=== PATIENT | female | born 1950 | race Caucasian/White ===

== ENCOUNTER 2018-02-04 05:24 | Inpatient (IN) ==
--- NOTE | 2018-02-04 05:46 | Emergency Department Note ---
Disposition Clinical Impression: Hepatic lesion, Pulmonary nodule UTI (urinary tract infection) Qualifiers: Urinary tract infection type: site unspecified Hematuria presence: without hematuria Qualified Code(s): N39.0 - Urinary tract infection, site not specified Syncope Qualifiers: Syncope type: vasovagal syncope Qualified Code(s): R55 - Syncope and collapse Disposition: Admitted As Inpatient Condition: Undetermined Syncope HPI - General Chief Complaint: ED Fall Stated Complaint: Syncope Source: patient, EMS Mode of arrival: EMS Limitations: no limitations Nursing Notes Reviewed: Yes Vital Signs Reviewed: Yes - History of Present Illness HPI Narrative: This is a 67 year-old female with history of HTN, IDDM, CVA, COPD on 2L home O2 , and DVT/PE. She presented via EMS after an apparent syncopal event. She was found down, unresponsive by her , who told EMS she was down for an hour. Duration of LOC unknown. On EMS arrival, patient was confused, but mental status improved to baseline prior to arrival in the ED. Patient is unable to describe the events just before she passed out, except to say that she has been dizzy for "months". Patient complains of mild neck and low back pain. Pt Subjective Complaint: loss of consciousness Onset (ago): Just [employer] J[employer] Duration: other (unknn) Description of Event: post-event confusion Prodromal Symptoms: lightheaded Witnessed: no Injuries Sustained Associated with Event: neck, back Current Symptoms: lightheaded, vertigo (?) History: previous syncopal episode Treatments prior to arrival: other (C-collar) Associated trauma secondary to event: Yes - Related Data Home Medications Medication Instructions Recorded Confirmed Albuterol Sulfate [Proair Hfa] 2 puff IH Q4H PRN 02/04/18 02/04/18 Amitriptyline HCl 100 mg PO HS 02/04/18 02/04/18 Furosemide [Lasix] 60 mg PO BID 02/04/18 02/04/18 Insulin Glargine,Hum.rec.anlog 50 unit SQ BID 02/04/18 02/04/18 [Basaglar Kwikpen U-100] Metoprolol [Lopressor] 50 mg PO BID 02/04/18 02/04/18 OxyCODONE Immed Rel [Roxicodone 10 10 - 15 mg PO Q4-6H PRN 02/04/18 02/04/18 MG] Xyzal 5 mg PO DAILY 02/04/18 Allergies Allergy/AdvReac Type Severity Reaction Status Date / Time codeine Allergy Itching Verified 02/10/16 15:52 Penicillins [PCN] Allergy Hives Verified 02/10/16 15:52 IVP dye Allergy Itching Uncoded 02/10/16 15:52 All systems ED: reviewed and negative except as stated. Constitutional: Denies: fever Cardiovascular: Reports: syncope. Denies: chest pain Respiratory: Denies: dyspnea Gastrointestinal: Denies: abdominal pain, vomiting, hematemesis, melena, hematochezia Genitourinary: Reports: other (vaginal bleeding for "months") Musculoskeletal: Reports: back pain (mild low back pain, history of chronic back pain) Neurological: Reports: vertigo. 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 Absent: respiratory distress, wheezes - Cardiovascular Cardiovascular exam: Present: regular rate, normal rhythm, normal heart sounds - Abdominal Exam Abdominal exam: Present: soft, Non-Tender. Absent: distention, guarding, rebound, rigidity - Extremities Exam Extremities exam: Present: normal inspection. Absent: pedal edema, calf tenderness - Neurological Exam Neurological exam: Present: alert, oriented X3, CN II-XII intact. Absent: motor sensory deficit - Psychiatric Psychiatric exam: Present: normal affect, normal mood - Skin Skin exam: Present: warm, dry, intact Course Vital Signs Temperature 97.7 F 02/04/18 05:28 Pulse Rate 86 02/04/18 05:28 Respiratory Rate 12 02/04/18 05:28 Blood Pressure 112/78 02/04/18 05:28 O2 Sat by Pulse Oximetry 94 02/04/18 05:28 Temperature 97.9 F 02/05/18 18:35 Pulse Rate 72 02/05/18 18:35 Respiratory Rate 17 02/05/18 18:35 Blood Pressure 117/62 02/05/18 18:35 O2 Sat by Pulse Oximetry 96 02/05/18 18:35 Oxygen Delivery Oxygen Delivery Nasal Cannula Syncope - Lab Data Lab results reviewed: Yes I reviewed the patient's lab results. Result diagrams: 02/05/18 07:56 02/05/18 07:56 Lab Results 02/04/18 02/04/18 02/04/18 Range/Units 05:34 05:34 05:34 WBC 4.5 (4.3-11.1) K/mcL RBC 4.62 (3.82-4.97) M/mcL Hgb 14.3 (11.5-15.4) g/dL Hct 41.8 (35.3-44.9) % MCV 90.5 (83.0-100.0) fL MCH 31.0 (28.0-33.3) pg MCHC 34.2 (31.6-35.5) g/dL RDW 13.7 (11.5-14.5) % Plt Count 136 L (140-400) K/mcL MPV 10.7 (9.4-12.4) fL Immature Gran % 0.4 (0-4) % Seg Neutrophils % 72.8 % Lymphocytes % 18.6 % Monocytes % 7.6 % Eosinophils % 0.2 % Basophils % 0.4 % Neutrophils # 3.2 (1.6-8.9) K/mcL Lymphocytes # 0.8 (0.6-4.6) K/mcL Monocytes # 0.3 (0.0-1.3) K/mcL Eosinophils # 0.0 (0.0-0.6) K/mcL Basophils # 0.0 (0.0-0.2) K/mcL PT 12.7 H (9.4-12.1) Seconds INR 1.2 D-Dimer (0-500) ng/mLFEU Sodium 131 L (136-145) mEq/L Potassium 4.5 (3.5-5.1) mEq/L Chloride 94 L (98-107) mEq/L Carbon Dioxide 27 (23-29) mEq/L BUN 16 (8-23) mg/dL Creatinine 0.78 (0.60-1.20) mg/dL Est GFR ( Amer) > 60 (> 60) Est GFR (Non-Af Amer) > 60 (> 60) BUN/Creatinine Ratio 21 (6-26) Glucose 432 H (70-105) mg/dL POC Glucose (70-99) mg/dL Calculated Osmolality 292 (280-300) Calcium 9.3 (8.6-10.3) mg/dL Total Bilirubin 0.8 (0.3-1.0) mg/dL AST 20 (13-39) Units/L ALT 16 (7-52) Units/L Alkaline Phosphatase 116 H (34-104) Units/L Troponin I < 0.03 (< 0.04) ng/mL Serum Total Protein 7.5 (6.4-8.9) g/dL Albumin 3.7 (3.5-5.7) g/dL Globulin 3.8 H (2.4-3.5) g/dL Albumin/Globulin Ratio 1.0 L (1.1-2.2) Urine Color (Yellow) Urine Clarity (Clear) Urine pH (5.0-8.0) pH Units Ur Specific [place] (1.010-1.025) Urine Protein (Neg-Trace) mg/dL Urine Glucose (UA) (Normal) mg/dL Urine Ketones (Negative) mg/dL Urine Blood (Negative) Urine Nitrite (Negative) Urine Bilirubin (Negative) Urine Urobilinogen (Normal) mg/dL Ur Leukocyte Esterase (Negative) Urine Microscopic RBC (0-3) per hpf Urine Microscopic WBC (0-3) per hpf Ur Squamous Epith Cells (None-Few) per lpf Urine Bacteria (None-Few) per hpf Hyaline Casts (None-Few) per lpf Urine Yeast (None Seen) per hpf Ur Culture Indicated? (NO) 02/04/18 02/04/18 02/04/18 Range/Units 05:35 05:35 05:36 WBC (4.3-11.1) K/mcL RBC (3.82-4.97) M/mcL Hgb (11.5-15.4) g/dL Hct (35.3-44.9) % MCV (83.0-100.0) fL MCH (28.0-33.3) pg MCHC (31.6-35.5) g/dL RDW (11.5-14.5) % Plt Count (140-400) K/mcL MPV (9.4-12.4) fL Immature Gran % (0-4) % Seg Neutrophils % % Lymphocytes % % Monocytes % % Eosinophils % % Basophils % % Neutrophils # (1.6-8.9) K/mcL Lymphocytes # (0.6-4.6) K/mcL Monocytes # (0.0-1.3) K/mcL Eosinophils # (0.0-0.6) K/mcL Basophils # (0.0-0.2) K/mcL PT (9.4-12.1) Seconds INR D-Dimer 948 H (0-500) ng/mLFEU Sodium (136-145) mEq/L Potassium (3.5-5.1) mEq/L Chloride (98-107) mEq/L Carbon Dioxide (23-29) mEq/L BUN (8-23) mg/dL Creatinine (0.60-1.20) mg/dL Est GFR ( Amer) (> 60) Est GFR (Non-Af Amer) (> 60) BUN/Creatinine Ratio (6-26) Glucose (70-105) mg/dL POC Glucose 428 H* 422 H* (70-99) mg/dL Calculated Osmolality (280-300) Calcium (8.6-10.3) mg/dL Total Bilirubin (0.3-1.0) mg/dL AST (13-39) Units/L ALT (7-52) Units/L Alkaline Phosphatase (34-104) Units/L Troponin I (< 0.04) ng/mL Serum Total Protein (6.4-8.9) g/dL Albumin (3.5-5.7) g/dL Globulin (2.4-3.5) g/dL Albumin/Globulin Ratio (1.1-2.2) Urine Color (Yellow) Urine Clarity (Clear) Urine pH (5.0-8.0) pH Units Ur Specific [place] (1.010-1.025) Urine Protein (Neg-Trace) mg/dL Urine Glucose (UA) (Normal) mg/dL Urine Ketones (Negative) mg/dL Urine Blood (Negative) Urine Nitrite (Negative) Urine Bilirubin (Negative) Urine Urobilinogen (Normal) mg/dL Ur Leukocyte Esterase (Negative) Urine Microscopic RBC (0-3) per hpf Urine Microscopic WBC (0-3) per hpf Ur Squamous Epith Cells (None-Few) per lpf Urine Bacteria (None-Few) per hpf Hyaline Casts (None-Few) per lpf Urine Yeast (None Seen) per hpf Ur Culture Indicated? (NO) 02/04/18 02/04/18 02/04/18 Range/Units 05:40 09:33 09:34 WBC (4.3-11.1) K/mcL RBC (3.82-4.97) M/mcL Hgb (11.5-15.4) g/dL Hct (35.3-44.9) % MCV (83.0-100.0) fL MCH (28.0-33.3) pg MCHC (31.6-35.5) g/dL RDW (11.5-14.5) % Plt Count (140-400) K/mcL MPV (9.4-12.4) fL Immature Gran % (0-4) % Seg Neutrophils % % Lymphocytes % % Monocytes % % Eosinophils % % Basophils % % Neutrophils # (1.6-8.9) K/mcL Lymphocytes # (0.6-4.6) K/mcL Monocytes # (0.0-1.3) K/mcL Eosinophils # (0.0-0.6) K/mcL Basophils # (0.0-0.2) K/mcL PT (9.4-12.1) Seconds INR D-Dimer (0-500) ng/mLFEU Sodium (136-145) mEq/L Potassium (3.5-5.1) mEq/L Chloride (98-107) mEq/L Carbon Dioxide (23-29) mEq/L BUN (8-23) mg/dL Creatinine (0.60-1.20) mg/dL Est GFR ( Amer) (> 60) Est GFR (Non-Af Amer) (> 60) BUN/Creatinine Ratio (6-26) Glucose (70-105) mg/dL POC Glucose 413 H* 315 H (70-99) mg/dL Calculated Osmolality (280-300) Calcium (8.6-10.3) mg/dL Total Bilirubin (0.3-1.0) mg/dL AST (13-39) Units/L ALT (7-52) Units/L Alkaline Phosphatase (34-104) Units/L Troponin I (< 0.04) ng/mL Serum Total Protein (6.4-8.9) g/dL Albumin (3.5-5.7) g/dL Globulin (2.4-3.5) g/dL Albumin/Globulin Ratio (1.1-2.2) Urine Color Yellow (Yellow) Urine Clarity Turbid A (Clear) Urine pH 5.5 (5.0-8.0) pH Units Ur Specific [place] > 1.030 H (1.010-1.025) Urine Protein 30 H (Neg-Trace) mg/dL Urine Glucose (UA) >=1000 H (Normal) mg/dL Urine Ketones 15 H (Negative) mg/dL Urine Blood Large H (Negative) Urine Nitrite Negative (Negative) Urine Bilirubin Negative (Negative) Urine Urobilinogen Normal (Normal) mg/dL Ur Leukocyte Esterase Moderate H (Negative) Urine Microscopic RBC 0-3 (0-3) per hpf Urine Microscopic WBC TNTC H (0-3) per hpf Ur Squamous Epith Cells Many H (None-Few) per lpf Urine Bacteria Many H (None-Few) per hpf Hyaline Casts None Seen (None-Few) per lpf Urine Yeast Many H (None Seen) per hpf Ur Culture Indicated? NO. A (NO) - Radiology Data Radiology results reviewed: Yes I reviewed the patient's radiology results. CT/CT head/brain wo con IMPRESSION: No acute intracranial abnormality. CT/CT cervical spine wo con IMPRESSION: 1. No acute abnormality of the cervical spine. 2. Degenerative changes at C5-6 and C6-7. 3. Stable 5 mm nodule in the right lung apex which can be considered benign. No follow-up is necessary. CT/CT abd pelvis wo no iv no oral IMPRESSION: 1. No CT evidence for acute intraabdominal process. 2. Degenerative changes of the lumbar spine, but no CT evidence for acute osseous abnormality of the lumbar spine. 3. Cirrhotic changes of the liver with associated splenomegaly. New sub 5 mm hypodensity in the hepatic dome is nonspecific. Could consider MRI for further evaluation, as indicated. XR/XR chest 1V portable IMPRESSION: No significant findings in the chest. CT/CT lumbar spine wo con IMPRESSION: 1. No CT evidence for acute intraabdominal process. 2. Degenerative changes of the lumbar spine, but no CT evidence for acute osseous abnormality of the lumbar spine. 3. Cirrhotic changes of the liver with associated splenomegaly. New sub 5 mm hypodensity in the hepatic dome is nonspecific. Could consider MRI for further evaluation, as indicated. - EKG Data EKG attestation: Yes I reviewed and interpreted this EKG. EKG shows normal: sinus rhythm Rate: normal Rhythm: NSR Voltage: decreased voltage throughout Interpretation: unchanged when compared to prior tracing (date) (04/21/15)
[2018-02-04 06:07] LABS: Bilirubin,Urine Negative (Negative); Blood,Urine Large (Negative); Clarity,Urine Turbid (Clear); Color,Urine Yellow (Yellow); Glucose,Urine (UA) >=1000 mg/dL (Normal); Ketones,Urine 15 mg/dL (Negative); Leukocyte Esterase,Urine Moderate (Negative); Nitrite,Urine Negative (Negative); PH,Urine 5.5 pH Units (5.0-8.0); Protein,Urine 30 mg/dL (Neg-Trace); Specific Gravity,Urine > 1.030 (1.010-1.025); Urobilinogen,Urine Normal (Normal)
[2018-02-04 06:08] LABS: Basophils % 0.4 %; Eosinophils % 0.2 %; Hematocrit 41.8 % (35.3-44.9); Hemoglobin 14.3 g/dL (11.5-15.4); Immature Granulocytes % 0.4 % (0-4); Lymphocytes # 0.8 K/mcL (0.6-4.6); Lymphocytes % 18.6 %; Mean Corpuscular HGB Conc 34.2 g/dL (31.6-35.5); Mean Corpuscular Volume 90.5 fL (83.0-100.0); Mean Platelet Volume 10.7 fL (9.4-12.4); Monocytes # 0.3 K/mcL (0.0-1.3); Monocytes % 7.6 %; Neutrophils # 3.2 K/mcL (1.6-8.9); Platelet Count 136 K/mcL (140-400); Red Blood Count 4.62 M/mcL (3.82-4.97); Red Cell Distribution Width 13.7 % (11.5-14.5); Segmented Neutrophils % 72.8 %
[2018-02-04 06:10] LABS: Bacteria,Urine Many per hpf (None-Few); Hyaline Casts,Urine None Seen per lpf (None-Few); Squamous Epithelial Cell,Urine Many per lpf (None-Few); WBC,Urine TNTC per hpf (0-3)
[2018-02-04 06:13] LABS: INR 1.2; Prothrombin Time 12.7 Seconds (9.4-12.1)
[2018-02-04 06:20] LABS: Alanine Aminotransferase 16 Units/L (7-52); Albumin 3.7 g/dL (3.5-5.7); Alkaline Phosphatase 116 Units/L (34-104); Aspartate Amino Transferase 20 Units/L (13-39); BUN/Creatinine Ratio 21 (6-26); Bilirubin,Total 0.8 mg/dL (0.3-1.0); Blood Urea Nitrogen 16 mg/dL (8-23); Calcium 9.3 mg/dL (8.6-10.3); Carbon Dioxide 27 mEq/L (23-29); Chloride 94 mEq/L (98-107); Globulin 3.8 g/dL (2.4-3.5); Glucose 432 mg/dL (70-105); Osmolality,Calculated 292 (280-300); Potassium 4.5 mEq/L (3.5-5.1); Sodium 131 mEq/L (136-145); Total Protein 7.5 g/dL (6.4-8.9); Troponin I < 0.03 ng/mL (< 0.04); eGFR For African Americans > 60 (> 60); eGFR For Non-African Americans > 60 (> 60)
[2018-02-04 06:22] LABS: RBC,Urine 0-3 per hpf (0-3); Yeast,Urine Many per hpf (None Seen)
[2018-02-04] MEDS ORDERED: 0.9 % Sodium Chloride 1,000 ML IVC ONE (06:29)
[2018-02-04] MEDS ORDERED: cefTRIAXone 2,000 MG in Water for inj. (sterile) 20 ML 20 ML IVP ONE (06:30)
--- NOTE | 2018-02-04 07:45 | Emergency Department Note ---
Disposition Clinical Impression: UTI (urinary tract infection) Qualifiers: Urinary tract infection type: site unspecified Hematuria presence: without hematuria Qualified Code(s): N39.0 - Urinary tract infection, site not specified Syncope Qualifiers: Syncope type: unspecified Qualified Code(s): R55 - Syncope and collapse Disposition: Admitted As Inpatient Referrals: Julio Larios MD [Primary Care Provider] - Forms: ED Satisfaction Letter General Adult HPI - General Chief complaint: ED Fall Stated complaint: Syncope Time Seen by Provider: 02/04/18 07:24 Source: patient, EMS Mode of arrival: EMS Limitations: no limitations - History of Present Illness Pain Scale: 0 - Related Data Home Medications Medication Instructions Recorded Confirmed Albuterol Sulfate [Proair HFA] 2 puff IH Q4HR 04/21/15 02/10/16 Amitriptyline [Elavil] 100 mg PO BID 04/21/15 02/10/16 Budesonide/Formoterol 160/4.5 1 puff IH BIDR 04/21/15 02/10/16 [Symbicort] Cyclobenzaprine [Flexeril] 10 mg PO TID 04/21/15 02/10/16 Fluticasone/Salmeterol [Advair 1 puff IH BID 04/21/15 02/10/16 500-50 Diskus] Furosemide [Lasix] 60 mg PO BID 04/21/15 02/10/16 Insulin LISPRO [HumaLOG] 50 units SQ TID 04/21/15 02/10/16 Insulin Lispro Protamin/Lispro 30 unit SQ BID 04/21/15 02/10/16 [Humalog Mix 75-25 Kwikpen] Metoprolol [Lopressor] 50 mg PO BID 04/21/15 02/10/16 Omeprazole [PriLOSEC] 20 mg PO QAM 04/21/15 02/10/16 OxyCODONE Immed Rel [Roxicodone] 10 - 15 mg PO Q6HR 04/21/15 02/10/16 Pravastatin Sodium [Pravachol] 40 mg PO QPM 04/21/15 02/10/16 Prochlorperazine Maleate 5 mg PO BID 04/21/15 02/10/16 [Compazine] Promethazine [Phenergan] 12.5 mg PO TID 04/21/15 02/10/16 Rivaroxaban [Xarelto] 15 mg PO QAM 04/21/15 02/10/16 Previous Rx's Medication Instructions Recorded DiphenhydraMINE [Benadryl] 25 mg PO Q6HR PRN #20 capsule 02/10/16 Hydrocortisone 1% CREAM [Cortaid] 1 appl TP BID #28 gm 02/10/16 Allergies Allergy/AdvReac Type Severity Reaction Status Date / Time codeine Allergy Itching Verified 02/10/16 15:52 Penicillins [PCN] Allergy Hives Verified 02/10/16 15:52 IVP dye Allergy Itching Uncoded 02/10/16 15:52 Constitutional: Denies: fever Cardiovascular: Reports: syncope. Denies: chest pain Respiratory: Denies: dyspnea Gastrointestinal: Denies: abdominal pain, vomiting, hematemesis, melena, hematochezia Genitourinary: Reports: other (vaginal bleeding for "months") Musculoskeletal: Reports: back pain (mild low back pain, history of chronic back pain) Neurological: Reports: vertigo. 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 - Social History Smoking Status: Never smoker Smokeless Tobacco Status: No Alcohol use: Reports: none Drug use: Reports: none Physical Exam - General Limitations: no limitations General appearance: alert, in no apparent distress Course Vital Signs Temperature 97.7 F 02/04/18 05:28 Pulse Rate 86 02/04/18 05:28 Respiratory Rate 12 02/04/18 05:28 Blood Pressure 112/78 02/04/18 05:28 O2 Sat by Pulse Oximetry 94 02/04/18 05:28 Temperature 97.7 F 02/04/18 05:28 Pulse Rate 83 02/04/18 06:29 Respiratory Rate 12 02/04/18 06:29 Blood Pressure 142/60 02/04/18 06:29 O2 Sat by Pulse Oximetry 94 02/04/18 06:29 Oxygen Delivery Oxygen Delivery Nasal Cannula Medical Decision Making - Lab Data Result diagrams: 02/04/18 05:34 02/04/18 05:34 Lab Results 02/04/18 02/04/18 02/04/18 Range/Units 05:34 05:34 05:34 WBC 4.5 (4.3-11.1) K/mcL RBC 4.62 (3.82-4.97) M/mcL Hgb 14.3 (11.5-15.4) g/dL Hct 41.8 (35.3-44.9) % MCV 90.5 (83.0-100.0) fL MCH 31.0 (28.0-33.3) pg MCHC 34.2 (31.6-35.5) g/dL RDW 13.7 (11.5-14.5) % Plt Count 136 L (140-400) K/mcL MPV 10.7 (9.4-12.4) fL Immature Gran % 0.4 (0-4) % Seg Neutrophils % 72.8 % Lymphocytes % 18.6 % Monocytes % 7.6 % Eosinophils % 0.2 % Basophils % 0.4 % Neutrophils # 3.2 (1.6-8.9) K/mcL Lymphocytes # 0.8 (0.6-4.6) K/mcL Monocytes # 0.3 (0.0-1.3) K/mcL Eosinophils # 0.0 (0.0-0.6) K/mcL Basophils # 0.0 (0.0-0.2) K/mcL PT 12.7 H (9.4-12.1) Seconds INR 1.2 D-Dimer (0-500) ng/mLFEU Sodium 131 L (136-145) mEq/L Potassium 4.5 (3.5-5.1) mEq/L Chloride 94 L (98-107) mEq/L Carbon Dioxide 27 (23-29) mEq/L BUN 16 (8-23) mg/dL Creatinine 0.78 (0.60-1.20) mg/dL Est GFR ( Amer) > 60 (> 60) Est GFR (Non-Af Amer) > 60 (> 60) BUN/Creatinine Ratio 21 (6-26) Glucose 432 H (70-105) mg/dL POC Glucose (70-99) mg/dL Calculated Osmolality 292 (280-300) Calcium 9.3 (8.6-10.3) mg/dL Total Bilirubin 0.8 (0.3-1.0) mg/dL AST 20 (13-39) Units/L ALT 16 (7-52) Units/L Alkaline Phosphatase 116 H (34-104) Units/L Troponin I < 0.03 (< 0.04) ng/mL Serum Total Protein 7.5 (6.4-8.9) g/dL Albumin 3.7 (3.5-5.7) g/dL Globulin 3.8 H (2.4-3.5) g/dL Albumin/Globulin Ratio 1.0 L (1.1-2.2) Urine Color (Yellow) Urine Clarity (Clear) Urine pH (5.0-8.0) pH Units Ur Specific [place] (1.010-1.025) Urine Protein (Neg-Trace) mg/dL Urine Glucose (UA) (Normal) mg/dL Urine Ketones (Negative) mg/dL Urine Blood (Negative) Urine Nitrite (Negative) Urine Bilirubin (Negative) Urine Urobilinogen (Normal) mg/dL Ur Leukocyte Esterase (Negative) Urine Microscopic RBC (0-3) per hpf Urine Microscopic WBC (0-3) per hpf Ur Squamous Epith Cells (None-Few) per lpf Urine Bacteria (None-Few) per hpf Hyaline Casts (None-Few) per lpf Urine Yeast (None Seen) per hpf Ur Culture Indicated? (NO) 02/04/18 02/04/18 02/04/18 Range/Units 05:35 05:35 05:36 WBC (4.3-11.1) K/mcL RBC (3.82-4.97) M/mcL Hgb (11.5-15.4) g/dL Hct (35.3-44.9) % MCV (83.0-100.0) fL MCH (28.0-33.3) pg MCHC (31.6-35.5) g/dL RDW (11.5-14.5) % Plt Count (140-400) K/mcL MPV (9.4-12.4) fL Immature Gran % (0-4) % Seg Neutrophils % % Lymphocytes % % Monocytes % % Eosinophils % % Basophils % % Neutrophils # (1.6-8.9) K/mcL Lymphocytes # (0.6-4.6) K/mcL Monocytes # (0.0-1.3) K/mcL Eosinophils # (0.0-0.6) K/mcL Basophils # (0.0-0.2) K/mcL PT (9.4-12.1) Seconds INR D-Dimer 948 H (0-500) ng/mLFEU Sodium (136-145) mEq/L Potassium (3.5-5.1) mEq/L Chloride (98-107) mEq/L Carbon Dioxide (23-29) mEq/L BUN (8-23) mg/dL Creatinine (0.60-1.20) mg/dL Est GFR ( Amer) (> 60) Est GFR (Non-Af Amer) (> 60) BUN/Creatinine Ratio (6-26) Glucose (70-105) mg/dL POC Glucose 428 H* 422 H* (70-99) mg/dL Calculated Osmolality (280-300) Calcium (8.6-10.3) mg/dL Total Bilirubin (0.3-1.0) mg/dL AST (13-39) Units/L ALT (7-52) Units/L Alkaline Phosphatase (34-104) Units/L Troponin I (< 0.04) ng/mL Serum Total Protein (6.4-8.9) g/dL Albumin (3.5-5.7) g/dL Globulin (2.4-3.5) g/dL Albumin/Globulin Ratio (1.1-2.2) Urine Color (Yellow) Urine Clarity (Clear) Urine pH (5.0-8.0) pH Units Ur Specific [place] (1.010-1.025) Urine Protein (Neg-Trace) mg/dL Urine Glucose (UA) (Normal) mg/dL Urine Ketones (Negative) mg/dL Urine Blood (Negative) Urine Nitrite (Negative) Urine Bilirubin (Negative) Urine Urobilinogen (Normal) mg/dL Ur Leukocyte Esterase (Negative) Urine Microscopic RBC (0-3) per hpf Urine Microscopic WBC (0-3) per hpf Ur Squamous Epith Cells (None-Few) per lpf Urine Bacteria (None-Few) per hpf Hyaline Casts (None-Few) per lpf Urine Yeast (None Seen) per hpf Ur Culture Indicated? (NO) 02/04/18 Range/Units 05:40 WBC (4.3-11.1) K/mcL RBC (3.82-4.97) M/mcL Hgb (11.5-15.4) g/dL Hct (35.3-44.9) % MCV (83.0-100.0) fL MCH (28.0-33.3) pg MCHC (31.6-35.5) g/dL RDW (11.5-14.5) % Plt Count (140-400) K/mcL MPV (9.4-12.4) fL Immature Gran % (0-4) % Seg Neutrophils % % Lymphocytes % % Monocytes % % Eosinophils % % Basophils % % Neutrophils # (1.6-8.9) K/mcL Lymphocytes # (0.6-4.6) K/mcL Monocytes # (0.0-1.3) K/mcL Eosinophils # (0.0-0.6) K/mcL Basophils # (0.0-0.2) K/mcL PT (9.4-12.1) Seconds INR D-Dimer (0-500) ng/mLFEU Sodium (136-145) mEq/L Potassium (3.5-5.1) mEq/L Chloride (98-107) mEq/L Carbon Dioxide (23-29) mEq/L BUN (8-23) mg/dL Creatinine (0.60-1.20) mg/dL Est GFR ( Amer) (> 60) Est GFR (Non-Af Amer) (> 60) BUN/Creatinine Ratio (6-26) Glucose (70-105) mg/dL POC Glucose (70-99) mg/dL Calculated Osmolality (280-300) Calcium (8.6-10.3) mg/dL Total Bilirubin (0.3-1.0) mg/dL AST (13-39) Units/L ALT (7-52) Units/L Alkaline Phosphatase (34-104) Units/L Troponin I (< 0.04) ng/mL Serum Total Protein (6.4-8.9) g/dL Albumin (3.5-5.7) g/dL Globulin (2.4-3.5) g/dL Albumin/Globulin Ratio (1.1-2.2) Urine Color Yellow (Yellow) Urine Clarity Turbid A (Clear) Urine pH 5.5 (5.0-8.0) pH Units Ur Specific [place] > 1.030 H (1.010-1.025) Urine Protein 30 H (Neg-Trace) mg/dL Urine Glucose (UA) >=1000 H (Normal) mg/dL Urine Ketones 15 H (Negative) mg/dL Urine Blood Large H (Negative) Urine Nitrite Negative (Negative) Urine Bilirubin Negative (Negative) Urine Urobilinogen Normal (Normal) mg/dL Ur Leukocyte Esterase Moderate H (Negative) Urine Microscopic RBC 0-3 (0-3) per hpf Urine Microscopic WBC TNTC H (0-3) per hpf Ur Squamous Epith Cells Many H (None-Few) per lpf Urine Bacteria Many H (None-Few) per hpf Hyaline Casts None Seen (None-Few) per lpf Urine Yeast Many H (None Seen) per hpf Ur Culture Indicated? NO. A (NO) Attestation Statement - Attestation Attestation: I examined this patient and my medical decision-making was reviewed with the Resident Physician. I agree with the documented findings, disposition and treatment plan as described except to the extent set forth below. accepted sign out from Dr. Irwin. This is a 67 year old female who had a fall and is unsure of LOC. We are waiting on VQ scan to return before D-dimer. Seocndary to her syncope and pending V/Q scan that wont be able to be done till 1030 we will admit to medicine for furhter evlaution.
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
--- NOTE | 2018-02-04 09:52 | Internal Med History&Physical ---
Date of Encounter: 02/04/18 Time of Encounter: 09:49 Internal Medicine - H&P: HPI Chief complaint: Syncope History of present illness: Ms. Casillas is a 67 year old female history of diabetes type 2 on insulin, depression, hypertension who presents with acute syncopal episode. The patient got out of bed to the bathroom at 2 PM to urinate and felt that she was not feeling right. Her helped her up to the bathroom but she subsequently developed a syncopal episode where she blacked out in the bathroom with trauma to the back of the head. Her went to help and called the EMS. It was reported that she blacked out for one hour. On arrival to the ER she was alert oriented and had regain her consciousness. On review she notes that she been having dizzy spells intermittently but never this bad. In the ED she was found to be a pyuric. Review of symptoms noted several weeks history of dysuria and frequency to suggest symptomatic UTI. EKG personally reviewed with rate 83, normal sinus rhythm questionable Q-wave from prior CT/CT lumbar spine wo con IMPRESSION: 1. No CT evidence for acute intraabdominal process. 2. Degenerative changes of the lumbar spine, but no CT evidence for acute osseous abnormality of the lumbar spine. 3. Cirrhotic changes of the liver with associated splenomegaly. New sub 5 mm hypodensity in the hepatic dome is nonspecific. Could consider MRI for further evaluation, as indicated. XR/XR chest 1V portable IMPRESSION: No significant findings in the chest. CT/CT head/brain wo con IMPRESSION: No acute intracranial abnormality. CT/CT cervical spine wo con IMPRESSION: 1. No acute abnormality of the cervical spine. 2. Degenerative changes at C5-6 and C6-7. 3. Stable 5 mm nodule in the right lung apex which can be considered benign. No follow-up is necessary. CT/CT abd pelvis wo no iv no oral IMPRESSION: 1. No CT evidence for acute intraabdominal process. 2. Degenerative changes of the lumbar spine, but no CT evidence for acute osseous abnormality of the lumbar spine. 3. Cirrhotic changes of the liver with associated splenomegaly. New sub 5 mm hypodensity in the hepatic dome is nonspecific. Could consider MRI for further evaluation, as indicated. CT/CT lumbar spine wo con IMPRESSION: 1. No CT evidence for acute intraabdominal process. 2. Degenerative changes of the lumbar spine, but no CT evidence for acute osseous abnormality of the lumbar spine. 3. Cirrhotic changes of the liver with associated splenomegaly. New sub 5 mm hypodensity in the hepatic dome is nonspecific. Could consider MRI for further evaluation, as indicated. Past Med Surg Social Fam HX - Past Medical History Medical history: no medical history, cancer, COPD, CVA, DVT, diabetes, hypertension Additional medical history: ovarian cancer, pe Psychiatric history: no psych history - Past Surgical History Surgical History: appendectomy, hysterectomy, other (left partial mastectomy 2013, colovaginal fistula repair, incisional hernia repair 2011, a-port placement 02/2014) Additional surgical history: BACK. LUMPECTOMY LEFT BREAST - Social History Smoking Status: Never smoker Smokeless Tobacco Status: No Alcohol use: none Drug use: none Internal Medicine - H&P: Meds Albuterol Sulfate [Proair Hfa] 2 puff IH Q4H PRN 02/04/18 [History] Amitriptyline HCl 100 mg PO HS 02/04/18 [History] Furosemide [Lasix] 60 mg PO BID 02/04/18 [History] Insulin Glargine,Hum.rec.anlog [Basaglar Kwikpen U-100] 50 unit SQ BID 02/04/18 [History] Metoprolol [Lopressor] 50 mg PO BID 02/04/18 [History] OxyCODONE Immed Rel [Roxicodone 10 MG] 10 - 15 mg PO Q4-6H PRN 02/04/18 [History ] Xyzal 5 mg PO DAILY 02/04/18 [History] 3 Allergy/AdvReac Type Severity Reaction Status Date / Time codeine Allergy Itching Verified 02/10/16 15:52 Penicillins [PCN] Allergy Hives Verified 02/10/16 15:52 IVP dye Allergy Itching Uncoded 02/10/16 15:52 All Systems PM: A 10-system review of systems was performed and is negative for pertinent findings except as documented above in the HPI. - Constitutional Vitals: Temp Pulse Resp BP Pulse Ox 99.8 F H 82 18 140/71 93 02/04/18 09:20 02/04/18 09:20 02/04/18 09:20 02/04/18 09:20 02/04/18 09:20 Exam: General - AAO x 3 Psych - Appropriate affect/speech. No agitation Eyes - LAURI. Eye lids intact. No scleral icterus Neuro - No gross peripheral or central neuro deficits on inspection Heart - Sinus. RRR. S1 and S2 present. No added HS/murmurs appreciated. No elevated JVD appreciated. Lung - Adequate air entry b/l, No crackles/wheezes appreciated GI - Soft, non-tender. No hepatosplenomegaly/ascites. BS+ - No CVA/suprapubic tenderness or palpable bladder distension Skin - Intact. No rash/petechiae/ecchymosis. Warm extremities Internal Med - H&P Results - Labs CBC & Chem 7: 02/04/18 05:34 02/04/18 05:34 - Assessment and plan (1) Syncope Current Visit: Yes Status: Acute Assessment and plan: Uncertain etiology Could be related to the UTI We will complete preliminary screen with orthostatic BP, telemetry, carotid doppler for now. Further testing pending clinical course as necessary Since we are hydrating patient with IV fluids we would hold her twice a day Lasix dosing (she takes 40-60mg BID) Qualifiers: Syncope type: vasovagal syncope Qualified Code(s): R55 - Syncope and collapse (2) UTI (urinary tract infection) Current Visit: Yes Status: Acute Assessment and plan: Empiric IV Rocephin Cultures pending Qualifiers: Urinary tract infection type: site unspecified Hematuria presence: without hematuria Qualified Code(s): N39.0 - Urinary tract infection, site not specified (3) COPD (chronic obstructive pulmonary disease) Current Visit: No Status: Acute Assessment and plan: baseline Qualifiers: COPD type: chronic bronchitis Qualified Code(s): J41.0 - Simple chronic bronchitis (4) DVT (deep venous thrombosis) Current Visit: No Status: Acute Assessment and plan: hx of VTE, off anticoagulation Qualifiers: DVT location: lower extremity Chronicity: unspecified Laterality: unspecified laterality Qualified Code(s): I82.409 - Acute embolism and thrombosis of unspecified deep veins of unspecified lower extremity (5) Hypertension Current Visit: No Status: Acute Assessment and plan: continue med Qualifiers: Hypertension type: essential hypertension Qualified Code(s): I10 - Essential (primary) hypertension (6) Hepatic lesion Current Visit: Yes Status: Acute Assessment and plan: noted on abdominal imaging. Recommend outpatient follow-up and evaluation as necessary (7) DMII (diabetes mellitus, type 2) Current Visit: Yes Status: Acute Assessment and plan: ISS for now Qualifiers: Diabetes mellitus chcf insulin use: unspecified chcf insulin use status Diabetes mellitus complication status: without complication Qualified Code(s): E11.9 - Type 2 diabetes mellitus without complications - Time Spent With Patient Total time spent is greater than 50% in coordination of care (as documented) at patient's floor/unit and/or counseling patient:
[2018-02-04] MEDS ORDERED: Naloxone 0.4 MG/ML INJ IVP PRN (09:55)
[2018-02-04] MEDS ORDERED: Dextrose Gel 15 GM/37.5 ML TUBE PO PRN ×2 (09:58)
[2018-02-04] MEDS ORDERED: D5% in Water 1,000 ML IVC PRN (09:58)
[2018-02-04] MEDS ORDERED: *HR* Dextrose 50 % in Water (Syg) 50 ML SYRINGE IVP PRN (09:58)
[2018-02-04] MEDS: Insulin DETEMIR 100 UNIT/ML X5UNITS SQ SCH ×2 (12:03→22:14)
[2018-02-04] MEDS: Insulin LISPRO 300 UNITS/3 ML VIAL SQ SCH ×3 (12:06→22:14)
--- NOTE | 2018-02-04 17:11 | Electrocardiograph Report ---
[address] [place] [address] Test Date: 2018-02-04 Pat Name: Sabine Casillas Department: 103 Room: 2S8 Gender: F Licensed Staff Mft: [place] : 1950 Requested By: Kraig Irwin Order Number: [id number] Reading MD: Bernice Garvin Measurements Intervals [place] Rate: 83 P: 20 WI: 183 QRS: -18 QRSD: 90 T: 59 QT: 358 QTc: 398 Interpretive Statements SINUS RHYTHM SEPTAL MYOCARDIAL INFARCTION [40+ ms Q WAVE IN V1/V2], OF INDETERMINATE AGE Electronically Signed On 02-04-2018 17:09:32 EDT by Bernice Garvin
[2018-02-05] MEDS: *HR* Enoxaparin 40 MG/0.4 ML SYRINGE SQ SCH (05:04)
[2018-02-05 08:30] LABS: Basophils % 0.4 %; Eosinophils # 0.1 K/mcL (0.0-0.6); Eosinophils % 1.3 %; Hematocrit 40.3 % (35.3-44.9); Hemoglobin 13.7 g/dL (11.5-15.4); Immature Granulocytes % 0.6 % (0-4); Lymphocytes # 1.5 K/mcL (0.6-4.6); Lymphocytes % 28.7 %; Mean Corpuscular Hemoglobin 30.6 pg (28.0-33.3); Mean Corpuscular Volume 90.2 fL (83.0-100.0); Mean Platelet Volume 10.3 fL (9.4-12.4); Monocytes # 0.5 K/mcL (0.0-1.3); Neutrophils # 3.1 K/mcL (1.6-8.9); Platelet Count 137 K/mcL (140-400); Red Blood Count 4.47 M/mcL (3.82-4.97); Red Cell Distribution Width 13.7 % (11.5-14.5)
[2018-02-05 08:51] LABS: BUN/Creatinine Ratio 22 (6-26); Blood Urea Nitrogen 14 mg/dL (8-23); Calcium 9.1 mg/dL (8.6-10.3); Carbon Dioxide 27 mEq/L (23-29); Chloride 99 mEq/L (98-107); Glucose 101 mg/dL (70-105); Osmolality,Calculated 281 (280-300); Potassium 3.4 mEq/L (3.5-5.1); Sodium 135 mEq/L (136-145); eGFR For African Americans > 60 (> 60); eGFR For Non-African Americans > 60 (> 60)
[2018-02-05] MEDS: cefTRIAXone 1,000 MG in 0.9 % Sodium Chloride Mini Bag 100 ML IVPB SCH (09:08)
[2018-02-05] MEDS: Insulin LISPRO 300 UNITS/3 ML VIAL SQ SCH ×4 (09:10→20:38)
[2018-02-05] MEDS: Insulin DETEMIR 100 UNIT/ML X5UNITS SQ SCH ×2 (12:10→20:38)
[2018-02-05] MEDS: Acetaminophen 325 MG TABLET PO PRN (17:15)
--- NOTE | 2018-02-05 17:57 | Internal Med Progress Note ---
Date of Encounter: 02/05/18 Time of Encounter: 11:00 - Assessment and plan (1) UTI (urinary tract infection) Current Visit: Yes Status: Acute Assessment and plan: Empiric IV Rocephin Cultures pending Qualifiers: Urinary tract infection type: site unspecified Hematuria presence: without hematuria Qualified Code(s): N39.0 - Urinary tract infection, site not specified (2) COPD (chronic obstructive pulmonary disease) Current Visit: No Status: Acute Assessment and plan: Stable at this time no exacerbation continue with home medications Qualifiers: COPD type: chronic bronchitis Chronic bronchitis type: unspecified Qualified Code(s): J42 - Unspecified chronic bronchitis (3) Hypertension Current Visit: No Status: Acute Assessment and plan: She did have a drop in blood pressure with orthostatic vital signs. We will decrease metoprolol 25 mg twice a day and continue to monitor Qualifiers: Hypertension type: essential hypertension Qualified Code(s): I10 - Essential (primary) hypertension (4) DVT (deep venous thrombosis) Current Visit: No Status: Acute Assessment and plan: hx of VTE, off anticoagulation-Lovenox subcutaneous V/Q scan low probability for PE Qualifiers: DVT location: lower extremity Affected thrombotic vein of extremity: unspecified vein of extremity Chronicity: unspecified Laterality: unspecified laterality Qualified Code(s): I82.409 - Acute embolism and thrombosis of unspecified deep veins of unspecified lower extremity (5) Syncope Current Visit: Yes Status: Acute Assessment and plan: Uncertain etiology Could be related to the UTI, she also had a drop in BP we will decrease metoprolol to 25 twice a day We will complete preliminary screen with orthostatic BP, telemetry, carotid doppler nonstenotic plaque bilaterally. hold her twice a day Lasix dosing (she takes 40-60mg BID) continues to have low pressure Qualifiers: Syncope type: vasovagal syncope Qualified Code(s): R55 - Syncope and collapse (6) Hepatic lesion Current Visit: Yes Status: Acute Assessment and plan: noted on abdominal imaging. 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 - Constitutional Vitals: Temp Pulse Resp BP Pulse Ox 98.7 F 72 15 119/69 92 02/05/18 15:52 02/05/18 15:52 02/05/18 15:52 02/05/18 15:52 02/05/18 15:52 General appearance: Present: A&O X 3 - Head Head exam: Present: atraumatic, normocephalic - Eye Eye exam: Present: PERRL, conjuntiva pink, sclera anicteric Pupils: Present: PERRL - Neck Neck exam general surgery: Present: supple, trachea midline. Absent: lymphadenopathy - Respiratory Respiratory exam: Present: CTAB. Absent: accessory muscle use, rales, rhonchi, wheezes - Cardiovascular Cardiovascular exam: Present: RRR, +S1, +S2. Absent: diastolic murmur, gallop, rubs, systolic murmur - GI/Abdominal GI/Abdominal exam: Present: normal bowel sounds, soft, no peritoneal signs. Absent: distended, tenderness - Extremities Exam Extremities exam: Present: warm, radial pulses palpable and symmetrical. Absent : calf tenderness, cyanotic, pedal edema - Neurological Exam Neurological exam: Present: CN II-XII intact, oriented X3, no focal deficits. Absent: pronater drift, facial droop, speech deficit - Skin Skin exam: Present: dry, intact Internal Medicine: Result - Labs CBC & Chem 7: 02/05/18 07:56 02/05/18 07:56 Labs: Short CBC 02/05/18 Range/Units 07:56 WBC 5.2 (4.3-11.1) K/mcL Hgb 13.7 (11.5-15.4) g/dL Hct 40.3 (35.3-44.9) % Plt Count 137 L (140-400) K/mcL Neutrophils # 3.1 (1.6-8.9) K/mcL BMP 02/05/18 07:56 Sodium 135 L Potassium 3.4 L Chloride 99 Carbon Dioxide 27 BUN 14 Creatinine 0.64 Glucose 101 Calcium 9.1 - ABG Interpretation ABG results: PT/INR, D-dimer PT 12.7 Seconds (9.4-12.1) H 02/04/18 05:34 D-Dimer 948 ng/mLFEU (0-500) H 02/04/18 05:35 Consult Discharge Plan - Plan Referrals: Julio Larios MD [Primary Care Provider] - 02/21/18 3:20 pm
[2018-02-06] MEDS: *HR* Enoxaparin 40 MG/0.4 ML SYRINGE SQ SCH (06:17)
[2018-02-06] MEDS: Acetaminophen 325 MG TABLET PO PRN ×3 (06:23→19:59)
[2018-02-06 07:25] LABS: Basophils % 0.2 %; Eosinophils # 0.1 K/mcL (0.0-0.6); Eosinophils % 2.4 %; Hemoglobin 12.7 g/dL (11.5-15.4); Immature Granulocytes % 0.5 % (0-4); Lymphocytes # 1.5 K/mcL (0.6-4.6); Lymphocytes % 36.3 %; Mean Corpuscular HGB Conc 34.3 g/dL (31.6-35.5); Mean Corpuscular Volume 90.2 fL (83.0-100.0); Mean Platelet Volume 10.4 fL (9.4-12.4); Monocytes # 0.4 K/mcL (0.0-1.3); Neutrophils # 2.1 K/mcL (1.6-8.9); Platelet Count 116 K/mcL (140-400); Red Cell Distribution Width 13.9 % (11.5-14.5); Segmented Neutrophils % 51.6 %
[2018-02-06] MEDS: Insulin LISPRO 300 UNITS/3 ML VIAL SQ SCH ×4 (07:32→19:56)
[2018-02-06] MEDS: Insulin DETEMIR 100 UNIT/ML X5UNITS SQ SCH ×2 (07:32→21:30)
[2018-02-06] MEDS: cefTRIAXone 1,000 MG in 0.9 % Sodium Chloride Mini Bag 100 ML IVPB SCH (07:33)
[2018-02-06 07:46] LABS: BUN/Creatinine Ratio 27 (6-26); Blood Urea Nitrogen 16 mg/dL (8-23); Calcium 9.2 mg/dL (8.6-10.3); Carbon Dioxide 25 mEq/L (23-29); Chloride 102 mEq/L (98-107); Glucose 267 mg/dL (70-105); Osmolality,Calculated 293 (280-300); Potassium 3.6 mEq/L (3.5-5.1); Sodium 136 mEq/L (136-145); eGFR For African Americans > 60 (> 60); eGFR For Non-African Americans > 60 (> 60)
--- NOTE | 2018-02-06 21:44 | Internal Med Progress Note ---
Date of Encounter: 02/06/18 Time of Encounter: 16:00 - Assessment and plan (1) Syncope Current Visit: Yes Status: Acute Assessment and plan: Uncertain etiology Could be related to the UTI, she also had a drop in BP we will decrease metoprolol to 25 twice a day Recheck orthostatics in a.m. echo , telemetry, carotid doppler nonstenotic plaque bilaterally. hold her twice a day Lasix dosing (she takes 40-60mg BID) continues to have low pressure Qualifiers: Syncope type: vasovagal syncope Qualified Code(s): R55 - Syncope and collapse (2) UTI (urinary tract infection) Current Visit: Yes Status: Acute Assessment and plan: Empiric IV Rocephine Qualifiers: Urinary tract infection type: site unspecified Hematuria presence: without hematuria Qualified Code(s): N39.0 - Urinary tract infection, site not specified (3) COPD (chronic obstructive pulmonary disease) Current Visit: No Status: Acute Assessment and plan: Stable at this time no exacerbation continue with home medications Qualifiers: COPD type: chronic bronchitis Chronic bronchitis type: unspecified Qualified Code(s): J42 - Unspecified chronic bronchitis (4) Hypertension Current Visit: No Status: Acute Assessment and plan: She did have a drop in blood pressure with orthostatic vital signs. We will decrease metoprolol 25 mg twice a day Recheck orthostatics in a.m. Qualifiers: Hypertension type: essential hypertension Qualified Code(s): I10 - Essential (primary) hypertension (5) DVT (deep venous thrombosis) Current Visit: No Status: Acute Assessment and plan: hx of VTE, off anticoagulation-Lovenox subcutaneous V/Q scan low probability for PE Qualifiers: DVT location: lower extremity Affected thrombotic vein of extremity: unspecified vein of extremity Chronicity: unspecified Laterality: unspecified laterality Qualified Code(s): I82.409 - Acute embolism and thrombosis of unspecified deep veins of unspecified lower extremity (6) Hepatic lesion Current Visit: Yes Status: Acute (7) DMII (diabetes mellitus, type 2) Current Visit: Yes Status: Acute Assessment and plan: ISS for now Accu-Cheks before meals and at bedtime Qualifiers: Diabetes mellitus exterminator helper insulin use: unspecified exterminator helper insulin use status Diabetes mellitus complication status: without complication Qualified Code(s): E11.9 - Type 2 diabetes mellitus without complications - Time Spent With Patient Total time spent is greater than 50% in coordination of care (as documented) at patient's floor/unit and/or counseling patient: - Subjective Interval history: Patient seen and examined at bedside denies any pain or discomfort patient is to make a decision concerning possible inpatient rehabilitation will follow up with shelter case manager in a.m. did review treatment plan the patient verbalized understanding. - Constitutional Vitals: Temp Pulse Resp BP Pulse Ox 98.1 F 73 15 125/74 98 02/06/18 19:27 02/06/18 19:27 02/06/18 19:27 02/06/18 19:27 02/06/18 19:27 General appearance: Present: A&O X 3 - Head Head exam: Present: atraumatic, normocephalic - Eye Eye exam: Present: PERRL, conjuntiva pink, sclera anicteric Pupils: Present: PERRL - Neck Neck exam general surgery: Present: supple, trachea midline. Absent: lymphadenopathy - Respiratory Respiratory exam: Present: CTAB. Absent: accessory muscle use, rales, rhonchi, wheezes - Cardiovascular Cardiovascular exam: Present: RRR, +S1, +S2. Absent: diastolic murmur, gallop, rubs, systolic murmur - GI/Abdominal GI/Abdominal exam: Present: normal bowel sounds, soft, no peritoneal signs. Absent: distended, tenderness - Extremities Exam Extremities exam: Present: warm, radial pulses palpable and symmetrical. Absent : calf tenderness, cyanotic, pedal edema - Neurological Exam Neurological exam: Present: CN II-XII intact, oriented X3, no focal deficits. Absent: pronater drift, facial droop, speech deficit - Skin Skin exam: Present: dry, intact Internal Medicine: Result - Labs CBC & Chem 7: 02/06/18 05:50 02/06/18 05:50 Labs: Short CBC 02/06/18 Range/Units 05:50 WBC 4.1 L (4.3-11.1) K/mcL Hgb 12.7 (11.5-15.4) g/dL Hct 37.0 (35.3-44.9) % Plt Count 116 L (140-400) K/mcL Neutrophils # 2.1 (1.6-8.9) K/mcL BMP 02/06/18 05:50 Sodium 136 Potassium 3.6 Chloride 102 Carbon Dioxide 25 BUN 16 Creatinine 0.59 L Glucose 267 H Calcium 9.2 - ABG Interpretation ABG results: PT/INR, D-dimer PT 12.7 Seconds (9.4-12.1) H 02/04/18 05:34 D-Dimer 948 ng/mLFEU (0-500) H 02/04/18 05:35 Consult Discharge Plan - Plan Referrals: Julio Larios MD [Primary Care Provider] - 02/21/18 3:20 pm
[2018-02-07 01:57] LABS: Basophils % 0.5 %; Eosinophils # 0.1 K/mcL (0.0-0.6); Eosinophils % 2.6 %; Hematocrit 36.6 % (35.3-44.9); Hemoglobin 11.9 g/dL (11.5-15.4); Immature Granulocytes % 0.3 % (0-4); Lymphocytes # 1.6 K/mcL (0.6-4.6); Mean Corpuscular HGB Conc 32.5 g/dL (31.6-35.5); Mean Corpuscular Hemoglobin 29.8 pg (28.0-33.3); Mean Corpuscular Volume 91.7 fL (83.0-100.0); Mean Platelet Volume 10.4 fL (9.4-12.4); Monocytes # 0.3 K/mcL (0.0-1.3); Monocytes % 7.4 %; Neutrophils # 1.8 K/mcL (1.6-8.9); Platelet Count 108 K/mcL (140-400); Red Blood Count 3.99 M/mcL (3.82-4.97); Red Cell Distribution Width 13.7 % (11.5-14.5); Segmented Neutrophils % 48.2 %
[2018-02-07 02:17] LABS: BUN/Creatinine Ratio 27 (6-26); Blood Urea Nitrogen 16 mg/dL (8-23); Carbon Dioxide 28 mEq/L (23-29); Chloride 103 mEq/L (98-107); Glucose 215 mg/dL (70-105); Osmolality,Calculated 294 (280-300); Potassium 3.7 mEq/L (3.5-5.1); Sodium 138 mEq/L (136-145); eGFR For African Americans > 60 (> 60); eGFR For Non-African Americans > 60 (> 60)
[2018-02-07] MEDS: *HR* Enoxaparin 40 MG/0.4 ML SYRINGE SQ SCH (04:55)
[2018-02-07] MEDS: Insulin LISPRO 300 UNITS/3 ML VIAL SQ SCH ×4 (09:35→20:37)
[2018-02-07] MEDS: cefTRIAXone 1,000 MG in 0.9 % Sodium Chloride Mini Bag 100 ML IVPB SCH (09:36)
[2018-02-07] MEDS: Insulin DETEMIR 100 UNIT/ML X5UNITS SQ SCH ×2 (09:36→20:38)
--- NOTE | 2018-02-07 18:24 | Internal Med Progress Note ---
Date of Encounter: 02/07/18 Time of Encounter: 13:22 - Assessment and plan (1) Syncope Current Visit: Yes Status: Acute Assessment and plan: Uncertain etiology- suspect possible orthostatic hypotension or related to UTI Recheck orthostatics in a.m.-hold metoprolol for now echo , telemetry, carotid doppler nonstenotic plaque bilaterally. hold her twice a day Lasix dosing (she takes 40-60mg BID) continues to have low pressure Qualifiers: Syncope type: vasovagal syncope Qualified Code(s): R55 - Syncope and collapse (2) UTI (urinary tract infection) Current Visit: Yes Status: Acute Assessment and plan: Empiric IV Rocephine Qualifiers: Urinary tract infection type: site unspecified Hematuria presence: without hematuria Qualified Code(s): N39.0 - Urinary tract infection, site not specified (3) COPD (chronic obstructive pulmonary disease) Current Visit: No Status: Acute Assessment and plan: Stable at this time no exacerbation continue with home medications Qualifiers: COPD type: chronic bronchitis Chronic bronchitis type: unspecified Qualified Code(s): J42 - Unspecified chronic bronchitis (4) Hypertension Current Visit: No Status: Acute Assessment and plan: She continues to drop in blood pressure with orthostatic vital signs. We will hold blood pressure medication for now Recheck orthostatics in a.m. Qualifiers: Hypertension type: essential hypertension Qualified Code(s): I10 - Essential (primary) hypertension (5) DVT (deep venous thrombosis) Current Visit: No Status: Acute Assessment and plan: hx of VTE, off anticoagulation-Lovenox subcutaneous V/Q scan low probability for PE Qualifiers: DVT location: lower extremity Affected thrombotic vein of extremity: unspecified vein of extremity Chronicity: unspecified Laterality: unspecified laterality Qualified Code(s): I82.409 - Acute embolism and thrombosis of unspecified deep veins of unspecified lower extremity (6) Hepatic lesion Current Visit: Yes Status: Acute Assessment and plan: noted on abdominal imaging. Recommend outpatient follow-up and evaluation as necessary (7) DMII (diabetes mellitus, type 2) Current Visit: Yes Status: Acute Assessment and plan: Blood sugars are stable ISS for now Accu-Cheks before meals and at bedtime Qualifiers: Diabetes mellitus prison insulin use: unspecified prison insulin use status Diabetes mellitus complication status: without complication Qualified Code(s): E11.9 - Type 2 diabetes mellitus without complications - Time Spent With Patient Total time spent is greater than 50% in coordination of care (as documented) at patient's floor/unit and/or counseling patient: - Subjective Interval history: Patient seen and examined at bedside denies any pain or discomfort patient. PT and OT recommending inpatient rehabilitation. patient services coordinator working with patient for placement. - Constitutional Vitals: Temp Pulse Resp BP Pulse Ox 98.7 F 61 17 119/69 98 02/07/18 12:19 02/07/18 12:19 02/07/18 12:19 02/07/18 12:19 02/07/18 12:19 General appearance: Present: A&O X 3 - Head Head exam: Present: atraumatic, normocephalic - Eye Eye exam: Present: PERRL, conjuntiva pink, sclera anicteric Pupils: Present: PERRL - Neck Neck exam general surgery: Present: supple, trachea midline. Absent: lymphadenopathy - Respiratory Respiratory exam: Present: CTAB. Absent: accessory muscle use, rales, rhonchi, wheezes - Cardiovascular Cardiovascular exam: Present: RRR, +S1, +S2. Absent: diastolic murmur, gallop, rubs, systolic murmur - GI/Abdominal GI/Abdominal exam: Present: normal bowel sounds, soft, no peritoneal signs. Absent: distended, tenderness - Extremities Exam Extremities exam: Present: warm, radial pulses palpable and symmetrical. Absent : calf tenderness, cyanotic, pedal edema - Neurological Exam Neurological exam: Present: CN II-XII intact, oriented X3, no focal deficits. Absent: pronater drift, facial droop, speech deficit - Skin Skin exam: Present: dry, intact Internal Medicine: Result - Labs CBC & Chem 7: 02/07/18 01:32 02/07/18 01:32 Labs: Short CBC 02/07/18 Range/Units 01:32 WBC 3.8 L (4.3-11.1) K/mcL Hgb 11.9 (11.5-15.4) g/dL Hct 36.6 (35.3-44.9) % Plt Count 108 L (140-400) K/mcL Neutrophils # 1.8 (1.6-8.9) K/mcL BMP 02/07/18 01:32 Sodium 138 Potassium 3.7 Chloride 103 Carbon Dioxide 28 BUN 16 Creatinine 0.60 Glucose 215 H Calcium 9.0 - ABG Interpretation ABG results: PT/INR, D-dimer PT 12.7 Seconds (9.4-12.1) H 02/04/18 05:34 D-Dimer 948 ng/mLFEU (0-500) H 02/04/18 05:35 Consult Discharge Plan - Plan Referrals: Julio Larios MD [Primary Care Provider] - 02/21/18 3:20 pm
[2018-02-07] MEDS: Acetaminophen 325 MG TABLET PO PRN (20:34)
[2018-02-08 06:21] LABS: Basophils % 0.3 %; Eosinophils # 0.1 K/mcL (0.0-0.6); Eosinophils % 2.8 %; Hematocrit 36.9 % (35.3-44.9); Hemoglobin 11.8 g/dL (11.5-15.4); Immature Granulocytes % 0.3 % (0-4); Lymphocytes # 1.3 K/mcL (0.6-4.6); Lymphocytes % 40.1 %; Mean Corpuscular Hemoglobin 29.3 pg (28.0-33.3); Mean Corpuscular Volume 91.6 fL (83.0-100.0); Mean Platelet Volume 10.7 fL (9.4-12.4); Monocytes # 0.2 K/mcL (0.0-1.3); Monocytes % 6.9 %; Neutrophils # 1.6 K/mcL (1.6-8.9); Platelet Count 117 K/mcL (140-400); Red Blood Count 4.03 M/mcL (3.82-4.97); Red Cell Distribution Width 13.8 % (11.5-14.5); Segmented Neutrophils % 49.6 %
[2018-02-08] MEDS: *HR* Enoxaparin 40 MG/0.4 ML SYRINGE SQ SCH (06:28)
[2018-02-08] MEDS: Acetaminophen 325 MG TABLET PO PRN ×2 (06:42→15:56)
[2018-02-08 06:43] LABS: BUN/Creatinine Ratio 25 (6-26); Blood Urea Nitrogen 14 mg/dL (8-23); Calcium 9.4 mg/dL (8.6-10.3); Carbon Dioxide 27 mEq/L (23-29); Chloride 105 mEq/L (98-107); Glucose 159 mg/dL (70-105); Osmolality,Calculated 292 (280-300); Sodium 139 mEq/L (136-145); eGFR For African Americans > 60 (> 60); eGFR For Non-African Americans > 60 (> 60)
[2018-02-08] MEDS: cefTRIAXone 1,000 MG in 0.9 % Sodium Chloride Mini Bag 100 ML IVPB SCH (09:04)
[2018-02-08] MEDS: Insulin DETEMIR 100 UNIT/ML X5UNITS SQ SCH (09:05)
[2018-02-08] MEDS: Insulin LISPRO 300 UNITS/3 ML VIAL SQ SCH ×3 (09:06→17:38)
[2018-02-08] MEDS ORDERED: Furosemide 40 MG TABLET PO SCH (11:19)
--- NOTE | 2018-02-08 18:21 | Discharge Summary ---
- NOTES TO OUTPATIENT PROVIDER Notes to Outpatient Provider: Patient presented with syncopal episode suspect related to orthostatic hypotension secondary to medications-decreased metoprolol , hold Lasix-monitor labs. Carotid Dopplers nonstenotic plaque bilaterally. Cardiac echo with EF of 65%. Treated for UTI. Evaluated by PT OT recommending inpatient rehabilitation. Hepatic lesion on abdominal imaging recommending outpatient follow-up Date of Encounter: 02/08/18 Time of Encounter: 18:17 - Discharge Diagnosis (1) Syncope Priority: Primary Status: Acute Qualifiers: Syncope type: vasovagal syncope Qualified Code(s): R55 - Syncope and collapse (2) UTI (urinary tract infection) Priority: Secondary Status: Acute Qualifiers: Urinary tract infection type: site unspecified Hematuria presence: without hematuria Qualified Code(s): N39.0 - Urinary tract infection, site not specified (3) COPD (chronic obstructive pulmonary disease) Priority: Secondary Status: Acute Qualifiers: COPD type: chronic bronchitis Chronic bronchitis type: unspecified Qualified Code(s): J42 - Unspecified chronic bronchitis (4) Hypertension Priority: Secondary Status: Acute Qualifiers: Hypertension type: essential hypertension Qualified Code(s): I10 - Essential (primary) hypertension (5) DVT (deep venous thrombosis) Priority: Secondary Status: Acute Qualifiers: DVT location: lower extremity Affected thrombotic vein of extremity: unspecified vein of extremity Chronicity: unspecified Laterality: unspecified laterality Qualified Code(s): I82.409 - Acute embolism and thrombosis of unspecified deep veins of unspecified lower extremity (6) Hepatic lesion Priority: Secondary Status: Acute Hospital course: Ms. 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 Patient presented to the ER after experiencing a syncopal episode. Apparently she got up to urinate however she blacked out and did lose consciousness. She has been experiencing several weeks of dysuria. In the emergency department she was found to be pyorrhea she was initiated on IV Rocephin and received [address] of spine with no evidence of fracture CT of head with no acute abnormality chest x-ray with no significant findings cervical spine with no acute fractures or findings CT of abdomen and pelvis does not show any osseous abnormality of the lumbar spine. Patient was given IV fluids Lasix was held which she received twice a day. Did hold blood pressure medication carotid Dopplers had nonstenotic plaque bilaterally. Echo with EF of 65% orthostatics were positive. Over the next few days patient did receive IV fluids blood pressure did improve we slowly introduced blood pressure medication continue to hold Lasix. She is unsteady on her feet PT and OT to evaluate and recommend inpatient rehabilitation. Patient will follow-up with primary care physician as outpatient, continue to hold Lasix for now monitor chemistry. Continue metoprolol at 12.5 twice a day. She is hemodynamically stable at this time orthostatics are stable she received 4 days of Rocephin symptoms have improved. She is ready for discharge. Discharge discussed with: patient - Time Spent with Patient Total time spent providing and/or coordinating discharge services: - Discharge Medications Home Medications: Albuterol Sulfate [Proair Hfa] 2 puff IH Q4H PRN 02/04/18 [History] Amitriptyline HCl 100 mg PO HS 02/04/18 [History] Insulin Glargine,Hum.rec.anlog [Basaglar Kwikpen U-100] 50 unit SQ BID 02/04/18 [History] OxyCODONE Immed Rel [Roxicodone 10 MG] 10 - 15 mg PO Q4-6H PRN 02/04/18 [History ] Xyzal 5 mg PO DAILY 02/04/18 [History] Metoprolol [Lopressor] 12.5 mg PO BID tablet 02/08/18 [Rx] Allergies/Adverse Reactions: 3 Allergy/AdvReac Type Severity Reaction Status Date / Time codeine Allergy Itching Verified 02/10/16 15:52 Penicillins [PCN] Allergy Hives Verified 02/10/16 15:52 IVP dye Allergy Itching Uncoded 02/10/16 15:52 Date of admission: 02/04/18 11:10 Primary care physician: Julio Larios MD Consults: 02/05/18 10:30 Consult to Physical Therapy [CONS] Routine Comment: Evaluate, develop and implement POC Reason for Consult: Falls Does patient have active BEDREST order?: No Is patient medically & hemodynamically stable?: Yes Patient assessed for mobility or mobilized this visit?: No 02/05/18 10:31 Consult to Occupational Therapy [CONS] Routine Comment: Evaluate, develop and implement POC Reason for Consult: falls Does patient have active BEDREST order?: No Is patient medically & hemodynamically stable?: Yes Patient assessed for mobility or mobilized this visit?: No Discharging clinician: Nat Love Anticipated date of discharge: 02/08/18 - Constitutional Vitals: Temp Pulse Resp BP Pulse Ox 98.5 F 66 18 124/67 96 02/08/18 14:38 02/08/18 14:38 02/08/18 14:38 02/08/18 14:38 02/08/18 14:38 General appearance: Present: A&O X 3 - Head Head exam: Present: atraumatic, normocephalic - Eye Eye exam: Present: PERRL, conjuntiva pink, sclera anicteric Pupils: Present: PERRL - Neck Neck exam general surgery: Present: supple, trachea midline. Absent: lymphadenopathy - Respiratory Respiratory exam: Present: CTAB. Absent: accessory muscle use, rales, rhonchi, wheezes - Cardiovascular Cardiovascular exam: Present: RRR, +S1, +S2. Absent: diastolic murmur, gallop, rubs, systolic murmur - GI/Abdominal GI/Abdominal exam: Present: normal bowel sounds, soft, no peritoneal signs. Absent: distended, tenderness - Extremities Exam Extremities exam: Present: warm, radial pulses palpable and symmetrical. Absent : calf tenderness, cyanotic, pedal edema - Neurological Exam Neurological exam: Present: CN II-XII intact, oriented X3, no focal deficits. Absent: pronater drift, facial droop, speech deficit - Skin Skin exam: Present: dry, intact - Patient Status Disposition: Transfer SNF Condition: Good Functional capacity at discharge: independent ambulation Overall status at discharge: patient is back to baseline - Discharge Instructions Instructions: Syncope (DC), Diabetes Mellitus Type 2 in Adults (DC), Chronic Obstructive Pulmonary Disease (DC) Follow Up With: Julio Larios MD [Primary Care Provider] - 02/21/18 3:20 pm - Diet and Activity Activity: increase activity as tolerated Diet: advance to your usual diet
[2018-02-08 18:41] VITALS: BP 124/66
--- NOTE | 2018-02-08 20:26 | Physician Discharge Referral ---
ExtendedCare Referral Info Transfer To: [facility] Provider in Charge: Ivan Johns Provider in Charge after Transfer: PCP Institutional Level of Care: Skilled - Diagnosis (1) Syncope Priority: Primary Status: Acute (2) UTI (urinary tract infection) Priority: Secondary Status: Acute (3) COPD (chronic obstructive pulmonary disease) Priority: Secondary Status: Acute (4) Hypertension Priority: Secondary Status: Acute (5) DVT (deep venous thrombosis) Priority: Secondary Status: Acute (6) Hepatic lesion Priority: Secondary Status: Acute - Transfer Medications Home Medications: Albuterol Sulfate [Proair Hfa] 2 puff IH Q4H PRN 02/04/18 [History] Amitriptyline HCl 100 mg PO HS 02/04/18 [History] Insulin Glargine,Hum.rec.anlog [Basaglar Kwikpen U-100] 50 unit SQ BID 02/04/18 [History] OxyCODONE Immed Rel [Roxicodone 10 MG] 10 - 15 mg PO Q4-6H PRN 02/04/18 [History ] Xyzal 5 mg PO DAILY 02/04/18 [History] Metoprolol [Lopressor] 12.5 mg PO BID tablet 02/08/18 [Rx] Allergies/Adverse Reactions: 3 Allergy/AdvReac Type Severity Reaction Status Date / Time codeine Allergy Itching Verified 02/10/16 15:52 Penicillins [PCN] Allergy Hives Verified 02/10/16 15:52 IVP dye Allergy Itching Uncoded 02/10/16 15:52 - Respiratory Orders Smoking Cessation: Smoking cessation has been advised. For more information, call the [place] Tobacco Quit Line at 3-076-QGKL-NOW. - Lab Orders Lab Orders: [facility] (on Sunday02/11/2018 to monitor electrolytes) - Mobility Orders Ambulate - Rehabiliation Orders Rehab Orders: Evaluation for Physical Therapy, Evaluation for Occupational Therapy - Diet Orders No Concentrated Sweets CERTIFICATION: I certify that the transfer of the above named patient to an Extended Care Facility is necessary for the continuing treatment of the diagnosis listed. The above information is true and accurate reflection of patient's current condition. Confidential - Redisclosure prohibited without a patient's written consent.
== END 2018-02-08 20:47 | DRG 312 ==
LOC: EMEROO 05:24 → 2SOUTHHOLD 05:24 → 3BNU 02-05 06:40
PROVIDERS: ADMIT Internal Medicine Hematology & Oncology; ATTEND Internal Medicine Hematology & Oncology

== ENCOUNTER 2018-08-17 20:33 | Inpatient (IN) ==
--- NOTE | 2018-08-17 20:54 | Emergency Department Note ---
Disposition Clinical Impression: Rhabdomyolysis Qualifiers: Rhabdomyolysis type: traumatic Encounter type: initial encounter Qualified Code(s): T79.6XXA - Traumatic ischemia of muscle, initial encounter UTI (urinary tract infection) Qualifiers: Urinary tract infection type: site unspecified Hematuria presence: without hematuria Qualified Code(s): N39.0 - Urinary tract infection, site not specified Hydronephrosis Qualifiers: Hydronephrosis type: with other ureteral stricture Qualified Code(s): N13.1 - Hydronephrosis with ureteral stricture, not elsewhere classified Disposition: Admitted As Inpatient Condition: Fair Referrals: NONE,PCP [Primary Care Provider] - Forms: ED Satisfaction Letter Time of Disposition: 22:47 General Adult HPI - General Chief complaint: ED Head Injury Stated complaint: Diabetic/ Fall Time Seen by Provider: 08/17/18 20:39 Source: EMS Limitations: age - History of Present Illness Pain Scale: 0 - Related Data Home Medications Medication Instructions Recorded Confirmed Albuterol Sulfate [Proair Hfa] 2 puff IH Q4H PRN 02/04/18 07/23/18 Amitriptyline HCl 100 mg PO HS 02/04/18 07/23/18 Insulin LISPRO [HumaLOG] 0 units SQ TIDWM 04/23/18 07/23/18 Insulin Glargine,Hum.rec.anlog 80 unit SQ BID 07/23/18 07/23/18 [Basaglar Kwikpen U-100] Memantine HCl 10 mg PO BID 07/23/18 07/23/18 Previous Rx's Medication Instructions Recorded Metoprolol XL (24 HR) Succ [Toprol 12.5 mg PO DAILY #15 tab.er.24h 02/11/18 Xl] Ciprofloxacin HCl [Cipro] 500 mg PO BID #14 tablet 07/26/18 metroNIDAZOLE [Flagyl] 500 mg PO TID #21 tablet 07/26/18 Allergies Allergy/AdvReac Type Severity Reaction Status Date / Time bee venom protein (honey bee) Allergy Swelling Verified 04/23/18 07:21 of Lip/Tongue/Throat codeine Allergy Hives Verified 04/23/18 07:21 Penicillins [PCN] Allergy Hives Verified 04/23/18 07:21 bisoprolol [From Ziac] AdvReac See Verified 04/23/18 07:21 Comments Donepezil AdvReac Vomiting Verified 04/23/18 07:21 hydrochlorothiazide AdvReac See Verified 04/23/18 07:21 [From Ziac] Comments iodine AdvReac Hives Verified 04/23/18 07:21 lisinopril [From Zestril] AdvReac Vomiting Verified 04/23/18 07:21 tramadol AdvReac See Verified 04/23/18 07:21 Comments IVP dye Allergy Itching Uncoded 02/10/16 15:52 Past Medical History - Past Medical History Medical history: Reports: cancer, CVA, DVT, diabetes, hypertension Surgical history: Reports: appendectomy, breast surgery, hysterectomy, other Psychiatric history: Reports: depression [employer] history: Reports: non-contributory - Social History Smoking Status: Never smoker Smokeless Tobacco Status: No Alcohol use: Reports: none Drug use: Reports: none Physical Exam - General Limitations: age General appearance: alert, in no apparent distress Course Vital Signs Temperature 99.3 F 08/17/18 20:37 Pulse Rate 98 08/17/18 20:37 Respiratory Rate 20 08/17/18 20:37 Blood Pressure 120/44 08/17/18 20:37 O2 Sat by Pulse Oximetry 93 08/17/18 20:37 Temperature 99.3 F 08/17/18 20:37 Pulse Rate 88 08/17/18 22:15 Respiratory Rate 17 08/17/18 22:15 Blood Pressure 138/60 08/17/18 22:15 O2 Sat by Pulse Oximetry 99 08/17/18 22:15 Oxygen Delivery Oxygen Delivery Room Air Medical Decision Making - Lab Data Result diagrams: 08/17/18 21:12 08/17/18 21:12 Lab Results 08/17/18 08/17/18 08/17/18 Range/Units 21:12 21:12 21:12 WBC 8.1 (4.3-11.1) K/mcL RBC 4.35 (3.82-4.97) M/mcL Hgb 12.9 (11.5-15.4) g/dL Hct 42.6 (35.3-44.9) % MCV 97.9 (83.0-100.0) fL MCH 29.7 (28.0-33.3) pg MCHC 30.3 L (31.6-35.5) g/dL RDW 14.6 H (11.5-14.5) % Plt Count 143 (140-400) K/mcL MPV 9.8 (9.4-12.4) fL Immature Gran % 0.5 (0-4) % Seg Neutrophils % 82.0 % Lymphocytes % 11.1 % Monocytes % 6.0 % Eosinophils % 0.0 % Basophils % 0.4 % Neutrophils # 6.7 (1.6-8.9) K/mcL Lymphocytes # 0.9 (0.6-4.6) K/mcL Monocytes # 0.5 (0.0-1.3) K/mcL Eosinophils # 0.0 (0.0-0.6) K/mcL Basophils # 0.0 (0.0-0.2) K/mcL VBG pH (7.32-7.42) pH Units VBG pCO2 (41-51) mmHg VBG pO2 (25-50) mmHg VBG HCO3 (21-27) mEq/L Sodium 135 L (136-145) mEq/L Potassium 3.9 (3.5-5.1) mEq/L Chloride 98 (98-107) mEq/L Carbon Dioxide 26 (23-29) mEq/L BUN 35 H (8-23) mg/dL Creatinine 0.73 (0.60-1.20) mg/dL Est GFR ( Amer) > 60 (> 60) Est GFR (Non-Af Amer) > 60 (> 60) BUN/Creatinine Ratio 48 H (6-26) Glucose 387 H (70-105) mg/dL Calculated Osmolality 304 H (280-300) Calcium 9.0 (8.6-10.3) mg/dL Total Bilirubin 0.9 (0.3-1.0) mg/dL AST 45 H (13-39) Units/L ALT 37 (7-52) Units/L Alkaline Phosphatase 119 H (34-104) Units/L Ammonia (16-53) mcmol/L Creatine Kinase 1152 H (30-223) Units/L Troponin I < 0.03 (< 0.04) ng/mL Serum Total Protein 7.3 (6.4-8.9) g/dL Albumin 3.4 L (3.5-5.7) g/dL Globulin 3.9 H (2.4-3.5) g/dL Albumin/Globulin Ratio 0.9 L (1.1-2.2) Lipase 15 (11-82) Units/L Beta-Hydroxybutyric Acd > 2.00 H (0.02-0.27) mmol/L Urine Color (Yellow) Urine Clarity (Clear) Urine pH (5.0-8.0) pH Units Ur Specific [place] (1.010-1.025) Urine Protein (Neg-Trace) mg/dL Urine Glucose (UA) (Normal) mg/dL Urine Ketones (Negative) mg/dL Urine Blood (Negative) Urine Nitrite (Negative) Urine Bilirubin (Negative) Urine Urobilinogen (Normal) mg/dL Ur Leukocyte Esterase (Negative) Urine Microscopic RBC (0-3) per hpf Urine Microscopic WBC (0-3) per hpf Ur Squamous Epith Cells (None-Few) per lpf Ur Transition Epith Cell (None-Few) per hpf Ur Renal Epithelial Cell (None-Few) per hpf Urine Bacteria (None-Few) per hpf Hyaline Casts (None-Few) per lpf Urine Yeast (None Seen) per hpf Ur Culture Indicated? (NO) 08/17/18 08/17/18 08/17/18 Range/Units 21:12 22:10 22:27 WBC (4.3-11.1) K/mcL RBC (3.82-4.97) M/mcL Hgb (11.5-15.4) g/dL Hct (35.3-44.9) % MCV (83.0-100.0) fL MCH (28.0-33.3) pg MCHC (31.6-35.5) g/dL RDW (11.5-14.5) % Plt Count (140-400) K/mcL MPV (9.4-12.4) fL Immature Gran % (0-4) % Seg Neutrophils % % Lymphocytes % % Monocytes % % Eosinophils % % Basophils % % Neutrophils # (1.6-8.9) K/mcL Lymphocytes # (0.6-4.6) K/mcL Monocytes # (0.0-1.3) K/mcL Eosinophils # (0.0-0.6) K/mcL Basophils # (0.0-0.2) K/mcL VBG pH 7.39 (7.32-7.42) pH Units VBG pCO2 68 H (41-51) mmHg VBG pO2 107 H (25-50) mmHg VBG HCO3 41 H (21-27) mEq/L Sodium (136-145) mEq/L Potassium (3.5-5.1) mEq/L Chloride (98-107) mEq/L Carbon Dioxide (23-29) mEq/L BUN (8-23) mg/dL Creatinine (0.60-1.20) mg/dL Est GFR ( Amer) (> 60) Est GFR (Non-Af Amer) (> 60) BUN/Creatinine Ratio (6-26) Glucose (70-105) mg/dL Calculated Osmolality (280-300) Calcium (8.6-10.3) mg/dL Total Bilirubin (0.3-1.0) mg/dL AST (13-39) Units/L ALT (7-52) Units/L Alkaline Phosphatase (34-104) Units/L Ammonia 45 (16-53) mcmol/L Creatine Kinase (30-223) Units/L Troponin I (< 0.04) ng/mL Serum Total Protein (6.4-8.9) g/dL Albumin (3.5-5.7) g/dL Globulin (2.4-3.5) g/dL Albumin/Globulin Ratio (1.1-2.2) Lipase (11-82) Units/L Beta-Hydroxybutyric Acd (0.02-0.27) mmol/L Urine Color Yellow (Yellow) Urine Clarity Turbid A (Clear) Urine pH 5.5 (5.0-8.0) pH Units Ur Specific [place] 1.021 (1.010-1.025) Urine Protein 30 H (Neg-Trace) mg/dL Urine Glucose (UA) >=1000 H (Normal) mg/dL Urine Ketones Trace H (Negative) mg/dL Urine Blood Large H (Negative) Urine Nitrite Negative (Negative) Urine Bilirubin Negative (Negative) Urine Urobilinogen Normal (Normal) mg/dL Ur Leukocyte Esterase Moderate H (Negative) Urine Microscopic RBC 15-30 H (0-3) per hpf Urine Microscopic WBC TNTC H (0-3) per hpf Ur Squamous Epith Cells Moderate H (None-Few) per lpf Ur Transition Epith Cell Few (None-Few) per hpf Ur Renal Epithelial Cell Few (None-Few) per hpf Urine Bacteria None Seen (None-Few) per hpf Hyaline Casts None Seen (None-Few) per lpf Urine Yeast Many H (None Seen) per hpf Ur Culture Indicated? YES A (NO) Critical Care Time Critical Care Time: Yes Total Critical Care Time: 30 Attestation: Critical care performed: Time is exclusive of separately billable procedures. Time includes: direct patient care, patient reassessment, coordination of patient care, interpretation of data (laboratory data, radiology data, and respiratory data), review of patient's medical records, medical consultation and documentation of patient care. Procedures included in critical care time: Procedures excluded from critical care time: Attestation Statement - Attestation Attestation: I examined this patient and my medical decision-making was reviewed with the Resident Physician. I agree with the documented findings, disposition and treatment plan as described except to the extent set forth below. Patient presents to the ED with altered mental status and falls. History is by by EMS as the patient is confused. She apparently had a fall around 3 PM. She was unable to get up off the floor. called for evaluation tonight. Patient states she has been having frequent falls. She is complaining of diffuse pain in her hips, neck, back, and abdomen. On examination she has a soft, tender abdomen. Pain with internal/external rotation of the hips bila terally. Tenderness over the spine. She is awake alert and pleasantly confused. She is oriented to self and place. Plan. Altered mental status workup. CT abdomen pelvis along with imaging of the spine. Imaging still pending. CK greater than 1000. Patient receiving IV hydration. Will be admitted. Patient also with UTI. Cervical Spine CT 08/17/18 20:48 IMPRESSION: No acute intracranial abnormality. No acute abnormality in the cervical spine. D/ / 08/17/2018 22:25:16 Siva Matos MD / donaldo Interpreting Provider: Siva Matos MD Head CT 08/17/18 20:48 IMPRESSION: No acute intracranial abnormality. No acute abnormality in the cervical spine. D/ / 08/17/2018 22:25:16 Siva Matos MD / bcarter Interpreting Provider: Siva Matos MD Lumbar Spine CT 08/17/18 20:48 IMPRESSION: 1. No acute traumatic abnormality in the abdomen or pelvis on the noncontrast CT. 2. Mild-moderate left hydroureteronephrosis has developed extending to the ureteral vesicular junction. Questionable wall thickening in the left urinary bladder. Nonemergent urology consultation should be considered to evaluate for cause of hydronephrosis and exclude underlying neoplasm. 3. No acute abnormality in the thoracic spine 4. No acute abnormality in the lumbar spine 5. Severe liver cirrhosis with splenomegaly. D/ / Edil Christian MD / Edil Christian MD Interpreting Provider: Edil Christian MD Thoracic Spine CT 08/17/18 20:48 IMPRESSION: 1. No acute traumatic abnormality in the abdomen or pelvis on the noncontrast CT. 2. Mild-moderate left hydroureteronephrosis has developed extending to the ureteral vesicular junction. Questionable wall thickening in the left urinary bladder. Nonemergent urology consultation should be considered to evaluate for cause of hydronephrosis and exclude underlying neoplasm. 3. No acute abnormality in the thoracic spine 4. No acute abnormality in the lumbar spine 5. Severe liver cirrhosis with splenomegaly. D/ / Edil Christian MD / Edil Christian MD Interpreting Provider: Edil Christian MD Abdomen/Pelvis CT 08/17/18 20:50
[2018-08-17] MEDS ORDERED: 0.9 % Sodium Chloride 1,000 ML ONE (20:55)
[2018-08-17] MEDS: 0.9 % Sodium Chloride 1,000 ML IVC SCH (21:01)
--- NOTE | 2018-08-17 21:31 | Emergency Department Note ---
Disposition Clinical Impression: Fall Qualifiers: Encounter type: initial encounter Qualified Code(s): W19.XXXA - Unspecified fall, initial encounter Rhabdomyolysis Qualifiers: Rhabdomyolysis type: traumatic Encounter type: initial encounter Qualified Code(s): T79.6XXA - Traumatic ischemia of muscle, initial encounter UTI (urinary tract infection) Qualifiers: Urinary tract infection type: site unspecified Hematuria presence: without hematuria Qualified Code(s): N39.0 - Urinary tract infection, site not specified Disposition: Admitted As Inpatient Condition: Fair Referrals: NONE,PCP [Primary Care Provider] - Forms: ED Satisfaction Letter Time of Disposition: 22:46 General Adult HPI - General Chief complaint: ED Head Injury Stated complaint: Diabetic/ Fall Time Seen by Provider: 08/17/18 20:39 Source: EMS Mode of arrival: EMS Limitations: age Nursing Notes Reviewed: Yes Vital Signs Reviewed: Yes - History of Present Illness HPI Narrative: 68-year-old female with significant past medical history of dementia and frequent falls presenting to the emergency department chief complaint of fall. According to EMS they were called this evening to the patient's home since she fell and her was unable to pick her up. They stated when they went to the house it looked like she had fallen in multiple places. In the room the patient is alert and oriented 2 but confused about events of her fall. At this time she states that she is having back pain and pelvis pain. She also states she is very thirsty. Patient does not remember the fall is unsure if she lost consciousness. Pain Scale: 0 - Related Data Home Medications Medication Instructions Recorded Confirmed Albuterol Sulfate [Proair Hfa] 2 puff IH Q4H PRN 02/04/18 07/23/18 Amitriptyline HCl 100 mg PO HS 02/04/18 07/23/18 Insulin LISPRO [HumaLOG] 0 units SQ TIDWM 04/23/18 07/23/18 Insulin Glargine,Hum.rec.anlog 80 unit SQ BID 07/23/18 07/23/18 [Basaglar Kwikpen U-100] Memantine HCl 10 mg PO BID 07/23/18 07/23/18 Previous Rx's Medication Instructions Recorded Metoprolol XL (24 HR) Succ [Toprol 12.5 mg PO DAILY #15 tab.er.24h 06/11/18 Xl] Ciprofloxacin HCl [Cipro] 500 mg PO BID #14 tablet 07/26/18 metroNIDAZOLE [Flagyl] 500 mg PO TID #21 tablet 07/26/18 Allergies Allergy/AdvReac Type Severity Reaction Status Date / Time bee venom protein (honey bee) Allergy Swelling Verified 04/23/18 07:21 of Lip/Tongue/Throat codeine Allergy Hives Verified 04/23/18 07:21 Penicillins [PCN] Allergy Hives Verified 04/23/18 07:21 bisoprolol [From Ziac] AdvReac See Verified 04/23/18 07:21 Comments Donepezil AdvReac Vomiting Verified 04/23/18 07:21 hydrochlorothiazide AdvReac See Verified 04/23/18 07:21 [From Ziac] Comments iodine AdvReac Hives Verified 04/23/18 07:21 lisinopril [From Zestril] AdvReac Vomiting Verified 04/23/18 07:21 tramadol AdvReac See Verified 04/23/18 07:21 Comments IVP dye Allergy Itching Uncoded 02/10/16 15:52 All systems ED: reviewed and negative except as stated. Constitutional: Reports: as per HPI Eyes: Reports: as per HPI ENT ED: Reports: as per HPI Cardiovascular: Reports: as per HPI Respiratory: Reports: as per HPI Gastrointestinal: Reports: abdominal pain Genitourinary: Reports: as per HPI Musculoskeletal: Reports: back pain, neck pain Integumentary: Reports: abrasion Neurological: Reports: as per HPI Psychiatric: Reports: as per HPI Endocrine: Reports: as per HPI Hematological/Lymphatic: Reports: as per HPI Allergic/Immunologic: Reports: as per HPI Past Medical History - Past Medical History Attestation: Yes The following information was validated with the patient. 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 Absent: tenderness - Respiratory Respiratory exam: Present: normal lung sounds bilaterally. Absent: respiratory distress, wheezes - Cardiovascular Cardiovascular exam: Present: regular rate, normal rhythm, normal heart sounds - Abdominal Exam Abdominal exam: Present: soft, tenderness. Absent: distention, guarding, rebound Abdominal tenderness: Present: diffuse, moderate - Extremities Exam Extremities exam: Present: other (Muscle strength of the bilateral lower extremities are 3 out of 5. Patient has tenderness to palpation on the right knee and an abrasion noted over the left knee) - Neurological Exam Neurological exam: Present: alert - Skin Skin exam: Present: warm Course Course Narrative: 68-year-old female presenting with multiple falls. Patient is a poor historian and unable to provide significant history of present illness. At this time gonsalo newman is hemodynamically stable. Alert and oriented 2. Patient does have multiple areas of trauma including ecchymosis on the abdomen, a hematoma on the left frontal area and abrasion on the left knee. Patient does not tenderness to palpation on her abdomen. We will obtain a CT of the head, cervical, thoracic and lumbar spine. Also obtain a CT of abdomen and pelvis on basic laboratory analysis and EKG. Disposition pending results. - Reevaluation(s) Reevaluation #1: Agents laboratory analysis shows hyperglycemia and elevated CK levels. Patient has been provided 2 L of fluids at this time. Patient's scans show no acute abnormality. Concern for hydro-on the CT of abdomen and pelvis and radiology is recommending nonemergent urology follow-up. At this time will plan to admit the patient for rhabdomyolysis, frequent falls. Patient's urinalysis also shows infection. We will provide the patient 1 dose of Rocephin. Patient remains hemodynamically stable and at baseline at this time. I spoke with the hospitalist examination supervisor Dr. Luna who agrees to accept the patient at this time. Vital Signs Temperature 99.3 F 08/17/18 20:37 Pulse Rate 98 08/17/18 20:37 Respiratory Rate 20 08/17/18 20:37 Blood Pressure 120/44 08/17/18 20:37 O2 Sat by Pulse Oximetry 93 08/17/18 20:37 Temperature 99.3 F 08/17/18 20:37 Pulse Rate 88 08/17/18 22:15 Respiratory Rate 17 08/17/18 22:15 Blood Pressure 138/60 08/17/18 22:15 O2 Sat by Pulse Oximetry 99 08/17/18 22:15 Oxygen Delivery Oxygen Delivery Room Air Medical Decision Making - Lab Data Result diagrams: 08/17/18 21:12 08/17/18 21:12 Lab Results 08/17/18 08/17/18 08/17/18 Range/Units 21:12 21:12 21:12 WBC 8.1 (4.3-11.1) K/mcL RBC 4.35 (3.82-4.97) M/mcL Hgb 12.9 (11.5-15.4) g/dL Hct 42.6 (35.3-44.9) % MCV 97.9 (83.0-100.0) fL MCH 29.7 (28.0-33.3) pg MCHC 30.3 L (31.6-35.5) g/dL RDW 14.6 H (11.5-14.5) % Plt Count 143 (140-400) K/mcL MPV 9.8 (9.4-12.4) fL Immature Gran % 0.5 (0-4) % Seg Neutrophils % 82.0 % Lymphocytes % 11.1 % Monocytes % 6.0 % Eosinophils % 0.0 % Basophils % 0.4 % Neutrophils # 6.7 (1.6-8.9) K/mcL Lymphocytes # 0.9 (0.6-4.6) K/mcL Monocytes # 0.5 (0.0-1.3) K/mcL Eosinophils # 0.0 (0.0-0.6) K/mcL Basophils # 0.0 (0.0-0.2) K/mcL VBG pH (7.32-7.42) pH Units VBG pCO2 (41-51) mmHg VBG pO2 (25-50) mmHg VBG HCO3 (21-27) mEq/L Sodium 135 L (136-145) mEq/L Potassium 3.9 (3.5-5.1) mEq/L Chloride 98 (98-107) mEq/L Carbon Dioxide 26 (23-29) mEq/L BUN 35 H (8-23) mg/dL Creatinine 0.73 (0.60-1.20) mg/dL Est GFR ( Amer) > 60 (> 60) Est GFR (Non-Af Amer) > 60 (> 60) BUN/Creatinine Ratio 48 H (6-26) Glucose 387 H (70-105) mg/dL Calculated Osmolality 304 H (280-300) Calcium 9.0 (8.6-10.3) mg/dL Total Bilirubin 0.9 (0.3-1.0) mg/dL AST 45 H (13-39) Units/L ALT 37 (7-52) Units/L Alkaline Phosphatase 119 H (34-104) Units/L Ammonia (16-53) mcmol/L Creatine Kinase 1152 H (30-223) Units/L Troponin I < 0.03 (< 0.04) ng/mL Serum Total Protein 7.3 (6.4-8.9) g/dL Albumin 3.4 L (3.5-5.7) g/dL Globulin 3.9 H (2.4-3.5) g/dL Albumin/Globulin Ratio 0.9 L (1.1-2.2) Lipase 15 (11-82) Units/L Beta-Hydroxybutyric Acd > 2.00 H (0.02-0.27) mmol/L Urine Color (Yellow) Urine Clarity (Clear) Urine pH (5.0-8.0) pH Units Ur Specific [place] (1.010-1.025) Urine Protein (Neg-Trace) mg/dL Urine Glucose (UA) (Normal) mg/dL Urine Ketones (Negative) mg/dL Urine Blood (Negative) Urine Nitrite (Negative) Urine Bilirubin (Negative) Urine Urobilinogen (Normal) mg/dL Ur Leukocyte Esterase (Negative) Urine Microscopic RBC (0-3) per hpf Urine Microscopic WBC (0-3) per hpf Ur Squamous Epith Cells (None-Few) per lpf Ur Transition Epith Cell (None-Few) per hpf Ur Renal Epithelial Cell (None-Few) per hpf Urine Bacteria (None-Few) per hpf Hyaline Casts (None-Few) per lpf Urine Yeast (None Seen) per hpf Ur Culture Indicated? (NO) 08/17/18 08/17/18 08/17/18 Range/Units 21:12 22:10 22:27 WBC (4.3-11.1) K/mcL RBC (3.82-4.97) M/mcL Hgb (11.5-15.4) g/dL Hct (35.3-44.9) % MCV (83.0-100.0) fL MCH (28.0-33.3) pg MCHC (31.6-35.5) g/dL RDW (11.5-14.5) % Plt Count (140-400) K/mcL MPV (9.4-12.4) fL Immature Gran % (0-4) % Seg Neutrophils % % Lymphocytes % % Monocytes % % Eosinophils % % Basophils % % Neutrophils # (1.6-8.9) K/mcL Lymphocytes # (0.6-4.6) K/mcL Monocytes # (0.0-1.3) K/mcL Eosinophils # (0.0-0.6) K/mcL Basophils # (0.0-0.2) K/mcL VBG pH 7.39 (7.32-7.42) pH Units VBG pCO2 68 H (41-51) mmHg VBG pO2 107 H (25-50) mmHg VBG HCO3 41 H (21-27) mEq/L Sodium (136-145) mEq/L Potassium (3.5-5.1) mEq/L Chloride (98-107) mEq/L Carbon Dioxide (23-29) mEq/L BUN (8-23) mg/dL Creatinine (0.60-1.20) mg/dL Est GFR ( Amer) (> 60) Est GFR (Non-Af Amer) (> 60) BUN/Creatinine Ratio (6-26) Glucose (70-105) mg/dL Calculated Osmolality (280-300) Calcium (8.6-10.3) mg/dL Total Bilirubin (0.3-1.0) mg/dL AST (13-39) Units/L ALT (7-52) Units/L Alkaline Phosphatase (34-104) Units/L Ammonia 45 (16-53) mcmol/L Creatine Kinase (30-223) Units/L Troponin I (< 0.04) ng/mL Serum Total Protein (6.4-8.9) g/dL Albumin (3.5-5.7) g/dL Globulin (2.4-3.5) g/dL Albumin/Globulin Ratio (1.1-2.2) Lipase (11-82) Units/L Beta-Hydroxybutyric Acd (0.02-0.27) mmol/L Urine Color Yellow (Yellow) Urine Clarity Turbid A (Clear) Urine pH 5.5 (5.0-8.0) pH Units Ur Specific [place] 1.021 (1.010-1.025) Urine Protein 30 H (Neg-Trace) mg/dL Urine Glucose (UA) >=1000 H (Normal) mg/dL Urine Ketones Trace H (Negative) mg/dL Urine Blood Large H (Negative) Urine Nitrite Negative (Negative) Urine Bilirubin Negative (Negative) Urine Urobilinogen Normal (Normal) mg/dL Ur Leukocyte Esterase Moderate H (Negative) Urine Microscopic RBC 15-30 H (0-3) per hpf Urine Microscopic WBC TNTC H (0-3) per hpf Ur Squamous Epith Cells Moderate H (None-Few) per lpf Ur Transition Epith Cell Few (None-Few) per hpf Ur Renal Epithelial Cell Few (None-Few) per hpf Urine Bacteria None Seen (None-Few) per hpf Hyaline Casts None Seen (None-Few) per lpf Urine Yeast Many H (None Seen) per hpf Ur Culture Indicated? YES A (NO) - EKG Data EKG #1 EKG attestation: Yes I reviewed and interpreted this EKG. EKG results narrative: Sinus rhythm. 94 bpm. DC interval 176, QRS 95, QTC 447. No sign of acute ST segment elevation or ischemia. Compared to previous EKG completed on 07/23/2018 no significant changes
[2018-08-17 21:36] LABS: Basophils % 0.4 %; Hematocrit 42.6 % (35.3-44.9); Hemoglobin 12.9 g/dL (11.5-15.4); Immature Granulocytes % 0.5 % (0-4); Lymphocytes # 0.9 K/mcL (0.6-4.6); Lymphocytes % 11.1 %; Mean Corpuscular HGB Conc 30.3 g/dL (31.6-35.5); Mean Corpuscular Hemoglobin 29.7 pg (28.0-33.3); Mean Corpuscular Volume 97.9 fL (83.0-100.0); Mean Platelet Volume 9.8 fL (9.4-12.4); Monocytes # 0.5 K/mcL (0.0-1.3); Neutrophils # 6.7 K/mcL (1.6-8.9); Platelet Count 143 K/mcL (140-400); Red Blood Count 4.35 M/mcL (3.82-4.97); Red Cell Distribution Width 14.6 % (11.5-14.5)
[2018-08-17 21:50] LABS: Alanine Aminotransferase 37 Units/L (7-52); Albumin 3.4 g/dL (3.5-5.7); Albumin/Globulin Ratio 0.9 (1.1-2.2); Alkaline Phosphatase 119 Units/L (34-104); Aspartate Amino Transferase 45 Units/L (13-39); BUN/Creatinine Ratio 48 (6-26); Bilirubin,Total 0.9 mg/dL (0.3-1.0); Blood Urea Nitrogen 35 mg/dL (8-23); Carbon Dioxide 26 mEq/L (23-29); Chloride 98 mEq/L (98-107); Creatine Kinase 1152 Units/L (30-223); Globulin 3.9 g/dL (2.4-3.5); Glucose 387 mg/dL (70-105); Lipase 15 Units/L (11-82); Osmolality,Calculated 304 (280-300); Potassium 3.9 mEq/L (3.5-5.1); Sodium 135 mEq/L (136-145); Total Protein 7.3 g/dL (6.4-8.9); eGFR For Non-African Americans > 60 (> 60)
[2018-08-17 21:51] LABS: Troponin I < 0.03 ng/mL (< 0.04)
[2018-08-17 22:24] LABS: Bilirubin,Urine Negative (Negative); Blood,Urine Large (Negative); Clarity,Urine Turbid (Clear); Color,Urine Yellow (Yellow); Glucose,Urine (UA) >=1000 mg/dL (Normal); Ketones,Urine Trace mg/dL (Negative); Leukocyte Esterase,Urine Moderate (Negative); Nitrite,Urine Negative (Negative); PH,Urine 5.5 pH Units (5.0-8.0); Protein,Urine 30 mg/dL (Neg-Trace); Specific Gravity,Urine 1.021 (1.010-1.025); Urobilinogen,Urine Normal (Normal)
[2018-08-17 22:28] LABS: Bacteria,Urine None Seen per hpf (None-Few); Hyaline Casts,Urine None Seen per lpf (None-Few); RBC,Urine 15-30 per hpf (0-3); Squamous Epithelial Cell,Urine Moderate per lpf (None-Few); WBC,Urine TNTC per hpf (0-3)
[2018-08-17 22:31] LABS: VBG HCO3 41 mEq/L (21-27); VBG PCO2 68 mmHg (41-51); VBG PH 7.39 pH Units (7.32-7.42); VBG PO2 107 mmHg (25-50)
[2018-08-17 22:43] LABS: Renal Epithelial Cells,Urine Few per hpf (None-Few); Transitional Epi Cells,Urine Few per hpf (None-Few); Yeast,Urine Many per hpf (None Seen)
[2018-08-17] MEDS ORDERED: cefTRIAXone 1,000 MG in Water for inj. (sterile) 20 ML 10 ML IVP ONE (22:45)
[2018-08-18] MEDS ORDERED: 0.9 % Sodium Chloride 1,000 ML IVC ONE ×2 (03:08→06:32)
[2018-08-18] MEDS ORDERED: Naloxone 0.4 MG/ML INJ IVP PRN (06:26)
[2018-08-18] MEDS ORDERED: *HR* Dextrose 50 % in Water (Syg) 50 ML SYRINGE IVP PRN (06:30)
[2018-08-18] MEDS ORDERED: D5% in Water 1,000 ML IVC PRN (06:30)
[2018-08-18] MEDS ORDERED: Dextrose Gel 15 GM/37.5 ML TUBE PO PRN ×2 (06:30)
[2018-08-18 06:59] LABS: Hematocrit 36.7 % (35.3-44.9); Hemoglobin 11.8 g/dL (11.5-15.4); Mean Corpuscular HGB Conc 32.2 g/dL (31.6-35.5); Mean Corpuscular Hemoglobin 29.6 pg (28.0-33.3); Mean Corpuscular Volume 92.2 fL (83.0-100.0); Platelet Count 144 K/mcL (140-400); Red Blood Count 3.98 M/mcL (3.82-4.97); Red Cell Distribution Width 14.6 % (11.5-14.5)
[2018-08-18 07:20] LABS: BUN/Creatinine Ratio 41 (6-26); Blood Urea Nitrogen 26 mg/dL (8-23); Carbon Dioxide 29 mEq/L (23-29); Chloride 101 mEq/L (98-107); Glucose 272 mg/dL (70-105); Osmolality,Calculated 296 (280-300); Potassium 3.7 mEq/L (3.5-5.1); Sodium 136 mEq/L (136-145); eGFR For Non-African Americans > 60 (> 60)
[2018-08-18] MEDS: cefTRIAXone 1,000 MG in Water for inj. (sterile) 20 ML 10 ML IVP SCH (07:36)
[2018-08-18] MEDS: Insulin LISPRO 300 UNITS/3 ML VIAL SQ SCH ×4 (08:48→20:48)
--- NOTE | 2018-08-18 09:18 | Internal Med History&Physical ---
Date of Encounter: 08/18/18 Time of Encounter: 05:30 Internal Medicine - H&P: HPI Chief complaint: Weakness Admitted From: Emergency Dept Plans for Post Hospital Care: Home History of present illness: Ms. Casillas is a 68 year old female Patient presented to the ER with recent fall. is at bedside and assists with history. He states that he thinks his fell around 3pm, he did not return home until around 7pm, and she was still on the ground. Due to his elderly state, he was unable to get her off the floor so he called EMS. Patient states that she may have hit her head but she does not know for sure. She has had several falls in the last few months, denies new medications and denies low blood sugars. She also has not had recent illness. She uses a walker at home to get around, but despite this she still falls. In the ER patient's cbc was within normal limits. BMP showed a blood sugar of 387. Creatinine kinase was elevated at 1152. UA showed large leukocyte esterase, but negative nitrites, large blood and 30 protein. Patient had multiple CT images taken of head, spine and abdomen which largely showed no acute abnormalities. It did however reveal severe liver cirrhosis with splenomegaly and left hydroureteronephrosis. There was also questionable wall thickening in the left urinary bladder. Recommended non-emergent urology consultation. Patient had urine cultures obtained, started on ceftriaxone, 1 liter of IV fluids was given and she was sent to the medical floor for further management. Upon my assessment patient is laying the hospital bed and denies complaints at this time. She denies nausea, vomiting, chest pain, abdominal pain, diarrhea and constipation. She has chronic back and neck pain due to bulging discs. She says that she feels like she is weak and cant walk. She does not recall her initial fall. says her falls have become more frequent, and she is becoming more forgetful for the past year. She was recently admitted in the hospital about 3 weeks ago for similar complaints, found to have colitis. Past Med Surg Social Fam HX - Past Medical History Medical history: cancer, CVA, DVT, diabetes, hypertension Additional medical history: recurrent UTI's Psychiatric history: depression - Past Surgical History Surgical History: appendectomy, breast surgery, hysterectomy, other Additional surgical history: left partial mastectomy - Social History Smoking Status: Never smoker Smokeless Tobacco Status: No Alcohol use: none Drug use: none - Family History Mother Living Status: Father Living Status: Hx Family Cardiac Disorders: Yes Hx Family Endocrine Disorder: Yes Internal Medicine - H&P: Meds Albuterol Sulfate [Proair Hfa] 2 puff IH Q4H PRN 02/04/18 [History] Amitriptyline HCl 100 mg PO HS 02/04/18 [History] Metoprolol XL (24 HR) Succ [Toprol Xl] 12.5 mg PO DAILY #15 tab.er.24h 02/11/18 [Rx] Insulin LISPRO [HumaLOG] 0 units SQ TIDWM 04/23/18 [History] Insulin Glargine,Hum.rec.anlog [Basaglar Kwikpen U-100] 80 unit SQ BID 07/23/18 [History] Memantine HCl 10 mg PO BID 07/23/18 [History] Ciprofloxacin HCl [Cipro] 500 mg PO BID #14 tablet 07/26/18 [Rx] metroNIDAZOLE [Flagyl] 500 mg PO TID #21 tablet 07/26/18 [Rx] Allergy/AdvReac Type Severity Reaction Status Date / Time bee venom protein (honey bee) Allergy Swelling Verified 04/23/18 07:21 of Lip/Tongue/Throat codeine Allergy Hives Verified 04/23/18 07:21 Penicillins [PCN] Allergy Hives Verified 04/23/18 07:21 bisoprolol [From Ziac] AdvReac See Verified 04/23/18 07:21 Comments Donepezil AdvReac Vomiting Verified 04/23/18 07:21 hydrochlorothiazide AdvReac See Verified 04/23/18 07:21 [From Ziac] Comments iodine AdvReac Hives Verified 04/23/18 07:21 lisinopril [From Zestril] AdvReac Vomiting Verified 04/23/18 07:21 tramadol AdvReac See Verified 04/23/18 07:21 Comments IVP dye Allergy Itching Uncoded 02/10/16 15:52 All Systems PM: A 10-system review of systems was performed and is negative for pertinent findings except as documented above in the HPI. - Constitutional Vitals: Temp Pulse Resp BP Pulse Ox 99.4 F 97 16 137/69 100 08/18/18 08:15 08/18/18 08:15 08/18/18 08:15 08/18/18 08:15 08/18/18 08:15 General appearance: Present: cooperative, pleasant, no acute distress, answers questions appropriately Exam: As above - Head Head exam: Present: normal inspection - Eye Eye exam: Present: EOMI - Neck Neck exam general surgery: Absent: tenderness - Respiratory Respiratory exam: Present: CTAB. Absent: rales, wheezes - Cardiovascular Cardiovascular exam: Present: RRR. Absent: diastolic murmur, systolic murmur - GI/Abdominal GI/Abdominal exam: Present: normal bowel sounds, soft. Absent: tenderness - Extremities Exam Extremities exam: Present: warm, radial pulses palpable and symmetrical. Absent: calf tenderness, pedal edema, tenderness - Neurological Exam Neurological exam: Present: no focal deficits, strengths equal and symetr throughout. Absent: motor sensory deficit, facial droop, speech deficit - Skin Skin exam: Present: abrasion, dry, normal color, warm Additional comments: left knee has abrasion on lateral side, no active bleed, but does have dried blood. Internal Med - H&P Results - Labs CBC & Chem 7: 08/18/18 06:42 08/18/18 06:42 Labs: Short CBC 08/17/18 08/18/18 Range/Units 21:12 06:42 WBC 8.1 6.1 (4.3-11.1) K/mcL Hgb 12.9 11.8 (11.5-15.4) g/dL Hct 42.6 36.7 (35.3-44.9) % Plt Count 143 144 (140-400) K/mcL Neutrophils # 6.7 (1.6-8.9) K/mcL BMP 08/17/18 08/18/18 21:12 06:42 Sodium 135 L 136 Potassium 3.9 3.7 Chloride 98 101 Carbon Dioxide 26 29 BUN 35 H 26 H Creatinine 0.73 0.63 Glucose 387 H 272 H Calcium 9.0 9.0 Cardiac Enzymes 08/17/18 Range/Units 21:12 Troponin I < 0.03 (< 0.04) ng/mL Liver Function 08/17/18 Range/Units 21:12 Total Bilirubin 0.9 (0.3-1.0) mg/dL AST 45 H (13-39) Units/L ALT 37 (7-52) Units/L Alkaline Phosphatase 119 H (34-104) Units/L Albumin 3.4 L (3.5-5.7) g/dL Urine 08/17/18 Range/Units 22:10 Urine Color Yellow (Yellow) Urine Clarity Turbid A (Clear) Urine pH 5.5 (5.0-8.0) pH Units Ur Specific [place] 1.021 (1.010-1.025) Urine Protein 30 H (Neg-Trace) mg/dL Urine Glucose (UA) >=1000 H (Normal) mg/dL - ABG Interpretation ABG results: 08/17/18 22:27 VBG pH 7.39 VBG pCO2 68 H VBG pO2 107 H VBG HCO3 41 H - Impressions ITS Impressions Cervical Spine CT 08/17/18 20:48 IMPRESSION: No acute intracranial abnormality. No acute abnormality in the cervical spine. D/ / 08/17/2018 22:25:16 Siva Matos MD / donaldo Interpreting Provider: Siva Matos MD Head CT 08/17/18 20:48 IMPRESSION: No acute intracranial abnormality. No acute abnormality in the cervical spine. D/ / 08/17/2018 22:25:16 Siva Matos MD / donaldo Interpreting Provider: Siva Matos MD Lumbar Spine CT 08/17/18 20:48 IMPRESSION: 1. No acute traumatic abnormality in the abdomen or pelvis on the noncontrast CT. 2. Mild-moderate left hydroureteronephrosis has developed extending to the ureteral vesicular junction. Questionable wall thickening in the left urinary bladder. Nonemergent urology consultation should be considered to evaluate for cause of hydronephrosis and exclude underlying neoplasm. 3. No acute abnormality in the thoracic spine 4. No acute abnormality in the lumbar spine 5. Severe liver cirrhosis with splenomegaly. D/ / 08/17/2018 22:42:22 Edil Christian MD / donaldo Interpreting Provider: Edil Christian MD Thoracic Spine CT 08/17/18 20:48 IMPRESSION: 1. No acute traumatic abnormality in the abdomen or pelvis on the noncontrast CT. 2. Mild-moderate left hydroureteronephrosis has developed extending to the ureteral vesicular junction. Questionable wall thickening in the left urinary bladder. Nonemergent urology consultation should be considered to evaluate for cause of hydronephrosis and exclude underlying neoplasm. 3. No acute abnormality in the thoracic spine 4. No acute abnormality in the lumbar spine 5. Severe liver cirrhosis with splenomegaly. D/ / 08/17/2018 22:42:22 Edil Christian MD / donaldo Interpreting Provider: Edil Christian MD Abdomen/Pelvis CT 08/17/18 20:50 IMPRESSION: 1. No acute traumatic abnormality in the abdomen or pelvis on the noncontrast CT. 2. Mild-moderate left hydroureteronephrosis has developed extending to the ureteral vesicular junction. Questionable wall thickening in the left urinary bladder. Nonemergent urology consultation should be considered to evaluate for cause of hydronephrosis and exclude underlying neoplasm. 3. No acute abnormality in the thoracic spine 4. No acute abnormality in the lumbar spine 5. Severe liver cirrhosis with splenomegaly. D/ / 08/17/2018 22:42:22 Edil Christian MD / donaldo Interpreting Provider: Edil Christian MD - Assessment and plan (1) Fall Current Visit: Yes Status: Acute Assessment and plan: Patient had fall at home, with prolonged time on the ground. Imaging negative for acute injuries. Similar admission about 3 weeks ago. Patient also has UTI which could be contributing. PT/OT evaluation Treating rhabdomyolysis as below Orthostatic vital signs Cardiac monitoring Qualifiers: Encounter type: initial encounter Qualified Code(s): W19.XXXA - Unspecified fall, initial encounter (2) Rhabdomyolysis Current Visit: Yes Status: Acute Assessment and plan: CK 1152, secondary to being on the ground after a fall for a prolonged time. IV fluid boluses Recheck CK to monitor decrease Qualifiers: Rhabdomyolysis type: traumatic Encounter type: initial encounter Qualified Code(s): T79.6XXA - Traumatic ischemia of muscle, initial encounter (3) UTI (urinary tract infection) Current Visit: Yes Status: Acute Assessment and plan: UA demonstrates possible infection, with CT results showing bladder wall thickening. Continue ceftriaxone Follow up urine culture. Qualifiers: Urinary tract infection type: site unspecified Hematuria presence: without hematuria Qualified Code(s): N39.0 - Urinary tract infection, site not specified (4) Weakness Current Visit: No Status: Acute Assessment and plan: Several falls at home PT/OT evaluation Giving fluids for rhabdo Continue to monitor. (5) Cirrhosis Current Visit: No Status: Chronic Assessment and plan: Chronic, noted on abdominal imaging. Qualifiers: Hepatic cirrhosis type: unspecified hepatic cirrhosis Ascites presence: without ascites Qualified Code(s): K74.60 - Unspecified cirrhosis of liver (6) Hydronephrosis Current Visit: Yes Status: Acute Assessment and plan: As seen on CT scan. Nonemergent urology consultation recommended by radiology Qualifiers: Hydronephrosis type: with other ureteral stricture Qualified Code(s): N13.1 - Hydronephrosis with ureteral stricture, not elsewhere classified (7) DVT prophylaxis Current Visit: Yes Status: Acute Assessment and plan: SCDs - Time Spent With Patient Total time spent is greater than 50% in coordination of care (as documented) at patient's floor/unit and/or counseling patient: Greater than 35 minutes
--- NOTE | 2018-08-18 11:30 | Event Note ---
Date of Encounter: 08/18/18 Time of Encounter: 11:24 Patient was examined and reviewed the lab. Trending down CPK. Patient has cough and sounded congested but lung sounds clear. Patient is alert awake oriented to self and place but appeared confused and slow in response but as per report that is her baseline but I will also talk with family member. Review of the CT abdomen pelvis with nonobstructive hydroureter nephrosis with left lateral wall thickening therefore consulted urologists. Plan for hospital cystoscopy with biopsy tomorrow afternoon therefore will keep patient nothing by mouth. Severe liver cirrhosis but patient is not aware about it, no ascites in CT abdomen, PT/INR ordered-if patient remains a stable then needs to follow outpatient with PCP for further evaluation. Repeat CPK level if normal then will avoid further IV fluid with the concern that patient may get easily volume overloaded with underlying cirrhosis. Echocardiogram done on February 2018 with EF 60% and no significant. Patient has multiple falls therefore PTOT and social worker assistant also consulted for discharge planning. Patient is on home oxygen 2-3 liter requiring 4 L now. Will follow urine culture report.
[2018-08-18 12:02] LABS: INR 1.2; Prothrombin Time 13.7 Seconds (9.4-12.1)
[2018-08-18] MEDS: 0.9 % Sodium Chloride 1,000 ML IVC SCH (13:59)
[2018-08-18] MEDS: *HR* Heparin 5,000 UNIT/ML VIAL SQ SCH (17:48)
[2018-08-19 04:18] LABS: Basophils % 0.2 %; Eosinophils # 0.1 K/mcL (0.0-0.6); Hematocrit 31.8 % (35.3-44.9); Hemoglobin 10.4 g/dL (11.5-15.4); Immature Granulocytes % 0.4 % (0-4); Lymphocytes # 1.1 K/mcL (0.6-4.6); Lymphocytes % 25.4 %; Mean Corpuscular HGB Conc 32.7 g/dL (31.6-35.5); Mean Corpuscular Hemoglobin 29.8 pg (28.0-33.3); Mean Corpuscular Volume 91.1 fL (83.0-100.0); Monocytes # 0.4 K/mcL (0.0-1.3); Monocytes % 8.7 %; Platelet Count 107 K/mcL (140-400); Red Blood Count 3.49 M/mcL (3.82-4.97); Red Cell Distribution Width 14.6 % (11.5-14.5); Segmented Neutrophils % 63.3 %
[2018-08-19 04:36] LABS: Neutrophils # 2.9 K/mcL (1.6-8.9)
[2018-08-19 04:40] LABS: Alanine Aminotransferase 29 Units/L (7-52); Albumin 2.7 g/dL (3.5-5.7); Albumin/Globulin Ratio 0.8 (1.1-2.2); Alkaline Phosphatase 104 Units/L (34-104); Aspartate Amino Transferase 40 Units/L (13-39); BUN/Creatinine Ratio 30 (6-26); Bilirubin,Total 0.6 mg/dL (0.3-1.0); Blood Urea Nitrogen 16 mg/dL (8-23); Calcium 8.2 mg/dL (8.6-10.3); Carbon Dioxide 26 mEq/L (23-29); Chloride 106 mEq/L (98-107); Globulin 3.3 g/dL (2.4-3.5); Glucose 176 mg/dL (70-105); Osmolality,Calculated 295 (280-300); Potassium 3.6 mEq/L (3.5-5.1); Sodium 140 mEq/L (136-145); eGFR For Non-African Americans > 60 (> 60)
[2018-08-19] MEDS: *HR* Heparin 5,000 UNIT/ML VIAL SQ SCH (06:03)
[2018-08-19] MEDS: 0.9 % Sodium Chloride 1,000 ML IVC SCH (06:03)
[2018-08-19] MEDS: Insulin LISPRO 300 UNITS/3 ML VIAL SQ SCH ×4 (08:22→21:24)
[2018-08-19] MEDS: cefTRIAXone 1,000 MG in Water for inj. (sterile) 20 ML 10 ML IVP SCH (08:34)
--- NOTE | 2018-08-19 09:40 | Urology - Consult Note ---
Addendum entered and electronically signed by Raciel Donovan MD 08/19/18 10:29: The patient was seen and examined with the physician's assistant case manager. I agree with the assessment and plan. She has new left hydroureteronephrosis and her urinalysis showed some yeast. A previous CT scan showed no hydronephrosis. This is a new finding. She seems to have incomplete bladder emptying. It is possible she could have reflux up her left ureter given the incomplete emptying. I think it may be reasonable to place a Hill catheter for now. This will allow for adequate assessment of her output given the need to diurese her for rhabdomyolysis. It may be reasonable to add on some Diflucan as yeast was seen in her urinalysis. We will want to repeat a renal ultrasound in 1-2 days to see if there is improvement. At that point, her urine may be more sterile and we can consider cystoscopy, possible bladder biopsy, possible diagnostic left ureteroscopy and stent placement. Urology will continue to follow along. Original Note: Date of Encounter: 08/19/18 Time of Encounter: 08:50 - Assessment and Plan (1) Hydronephrosis Current Visit: Yes Status: Acute Assessment and plan: Patient is a 68-year-old female who presents with mild left hydroureter and hydronephrosis. Reviewed noncontrast CT images and did not see any apparent obstructing calculi. Patient experiencing some difficulty emptying her bladder. We will plan to start a Hill catheter for bladder decompression and obtain renal ultrasound to reevaluate for hydronephrosis in 1-2 days. No surgical intervention anticipated at this time. Patient may return to diabetic diet. Qualifiers: Hydronephrosis type: with other ureteral stricture Qualified Code(s): N13.1 - Hydronephrosis with ureteral stricture, not elsewhere classified (2) UTI (urinary tract infection) Current Visit: Yes Status: Acute Assessment and plan: Patient is a 68-year-old female who presents with urinary tract infection. Patient has experienced recurrent Escherichia coli infection. Vital signs are currently stable and afebrile. Patient has been placed on IV Rocephin. Will await final urine culture. Qualifiers: Urinary tract infection type: site unspecified Hematuria presence: without hematuria Qualified Code(s): N39.0 - Urinary tract infection, site not specified Urology CN:HPI Consult date: 08/19/18 Reason for consult Urology: Hydronephrosis History of present illness: Patient is a 68-year-old female who presents with mild left hydronephrosis. Patient was admitted from the emergency department after she was brought in by EMS for a fall at home. Patient has suffered multiple falls over the last sev eral months. Patient underwent multiple CT evaluations of the head, spine and abdomen that were all reassuring despite liver cirrhosis and mild left hydroureter and hydronephrosis. Patient denies any known past history of renal stones or any known family history of renal stones. Patient does, however, have a long-standing history of recurrent urinary tract infections with Escherichia coli being recurrent on urine culture. Patient admits to a long-standing history of urinary hesitancy and difficulty emptying her bladder. Patient denies fever, chills, flank pain, gross hematuria, urgency, frequency, dysuria, incontinence. Past Med Surg Social Fam HX - Past Medical History Medical history: cancer, CVA, DVT, diabetes, hypertension Additional medical history: recurrent UTI's Psychiatric history: depression - Past Surgical History Surgical History: appendectomy, breast surgery, hysterectomy, other Additional surgical history: left partial mastectomy - Social History Smoking Status: Never smoker Smokeless Tobacco Status: No Alcohol use: none Drug use: none - Family History Mother Living Status: Father Living Status: Hx Family Cardiac Disorders: Yes Hx Family Endocrine Disorder: Yes Medications and Allergies Albuterol Sulfate [Proair Hfa] 2 puff IH Q4H PRN 02/04/18 [History] Amitriptyline HCl 100 mg PO HS 02/04/18 [History] Metoprolol XL (24 HR) Succ [Toprol Xl] 12.5 mg PO DAILY #15 tab.er.24h 02/11/18 [Rx] Insulin LISPRO [HumaLOG] 0 units SQ TIDWM 04/23/18 [History] Insulin Glargine,Hum.rec.anlog [Basaglar Kwikpen U-100] 80 unit SQ BID 07/23/18 [History] Memantine HCl 10 mg PO BID 07/23/18 [History] Allergy/AdvReac Type Severity Reaction Status Date / Time bee venom protein (honey bee) Allergy Swelling Verified 04/23/18 07:21 of Lip/Tongue/Throat codeine Allergy Hives Verified 04/23/18 07:21 Penicillins [PCN] Allergy Hives Verified 04/23/18 07:21 bisoprolol [From Ziac] AdvReac See Verified 04/23/18 07:21 Comments Donepezil AdvReac Vomiting Verified 04/23/18 07:21 hydrochlorothiazide AdvReac See Verified 04/23/18 07:21 [From Ziac] Comments iodine AdvReac Hives Verified 04/23/18 07:21 lisinopril [From Zestril] AdvReac Vomiting Verified 04/23/18 07:21 tramadol AdvReac See Verified 04/23/18 07:21 Comments IVP dye Allergy Itching Uncoded 02/10/16 15:52 Review of Systems - Constitutional no chills, no fatigue, no fever(s) - EENT Nose, mouth and throat: no dizziness, no headache(s) - Cardiovascular no chest pain, no diaphoresis, no dyspnea - Respiratory no cough, no dyspnea - Gastrointestinal no abdominal pain, no nausea, no vomiting - Genitourinary Genitourinary: difficulty urinating, urinary hesitancy, no flank pain, no hematuria, no urinary frequency, no urinary incontinence, no urinary urgency - Musculoskeletal no back pain, no muscle weakness - Integumentary no erythema, no rash, no swelling - Neurological no confusion, no syncope - Psychiatric no anxiety, no confusion - Hematologic/Lymphatic no easy bleeding, no easy bruising - Allergic/Immunologic no throat swelling, no wheezing Exam Initial Vital Signs Temp Pulse Resp BP Pulse Ox 99.3 F 98 20 120/44 93 08/17/18 20:37 08/17/18 20:37 08/17/18 20:37 08/17/18 20:37 08/17/18 20:37 - General physical appearance Present: well developed, no distress, no pain - Eyes Present: PERRL, normal ocular movement - ENT Present: normal nares, no hearing loss, no congestion - Neck Present: no masses, trachea midline - Respiratory Present: normal respiratory effort - Cardiovascular Cardiovascular exam IM: RRR - Integumentary Present: no rash, no abnormal pigmentation - Neurologic Present: normal coordination - Musculoskeletal Present: other (normal posture ) Urology Results - Labs 08/19/18 03:38 08/19/18 03:38 Abnormal lab results RBC 3.49 M/mcL (3.82-4.97) L 08/19/18 03:38 Hgb 10.4 g/dL (11.5-15.4) L 08/19/18 03:38 Hct 31.8 % (35.3-44.9) L 08/19/18 03:38 RDW 14.6 % (11.5-14.5) H 08/19/18 03:38 Plt Count 107 K/mcL (140-400) L 08/19/18 03:38 PT 13.7 Seconds (9.4-12.1) H 08/18/18 11:40 APTT 23.8 Seconds (26.0-36.0) L 08/18/18 11:40 VBG pCO2 68 mmHg (41-51) H 08/17/18 22:27 VBG pO2 107 mmHg (25-50) H 08/17/18 22:27 VBG HCO3 41 mEq/L (21-27) H 08/17/18 22:27 Creatinine 0.53 mg/dL (0.60-1.20) L 08/19/18 03:38 BUN/Creatinine Ratio 30 (6-26) H 08/19/18 03:38 Glucose 176 mg/dL (70-105) H 08/19/18 03:38 POC Glucose 190 mg/dL (70-99) H 08/19/18 06:55 Calcium 8.2 mg/dL (8.6-10.3) L 08/19/18 03:38 AST 40 Units/L (13-39) H 08/19/18 03:38 Creatine Kinase 548 Units/L (30-223) H 08/19/18 07:38 Serum Total Protein 6.0 g/dL (6.4-8.9) L 08/19/18 03:38 Albumin 2.7 g/dL (3.5-5.7) L 08/19/18 03:38 Albumin/Globulin Ratio 0.8 (1.1-2.2) L 08/19/18 03:38 Beta-Hydroxybutyric Acd > 2.00 mmol/L (0.02-0.27) H 08/17/18 21:12 Urine Clarity Turbid (Clear) A 08/17/18 22:10 Urine Protein 30 mg/dL (Neg-Trace) H 08/17/18 22:10 Urine Glucose (UA) >=1000 mg/dL (Normal) H 08/17/18 22:10 Urine Ketones Trace mg/dL (Negative) H 08/17/18 22:10 Urine Blood Large (Negative) H 08/17/18 22:10 Ur Leukocyte Esterase Moderate (Negative) H 08/17/18 22:10 Urine Microscopic RBC 15-30 per hpf (0-3) H 08/17/18 22:10 Urine Microscopic WBC TNTC per hpf (0-3) H 08/17/18 22:10 Ur Squamous Epith Cells Moderate per lpf (None-Few) H 08/17/18 22:10 Urine Yeast Many per hpf (None Seen) H 08/17/18 22:10 Ur Culture Indicated? YES (NO) A 08/17/18 22:10 Diabetes panel 08/19/18 Range/Units 03:38 Sodium 140 (136-145) mEq/L Potassium 3.6 (3.5-5.1) mEq/L Chloride 106 (98-107) mEq/L Carbon Dioxide 26 (23-29) mEq/L BUN 16 (8-23) mg/dL Creatinine 0.53 L (0.60-1.20) mg/dL Glucose 176 H (70-105) mg/dL Calcium 8.2 L (8.6-10.3) mg/dL AST 40 H (13-39) Units/L ALT 29 (7-52) Units/L Alkaline Phosphatase 104 (34-104) Units/L Albumin 2.7 L (3.5-5.7) g/dL Calcium panel 08/19/18 Range/Units 03:38 Calcium 8.2 L (8.6-10.3) mg/dL Albumin 2.7 L (3.5-5.7) g/dL Pituitary panel 08/19/18 Range/Units 03:38 Sodium 140 (136-145) mEq/L Potassium 3.6 (3.5-5.1) mEq/L Chloride 106 (98-107) mEq/L Carbon Dioxide 26 (23-29) mEq/L BUN 16 (8-23) mg/dL Creatinine 0.53 L (0.60-1.20) mg/dL Glucose 176 H (70-105) mg/dL Calcium 8.2 L (8.6-10.3) mg/dL Adrenal panel 08/19/18 Range/Units 03:38 Sodium 140 (136-145) mEq/L Potassium 3.6 (3.5-5.1) mEq/L Chloride 106 (98-107) mEq/L Carbon Dioxide 26 (23-29) mEq/L BUN 16 (8-23) mg/dL Creatinine 0.53 L (0.60-1.20) mg/dL Glucose 176 H (70-105) mg/dL Calcium 8.2 L (8.6-10.3) mg/dL Total Bilirubin 0.6 (0.3-1.0) mg/dL AST 40 H (13-39) Units/L ALT 29 (7-52) Units/L Alkaline Phosphatase 104 (34-104) Units/L Albumin 2.7 L (3.5-5.7) g/dL All other labs normal. - Imaging CT scan - abdomen: report reviewed, image reviewed CT scan - pelvis: report reviewed, image reviewed Consult Discharge Plan - Plan Referrals: Julio Larios MD [Primary Care Provider] -
--- NOTE | 2018-08-19 09:52 | Internal Med Progress Note ---
Hospitalist Progress Note - Encounter Date of Encounter: 08/19/18 Time of Encounter: 09:49 - Subjective Interval History: Patient appeared better more alert awake oriented 3. Review lab with trending down creatinine kinase. Urine culture with no growth yet Denies fever chills nausea vomiting headache dizziness chest pain shortness of breath abdominal pain diarrhea - Exam Vitals: Temp Pulse Resp BP Pulse Ox 97.9 F 90 17 132/75 99 08/19/18 06:57 08/19/18 06:57 08/19/18 06:57 08/19/18 06:57 08/19/18 06:57 Exam: General appearance: No acute distress, A&O X 3. 4 L oxygen by nasal cannula- will plan to wean down. 2.5 L home oxygen Head exam: Atraumatic Eye exam: EOMI, PERRLA ENT exam: Moist oral mucosa Neck nontender, supple Respiratory exam: Clear to auscultation bilaterally Cardiovascular exam: Regular rate and rhythm, no systolic murmur Abdominal exam: Soft, nontender, nondistended, positive bowel sounds Extremities exam: No calf tenderness, no pedal edema Present: Skin-no rash, warm, dry, intact Neurological exam: CN II-XII intact, no focal deficits. No facial droop. Normal speech. Normal gait. - Assessment and Plan (1) Rhabdomyolysis Current Visit: Yes Status: Acute Assessment and Plan: Tingling on CPK. Recent is around 500. Will a stop IV fluid with the concern of volume overload due to underlying cirrhosis history and patient appeared well-hydrated. Will encourage by mouth fluid intake (2) Hydronephrosis Current Visit: Yes Status: Acute Assessment and Plan: Abnormal CT abdomen with mild left hydroureter and hydronephrosis. Consulted urologist and they Reviewed noncontrast CT images and did not see any apparent obstructing calculi. Patient experiencing some difficulty emptying her bladder therefore inserted Hill catheter for bladder decompression and obtain renal ultrasound to reevaluate for hydronephrosis in 1-2 days. (3) UTI (urinary tract infection) Current Visit: Yes Status: Acute Assessment and Plan: Urine culture pending. Continue Rocephin. (4) Altered mental status Current Visit: No Status: Acute Assessment and Plan: Possibly due to UTI. Better mentally status today. Continue to monitor. No focal neurological deficit. (5) COPD (chronic obstructive pulmonary disease) Current Visit: No Status: Acute Assessment and Plan: Continue home medicine. 2.5 L home oxygen. Will try to wean down oxygen today. At present 4 L oxygen started on admission but now clinically improving therefore will give weaning trial (6) Frequent falls Current Visit: No Status: Acute Assessment and Plan: Consulted PT OT and follow their recommendation (7) Mild dementia Current Visit: No Status: Acute Assessment and Plan: Stable (8) Cirrhosis Current Visit: No Status: Chronic Assessment and Plan: Stable. Monitored by PCP. Avoid hepatotoxic drugs (9) DMII (diabetes mellitus, type 2) Current Visit: No Status: Chronic Assessment and Plan: Accu-Chek, SSI, diabetic diet. Long-acting insulin 20 units in the night. (10) Hypertension Current Visit: No Status: Chronic Assessment and Plan: Stable. Continue to monitor. Resume home medicine (11) DVT prophylaxis Current Visit: Yes Status: Acute Assessment and Plan: SCDs. Stop heparin as trending down platelet. - Time Spent with Patient Total time spent is greater than 50% in coordination of care (as documented) at patient's floor/unit and/or counseling patient: 25 - 35 minutes Plan of Care Discussed with: patient Internal Medicine: Result - Labs CBC & Chem 7: 08/19/18 03:38 08/19/18 03:38 Labs: Short CBC 08/19/18 Range/Units 03:38 WBC 4.5 (4.3-11.1) K/mcL Hgb 10.4 L (11.5-15.4) g/dL Hct 31.8 L (35.3-44.9) % Plt Count 107 L (140-400) K/mcL Neutrophils # 2.9 (1.6-8.9) K/mcL BMP 08/19/18 03:38 Sodium 140 Potassium 3.6 Chloride 106 Carbon Dioxide 26 BUN 16 Creatinine 0.53 L Glucose 176 H Calcium 8.2 L Liver Function 08/19/18 Range/Units 03:38 Total Bilirubin 0.6 (0.3-1.0) mg/dL AST 40 H (13-39) Units/L ALT 29 (7-52) Units/L Alkaline Phosphatase 104 (34-104) Units/L Albumin 2.7 L (3.5-5.7) g/dL - ABG Interpretation ABG results: PT/INR, D-dimer PT 13.7 Seconds (9.4-12.1) H 08/18/18 11:40 - Impressions Impressions Chest X-Ray 08/18/18 11:14 IMPRESSION: No acute cardiopulmonary disease. D/ / Chapo Dye MD / Chapo Dye MD Interpreting Provider: Chapo Dye MD Consult Discharge Plan - Plan Referrals: Julio Larios MD [Primary Care Provider] - (1) Rhabdomyolysis Qualifiers: Rhabdomyolysis type: traumatic Encounter type: initial encounter Qualified Code(s): T79.6XXA - Traumatic ischemia of muscle, initial encounter (2) Hydronephrosis Qualifiers: Hydronephrosis type: with other ureteral stricture Qualified Code(s): N13.1 - Hydronephrosis with ureteral stricture, not elsewhere classified (3) UTI (urinary tract infection) Qualifiers: Urinary tract infection type: site unspecified Hematuria presence: without hematuria Qualified Code(s): N39.0 - Urinary tract infection, site not specified (4) Altered mental status Qualifiers: Altered mental status type: disorientation Qualified Code(s): R41.0 - Disorientation, unspecified (5) COPD (chronic obstructive pulmonary disease) Qualifiers: COPD type: chronic bronchitis Chronic bronchitis type: unspecified Qualified Code(s): J42 - Unspecified chronic bronchitis (8) Cirrhosis Qualifiers: Hepatic cirrhosis type: unspecified hepatic cirrhosis Ascites presence: without ascites Qualified Code(s): K74.60 - Unspecified cirrhosis of liver (9) DMII (diabetes mellitus, type 2) Qualifiers: Diabetes mellitus assisted insulin use: unspecified 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
--- NOTE | 2018-08-19 15:06 | Electrocardiograph Report ---
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
[2018-08-19] MEDS: Insulin DETEMIR 100 UNIT/ML X5UNITS SQ SCH (21:25)
[2018-08-19] MEDS ORDERED: *HR* OxyCODONE Immed Rel 5 MG TABLET PO ONE (23:13)
--- NOTE | 2018-08-20 07:51 | Internal Med Progress Note ---
Hospitalist Progress Note - Encounter Date of Encounter: 08/20/18 Time of Encounter: 07:50 - Exam Vitals: Temp Pulse Resp BP Pulse Ox 99.9 F H 80 20 108/62 96 08/20/18 07:32 08/20/18 07:32 08/20/18 07:32 08/20/18 07:32 08/20/18 07:32 Exam: General appearance: No acute distress, A&O X 3. 4 L oxygen by nasal cannula- will plan to wean down. 2.5 L home oxygen Head exam: Atraumatic Eye exam: EOMI, PERRLA ENT exam: Moist oral mucosa Neck nontender, supple Respiratory exam: Clear to auscultation bilaterally Cardiovascular exam: Regular rate and rhythm, no systolic murmur Abdominal exam: Soft, nontender, nondistended, positive bowel sounds Extremities exam: No calf tenderness, no pedal edema Present: Skin-no rash, warm, dry, intact Neurological exam: CN II-XII intact, no focal deficits. No facial droop. Normal speech. Normal gait. - Assessment and Plan (1) Hydronephrosis Current Visit: Yes Status: Acute Assessment and Plan: Abnormal CT abdomen with mild left hydroureter and hydronephrosis. Consulted urologist and they Reviewed noncontrast CT images and did not see any apparent obstructing calculi. Urology plan for renal ultrasound in am due to funguria and want yeast cleared out of the urine. Will start on fluconazole po daily (2) UTI (urinary tract infection) Current Visit: Yes Status: Acute Assessment and Plan: Urine culture pending. Continue Rocephin. Fluconazole added to regimen due to urine growing yeast (3) COPD (chronic obstructive pulmonary disease) Current Visit: No Status: Acute Assessment and Plan: Continue home medicine. 2.5 L home oxygen. Will try to wean down oxygen today. At present 4 L oxygen started on admission but now clinically improving therefore will give weaning trial (4) Hypertension Current Visit: No Status: Chronic Assessment and Plan: Stable. Continue to monitor. Resume home medicine (5) Mild dementia Current Visit: Yes Status: Acute Assessment and Plan: Stable (6) DMII (diabetes mellitus, type 2) Current Visit: Yes Status: Chronic Assessment and Plan: Accu-Chek, SSI, diabetic diet. Long-acting insulin 20 units in the night. (7) Altered mental status Current Visit: No Status: Acute Assessment and Plan: Possibly due to UTI. Better mentally status today. Continue to monitor. No focal neurological deficit. (8) Cirrhosis Current Visit: No Status: Chronic Assessment and Plan: Stable. Monitored by PCP. Avoid hepatotoxic drugs (9) Frequent falls Current Visit: No Status: Acute Assessment and Plan: Consulted PT OT and follow their recommendation (10) Rhabdomyolysis Current Visit: Yes Status: Acute Assessment and Plan: Tingling on CPK. Recent is around 500. Will a stop IV fluid with the concern of volume overload due to underlying cirrhosis history and patient appeared well-hydrated. Will encourage by mouth fluid intake (11) DVT prophylaxis Current Visit: Yes Status: Acute Assessment and Plan: SCDs. Stop heparin as trending down platelet. - Time Spent with Patient Total time spent is greater than 50% in coordination of care (as documented) at patient's floor/unit and/or counseling patient: Internal Medicine: Result - Labs CBC & Chem 7: 08/19/18 03:38 08/19/18 03:38 - ABG Interpretation ABG results: PT/INR, D-dimer PT 13.7 Seconds (9.4-12.1) H 08/18/18 11:40 - Impressions Impressions Lumbar Spine CT 08/17/18 20:48 IMPRESSION: 1. No acute traumatic abnormality in the abdomen or pelvis on the noncontrast CT. 2. Mild-moderate left hydroureteronephrosis has developed extending to the ureteral vesicular junction. Questionable wall thickening in the left urinary bladder. Nonemergent urology consultation should be considered to evaluate for cause of hydronephrosis and exclude underlying neoplasm. 3. No acute abnormality in the thoracic spine 4. No acute abnormality in the lumbar spine 5. Severe liver cirrhosis with splenomegaly. D/ / 08/17/2018 22:42:22 Edil Christian MD / bcarter Interpreting Provider: Edil Christian MD Thoracic Spine CT 08/17/18 20:48 IMPRESSION: 1. No acute traumatic abnormality in the abdomen or pelvis on the noncontrast CT. 2. Mild-moderate left hydroureteronephrosis has developed extending to the ureteral vesicular junction. Questionable wall thickening in the left urinary bladder. Nonemergent urology consultation should be considered to evaluate for cause of hydronephrosis and exclude underlying neoplasm. 3. No acute abnormality in the thoracic spine 4. No acute abnormality in the lumbar spine 5. Severe liver cirrhosis with splenomegaly. D/ / 08/17/2018 22:42:22 Edil Christian MD / donaldo Interpreting Provider: Edil Christian MD Abdomen/Pelvis CT 08/17/18 20:50 IMPRESSION: 1. No acute traumatic abnormality in the abdomen or pelvis on the noncontrast CT. 2. Mild-moderate left hydroureteronephrosis has developed extending to the ureteral vesicular junction. Questionable wall thickening in the left urinary bladder. Nonemergent urology consultation should be considered to evaluate for cause of hydronephrosis and exclude underlying neoplasm. 3. No acute abnormality in the thoracic spine 4. No acute abnormality in the lumbar spine 5. Severe liver cirrhosis with splenomegaly. D/ / 08/17/2018 22:42:22 Edil Christian MD / donaldo Interpreting Provider: Edil Christian MD Consult Discharge Plan - Plan Referrals: Julio Larios MD [Primary Care Provider] - 08/23/18 1:00 pm (Please follow up as schedule...) (1) Hydronephrosis Qualifiers: Hydronephrosis type: unspecified Qualified Code(s): N13.30 - Unspecified hydronephrosis (2) UTI (urinary tract infection) Qualifiers: Urinary tract infection type: site unspecified Hematuria presence: without hematuria Qualified Code(s): N39.0 - Urinary tract infection, site not specified (3) COPD (chronic obstructive pulmonary disease) Qualifiers: COPD type: chronic bronchitis Chronic bronchitis type: unspecified Qualified Code(s): J42 - Unspecified chronic bronchitis (4) Hypertension Qualifiers: Hypertension type: essential hypertension Qualified Code(s): I10 - Essential (primary) hypertension (6) DMII (diabetes mellitus, type 2) Qualifiers: Diabetes mellitus assisted insulin use: unspecified 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 Diabetes mellitus complication status: without complication Qualified Code(s): E11.9 - Type 2 diabetes mellitus without complications (7) Altered mental status Qualifiers: Altered mental status type: disorientation Qualified Code(s): R41.0 - Disorientation, unspecified (8) Cirrhosis Qualifiers: Hepatic cirrhosis type: unspecified hepatic cirrhosis Ascites presence: without ascites Qualified Code(s): K74.60 - Unspecified cirrhosis of liver (10) Rhabdomyolysis Qualifiers: Rhabdomyolysis type: traumatic Encounter type: initial encounter Qualified Code(s): T79.6XXA - Traumatic ischemia of muscle, initial encounter
--- NOTE | 2018-08-20 08:05 | Urology Progress Note ---
Addendum entered and electronically signed by Raciel Donovan MD 08/20/18 12:57: The patient was seen and examined with the physician's medical staff assistant. I agree with the assessment and plan. 68-year-old woman with left hydronephrosis and a urinary tract infection with yeast. We will arrange for a renal and bladder ultrasound tomorrow to further assess for hydronephrosis. At this point I would like to hold off on any intervention until her urine has been cleared of the yeast. Urology will follow along. Original Note: Date of Encounter: 08/20/18 Time of Encounter: 07:30 - Assessment and Plan (1) Hydronephrosis Current Visit: Yes Status: Acute Assessment and plan: Patient is a 68 year old female who presents with left hydroureteronephrosis. Patient has indwelling trujillo catheter. Plan to order renal ultrasound tomorrow morning to reevaluate hydronephrosis. Qualifiers: Hydronephrosis type: unspecified Qualified Code(s): N13.30 - Unspecified hydronephrosis (2) UTI (urinary tract infection) Current Visit: Yes Status: Acute Assessment and plan: Patient is a 68 year old female who presents with urinary tract infection. Preliminary urinalysis reveals yeast. Phoned microbiology lab, and urine is undergoing Gram Stain this morning. Results pending. Qualifiers: Urinary tract infection type: site unspecified Hematuria presence: without hematuria Qualified Code(s): N39.0 - Urinary tract infection, site not specified Progress Note Subjective: no new complaints Narrative: Patient seen and examined sitting upright in bed in no apparent distress. Patient states she is tolerating normal diet without nausea or vomiting. Patient denies any feeling of obstruction or discomfort with urinary catheter. Patient denies fever, chills, flank pain, gross hematuria. Objective Initial Vital Signs Temp Pulse Resp BP Pulse Ox 99.3 F 98 20 120/44 93 08/17/18 20:37 08/17/18 20:37 08/17/18 20:37 08/17/18 20:37 08/17/18 20:37 - General physical appearance Present: well developed, no distress, no pain - Respiratory Present: normal expansion - Abdomen Present: soft, non tender - Genitourinary Urine Appearance: Present: Clear - Integumentary Present: no rash, no abnormal pigmentation - Musculoskeletal Present: normal posture - Psychiatric Present: oriented to time, oriented to person, oriented to place, speech is normal, memory intact - Labs 08/19/18 03:38 08/19/18 03:38 Consult Discharge Plan - Plan Referrals: Julio Larios MD [Primary Care Provider] - 08/23/18 1:00 pm (Please follow up as schedule...)
[2018-08-20] MEDS: 0.9 % Sodium Chloride 1,000 ML IVC SCH (08:14)
[2018-08-20] MEDS: Insulin LISPRO 300 UNITS/3 ML VIAL SQ SCH ×4 (08:17→20:19)
[2018-08-20] MEDS: cefTRIAXone 1,000 MG in Water for inj. (sterile) 20 ML 10 ML IVP SCH (08:20)
[2018-08-20] MEDS: *HR* OxyCODONE Immed Rel 5 MG TABLET PO PRN (14:23)
[2018-08-20] MEDS ORDERED: Fluconazole 100 MG TABLET PO ONE (14:43)
[2018-08-20] MEDS ORDERED: Fluconazole 100 MG TABLET PO SCH (14:45)
[2018-08-20] MEDS: Insulin DETEMIR 100 UNIT/ML X5UNITS SQ SCH (20:18)
[2018-08-21] MEDS: Acetaminophen 325 MG TABLET PO PRN ×2 (01:56→19:04)
[2018-08-21 05:17] LABS: Basophils % 0.3 %; Eosinophils # 0.1 K/mcL (0.0-0.6); Eosinophils % 1.9 %; Hematocrit 32.9 % (35.3-44.9); Hemoglobin 10.9 g/dL (11.5-15.4); Immature Granulocytes % 0.5 % (0-4); Lymphocytes # 0.9 K/mcL (0.6-4.6); Lymphocytes % 24.6 %; Mean Corpuscular HGB Conc 33.1 g/dL (31.6-35.5); Mean Corpuscular Volume 90.6 fL (83.0-100.0); Mean Platelet Volume 9.8 fL (9.4-12.4); Monocytes # 0.3 K/mcL (0.0-1.3); Monocytes % 7.9 %; Neutrophils # 2.5 K/mcL (1.6-8.9); Platelet Count 100 K/mcL (140-400); Red Blood Count 3.63 M/mcL (3.82-4.97); Segmented Neutrophils % 64.8 %
[2018-08-21 05:33] LABS: BUN/Creatinine Ratio 17 (6-26); Blood Urea Nitrogen 7 mg/dL (8-23); Calcium 8.4 mg/dL (8.6-10.3); Carbon Dioxide 29 mEq/L (23-29); Chloride 103 mEq/L (98-107); Glucose 114 mg/dL (70-105); Magnesium 1.3 mg/dL (1.6-2.6); Osmolality,Calculated 283 (280-300); Phosphorous 2.1 mg/dL (2.7-4.5); Potassium 3.1 mEq/L (3.5-5.1); Sodium 137 mEq/L (136-145); eGFR For Non-African Americans > 60 (> 60)
[2018-08-21] MEDS ORDERED: Potassium Phosphate 44 MEQ in 0.9 % Sodium Chloride 250 ML IVPB ONE (08:01)
--- NOTE | 2018-08-21 08:06 | Internal Med Progress Note ---
Hospitalist Progress Note - Encounter Date of Encounter: 08/21/18 Time of Encounter: 08:00 - Exam Vitals: Temp Pulse Resp BP Pulse Ox 98.5 F 74 18 112/67 96 08/21/18 04:50 08/21/18 04:50 08/21/18 04:50 08/21/18 04:50 08/21/18 04:50 Exam: General appearance: No acute distress, A&O X 3. 4 L oxygen by nasal cannula- will plan to wean down. 2.5 L home oxygen Head exam: Atraumatic Eye exam: EOMI, PERRLA ENT exam: Moist oral mucosa Neck nontender, supple Respiratory exam: Clear to auscultation bilaterally Cardiovascular exam: Regular rate and rhythm, no systolic murmur Abdominal exam: Soft, nontender, nondistended, positive bowel sounds Extremities exam: No calf tenderness, no pedal edema Present: Skin-no rash, warm, dry, intact Neurological exam: CN II-XII intact, no focal deficits. No facial droop. Normal speech. Normal gait. - Assessment and Plan (1) Altered mental status Current Visit: No Status: Acute Assessment and Plan: Possibly due to UTI. Better mentally status today. Continue to monitor. No focal neurological deficit. (2) UTI (urinary tract infection) Current Visit: Yes Status: Acute Assessment and Plan: Urine cultures showed yeast. Continue Rocephin. Fluconazole added to regimen due to urine growing yeast Patiet spiked a low grade fever of 100.7 this am. follow up cultures and xray. Continue rocephin and fluconazole (3) Hydronephrosis Current Visit: Yes Status: Acute Assessment and Plan: Abnormal CT abdomen with mild left hydroureter and hydronephrosis. Consulted urologist and they Reviewed noncontrast CT images and did not see any apparent obstructing calculi. Urology plan for renal ultrasound in am due to funguria and want yeast cleared out of the urine. Will start on fluconazole po daily Renal ultrasound came back WNL (4) COPD (chronic obstructive pulmonary disease) Current Visit: No Status: Acute Assessment and Plan: Continue home medicine. 2.5 L home oxygen. Will try to wean down oxygen today. At present 4 L oxygen started on admission but now clinically improving therefore will give weaning trial (5) Hypertension Current Visit: No Status: Chronic Assessment and Plan: Stable. Continue to monitor. Resume home medicine (6) Mild dementia Current Visit: Yes Status: Acute Assessment and Plan: Stable (7) DMII (diabetes mellitus, type 2) Current Visit: Yes Status: Chronic Assessment and Plan: Accu-Chek, SSI, diabetic diet. Long-acting insulin 20 units in the night. (8) Cirrhosis Current Visit: No Status: Chronic Assessment and Plan: Stable. Monitored by PCP. Avoid hepatotoxic drugs (9) Frequent falls Current Visit: No Status: Acute Assessment and Plan: Consulted PT OT and follow their recommendation (10) Rhabdomyolysis Current Visit: Yes Status: Acute Assessment and Plan: Tingling on CPK. Recent is around 500. Will a stop IV fluid with the concern of volume overload due to underlying cirrhosis history and patient appeared well-hydrated. Will encourage by mouth fluid intake (11) DVT prophylaxis Current Visit: Yes Status: Acute Assessment and Plan: SCDs. Stop heparin as trending down platelet. (12) Hypokalemia Current Visit: Yes Status: Acute Assessment and Plan: Hypokalemia and hypomagnesemia. replaced - Time Spent with Patient Total time spent is greater than 50% in coordination of care (as documented) at patient's floor/unit and/or counseling patient: Internal Medicine: Result - Labs CBC & Chem 7: 08/21/18 05:03 08/21/18 05:03 Labs: Short CBC 08/21/18 Range/Units 05:03 WBC 3.8 L (4.3-11.1) K/mcL Hgb 10.9 L (11.5-15.4) g/dL Hct 32.9 L (35.3-44.9) % Plt Count 100 L (140-400) K/mcL Neutrophils # 2.5 (1.6-8.9) K/mcL BMP 08/21/18 05:03 Sodium 137 Potassium 3.1 L Chloride 103 Carbon Dioxide 29 BUN 7 L Creatinine 0.42 L Glucose 114 H Calcium 8.4 L - ABG Interpretation ABG results: PT/INR, D-dimer PT 13.7 Seconds (9.4-12.1) H 08/18/18 11:40 Consult Discharge Plan - Plan Referrals: Julio Larios MD [Primary Care Provider] - 08/23/18 1:00 pm (Please follow up as schedule...) (1) Altered mental status Qualifiers: Altered mental status type: disorientation Qualified Code(s): R41.0 - Disorientation, unspecified (2) UTI (urinary tract infection) Qualifiers: Urinary tract infection type: site unspecified Hematuria presence: without hematuria Qualified Code(s): N39.0 - Urinary tract infection, site not specified (3) Hydronephrosis Qualifiers: Hydronephrosis type: unspecified Qualified Code(s): N13.30 - Unspecified hydronephrosis (4) COPD (chronic obstructive pulmonary disease) Qualifiers: COPD type: chronic bronchitis Chronic bronchitis type: unspecified Qualified Code(s): J42 - Unspecified chronic bronchitis (5) Hypertension Qualifiers: Hypertension type: essential hypertension Qualified Code(s): I10 - Essential (primary) hypertension (7) DMII (diabetes mellitus, type 2) Qualifiers: Diabetes mellitus senior living 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
[2018-08-21] MEDS: Insulin LISPRO 300 UNITS/3 ML VIAL SQ SCH ×4 (08:25→20:26)
[2018-08-21] MEDS: cefTRIAXone 1,000 MG in Water for inj. (sterile) 20 ML 10 ML IVP SCH (08:38)
[2018-08-21] MEDS: Fluconazole 100 MG TABLET PO SCH (08:38)
[2018-08-21] MEDS: *HR* OxyCODONE Immed Rel 5 MG TABLET PO PRN ×2 (13:26→22:50)
[2018-08-21] MEDS ORDERED: Levofloxacin 750 MG/150 ML 750 MG/150 ML BAG IVPB SCH (19:00)
[2018-08-21] MEDS: Cefepime HCl 2,000 MG in 0.9 % Sodium Chloride Mini Bag 100 ML IVPB SCH ×2 (19:04→23:38)
[2018-08-21] MEDS: Insulin DETEMIR 100 UNIT/ML X5UNITS SQ SCH (20:25)
[2018-08-21] MEDS ORDERED: Ibuprofen 600 MG TABLET PO PRN (20:52)
[2018-08-22 05:36] LABS: Basophils % 0.3 %; Eosinophils % 0.3 %; Hematocrit 33.7 % (35.3-44.9); Immature Granulocytes % 0.9 % (0-4); Lymphocytes # 0.6 K/mcL (0.6-4.6); Lymphocytes % 15.7 %; Mean Corpuscular HGB Conc 32.6 g/dL (31.6-35.5); Mean Corpuscular Hemoglobin 30.1 pg (28.0-33.3); Mean Corpuscular Volume 92.1 fL (83.0-100.0); Mean Platelet Volume 10.2 fL (9.4-12.4); Monocytes # 0.3 K/mcL (0.0-1.3); Neutrophils # 2.6 K/mcL (1.6-8.9); Platelet Count 106 K/mcL (140-400); Red Blood Count 3.66 M/mcL (3.82-4.97); Red Cell Distribution Width 14.2 % (11.5-14.5); Segmented Neutrophils % 74.8 %
[2018-08-22 05:42] LABS: BUN/Creatinine Ratio 13 (6-26); Blood Urea Nitrogen 6 mg/dL (8-23); Calcium 8.4 mg/dL (8.6-10.3); Carbon Dioxide 27 mEq/L (23-29); Chloride 101 mEq/L (98-107); Glucose 153 mg/dL (70-105); Magnesium 1.3 mg/dL (1.6-2.6); Osmolality,Calculated 279 (280-300); Potassium 3.7 mEq/L (3.5-5.1); Sodium 134 mEq/L (136-145); eGFR For Non-African Americans > 60 (> 60)
[2018-08-22] MEDS: Cefepime HCl 2,000 MG in 0.9 % Sodium Chloride Mini Bag 100 ML IVPB SCH (08:35)
[2018-08-22] MEDS: Fluconazole 100 MG TABLET PO SCH (08:36)
[2018-08-22] MEDS ORDERED: Potassium Phosphate 44 MEQ in 0.9 % Sodium Chloride 250 ML IVPB ONE (08:40)
--- NOTE | 2018-08-22 08:40 | Internal Med Progress Note ---
Hospitalist Progress Note - Encounter Date of Encounter: 08/22/18 Time of Encounter: 08:35 - Exam Vitals: Temp Pulse Resp BP Pulse Ox 100.2 F H 83 18 134/74 98 08/22/18 07:28 08/22/18 07:28 08/22/18 07:28 08/22/18 07:28 08/22/18 07:28 Exam: General appearance: No acute distress, A&O X 3. 4 L oxygen by nasal cannula- will plan to wean down. 2.5 L home oxygen Head exam: Atraumatic Eye exam: EOMI, PERRLA ENT exam: Moist oral mucosa Neck nontender, supple Respiratory exam: Clear to auscultation bilaterally Cardiovascular exam: Regular rate and rhythm, no systolic murmur Abdominal exam: Soft, nontender, nondistended, positive bowel sounds Extremities exam: No calf tenderness, no pedal edema Present: Skin-no rash, warm, dry, intact Neurological exam: CN II-XII intact, no focal deficits. No facial droop. Normal speech. Normal gait. - Assessment and Plan (1) Sepsis Current Visit: Yes Status: Acute Assessment and Plan: Pt meets sepssis criteria with leukopenia and fevers . Pt has yeast in urine but has been having intermittent fever spike in last 24hrs. CXR negative, blood cultures ordered Abx broadened to levaquin and cefepime in addition to fluconazole. Will obtain CT abdomen to r/o abscess/infection ID consulted and recs appreciated (2) Altered mental status Current Visit: Yes Status: Acute Assessment and Plan: Possibly due to UTI. Better mentally status today. Continue to monitor. No focal neurological deficit. (3) UTI (urinary tract infection) Current Visit: Yes Status: Acute Assessment and Plan: Urine cultures showed yeast. Continue Rocephin. Fluconazole added to regimen due to urine growing yeast Patiet spiked a low grade fever of 100.7 this am. follow up cultures and xray. Continue rocephin and fluconazole (4) Hydronephrosis Current Visit: Yes Status: Acute Assessment and Plan: Abnormal CT abdomen with mild left hydroureter and hydronephrosis. Consulted urologist and they Reviewed noncontrast CT images and did not see any apparent obstructing calculi. Urology plan for renal ultrasound in am due to funguria and want yeast cleared out of the urine. Will start on fluconazole po daily Renal ultrasound came back WNL (5) COPD (chronic obstructive pulmonary disease) Current Visit: Yes Status: Acute Assessment and Plan: Continue home medicine. 2.5 L home oxygen. Will try to wean down oxygen today. At present 4 L oxygen started on admission but now clinically improving therefore will give weaning trial (6) Hypertension Current Visit: Yes Status: Chronic Assessment and Plan: Stable. Continue to monitor. Resume home medicine (7) Mild dementia Current Visit: Yes Status: Acute Assessment and Plan: Stable (8) DMII (diabetes mellitus, type 2) Current Visit: Yes Status: Chronic Assessment and Plan: Accu-Chek, SSI, diabetic diet. Long-acting insulin 20 units in the night. (9) Cirrhosis Current Visit: Yes Status: Chronic Assessment and Plan: Stable. Monitored by PCP. Avoid hepatotoxic drugs (10) Frequent falls Current Visit: Yes Status: Acute Assessment and Plan: Consulted PT OT and follow their recommendation (11) Rhabdomyolysis Current Visit: Yes Status: Acute Assessment and Plan: Tingling on CPK. Recent is around 500. Will a stop IV fluid with the concern of volume overload due to underlying cirrhosis history and patient appeared well-hydrated. Will encourage by mouth fluid intake (12) Hypokalemia Current Visit: Yes Status: Acute Assessment and Plan: Hypokalemia and hypomagnesemia. replaced (13) DVT prophylaxis Current Visit: Yes Status: Acute Assessment and Plan: SCDs. Stop heparin as trending down platelet. - Time Spent with Patient Total time spent is greater than 50% in coordination of care (as documented) at patient's floor/unit and/or counseling patient: Internal Medicine: Result - Labs CBC & Chem 7: 08/22/18 05:00 08/22/18 05:00 Labs: Short CBC 08/22/18 Range/Units 05:00 WBC 3.5 L (4.3-11.1) K/mcL Hgb 11.0 L (11.5-15.4) g/dL Hct 33.7 L (35.3-44.9) % Plt Count 106 L (140-400) K/mcL Neutrophils # 2.6 (1.6-8.9) K/mcL BMP 08/22/18 05:00 Sodium 134 L Potassium 3.7 Chloride 101 Carbon Dioxide 27 BUN 6 L Creatinine 0.48 L Glucose 153 H Calcium 8.4 L - ABG Interpretation ABG results: PT/INR, D-dimer PT 13.7 Seconds (9.4-12.1) H 08/18/18 11:40 - Impressions Impressions Chest X-Ray 08/21/18 08:02 IMPRESSION: 1. Stable chest x-ray with no active pulmonary disease. D/ / Abraham Thompson MD / Abraham Thompson MD Interpreting Provider: Abraham Thompson MD Retroperitoneum Ultrasound 08/21/18 10:00 IMPRESSION: Normal sonographic appearance of the kidneys. Splenomegaly. D/ / 08/21/2018 12:33:24 Raciel Craemr MD / todd Interpreting Provider: Raciel Cramer MD Consult Discharge Plan - Plan Referrals: Julio Larios MD [Primary Care Provider] - 08/23/18 1:00 pm (Please follow up as schedule...) (2) Altered mental status Qualifiers: Altered mental status type: disorientation Qualified Code(s): R41.0 - Disorientation, unspecified (3) UTI (urinary tract infection) Qualifiers: Urinary tract infection type: site unspecified Hematuria presence: without hematuria Qualified Code(s): N39.0 - Urinary tract infection, site not specified (4) Hydronephrosis Qualifiers: Hydronephrosis type: unspecified Qualified Code(s): N13.30 - Unspecified hydronephrosis (5) COPD (chronic obstructive pulmonary disease) Qualifiers: COPD type: chronic bronchitis Chronic bronchitis type: unspecified Qualified Code(s): J42 - Unspecified chronic bronchitis (6) Hypertension Qualifiers: Hypertension type: essential hypertension Qualified Code(s): I10 - Essential (primary) hypertension (8) DMII (diabetes mellitus, type 2) Qualifiers: Diabetes mellitus retirement insulin use: unspecified retirement insulin use status Diabetes mellitus complication status: without complication Qualified C ode(s): E11.9 - Type 2 diabetes mellitus without complications (9) Cirrhosis Qualifiers: Hepatic cirrhosis type: unspecified hepatic cirrhosis Ascites presence: without ascites Qualified Code(s): K74.60 - Unspecified cirrhosis of liver (11) Rhabdomyolysis Qualifiers: Rhabdomyolysis type: traumatic Encounter type: initial encounter Qualified Code(s): T79.6XXA - Traumatic ischemia of muscle, initial encounter
[2018-08-22] MEDS: *HR* OxyCODONE Immed Rel 5 MG TABLET PO PRN ×3 (08:44→23:39)
[2018-08-22] MEDS: Insulin LISPRO 300 UNITS/3 ML VIAL SQ SCH ×4 (09:57→21:49)
--- NOTE | 2018-08-22 10:13 | Urology Progress Note ---
Addendum entered and electronically signed by Raciel Donovan MD 08/22/18 13:13: The patient was seen and examined with the physician's video library assistant. I agree with the assessment and plan. I reviewed her CT scan which seems to show improvement in the left hydronephrosis with catheter placement. I am concerned that she has now had fevers despite adequate bladder drainage. No other source for infection has been delineated. I think it may be reasonable to maximally drain her left kidney. I recommend she undergo a cystoscopy with left ureteral stent placement. She is aware of the risks of the procedure which include but are not limited to bleeding, infection, injury to structures, need for further procedures, stent irritation, and the risk of anesthesia. She is willing to proceed. We have discussed this case with infectious disease who will be seeing her later today. Original Note: Date of Encounter: 08/22/18 Time of Encounter: 10:11 - Assessment and Plan (1) Hydronephrosis Current Visit: Yes Status: Acute Assessment and plan: Patient is a 68-year-old female who presents with left-sided mild hydronephrosis. Renal ultrasound suggests resolution of hydronephrosis. Patient, however, spiked a temperature and may likely benefit from ureteral stent placement. Discussed surgical risks, benefits, and expectations postoperatively. Discussed more specific risk of bleeding, infection, scarring, stricture, damage to kidney or bladder, anesthesia effects, blood clots. Patient has verbalized understanding, and consent has been signed. Patient is prepared to undergo a cystoscopy and left ureteral stent placement. Patient last ate three bites of rice crispie cereal and few sips of orange juice at 0800. Patient will remain nothing by mouth starting now. Qualifiers: Hydronephrosis type: unspecified Qualified Code(s): N13.30 - Unspecified hydronephrosis (2) UTI (urinary tract infection) Current Visit: Yes Status: Acute Assessment and plan: Patient is a 68-year-old female who presents with urinary tract infection and left-sided hydronephrosis. Vital signs are currently stable. Patient has a temperature of 100.2F. Preliminary urine culture is positive for yeast species, and final sensitivity report is pending. Patient is receiving IV cefepime and Levaquin. Patient is awaiting infectious disease evaluation. Qualifiers: Urinary tract infection type: site unspecified Hematuria presence: without hematuria Qualified Code(s): N39.0 - Urinary tract infection, site not specified Progress Note Narrative: Patient seen and examined lying in bed in no apparent distress. Patient reports some fever and chills. Hill catheter is indwelling and draining clear urine into bedside bag. Patient denies catheter discomfort or feeling of obstruction. Reviewed reassuring retroperitoneal ultrasound results with patient at bedside. Objective Initial Vital Signs Temp Pulse Resp BP Pulse Ox 99.3 F 98 20 120/44 93 08/17/18 20:37 08/17/18 20:37 08/17/18 20:37 08/17/18 20:37 08/17/18 20:37 - General physical appearance Present: well developed, no distress, no pain - Respiratory Present: normal expansion, normal respiratory effort - Genitourinary Urine Appearance: Present: Clear - Integumentary Present: no rash, no abnormal pigmentation - Musculoskeletal Present: normal posture - Psychiatric Present: oriented to time, oriented to person, oriented to place, speech is normal, memory intact - Labs 08/22/18 05:00 08/22/18 05:00 Diabetes panel 08/22/18 Range/Units 05:00 Sodium 134 L (136-145) mEq/L Potassium 3.7 (3.5-5.1) mEq/L Chloride 101 (98-107) mEq/L Carbon Dioxide 27 (23-29) mEq/L BUN 6 L (8-23) mg/dL Creatinine 0.48 L (0.60-1.20) mg/dL Glucose 153 H (70-105) mg/dL Calcium 8.4 L (8.6-10.3) mg/dL Calcium panel 08/22/18 Range/Units 05:00 Calcium 8.4 L (8.6-10.3) mg/dL Phosphorus 2.0 L (2.7-4.5) mg/dL Pituitary panel 08/22/18 Range/Units 05:00 Sodium 134 L (136-145) mEq/L Potassium 3.7 (3.5-5.1) mEq/L Chloride 101 (98-107) mEq/L Carbon Dioxide 27 (23-29) mEq/L BUN 6 L (8-23) mg/dL Creatinine 0.48 L (0.60-1.20) mg/dL Glucose 153 H (70-105) mg/dL Calcium 8.4 L (8.6-10.3) mg/dL Adrenal panel 08/22/18 Range/Units 05:00 Sodium 134 L (136-145) mEq/L Potassium 3.7 (3.5-5.1) mEq/L Chloride 101 (98-107) mEq/L Carbon Dioxide 27 (23-29) mEq/L BUN 6 L (8-23) mg/dL Creatinine 0.48 L (0.60-1.20) mg/dL Glucose 153 H (70-105) mg/dL Calcium 8.4 L (8.6-10.3) mg/dL Consult Discharge Plan - Plan Referrals: Julio Larios MD [Primary Care Provider] - 08/23/18 1:00 pm (Please follow up as schedule...)
--- NOTE | 2018-08-22 12:47 | Infectious Disease Consult ---
Date of Encounter: 08/22/18 Time of Encounter: 12:47 Assessment and Plan (1) Sepsis Status: Acute Assessment and plan: 3 SIRS criteria with fever, tachycardia and leukopenia likely secondary to complicated UTI negative blood cultures to date negative CXR Qualifiers: Sepsis type: sepsis due to unspecified organism Qualified Code(s): A41.9 - Sepsis, unspecified organism (2) UTI (urinary tract infection) Status: Acute Assessment and plan: candiduria? not sure if there is also a bacterial component. patient already on fluconazole and cefepime awaite intra op findings and cultures then tailor antibiotics accordingly. Qualifiers: Urinary tract infection type: site unspecified Hematuria presence: without hematuria Qualified Code(s): N39.0 - Urinary tract infection, site not specified (3) Altered mental status Status: Acute Qualifiers: Altered mental status type: disorientation Qualified Code(s): R41.0 - Disorientation, unspecified (4) Cirrhosis Status: Chronic Assessment and plan: etiology not clear per primary team Qualifiers: Hepatic cirrhosis type: unspecified hepatic cirrhosis Ascites presence: without ascites Qualified Code(s): K74.60 - Unspecified cirrhosis of liver (5) Rhabdomyolysis Status: Acute Qualifiers: Rhabdomyolysis type: traumatic Encounter type: initial encounter Qualified Code(s): T79.6XXA - Traumatic ischemia of muscle, initial encounter (6) Hydronephrosis Status: Acute Qualifiers: Hydronephrosis type: unspecified Qualified Code(s): N13.30 - Unspecified hydronephrosis Infectious Disease HPI - Data of Consult Patient: new to practice Requesting Physician: Ric Luna MD Primary Care Provider: Julio Larios MD - Consult Narrative Reason for consult: Recurrent fevers of unclear source History of present illness: Ms. Casillas is a 68 year old female Patient is 68-year-old woman who presented to [facility] on 08/18/2018 status post fall and was admitted for rhabdomyolysis, we are consulted 08/22/2018 for persistent fever with no obvious source. Patient is 68-year-old woman with history of CVA, DVT, diabetes mellitus type 2, hypertension apparently had a fall at home and she was on the ground for a few hours. Patient does not recall the fall and we were unable to get accurate history. I am not sure if the patient had syncope or loss of consciousness. On admission, patient's MAXIMUM TEMPERATURE was 99.3, no tachycardia and no tachypnea. Presenting labs revealed WBC 8.1 with 82% neutrophils no bands. BUN 35 creatinine 0.73. Glucose 387 and a CK of 1150. A urinalysis was obtained and showed pyuria. Urine culture revealed Alanis. A CT abdomen and pelvis revealed mild to moderate left hydroureteronephrosis has developed extending to the ureteral vesicular junction with questionable wall thickening in the left urinary bladder. There was also severe liver cirrhosis and splenomegaly. Patient was started empirically on Rocephin. Patient was seen by urology and had a Hill placed. Repeat CT abdomen and pelvis 08/22/2018 revealed. On 08/21/2018 patient had a low-grade fever 100.7 and then spiked a fever 102.3 with leukopenia. So she met sepsis criteria. Patient was Switched to fluconazole and cefepime and we were consulted to make further recommendations. Repeat chest x-ray on 08/21/2018 revealed no active pulmonary disease patient appears comfortable. No complaints. going to surgery now. CC: Ric Luna MD Past Med Surg Social Fam HX - Past Medical History Medical history: cancer, CVA, DVT, diabetes, hypertension Additional medical history: recurrent UTI's Psychiatric history: depression - Past Surgical History Surgical History: appendectomy, breast surgery, hysterectomy, other Additional surgical history: left partial mastectomy - Social History Smoking Status: Never smoker Smokeless Tobacco Status: No Alcohol use: none Drug use: none - Family History Father Living Status: Hx Family Cardiac Disorders: Yes Hx Family Endocrine Disorder: Yes Mother Living Status: Infectious Disease-CN:Meds RX: Albuterol Sulfate [Proair Hfa] 2 puff IH Q4H PRN 02/04/18 [History] RX: Amitriptyline HCl 100 mg PO HS 02/04/18 [History] RX: Metoprolol XL (24 HR) Succ [Toprol Xl] 12.5 mg PO DAILY #15 tab.er.24h 02/11/18 [Rx] RX: Insulin LISPRO [HumaLOG] 0 units SQ TIDWM 04/23/18 [History] RX: Insulin Glargine,Hum.rec.anlog [Basaglar Kwikpen U-100] 80 unit SQ BID 07/23/18 [History] RX: Memantine HCl 10 mg PO BID 07/23/18 [History] OxyCODONE Immed Rel [Roxicodone 10 MG] 10 - 15 mg PO Q4-6H PRN 08/19/18 [History] Allergy/AdvReac Type Severity Reaction Status Date / Time bee venom protein (honey bee) Allergy Swelling Verified 04/23/18 07:21 of Lip/Tongue/Throat codeine Allergy Hives Verified 04/23/18 07:21 Penicillins [PCN] Allergy Hives Verified 04/23/18 07:21 bisoprolol [From Ziac] AdvReac See Verified 04/23/18 07:21 Comments Donepezil AdvReac Vomiting Verified 04/23/18 07:21 hydrochlorothiazide AdvReac See Verified 04/23/18 07:21 [From Ziac] Comments iodine AdvReac Hives Verified 04/23/18 07:21 lisinopril [From Zestril] AdvReac Vomiting Verified 04/23/18 07:21 tramadol AdvReac See Verified 04/23/18 07:21 Comments IVP dye Allergy Itching Uncoded 02/10/16 15:52 Review of systems: 10 point ROS done, negative other for what's mentioned in the HPI Exam - Constitutional Vitals: Temp Pulse Resp BP Pulse Ox 98.5 F 77 18 125/52 96 08/22/18 11:16 08/22/18 11:16 08/22/18 11:16 08/22/18 11:16 08/22/18 11:16 General appearance: cooperative, no acute distress, no febrile - Head Head exam: Present: atraumatic, normocephalic - Respiratory Respiratory exam: Present: CTAB. Absent: wheezes - Cardiovascular Cardiovascular exam: Present: RRR, +S1, +S2 - GI/Abdominal GI/Abdominal exam: Present: soft. Absent: tenderness - Extremities Exam Extremities exam: Present: full ROM. Absent: pedal edema - Neurological Exam Neurological exam: Present: alert, oriented X3 Infectious Disease CN: Results - Labs CBC & Chem 7: 08/22/18 05:00 08/22/18 05:00 Cultures: Cultures 08/17/18 22:10 Urine Culture - Preliminary Urine,Catheterized Yeast Species 08/21/18 08:18 Blood Culture - Preliminary Peripheral Venipuncture Culture is incubating and being continuously monitored for growth. Final report to follow. 08/21/18 08:18 Blood Culture - Preliminary Peripheral Venipuncture Culture is incubating and being continuously monitored for growth. Final report to follow. Serology: Serology 08/17/18 Range/Units 22:10 Urine Color Yellow (Yellow) Urine Clarity Turbid A (Clear) Urine pH 5.5 (5.0-8.0) pH Units Ur Specific [place] 1.021 (1.010-1.025) Urine Protein 30 H (Neg-Trace) mg/dL Urine Glucose (UA) >=1000 H (Normal) mg/dL Urine Ketones Trace H (Negative) mg/dL Urine Blood Large H (Negative) Urine Nitrite Negative (Negative) Urine Bilirubin Negative (Negative) Urine Urobilinogen Normal (Normal) mg/dL Ur Leukocyte Esterase Moderate H (Negative) Urine Microscopic RBC 15-30 H (0-3) per hpf Urine Microscopic WBC TNTC H (0-3) per hpf Ur Squamous Epith Cells Moderate H (None-Few) per lpf Ur Transition Epith Cell Few (None-Few) per hpf Ur Renal Epithelial Cell Few (None-Few) per hpf Urine Bacteria None Seen (None-Few) per hpf Hyaline Casts None Seen (None-Few) per lpf Urine Yeast Many H (None Seen) per hpf Ur Culture Indicated? YES A (NO) Consult Discharge Plan - Plan Referrals: Julio Larios MD [Primary Care Provider] - 08/23/18 1:00 pm (Please follow up as schedule...)
[2018-08-22] MEDS ORDERED: Cefepime HCl 2,000 MG in Water for inj. (sterile) 20 ML 20 ML IVP SCH (16:00)
--- NOTE | 2018-08-22 19:04 | Anesthesia Evaluation PreOp ---
Date of Encounter: 08/22/18 Time of Encounter: 19:02 - Past History Planned Operation: Cystoscopy with Left Stent Insertion Cardiac History: HTN Pulmonary History: COPD (home O2 qhs and prn) PERIANESTHESIA MANAGER History: CVA (no residual) Other Medical History: Diabetes Type II, GERD Anesthesia History: No Prior Anesthetic Complications, Past Anesthesia (Cystoscopy) : No Alcohol Use: none Drug use: none Medications and Allergies Albuterol Sulfate [Proair Hfa] 2 puff IH Q4H PRN 02/04/18 [History] Amitriptyline HCl 100 mg PO HS 02/04/18 [History] Metoprolol XL (24 HR) Succ [Toprol Xl] 12.5 mg PO DAILY #15 tab.er.24h 02/11/18 [Rx] Insulin LISPRO [HumaLOG] 0 units SQ TIDWM 04/23/18 [History] Insulin Glargine,Hum.rec.anlog [Basaglar Kwikpen U-100] 80 unit SQ BID 07/23/18 [History] Memantine HCl 10 mg PO BID 07/23/18 [History] OxyCODONE Immed Rel [Roxicodone 10 MG] 10 - 15 mg PO Q4-6H PRN 08/19/18 [History] Allergy/AdvReac Type Severity Reaction Status Date / Time bee venom protein (honey bee) Allergy Swelling Verified 04/23/18 07:21 of Lip/Tongue/Throat codeine Allergy Hives Verified 04/23/18 07:21 Penicillins [PCN] Allergy Hives Verified 04/23/18 07:21 bisoprolol [From Ziac] AdvReac See Verified 04/23/18 07:21 Comments Donepezil AdvReac Vomiting Verified 04/23/18 07:21 hydrochlorothiazide AdvReac See Verified 04/23/18 07:21 [From Ziac] Comments iodine AdvReac Hives Verified 04/23/18 07:21 lisinopril [From Zestril] AdvReac Vomiting Verified 04/23/18 07:21 tramadol AdvReac See Verified 04/23/18 07:21 Comments IVP dye Allergy Itching Uncoded 02/10/16 15:52 - Meds/Allergy Pre-op Review Medications Reviewed: Yes Allergies Reviewed: Yes Beta Blockers on Current Med List: No Anesthesia Results - Labs 08/22/18 05:00 08/22/18 05:00 - Imaging EKG: report reviewed (Sinus rhythm Possible septal infarct, age undetermined) Additional studies: 02/07/2018 Echo Impressions: LVEF 65%. Normal LV chamber size, wall thickness and function. Mild left ventricular diastolic dysfunction. Normal right ventricular structure and function. No evidence of pulmonary hypertension. No significant valvular dysfunction. Anesthesia Exam Vital Signs/O2 Sat, Most Current Temp Pulse Resp BP Pulse Ox 99.2 F 85 18 149/64 95 08/22/18 15:36 08/22/18 15:36 08/22/18 15:36 08/22/18 15:36 08/22/18 15:36 NPO (# of Hours): > 8 hrs Pain Scale: 0 Pain Scale Used: Numeric (1 - 10) - HEENT Pupil (Motor): Pupils equal, EOMI Mallampati: II Teeth: Normal Oral Opening: Greater than 3 - PERIANESTHESIA MANAGER LOC: Oriented PERIANESTHESIA MANAGER Motor: Normal RUE, Normal LUE, Normal RLE, Normal LLE, Normal Face PERIANESTHESIA MANAGER Sensory: Normal: RUE, LUE, RLE, LLE, Face - Cardiac Rhythm: Regular Murmur: None JVD: No Carotid Bruit: No - Pulmonary Breath Sounds: bilateral Clear Respiratory Effort: Symmetrical Anesthesia Assess/Plan ASA Score: 3 Level of consciousness: Cooperative Anesthetic Plan: General Autologous Blood: Yes Monitoring Plan: Standard Monitors Recovery Plan: PACU
[2018-08-22] MEDS ORDERED: *HR* FentaNYL (PF) 100 MCG/2 ML VIAL ONE (19:35)
[2018-08-22] MEDS ORDERED: Lidocaine -MPF 2% 2 ML VIAL ONE (19:39)
[2018-08-22] MEDS ORDERED: *HR* Propofol 200 MG/20 ML VIAL IVP ONE (19:39)
[2018-08-22] MEDS ORDERED: Dexamethasone 4 MG/ML VIAL ONE (19:40)
[2018-08-22] MEDS ORDERED: Ondansetron 4 MG/2 ML VIAL ONE (19:40)
[2018-08-22] MEDS ORDERED: Isovue-300 50 ML VIAL IVP ONE (20:03)
--- NOTE | 2018-08-22 20:50 | Operative Note ---
Date of procedure: 08/22/18 Pre-op diagnosis: Left hydronephrosis, urinary tract infection Post-op diagnosis: same Procedure: Cystoscopy, left ureteral stent placement Implants: 4.8-[place] by 24 cm double-J stent Complications: None Anesthesia: YULIA Surgeon: Raciel Donovan Was there an players assistant present: No Estimated blood loss (cc): 0 Specimen: left renal culture Condition: stable Disposition: PACU Procedure in Detail: Indications: Sabine is a 68-year-old woman who has a history of urinary tract infection and left hydronephrosis. She had a CT which showed the left hydronephrosis. A Hill catheter was placed. Her left hydronephrosis seemed to improve, but she began to develop fevers. I recommend proceeding with a cystoscopy and left ureteral stent placement in order to provide maximal drainage from the left kidney. She was aware of the risks of the procedure including but not limited to bleeding, infection, injury to other structures, need for further procedures, stent irritation, need for nephrostomy tube, need for open repair, risks otherwise unforeseen, and the risk of anesthesia. She is willing to proceed. Procedure in Detail: After informed consent was obtained the patient was brought back to the operating room and placed in supine position. A time out was performed. General anesthesia was administered and a LMA was placed. She was then placed in the lithotomy position. She was prepped and draped in the usual sterile fashion. Cystoscopy was performed. The anterior urethra was normal. There was no evidence of bladder tumors. The ureteral orifices were in the normal orthotopic position. The urothelium was inflamed. There was no duplication of the ureteral orifices. The Zip wire was placed in the left ureteral orifice. the wire was brought to the kidney under fluoroscopic guidance. The open-ended catheter was placed over the wire into the kidney. She reported an allergy to IV contrast, and I felt it best to avoid potential exposure to x-ray dye. No retrograde pyelogram was performed. An aspirate of urine was obtained from the kidney. The urine did not appear to be purulent. It was clear. The wire was replaced. A 4.8 [place] by 24cm JJ stent was then placed. The dangle strings were removed. A Hill catheter was placed. The patient was then awakened from general anesthesia and brought to recovery room in good condition. All sponge, needle, and instrument counts were correct.
--- NOTE | 2018-08-22 21:24 | Anesthesia Evaluation Post Op ---
Date of Encounter: 08/22/18 Time of Encounter: 09:21 - Vital Signs Vital Signs: Vital Signs/O2 Sat, Most Current Temp Pulse Resp BP Pulse Ox 97.8 F 81 14 151/71 99 08/22/18 20:54 08/22/18 21:14 08/22/18 21:14 08/22/18 21:14 08/22/18 21:14 - Lungs Lungs: Clear Ascult./Percussion - Airway Airway: Non-obstructed - Cardiovascular Regular Rate, Baseline Rhythm - Mental Status Mental Status: Alert & Oriented, Answers Appropriately - Pain Pain Scale: 0 Pain Scale used: Numeric (1 - 10) - Nausea Vomiting Nausea Vomiting: Not Present - Hydration Hydration: Tolerates oral liquids, Ice chips, Able to void Notes: 08/22/18 21:23 on o2 2 liters NC just like home - Discharge PostOp Status: Transfer Patient to floor
[2018-08-22] MEDS: Insulin DETEMIR 100 UNIT/ML X5UNITS SQ SCH (21:54)
[2018-08-22] MEDS ORDERED: Ibuprofen 600 MG TABLET PO PRN (22:42)
[2018-08-22] MEDS ORDERED: Acetaminophen 325 MG TABLET PO PRN (22:42)
[2018-08-22] MEDS ORDERED: Dextrose Gel 15 GM/37.5 ML TUBE PO PRN ×2 (22:42)
[2018-08-22] MEDS ORDERED: D5% in Water 1,000 ML IVC PRN (22:42)
[2018-08-22] MEDS ORDERED: Naloxone 0.4 MG/ML INJ IVP PRN (22:42)
[2018-08-22] MEDS ORDERED: *HR* Dextrose 50 % in Water (Syg) 50 ML SYRINGE IVP PRN (22:42)
[2018-08-22] MEDS: Cefepime HCl 2,000 MG in Water for inj. (sterile) 20 ML 20 ML IVP SCH (23:33)
[2018-08-23 04:54] LABS: Basophils % 0.4 %; Hematocrit 34.7 % (35.3-44.9); Hemoglobin 11.4 g/dL (11.5-15.4); Immature Granulocytes % 1.1 % (0-4); Lymphocytes # 0.4 K/mcL (0.6-4.6); Lymphocytes % 14.4 %; Mean Corpuscular HGB Conc 32.9 g/dL (31.6-35.5); Mean Corpuscular Hemoglobin 30.5 pg (28.0-33.3); Mean Corpuscular Volume 92.8 fL (83.0-100.0); Mean Platelet Volume 10.3 fL (9.4-12.4); Monocytes # 0.1 K/mcL (0.0-1.3); Monocytes % 2.8 %; Neutrophils # 2.3 K/mcL (1.6-8.9); Platelet Count 101 K/mcL (140-400); Red Blood Count 3.74 M/mcL (3.82-4.97); Red Cell Distribution Width 14.4 % (11.5-14.5); Segmented Neutrophils % 81.3 %
[2018-08-23 05:04] LABS: BUN/Creatinine Ratio 23 (6-26); Blood Urea Nitrogen 12 mg/dL (8-23); Calcium 8.8 mg/dL (8.6-10.3); Carbon Dioxide 25 mEq/L (23-29); Chloride 100 mEq/L (98-107); Glucose 401 mg/dL (70-105); Magnesium 1.7 mg/dL (1.6-2.6); Osmolality,Calculated 291 (280-300); Phosphorous 3.2 mg/dL (2.7-4.5); Potassium 4.5 mEq/L (3.5-5.1); Sodium 132 mEq/L (136-145); eGFR For Non-African Americans > 60 (> 60)
[2018-08-23] MEDS: Cefepime HCl 2,000 MG in Water for inj. (sterile) 20 ML 20 ML IVP SCH ×2 (07:50→15:23)
[2018-08-23] MEDS: Insulin LISPRO 300 UNITS/3 ML VIAL SQ SCH ×4 (07:51→18:28)
[2018-08-23] MEDS: *HR* OxyCODONE Immed Rel 5 MG TABLET PO PRN (08:11)
--- NOTE | 2018-08-23 08:53 | Urology Progress Note ---
Addendum entered and electronically signed by Raciel Donovan MD 08/23/18 12:54: The patient was seen and examined with the physician's office clerk assistant. I agree with the assessment and plan. She is doing well today. No fevers since the procedure. Okay to discharge to rehabilitation with the Hill catheter. They can consider removing it as her ambulation improves. She can follow up in 2-3 weeks for cystoscopy and stent removal. Original Note: Date of Encounter: 08/23/18 Time of Encounter: 08:51 - Assessment and Plan (1) Hydronephrosis Current Visit: Yes Status: Acute Assessment and plan: Patient is a 68-year-old female who presents with left hydronephrosis. Patient had repeat renal ultrasound that confirmed resolution of hydronephrosis. Patient, however, persisted with febrile illness, and cystoscopy and ureteral stent placement was performed. Patient is recovering well. Qualifiers: Hydronephrosis type: unspecified Qualified Code(s): N13.30 - Unspecified hydronephrosis (2) UTI (urinary tract infection) Current Visit: Yes Status: Acute Assessment and plan: Patient is a 68-year-old female who presents one day postoperatively from cystoscopy, left ureteral stent placement. Patient initially grew yeast species in her urine on 08/17/18. Patient was treated with cefepime and fluconazole. Patient persisted with intermittent fevers. Patient has remained afebrile for 24 hours. We are awaiting intraoperative urine culture. Appreciate infectious disease recommendations. Qualifiers: Urinary tract infection type: site unspecified Hematuria presence: without hematuria Qualified Code(s): N39.0 - Urinary tract infection, site not specified Progress Note Subjective: no new complaints, feels better Narrative: POD #1. Patient seen and examined sitting upright in bed eating breakfast in no apparent distress. Hill catheter is indwelling and draining clear urine into bedside bag. She denies any catheter discomfort or feeling of obstruction. Patient denies fever, chills, flank pain. Objective Initial Vital Signs Temp Pulse Resp BP Pulse Ox 99.3 F 98 20 120/44 93 08/17/18 20:37 08/17/18 20:37 08/17/18 20:37 08/17/18 20:37 08/17/18 20:37 - General physical appearance Present: well developed, no distress, no pain - Respiratory Present: normal expansion, normal respiratory effort - Abdomen Present: soft, non tender - Genitourinary Urine Appearance: Present: Clear - Integumentary Present: no rash, no abnormal pigmentation - Musculoskeletal Present: normal posture - Psychiatric Present: oriented to time, oriented to person, oriented to place, speech is normal, memory intact - Labs 08/23/18 04:19 08/23/18 04:19 Diabetes panel 08/23/18 Range/Units 04:19 Sodium 132 L (136-145) mEq/L Potassium 4.5 (3.5-5.1) mEq/L Chloride 100 (98-107) mEq/L Carbon Dioxide 25 (23-29) mEq/L BUN 12 (8-23) mg/dL Creatinine 0.53 L (0.60-1.20) mg/dL Glucose 401 H (70-105) mg/dL Calcium 8.8 (8.6-10.3) mg/dL Calcium panel 08/23/18 Range/Units 04:19 Calcium 8.8 (8.6-10.3) mg/dL Phosphorus 3.2 (2.7-4.5) mg/dL Pituitary panel 08/23/18 Range/Units 04:19 Sodium 132 L (136-145) mEq/L Potassium 4.5 (3.5-5.1) mEq/L Chloride 100 (98-107) mEq/L Carbon Dioxide 25 (23-29) mEq/L BUN 12 (8-23) mg/dL Creatinine 0.53 L (0.60-1.20) mg/dL Glucose 401 H (70-105) mg/dL Calcium 8.8 (8.6-10.3) mg/dL Adrenal panel 08/23/18 Range/Units 04:19 Sodium 132 L (136-145) mEq/L Potassium 4.5 (3.5-5.1) mEq/L Chloride 100 (98-107) mEq/L Carbon Dioxide 25 (23-29) mEq/L BUN 12 (8-23) mg/dL Creatinine 0.53 L (0.60-1.20) mg/dL Glucose 401 H (70-105) mg/dL Calcium 8.8 (8.6-10.3) mg/dL - VTE Documentation of Mechanical Device: Intermittent pneumatic compression device Consult Discharge Plan - Plan Referrals: Julio Larios MD [Primary Care Provider] - 08/23/18 1:00 pm (Please follow up as schedule...)
[2018-08-23] MEDS ORDERED: Fluconazole 100 MG TABLET PO SCH (09:00)
--- NOTE | 2018-08-23 14:10 | Discharge Summary ---
Orders not resulted at time of discharge: Pending orders 08/17/18 22:10 Culture,Urine [RM] Stat 08/21/18 08:18 Culture,Blood [BC] Routine 08/22/18 20:25 XR KUB [XR] Routine 08/22/18 20:36 Culture,Urine [RM] Routine 08/23/18 Respiratory Infection Panel [MOLMIC] Stat 08/23/18 04:19 Culture,Blood [BC] Stat 08/24/18 04:00 Basic Metabolic Panel AM 0400 CBC [Complete Blood Count] [HEME] AM 0400 Magnesium AM 0400 Phosphorous AM 0400 08/25/18 04:00 Basic Metabolic Panel AM 0400 CBC [Complete Blood Count] [HEME] AM 0400 Magnesium AM 0400 Phosphorous AM 0400 08/26/18 04:00 Basic Metabolic Panel AM 0400 CBC [Complete Blood Count] [HEME] AM 0400 Magnesium AM 0400 Phosphorous AM 0400 Date of Encounter: 08/23/18 Time of Encounter: 14:00 - Discharge Diagnosis (1) Sepsis Priority: Primary Status: Acute Assessment and Plan: 68 year old female patient presented to the ER with recent fall. is at bedside and assists with history. He states that he thinks his fell around 3pm, he did not return home until around 7pm, and she was still on the ground. Due to his elderly state, he was unable to get her off the floor so he called EMS. Patient states that she may have hit her head but she does not know for sure. She has had several falls in the last few months, denies new medications and denies low blood sugars. She also has not had recent illness. She uses a walker at home to get around, but despite this she still falls. In the ER patient's cbc was within normal limits. BMP showed a blood sugar of 387. Creatinine kinase was elevated at 1152. UA showed large leukocyte esterase, but negative nitrites, large blood and 30 protein. Patient had multiple CT images taken of head, spine and abdomen which largely showed no acute abnormalities. She was assessed with altered mental status likely secondary to dehydration, rhabdomyolysis and UTI. She was treated with IV fluids and antibiotics. She also had a CT abdomen done showing hydronephrosis and was seen by urology. She began to have fever spikes and her antibiotics were broadened to cefepime from ceftriaxone. Her urine grew yeast and fluconazole was added to her regimen. With her fever spikes, she met sepsis criteria with leukopenia and fevers. She was seen by ID who obtained a respiratory panel that came back positive for parainfluenza 3. Patient is currently clinically stable and has no upper re spiratory symptoms and is okay to discharge. She has been afebrile for over 24hrs. Urology placed a stent due to her hydronephrosis. She has a trujillo in place that will be taken out as an outpatient per urology. 35minutes was spent discharging this patient Qualifiers: Sepsis type: sepsis due to unspecified organism Qualified Code(s): A41.9 - Sepsis, unspecified organism (2) Altered mental status Priority: Primary Status: Acute Qualifiers: Altered mental status type: disorientation Qualified Code(s): R41.0 - Disorientation, unspecified (3) UTI (urinary tract infection) Priority: Primary Status: Acute Qualifiers: Urinary tract infection type: site unspecified Hematuria presence: without hematuria Qualified Code(s): N39.0 - Urinary tract infection, site not specified (4) Hydronephrosis Priority: Primary Status: Acute Qualifiers: Hydronephrosis type: unspecified Qualified Code(s): N13.30 - Unspecified hydronephrosis (5) COPD (chronic obstructive pulmonary disease) Priority: Primary Status: Acute Qualifiers: COPD type: chronic bronchitis Chronic bronchitis type: unspecified Qualified Code(s): J42 - Unspecified chronic bronchitis (6) Hypertension Priority: Primary Status: Chronic Qualifiers: Hypertension type: essential hypertension Qualified Code(s): I10 - Essential (primary) hypertension (7) Mild dementia Priority: Primary Status: Acute (8) DMII (diabetes mellitus, type 2) Priority: Primary Status: Chronic Qualifiers: Diabetes mellitus watermelon inspector insulin use: unspecified [facility] insulin use status Diabetes mellitus complication status: without complication Qualified Code(s): E11.9 - Type 2 diabetes mellitus without complications (9) Cirrhosis Priority: Primary Status: Chronic Qualifiers: Hepatic cirrhosis type: unspecified hepatic cirrhosis Ascites presence: without ascites Qualified Code(s): K74.60 - Unspecified cirrhosis of liver (10) Frequent falls Priority: Primary Status: Acute (11) Rhabdomyolysis Priority: Primary Status: Acute Qualifiers: Rhabdomyolysis type: traumatic Encounter type: initial encounter Qualifi ed Code(s): T79.6XXA - Traumatic ischemia of muscle, initial encounter (12) Hypokalemia Priority: Primary Status: Acute (13) DVT prophylaxis Priority: Primary Status: Acute Hospital course: Ms. Casillas is a 68 year old female - Time Spent with Patient Total time spent providing and/or coordinating discharge services: - Discharge Medications Prescriptions: Cefdinir [Omnicef] 300 mg PO BID 4 Days #8 capsule Fluconazole [Diflucan] 100 mg PO DAILY #5 tablet Insulin DETEMIR [Levemir] 20 unit SQ BID 30 Days #10 mls OxyCODONE Immed Rel [Roxicodone 5 MG] 10 mg PO Q6H PRN 5 Days #10 tablet PRN Reason: Severe Pain Home Medications: Albuterol Sulfate [Proair Hfa] 2 puff IH Q4H PRN 02/04/18 [History] Amitriptyline HCl 100 mg PO HS 02/04/18 [History] Metoprolol XL (24 HR) Succ [Toprol Xl] 12.5 mg PO DAILY #15 tab.er.24h 02/11/18 [Rx] Insulin LISPRO [HumaLOG] 0 units SQ TIDWM 04/23/18 [History] Memantine HCl 10 mg PO BID 07/23/18 [History] Cefdinir [Omnicef] 300 mg PO BID 4 Days #8 capsule 08/23/18 [Rx] Fluconazole [Diflucan] 100 mg PO DAILY #5 tablet 08/23/18 [Rx] Insulin DETEMIR [Levemir] 20 unit SQ BID 30 Days #10 mls 08/23/18 [Rx] OxyCODONE Immed Rel [Roxicodone 5 MG] 10 mg PO Q6H PRN 5 Days #10 tablet 08/23/18 [Rx] Allergies/Adverse Reactions: Allergy/AdvReac Type Severity Reaction Status Date / Time bee venom protein (honey bee) Allergy Swelling Verified 04/23/18 07:21 of Lip/Tongue/Throat codeine Allergy Hives Verified 04/23/18 07:21 Penicillins [PCN] Allergy Hives Verified 04/23/18 07:21 bisoprolol [From Ziac] AdvReac See Verified 04/23/18 07:21 Comments Donepezil AdvReac Vomiting Verified 04/23/18 07:21 hydrochlorothiazide AdvReac See Verified 04/23/18 07:21 [From Ziac] Comments iodine AdvReac Hives Verified 04/23/18 07:21 lisinopril [From Zestril] AdvReac Vomiting Verified 04/23/18 07:21 tramadol AdvReac See Verified 04/23/18 07:21 Comments IVP dye Allergy Itching Uncoded 02/10/16 15:52 Date of admission: 08/18/18 13:53 Primary care physician: Julio Larios MD Consults: 08/18/18 06:28 Consult to Occupational Therapy [CONS] Routine Comment: Evaluate, develop and implement POC Reason for Consult: Frequent falls, weakness Does patient have active BEDREST order?: No Is patient medically & hemodynamically stable?: Yes Consult to Physical Therapy [CONS] Routine Comment: Evaluate, develop and implement POC Reason for Consult: Frequent falls, weakness Does patient have active BEDREST order?: No Is patient medically & hemodynamically stable?: Yes 08/18/18 11:04 Consult to Clinical Applications Specialist [CONS] Routine Reason for SW Consult: Discharge plan 08/18/18 11:06 Consult to Urology [CONS] Routine Consulting Provider: U[facility] Reason for Consult: Left hydronephrosis with thickening of left urinary bladder Call Completed: Yes 08/22/18 08:30 Consult to Infectious Diseases [CONS] Routine Consulting Provider: Infectious Disease Josselyn Reason for Consult: recurrent fevers of unclear source. only has yeast UTI Call Completed: No - Constitutional Vitals: Temp Pulse Resp BP Pulse Ox 97.7 F 75 17 105/58 93 08/23/18 11:04 08/23/18 11:04 08/23/18 11:04 08/23/18 11:04 08/23/18 11:04 General appearance: Present: cooperative, pleasant, no acute distress, answers questions appropriately Exam: General appearance: No acute distress, A&O X 3. 4 L oxygen by nasal cannula- will plan to wean down. 2.5 L home oxygen Head exam: Atraumatic Eye exam: EOMI, PERRLA ENT exam: Moist oral mucosa Neck nontender, supple Respiratory exam: Clear to auscultation bilaterally Cardiovascular exam: Regular rate and rhythm, no systolic murmur Abdominal exam: Soft, nontender, nondistended, positive bowel sounds Extremities exam: No calf tenderness, no pedal edema Present: Skin-no rash, warm, dry, intact Neurological exam: CN II-XII intact, no focal deficits. No facial droop. Normal speech. Normal gait. - Patient Status Disposition: Transfer SNF Condition: Good - Discharge Instructions Instructions: Fluconazole (By mouth), Oxycodone, Rapid Release (By mouth), Cefdinir (By mouth), Insulin Detemir (Injection), Urinary Tract Infection in Women (DC) Follow Up With: Julio Larios MD [Primary Care Provider] - (Please follow up as schedule...) Raciel Donovan MD [Partnered Physician] - 09/10/18 10:45 am (Please follow up as schedule....) - VTE Documentation of Mechanical Device: Intermittent pneumatic compression device
--- NOTE | 2018-08-23 15:00 | Physician Discharge Referral ---
- Diagnosis (1) Sepsis Priority: Primary Status: Acute (2) Altered mental status Priority: Primary Status: Acute (3) UTI (urinary tract infection) Priority: Primary Status: Acute (4) Hydronephrosis Priority: Primary Status: Acute (5) COPD (chronic obstructive pulmonary disease) Priority: Primary Status: Acute (6) Hypertension Priority: Primary Status: Chronic (7) Mild dementia Priority: Primary Status: Acute (8) DMII (diabetes mellitus, type 2) Priority: Primary Status: Chronic (9) Cirrhosis Priority: Primary Status: Chronic (10) Frequent falls Priority: Primary Status: Acute (11) Rhabdomyolysis Priority: Primary Status: Acute (12) Hypokalemia Priority: Primary Status: Acute (13) DVT prophylaxis Priority: Primary Status: Acute - Transfer Medications Prescriptions: Cefdinir [Omnicef] 300 mg PO BID 4 Days #8 capsule Fluconazole [Diflucan] 100 mg PO DAILY #5 tablet Insulin DETEMIR [Levemir] 20 unit SQ BID 30 Days #10 mls OxyCODONE Immed Rel [Roxicodone 5 MG] 10 mg PO Q6H PRN 5 Days #10 tablet PRN Reason: Severe Pain Home Medications: Albuterol Sulfate [Proair Hfa] 2 puff IH Q4H PRN 02/04/18 [History] Amitriptyline HCl 100 mg PO HS 02/04/18 [History] Metoprolol XL (24 HR) Succ [Toprol Xl] 12.5 mg PO DAILY #15 tab.er.24h 02/11/18 [Rx] Insulin LISPRO [HumaLOG] 0 units SQ TIDWM 04/23/18 [History] Memantine HCl 10 mg PO BID 07/23/18 [History] Cefdinir [Omnicef] 300 mg PO BID 4 Days #8 capsule 08/23/18 [Rx] Fluconazole [Diflucan] 100 mg PO DAILY #5 tablet 08/23/18 [Rx] Insulin DETEMIR [Levemir] 20 unit SQ BID 30 Days #10 mls 08/23/18 [Rx] OxyCODONE Immed Rel [Roxicodone 5 MG] 10 mg PO Q6H PRN 5 Days #10 tablet 08/23/18 [Rx] Allergies/Adverse Reactions: Allergy/AdvReac Type Severity Reaction Status Date / Time bee venom protein (honey bee) Allergy Swelling Verified 04/23/18 07:21 of Lip/Tongue/Throat codeine Allergy Hives Verified 04/23/18 07:21 Penicillins [PCN] Allergy Hives Verified 04/23/18 07:21 bisoprolol [From Ziac] AdvReac See Verified 04/23/18 07:21 Comments Donepezil AdvReac Vomiting Verified 04/23/18 07:21 hydrochlorothiazide AdvReac See Verified 04/23/18 07:21 [From Ziac] Comments iodine AdvReac Hives Verified 04/23/18 07:21 lisinopril [From Zestril] AdvReac Vomiting Verified 04/23/18 07:21 tramadol AdvReac See Verified 04/23/18 07:21 Comments IVP dye Allergy Itching Uncoded 02/10/16 15:52 - Respiratory Orders Smoking Cessation: Smoking cessation has been advised. For more information, call the [employer] [facility] Tobacco Quit Line at 0-415-NGOQ-NOW. - Rehabiliation Orders Rehab Orders: Evaluation for Physical Therapy - Diet Orders Cardiac CERTIFICATION: I certify that the transfer of the above named patient to an Extended Care Facility is necessary for the continuing treatment of the diagnosis listed. The above information is true and accurate reflection of patient's current condition. Confidential - Redisclosure prohibited without a patient's written consent.
[2018-08-23 15:55] LABS: Adenovirus Not Detected (Not Detect); Bordetella Pertussis Not Detected (Not Detect); Chlamydophila pneumoniae Not Detected (Not Detect); Coronavirus 229E Not Detected (Not Detect); Coronavirus HKU1 Not Detected (Not Detect); Coronavirus NL63 Not Detected (Not Detect); Coronavirus OC43 Not Detected (Not Detect); Human Metapneumovirus Not Detected (Not Detect); Human Rhinovirus/Enterovirus Not Detected (Not Detect); Influenza A Subtype 2009 H1 Not Detected (Not Detect); Influenza A Untypeable Not Detected (Not Detect); Influenza B Not Detected (Not Detect); Mycoplasma pneumoniae Not Detected (Not Detect); Parainfluenza Virus 1 Not Detected (Not Detect); Parainfluenza Virus 2 Not Detected (Not Detect); Parainfluenza Virus 4 Not Detected (Not Detect); Respiratory Syncytial Virus Not Detected (Not Detect)
[2018-08-23 15:58] LABS: Parainfluenza Virus 3 DETECTED (Not Detect)
[2018-08-23 20:48] VITALS: BP 125/65
[2018-08-23] MEDS ORDERED: Insulin DETEMIR 100 UNIT/ML X5UNITS SQ SCH (21:00)
[2018-08-23] MEDS ORDERED: Insulin LISPRO 300 UNITS/3 ML VIAL SQ SCH (21:00)
--- NOTE | 2018-08-23 23:04 | Infectious Disease Progress No ---
Date of Encounter: 08/23/18 Time of Encounter: 15:00 - Assessment and Plan (1) Sepsis Status: Acute concern for URI symptoms check respiratory infectious panel Qualifiers: Sepsis type: sepsis due to unspecified organism Qualified Code(s): A41.9 - Sepsis, unspecified organism (2) UTI (urinary tract infection) Status: Acute candiduria? not sure if there is also a bacterial component. patient already on fluconazole and cefepime awaite intra op findings and cultures then tailor antibiotics accordingly. Qualifiers: Urinary tract infection type: site unspecified Hematuria presence: without hematuria Qualified Code(s): N39.0 - Urinary tract infection, site not specified (3) Altered mental status Status: Acute secondary to hepatic encephalopathy vs other vs viral syndrome? no meningeal signs and no signs of viral encephalopathy Qualifiers: Altered mental status type: disorientation Qualified Code(s): R41.0 - Disorientation, unspecified (4) Cirrhosis Status: Chronic Qualifiers: Hepatic cirrhosis type: unspecified hepatic cirrhosis Ascites presence: without ascites Qualified Code(s): K74.60 - Unspecified cirrhosis of liver (5) Rhabdomyolysis Status: Acute Qualifiers: Rhabdomyolysis type: traumatic Encounter type: initial encounter Qualified Code(s): T79.6XXA - Traumatic ischemia of muscle, initial encounter (6) Hydronephrosis Status: Acute Qualifiers: Hydronephrosis type: unspecified Qualified Code(s): N13.30 - Unspecified hydronephrosis (7) Leukopenia Status: Acute etiology not clear heme consult? Qualifiers: Leukopenia type: neutropenia Neutropenia type: unspecified Qualified Code(s): D70.9 - Neutropenia, unspecified - Subjective Interval history: patient seen and examined. appears comfortable more awake and alert than yesterday ROS positive for rhinorrhea, sore throat and cough no productive and sinus pressure VS noted labs noted Infect Dis PN-Objective Data - Labs CBC & Chem 7: 08/23/18 04:19 08/23/18 04:19 Labs: Laboratory Results - last 24 hr 08/22/18 08/23/18 08/23/18 21:48 04:19 04:19 WBC 2.8 L RBC 3.74 L Hgb 11.4 L Hct 34.7 L MCV 92.8 MCH 30.5 MCHC 32.9 RDW 14.4 Plt Count 101 L MPV 10.3 Immature Gran % 1.1 Seg Neutrophils % 81.3 Lymphocytes % 14.4 Monocytes % 2.8 Eosinophils % 0.0 Basophils % 0.4 Neutrophils # 2.3 Lymphocytes # 0.4 L Monocytes # 0.1 Eosinophils # 0.0 Basophils # 0.0 Sodium 132 L Potassium 4.5 Chloride 100 Carbon Dioxide 25 BUN 12 Creatinine 0.53 L Est GFR ( Amer) > 60 Est GFR (Non-Af Amer) > 60 BUN/Creatinine Ratio 23 Glucose 401 H POC Glucose 176 H Calculated Osmolality 291 Lactic Acid Calcium 8.8 Phosphorus 3.2 Magnesium 1.7 Chlamy pneumoniae PCR Adenovirus (PCR) B. pertussis DNA (PCR) B.parapertussis DNA PCR Coronavirus OC43 (PCR) Coronavirus HKU1 (PCR) Coronavirus 229E (PCR) Coronavirus NL63 (PCR) Human Metapneumovir PCR Influenza A (H1) PCR Influ A (H1N1) PCR Influenza A (H3) PCR Influenza A Untype (PCR) Influenza Type B (PCR) M.pneumoniae DNA (PCR) Parainfluenza 1 (PCR) Parainfluenza 2 (PCR) Parainfluenza 3 (PCR) Parainfluenza 4 (PCR) RSV (PCR) Entero/Rhino (PCR) 08/23/18 08/23/18 08/23/18 04:19 07:06 10:55 WBC RBC Hgb Hct MCV MCH MCHC RDW Plt Count MPV Immature Gran % Seg Neutrophils % Lymphocytes % Monocytes % Eosinophils % Basophils % Neutrophils # Lymphocytes # Monocytes # Eosinophils # Basophils # Sodium Potassium Chloride Carbon Dioxide BUN Creatinine Est GFR ( Amer) Est GFR (Non-Af Amer) BUN/Creatinine Ratio Glucose POC Glucose 284 H 289 H Calculated Osmolality Lactic Acid 0.6 Calcium Phosphorus Magnesium Chlamy pneumoniae PCR Adenovirus (PCR) B. pertussis DNA (PCR) B.parapertussis DNA PCR Coronavirus OC43 (PCR) Coronavirus HKU1 (PCR) Coronavirus 229E (PCR) Coronavirus NL63 (PCR) Human Metapneumovir PCR Influenza A (H1) PCR Influ A (H1N1/) PCR Influenza A (H3) PCR Influenza A Untype (PCR) Influenza Type B (PCR) M.pneumoniae DNA (PCR) Parainfluenza 1 (PCR) Parainfluenza 2 (PCR) Parainfluenza 3 (PCR) Parainfluenza 4 (PCR) RSV (PCR) Entero/Rhino (PCR) 08/23/18 Unknown WBC RBC Hgb Hct MCV MCH MCHC RDW Plt Count MPV Immature Gran % Seg Neutrophils % Lymphocytes % Monocytes % Eosinophils % Basophils % Neutrophils # Lymphocytes # Monocytes # Eosinophils # Basophils # Sodium Potassium Chloride Carbon Dioxide BUN Creatinine Est GFR ( Amer) Est GFR (Non-Af Amer) BUN/Creatinine Ratio Glucose POC Glucose Calculated Osmolality Lactic Acid Calcium Phosphorus Magnesium Chlamy pneumoniae PCR Not Detected Adenovirus (PCR) Not Detected B. pertussis DNA (PCR) Not Detected B.parapertussis DNA PCR Not Detected Coronavirus OC43 (PCR) Not Detected Coronavirus HKU1 (PCR) Not Detected Coronavirus 229E (PCR) Not Detected Coronavirus NL63 (PCR) Not Detected Human Metapneumovir PCR Not Detected Influenza A (H1) PCR Not Detected Influ A (H1N1/09) PCR Not Detected Influenza A (H3) PCR Not Detected Influenza A Untype (PCR) Not Detected Influenza Type B (PCR) Not Detected M.pneumoniae DNA (PCR) Not Detected Parainfluenza 1 (PCR) Not Detected Parainfluenza 2 (PCR) Not Detected Parainfluenza 3 (PCR) DETECTED A Parainfluenza 4 (PCR) Not Detected RSV (PCR) Not Detected Entero/Rhino (PCR) Not Detected Cultures: Cultures 08/22/18 11:38 Urine Culture - Final Urine,Clean Catch No growth. 08/23/18 04:19 Blood Culture - Preliminary Peripheral Venipuncture Culture is incubating and being continuously monitored for growth. Final report to follow. 08/23/18 04:19 Blood Culture - Preliminary Peripheral Venipuncture Culture is incubating and being continuously monito red for growth. Final report to follow. 08/17/18 22:10 Urine Culture - Preliminary Urine,Catheterized Yeast Species 08/21/18 08:18 Blood Culture - Preliminary Peripheral Venipuncture Culture is incubating and being continuously monitored for growth. Final report to follow. 08/21/18 08:18 Blood Culture - Preliminary Peripheral Venipuncture Culture is incubating and being continuously monitored for growth. Final report to follow. Serology 08/23/18 08/17/18 Range/Units Unknown 22:10 Urine Color Yellow (Yellow) Urine Clarity Turbid A (Clear) Urine pH 5.5 (5.0-8.0) pH Units Ur Specific [place] 1.021 (1.010-1.025) Urine Protein 30 H (Neg-Trace) mg/dL Urine Glucose (UA) >=1000 H (Normal) mg/dL Urine Ketones Trace H (Negative) mg/dL Urine Blood Large H (Negative) Urine Nitrite Negative (Negative) Urine Bilirubin Negative (Negative) Urine Urobilinogen Normal (Normal) mg/dL Ur Leukocyte Esterase Moderate H (Negative) Urine Microscopic RBC 15-30 H (0-3) per hpf Urine Microscopic WBC TNTC H (0-3) per hpf Ur Squamous Epith Cells Moderate H (None-Few) per lpf Ur Transition Epith Cell Few (None-Few) per hpf Ur Renal Epithelial Cell Few (None-Few) per hpf Urine Bacteria None Seen (None-Few) per hpf Hyaline Casts None Seen (None-Few) per lpf Urine Yeast Many H (None Seen) per hpf Ur Culture Indicated? YES A (NO) Chlamy pneumoniae PCR Not Detected (Not Detect) Adenovirus (PCR) Not Detected (Not Detect) B. pertussis DNA (PCR) Not Detected (Not Detect) B.parapertussis DNA PCR Not Detected (Not Detect) Coronavirus OC43 (PCR) Not Detected (Not Detect) Coronavirus HKU1 (PCR) Not Detected (Not Detect) Coronavirus 229E (PCR) Not Detected (Not Detect) Coronavirus NL63 (PCR) Not Detected (Not Detect) Human Metapneumovir PCR Not Detected (Not Detect) Influenza A (H1) PCR Not Detected (Not Detect) Influ A (H1N1/09) PCR Not Detected (Not Detect) Influenza A (H3) PCR Not Detected (Not Detect) Influenza A Untype (PCR) Not Detected (Not Detect) Influenza Type B (PCR) Not Detected (Not Detect) M.pneumoniae DNA (PCR) Not Detected (Not Detect) Parainfluenza 1 (PCR) Not Detected (Not Detect) Parainfluenza 2 (PCR) Not Detected (Not Detect) Parainfluenza 3 (PCR) DETECTED A (Not Detect) Parainfluenza 4 (PCR) Not Detected (Not Detect) RSV (PCR) Not Detected (Not Detect) Entero/Rhino (PCR) Not Detected (Not Detect) Exam - Constitutional Vitals: Temp Pulse Resp BP Pulse Ox 98.5 F 63 16 125/65 94 08/23/18 20:46 08/23/18 20:46 08/23/18 20:46 08/23/18 20:46 08/23/18 20:46 - Additional findings Additional findings: HEENT: ROGER EOMI, MMM, no oral thrush. tonsilar erythema; no sinus tenderness Neck: supple, no masses lungs: CTAB, no Wheezing CV: S1S2 RRR Abdomen: soft, non tender; positive bowel sounds Ext: adequate perfusion, no edema Neuro: A&Ox3 no focal deficit - VTE Documentation of Mechanical Device: Intermittent pneumatic compression device Consult Discharge Plan - Plan Instructions: Fluconazole (By mouth), Oxycodone, Rapid Release (By mouth), Cefdinir (By mouth), Insulin Detemir (Injection), Urinary Tract Infection in Women (DC) Referrals: Julio Larios MD [Primary Care Provider] - (Please follow up as schedule...) Raciel Donovan MD [Partnered Physician] - 09/10/18 10:45 am (Please follow up as schedule....) Prescriptions: Cefdinir [Omnicef] 300 mg PO BID 4 Days #8 capsule Fluconazole [Diflucan] 100 mg PO DAILY #5 tablet Insulin DETEMIR [Levemir] 20 unit SQ BID 30 Days #10 mls OxyCODONE Immed Rel [Roxicodone 5 MG] 10 mg PO Q6H PRN 5 Days #10 tablet PRN Reason: Severe Pain
== END 2018-08-23 20:45 | DRG 659 ==
LOC: EMEROOARM 20:33 → 2ANU 20:33 → UNDODISIN 08-23 16:04
PROVIDERS: ADMIT Internal Medicine; ATTEND Internal Medicine

== ENCOUNTER 2018-10-04 13:37 | Observation (INO) ==
[2018-10-04] MEDS ORDERED: 0.9 % Sodium Chloride 1,000 ML IVC ONE (14:05)
[2018-10-04 14:35] LABS: Bilirubin,Urine Small (Negative); Blood,Urine Large (Negative); Clarity,Urine Turbid (Clear); Color,Urine Dark Yellow (Yellow); Glucose,Urine (UA) Normal (Normal); Ketones,Urine Negative (Negative); Leukocyte Esterase,Urine Large (Negative); Nitrite,Urine Negative (Negative); Protein,Urine 30 mg/dL (Neg-Trace); Specific Gravity,Urine 1.017 (1.010-1.025); Urobilinogen,Urine Normal (Normal)
[2018-10-04 14:36] LABS: Bacteria,Urine Many per hpf (None-Few); Squamous Epithelial Cell,Urine Many per lpf (None-Few); WBC,Urine TNTC per hpf (0-3)
--- NOTE | 2018-10-04 14:50 | Emergency Department Note ---
Disposition Clinical Impression: Dehydration, Opiate use Altered mental status Qualifiers: Altered mental status type: unspecified Qualified Code(s): R41.82 - Altered m ental status, unspecified Urinary tract infection Qualifiers: Urinary tract infection type: acute cystitis Hematuria presence: without hematuria Qualified Code(s): N30.00 - Acute cystitis without hematuria Disposition: Admitted As Inpatient Condition: Fair General Adult HPI - General Chief complaint: ED Fall Stated complaint: Fall, AMS Time Seen by Provider: 10/04/18 13:38 Source: EMS Limitations: altered mental status Nursing Notes Reviewed: Yes Vital Signs Reviewed: Yes - History of Present Illness HPI Narrative: 68-year-old female with past medical history including encephalopathy secondary to sepsis in August 2018, hypertension, prior CVA, type 2 diabetes, presenting with altered mental status after a fall prior to arrival. According to EMS, patient's last known well was yesterday. Patient was asleep in her chair earlier this afternoon when she got up and tried to walk and witnessed the patient fall to the ground. Did not hit her head or lose consciousness. EMS was immediately called. Patient is alert however is unresponsive and does not follow commands. Patient unable to give any history. Pain Scale: 2 - Related Data Home Medications Medication Instructions Recorded Confirmed RX: Albuterol Sulfate [Proair Hfa] 2 puff IH Q4H PRN 02/04/18 08/19/18 RX: Amitriptyline HCl 100 mg PO HS 02/04/18 08/19/18 RX: Insulin LISPRO [HumaLOG] 0 units SQ TIDWM 04/23/18 08/19/18 RX: Memantine HCl 10 mg PO BID 07/23/18 08/19/18 Previous Rx's Medication Instructions Recorded RX: Metoprolol XL (24 HR) Succ 12.5 mg PO DAILY #15 tab.er.24h 02/11/18 [Toprol Xl] RX: Fluconazole [Diflucan] 100 mg PO DAILY #5 tablet 08/23/18 Allergies Allergy/AdvReac Type Severity Reaction Status Date / Time bee venom protein (honey bee) Allergy Swelling Verified 04/23/18 07:21 of Lip/Tongue/Throat codeine Allergy Hives Verified 04/23/18 07:21 Penicillins [PCN] Allergy Hives Verified 04/23/18 07:21 bisoprolol [From Ziac] AdvReac See Verified 04/23/18 07:21 Comments Donepezil AdvReac Vomiting Verified 04/23/18 07:21 hydrochlorothiazide AdvReac See Verified 04/23/18 07:21 [From Ziac] Comments iodine AdvReac Hives Verified 04/23/18 07:21 lisinopril [From Zestril] AdvReac Vomiting Verified 04/23/18 07:21 tramadol AdvReac See Verified 04/23/18 07:21 Comments IVP dye Allergy Itching Uncoded 02/10/16 15:52 Limitations: ROS unobtainable due to patients medical condition (altered mental status) Past Medical History - Past Medical History Source: old records reviewed, nursing notes reviewed Medical history: Reports: cancer, CVA, DVT, diabetes, hypertension Surgical history: Reports: appendectomy, breast surgery, hysterectomy, other Psychiatric history: Reports: depression SIGNAL REPAIRER history: Reports: non-contributory - Social History Smoking Status: Never smoker Smokeless Tobacco Status: No Alcohol use: Reports: none Drug use: Reports: none Physical Exam - General Limitations: altered mental status General appearance: alert, lethargic - Head Head exam: atraumatic, normocephalic - Eye Eye exam: Present: normal appearance, PERRL, EOMI - ENT ENT exam: mucous membranes dry - Neck Neck exam: Present: trachea midline - Chest Chest inspection: Present: normal inspection, symmetric chest wall rise - Respiratory Respiratory exam: Present: normal lung sounds bilaterally. Absent: respiratory distress, wheezes - Cardiovascular Cardiovascular exam: Present: regular rate, normal rhythm, normal heart sounds - Abdominal Exam Abdominal exam: Present: soft, Non-Tender. Absent: distention - Extremities Exam Extremities exam: Present: other (Capillary refill 3 seconds). Absent: pedal edema, joint swelling - Neurological Exam Neurological exam: Present: alert, CN II-XII intact, other (Unable to assess sensation secondary to patient's altered mental status. Patient will not respond to questions. She will not follow commands.). Absent: oriented X3 - Expanded Neurological Exam Patient oriented to: Absent: person, place, time Coma Scale Eye Opening: Spontaneous Coma Scale Motor Response: Withdraws to Pain Coma Scale Verbal Response: Confused Coma Scale Total: 12 - Skin Skin exam: Present: warm, dry Course Vital Signs Temperature 97.7 F 10/04/18 13:45 Pulse Rate 75 10/04/18 13:45 Respiratory Rate 14 10/04/18 13:45 Blood Pressure 133/70 10/04/18 13:45 O2 Sat by Pulse Oximetry 92 10/04/18 13:45 Temperature 97.7 F 10/04/18 13:45 Pulse Rate 68 10/04/18 15:08 Respiratory Rate 12 10/04/18 15:08 Blood Pressure 102/57 10/04/18 15:08 O2 Sat by Pulse Oximetry 98 10/04/18 15:08 Oxygen Delivery Oxygen Delivery Nasal Cannula Medical Decision Making - MDM Narrative Medical decision making narrative: Patient presenting with altered mental status. Last known well was yesterday. GCS 12. She got up from the chair and fell just prior to arrival. called EMS to bring the patient in. She is alert however is not following commands or answering questions. We will check CT head and cervical spine without contrast, CT abdomen and pelvis. We will evaluate for infection and ACS. EKG, troponin, CBC, CMP, urinalysis, chest x-ray, lactate will be obtained. 15:10 Patient's urine drug screen positive for opiates. She is also difficult to arouse so we will give Narcan IV. CT imaging reviewed. No acute intracranial abnormality. No acute intra-abdominal abnormality. Urinalysis appears consistent with urinary tract infection. Urine culture has been sent. Patient's prior urine cultures have grown Escherichia coli in [place]. Sensitivities reviewed. Secondary to patient's allergies, we will give 1 g Rocephin. Patient continues to receive IV fluids for dehydration. Discussed with patient's at 1525 who is now at bedside. He states the patient's mentation has been waxing and waning the past couple of days. She will try to say something but unable to think of what she wants to say. He states he left her in the chair last night when he went to bed. Late this morning, he states that she was more unresponsive and he could not wake her up. He tried lifting her out of the chair and she fell. That is when he called EMS. Patient received Narcan and she is more alert and awake. She is responding to ques tions. She denies taking any more medications than usual. She is now alert to person and time but not place. She did not know she was in the hospital. She complains of dysuria however no other complaints. 16:45 Patient remains alert after the Narcan administration. Hospice has been consulted for admission. 16:50 Discussed with hospitalist, Dr. Warren, who accepts admission. No further recommendations at this time. - Medical Records Medical records reviewed: Yes I reviewed the patient's medical records. - Lab Data Lab results reviewed: Yes I reviewed the patient's lab results. Result diagrams: 10/04/18 14:32 10/04/18 14:32 Lab Results 10/04/18 10/04/18 10/04/18 Range/Units 13:54 14:22 14:22 WBC (4.3-11.1) K/mcL RBC (3.82-4.97) M/mcL Hgb (11.5-15.4) g/dL Hct (35.3-44.9) % MCV (83.0-100.0) fL MCH (28.0-33.3) pg MCHC (31.6-35.5) g/dL RDW (11.5-14.5) % Plt Count (140-400) K/mcL MPV (9.4-12.4) fL Immature Gran % (0-4) % Seg Neutrophils % % Lymphocytes % % Monocytes % % Eosinophils % % Basophils % % Neutrophils # (1.6-8.9) K/mcL Lymphocytes # (0.6-4.6) K/mcL Monocytes # (0.0-1.3) K/mcL Eosinophils # (0.0-0.6) K/mcL Basophils # (0.0-0.2) K/mcL PT (9.4-12.1) Seconds INR Sodium (136-145) mEq/L Potassium (3.5-5.1) mEq/L Chloride (98-107) mEq/L Carbon Dioxide (23-29) mEq/L BUN (8-23) mg/dL Creatinine (0.60-1.20) mg/dL Est GFR ( Amer) (> 60) Est GFR (Non-Af Amer) (> 60) BUN/Creatinine Ratio (6-26) Glucose (70-105) mg/dL POC Glucose 262 H (70-99) mg/dL Calculated Osmolality (280-300) Lactic Acid (0.5-2.2) mmol/L Calcium (8.6-10.3) mg/dL Total Bilirubin (0.3-1.0) mg/dL Direct Bilirubin (0.0-0.2) mg/dL Indirect Bilirubin (0.0-1.2) mg/dL AST (13-39) Units/L ALT (7-52) Units/L Alkaline Phosphatase (34-104) Units/L Ammonia (16-53) mcmol/L Creatine Kinase (30-223) Units/L Troponin I (< 0.04) ng/mL Serum Total Protein (6.4-8.9) g/dL Albumin (3.5-5.7) g/dL Globulin (2.4-3.5) g/dL Albumin/Globulin Ratio (1.1-2.2) TSH (0.340-5.600) mcIU/mL Urine Color Dark Yellow (Yellow) Urine Clarity Turbid A (Clear) Urine pH 5.0 (5.0-8.0) pH Units Ur Specific [place] 1.017 (1.010-1.025) Urine Protein 30 H (Neg-Trace) mg/dL Urine Glucose (UA) Normal (Normal) mg/dL Urine Ketones Negative (Negative) mg/dL Urine Blood Large H (Negative) Urine Nitrite Negative (Negative) Urine Bilirubin Small H (Negative) Urine Urobilinogen Normal (Normal) mg/dL Ur Leukocyte Esterase Large H (Negative) Urine Microscopic RBC 5-15 H (0-3) per hpf Urine Microscopic WBC TNTC H (0-3) per hpf Ur Squamous Epith Cells Many H (None-Few) per lpf Ur Renal Epithelial Cell Few (None-Few) per hpf Urine Bacteria Many H (None-Few) per hpf Hyaline Casts Few (None-Few) per lpf Ur Culture Indicated? NO. A (NO) Urine Opiates Screen Positive H (Stdwij=173) ng/mL Ur Barbiturates Screen Negative (Ipkzic=556) ng/mL Ur Phencyclidine Scrn Negative (Cutoff=25) ng/mL Ur Amphetamines Screen Negative (Tuynln=8715) ng/mL U Benzodiazepines Scrn Negative (Xsvkje=993) ng/mL Urine Cocaine Screen Negative (Cutoff= 300) ng/mL U Marijuana (THC) Screen Negative (Cutoff = 50) ng/mL Ur Drug Screen Interp See Below Ethyl Alcohol (Less than 10) mg/dL 10/04/18 10/04/18 10/04/18 Range/Units 14:32 14:32 14:32 WBC 7.2 (4.3-11.1) K/mcL RBC 5.15 H (3.82-4.97) M/mcL Hgb 15.0 (11.5-15.4) g/dL Hct 47.8 H (35.3-44.9) % MCV 92.8 (83.0-100.0) fL MCH 29.1 (28.0-33.3) pg MCHC 31.4 L (31.6-35.5) g/dL RDW 14.8 H (11.5-14.5) % Plt Count 163 (140-400) K/mcL MPV 10.4 (9.4-12.4) fL Immature Gran % 0.3 (0-4) % Seg Neutrophils % 82.2 % Lymphocytes % 11.7 % Monocytes % 4.5 % Eosinophils % 1.0 % Basophils % 0.3 % Neutrophils # 5.9 (1.6-8.9) K/mcL Lymphocytes # 0.8 (0.6-4.6) K/mcL Monocytes # 0.3 (0.0-1.3) K/mcL Eosinophils # 0.1 (0.0-0.6) K/mcL Basophils # 0.0 (0.0-0.2) K/mcL PT 12.9 H (9.4-12.1) Seconds INR 1.1 Sodium (136-145) mEq/L Potassium (3.5-5.1) mEq/L Chloride (98-107) mEq/L Carbon Dioxide (23-29) mEq/L BUN (8-23) mg/dL Creatinine (0.60-1.20) mg/dL Est GFR ( Amer) (> 60) Est GFR (Non-Af Amer) (> 60) BUN/Creatinine Ratio (6-26) Glucose (70-105) mg/dL POC Glucose (70-99) mg/dL Calculated Osmolality (280-300) Lactic Acid (0.5-2.2) mmol/L Calcium (8.6-10.3) mg/dL Total Bilirubin (0.3-1.0) mg/dL Direct Bilirubin (0.0-0.2) mg/dL Indirect Bilirubin (0.0-1.2) mg/dL AST (13-39) Units/L ALT (7-52) Units/L Alkaline Phosphatase (34-104) Units/L Ammonia 31 (16-53) mcmol/L Creatine Kinase (30-223) Units/L Troponin I (< 0.04) ng/mL Serum Total Protein (6.4-8.9) g/dL Albumin (3.5-5.7) g/dL Globulin (2.4-3.5) g/dL Albumin/Globulin Ratio (1.1-2.2) TSH (0.340-5.600) mcIU/mL Urine Color (Yellow) Urine Clarity (Clear) Urine pH (5.0-8.0) pH Units Ur Specific [place] (1.010-1.025) Urine Protein (Neg-Trace) mg/dL Urine Glucose (UA) (Normal) mg/dL Urine Ketones (Negative) mg/dL Urine Blood (Negative) Urine Nitrite (Negative) Urine Bilirubin (Negative) Urine Urobilinogen (Normal) mg/dL Ur Leukocyte Esterase (Negative) Urine Microscopic RBC (0-3) per hpf Urine Microscopic WBC (0-3) per hpf Ur Squamous Epith Cells (None-Few) per lpf Ur Renal Epithelial Cell (None-Few) per hpf Urine Bacteria (None-Few) per hpf Hyaline Casts (None-Few) per lpf Ur Culture Indicated? (NO) Urine Opiates Screen (Cpsoec=532) ng/mL Ur Barbiturates Screen (Ghgibc=084) ng/mL Ur Phencyclidine Scrn (Cutoff=25) ng/mL Ur Amphetamines Screen (Ransse=1907) ng/mL U Benzodiazepines Scrn (Qzknae=193) ng/mL Urine Cocaine Screen (Cutoff= 300) ng/mL U Marijuana (THC) Screen (Cutoff = 50) ng/mL Ur Drug Screen Interp Ethyl Alcohol (Less than 10) mg/dL 10/04/18 10/04/18 10/04/18 Range/Units 14:32 14:32 14:32 WBC (4.3-11.1) K/mcL RBC (3.82-4.97) M/mcL Hgb (11.5-15.4) g/dL Hct (35.3-44.9) % MCV (83.0-100.0) fL MCH (28.0-33.3) pg MCHC (31.6-35.5) g/dL RDW (11.5-14.5) % Plt Count (140-400) K/mcL MPV (9.4-12.4) fL Immature Gran % (0-4) % Seg Neutrophils % % Lymphocytes % % Monocytes % % Eosinophils % % Basophils % % Neutrophils # (1.6-8.9) K/mcL Lymphocytes # (0.6-4.6) K/mcL Monocytes # (0.0-1.3) K/mcL Eosinophils # (0.0-0.6) K/mcL Basophils # (0.0-0.2) K/mcL PT (9.4-12.1) Seconds INR Sodium 137 (136-145) mEq/L Potassium 4.6 (3.5-5.1) mEq/L Chloride 97 L (98-107) mEq/L Carbon Dioxide 35 H (23-29) mEq/L BUN 15 (8-23) mg/dL Creatinine 0.81 (0.60-1.20) mg/dL Est GFR ( Amer) > 60 (> 60) Est GFR (Non-Af Amer) > 60 (> 60) BUN/Creatinine Ratio 19 (6-26) Glucose 306 H (70-105) mg/dL POC Glucose (70-99) mg/dL Calculated Osmolality 296 (280-300) Lactic Acid 1.6 (0.5-2.2) mmol/L Calcium 9.8 (8.6-10.3) mg/dL Total Bilirubin 0.6 (0.3-1.0) mg/dL Direct Bilirubin 0.2 (0.0-0.2) mg/dL Indirect Bilirubin 0.4 (0.0-1.2) mg/dL AST 22 (13-39) Units/L ALT 17 (7-52) Units/L Alkaline Phosphatase 168 H (34-104) Units/L Ammonia (16-53) mcmol/L Creatine Kinase 99 (30-223) Units/L Troponin I < 0.03 (< 0.04) ng/mL Serum Total Protein 8.1 (6.4-8.9) g/dL Albumin 3.8 (3.5-5.7) g/dL Globulin 4.3 H (2.4-3.5) g/dL Albumin/Globulin Ratio 0.9 L (1.1-2.2) TSH 1.245 (0.340-5.600) mcIU/mL Urine Color (Yellow) Urine Clarity (Clear) Urine pH (5.0-8.0) pH Units Ur Specific [place] (1.010-1.025) Urine Protein (Neg-Trace) mg/dL Urine Glucose (UA) (Normal) mg/dL Urine Ketones (Negative) mg/dL Urine Blood (Negative) Urine Nitrite (Negative) Urine Bilirubin (Negative) Urine Urobilinogen (Normal) mg/dL Ur Leukocyte Esterase (Negative) Urine Microscopic RBC (0-3) per hpf Urine Microscopic WBC (0-3) per hpf Ur Squamous Epith Cells (None-Few) per lpf Ur Renal Epithelial Cell (None-Few) per hpf Urine Bacteria (None-Few) per hpf Hyaline Casts (None-Few) per lpf Ur Culture Indicated? (NO) Urine Opiates Screen (Pafbjn=697) ng/mL Ur Barbiturates Screen (Rvaonr=008) ng/mL Ur Phencyclidine Scrn (Cutoff=25) ng/mL Ur Amphetamines Screen (Yxyvjz=4080) ng/mL U Benzodiazepines Scrn (Mphbkv=409) ng/mL Urine Cocaine Screen (Cutoff= 300) ng/mL U Marijuana (THC) Screen (Cutoff = 50) ng/mL Ur Drug Screen Interp Ethyl Alcohol < 10 (Less than 10) mg/dL - Radiology Data Radiology results reviewed: Yes I reviewed the patient's radiology results. Abdomen/Pelvis CT 10/04/18 13:49 IMPRESSION: 1. No acute intra-abdominal or intrapelvic process. No significant interval change. 2. Incidental findings include small hiatal hernia, atherosclerotic abdominal aortic calcifications and previous hysterectomy. D/ / Sony De La Cruz MD / Sony De La Cruz MD Interpreting Provider: Sony De La Cruz MD Cervical Spine CT 10/04/18 13:49 IMPRESSION: No acute fracture or subluxation. D/ / Kraig aDn MD / Kraig Dan MD Interpreting Provider: Kraig Dan MD Chest X-Ray 10/04/18 13:49 IMPRESSION: No acute cardiopulmonary disease. D/ / 10/04/2018 14:20:54 Robert Alexis MD / [email or web address] Interpreting Provider: Robert Alexis MD Head CT 10/04/18 13:49 IMPRESSION: No acute intracranial abnormality. D/ / Chapo Uribe MD / Chapo Uribe MD Interpreting Provider: Chapo Uribe MD - EKG Data EKG #1 EKG attestation: Yes I reviewed and interpreted this EKG. EKG results narrative: EKG obtained at 1346 shows sinus rhythm with heart rate 75. MI interval 197. QRS duration 103. QTC 486. No ST elevation or depression noted. Compared to prior EKG on 08/17/2018 which is unchanged. Attestation Statement - Attestation Attestation: Resident Attestation: I examined this patient and my medical decision making was reviewed with the Resident Physician. I agree with the documented findings, disposition and treatment plan as described except to the extent set forth below. We independently had [id number] contact with the patient. Patient presents for evaluation after fall and altered mental status. Patient reportedly slept in a recliner. Upon trying to get out of the recliner today she had different mental status than previous. Unknown specific last known well. Reportedly she her mental status was better before the fall but she had not gone up to walk. There is no family present at this time. The patient has her eyes open but is not able to follow commands. She does not appear to be in respiratory distress. Vital signs with oxygen saturation of 92%. Patient complains of generalized abdominal discomfort with palpation. No other signs of trauma or infection. Workup including CT scan of the head, cervical spine, abdomen and pelvis as well as altered mental status and infectious workup initia andre.
[2018-10-04 14:54] LABS: Hyaline Casts,Urine Few per lpf (None-Few)
[2018-10-04 14:55] LABS: Renal Epithelial Cells,Urine Few per hpf (None-Few)
[2018-10-04 15:01] LABS: Amphetamine Screen,Urine Negative ng/mL (Cutoff=1000); Barbiturate Screen,Urine Negative ng/mL (Cutoff=200); Benzodiazepines Screen,Urine Negative ng/mL (Cutoff=200); Cannabinoid Screen,Urine Negative ng/mL (Cutoff = 50); Cocaine Screen,Urine Negative ng/mL (Cutoff= 300); Opiate Screen,Urine Positive ng/mL (Cutoff=300); Phencyclidine Screen,Urine Negative ng/mL (Cutoff=25)
[2018-10-04] MEDS ORDERED: Naloxone 0.4 MG/ML INJ IVP ONE (15:07)
[2018-10-04 15:10] LABS: Basophils % 0.3 %; Eosinophils # 0.1 K/mcL (0.0-0.6); Hematocrit 47.8 % (35.3-44.9); Immature Granulocytes % 0.3 % (0-4); Lymphocytes # 0.8 K/mcL (0.6-4.6); Lymphocytes % 11.7 %; Mean Corpuscular HGB Conc 31.4 g/dL (31.6-35.5); Mean Corpuscular Hemoglobin 29.1 pg (28.0-33.3); Mean Corpuscular Volume 92.8 fL (83.0-100.0); Mean Platelet Volume 10.4 fL (9.4-12.4); Monocytes # 0.3 K/mcL (0.0-1.3); Monocytes % 4.5 %; Neutrophils # 5.9 K/mcL (1.6-8.9); Platelet Count 163 K/mcL (140-400); Red Blood Count 5.15 M/mcL (3.82-4.97); Red Cell Distribution Width 14.8 % (11.5-14.5); Segmented Neutrophils % 82.2 %
[2018-10-04 15:17] LABS: Alanine Aminotransferase 17 Units/L (7-52); Albumin 3.8 g/dL (3.5-5.7); Albumin/Globulin Ratio 0.9 (1.1-2.2); Alkaline Phosphatase 168 Units/L (34-104); Aspartate Amino Transferase 22 Units/L (13-39); BUN/Creatinine Ratio 19 (6-26); Bilirubin,Direct 0.2 mg/dL (0.0-0.2); Bilirubin,Indirect 0.4 mg/dL (0.0-1.2); Bilirubin,Total 0.6 mg/dL (0.3-1.0); Blood Urea Nitrogen 15 mg/dL (8-23); Calcium 9.8 mg/dL (8.6-10.3); Carbon Dioxide 35 mEq/L (23-29); Chloride 97 mEq/L (98-107); Ethanol < 10 mg/dL (Less than 10); Globulin 4.3 g/dL (2.4-3.5); Glucose 306 mg/dL (70-105); Osmolality,Calculated 296 (280-300); Potassium 4.6 mEq/L (3.5-5.1); Sodium 137 mEq/L (136-145); Total Protein 8.1 g/dL (6.4-8.9); Troponin I < 0.03 ng/mL (< 0.04); eGFR For Non-African Americans > 60 (> 60)
[2018-10-04] MEDS ORDERED: cefTRIAXone 1,000 MG in Water for inj. (sterile) 20 ML 10 ML IVP ONE (15:18)
[2018-10-04 15:19] LABS: INR 1.1; Prothrombin Time 12.9 Seconds (9.4-12.1)
[2018-10-04 15:30] LABS: Thyroid Stimulating Hormone 1.245 mcIU/mL (0.340-5.600)
--- NOTE | 2018-10-04 17:46 | Internal Med History&Physical ---
Date of Encounter: 10/04/18 Time of Encounter: 17:35 Internal Medicine - H&P: HPI Chief complaint: AMS Admitted From: Home Plans for Post Hospital Care: Home History of present illness: Ms. Casillas is a 68 year old female has history of diabetes, COPD on 2 L nasal cannula, chronic back pain, TEOFILO, history of DVT, memory impairment, polypharmacy presenting emergency room for confusion for 2 days. Patient lives with her , has a home care. Her reported that she has been confused since yesterday, but waxes and wanes yesterday whole day, she did not go to sleep last nght, she was sitting in a chair whole night, last night her was unable to get her to the bed. Her states that she was more unresponsive and he could not wake her up. He tried lifting her out of the chair and she fell. then home care came frankie this morning and called EMS. In ER, she was found urine positive for opiate, UTI, CXR abdomen CT, head Ct arre negative. When I saw the patient , she is alert, but confused, she knew she fell, denies kchest pain, SOB, fever, chills, no nause and vomiitng. patient is being admited for UTI, metabolic encephalopathy, polypharmacy Past Med Surg Social Fam HX - Past Medical History Medical history: cancer, CVA, DVT, diabetes, hypertension Additional medical history: recurrent UTI's. breast CA, ovarian CA Psychiatric history: depression - Past Surgical History Surgical History: appendectomy, breast surgery, hysterectomy, other Additional surgical history: left partial mastectomy - Social History Smoking Status: Never smoker Smokeless Tobacco Status: No Alcohol use: none Drug use: none - Family History Mother Living Status: Father Living Status: Hx Family Cardiac Disorders: Yes Hx Family Endocrine Disorder: Yes Internal Medicine - H&P: Meds Albuterol Sulfate [Proair Hfa] 2 puff IH Q4H PRN 02/04/18 [History] Amitriptyline HCl 100 mg PO HS 02/04/18 [History] Metoprolol XL (24 HR) Succ [Toprol Xl] 12.5 mg PO DAILY #15 tab.er.24h 02/11/18 [Rx] Insulin LISPRO [HumaLOG] 0 units SQ TIDWM 04/23/18 [History] Memantine HCl 10 mg PO BID 07/23/18 [History] Fluconazole [Diflucan] 100 mg PO DAILY #5 tablet 08/23/18 [Rx] Allergy/AdvReac Type Severity Reaction Status Date / Time bee venom protein (honey bee) Allergy Swelling Verified 04/23/18 07:21 of Lip/Tongue/Throat codeine Allergy Hives Verified 04/23/18 07:21 Penicillins [PCN] Allergy Hives Verified 04/23/18 07:21 bisoprolol [From Ziac] AdvReac See Verified 04/23/18 07:21 Comments Donepezil AdvReac Vomiting Verified 04/23/18 07:21 hydrochlorothiazide AdvReac See Verified 04/23/18 07:21 [From Ziac] Comments iodine AdvReac Hives Verified 04/23/18 07:21 lisinopril [From Zestril] AdvReac Vomiting Verified 04/23/18 07:21 tramadol AdvReac See Verified 04/23/18 07:21 Comments IVP dye Allergy Itching Uncoded 02/10/16 15:52 All Systems PM: A 10-system review of systems was performed and is negative for pertinent findings except as documented above in the HPI. - Constitutional Vitals: Temp Pulse Resp BP Pulse Ox 97.7 F 82 20 118/54 99 10/04/18 13:45 10/04/18 17:12 10/04/18 17:12 10/04/18 17:12 10/04/18 17:12 General appearance: Present: A&O X 1, mild distress, pleasant Exam: CONSTITUTIONAL: Patient appears as an age appropriate female well developed, in no acute distress. EYES Clear sclerae, bilateral pupils are equal, reactive to light and accommodation. Extraocular movements are intact RESPIRATORY: No accessory muscle use, bilateral clear to auscultation, no wheezing, no crackles/rales. CARDIOVASCULAR: Regular heart rate, normal S1 and S2, no murmurs GASTROINTESTINAL: bowel sounds present, soft, no tenderness. No hepatosplenomegaly. No bilateral CVA tenderness MUSCULOSKELETAL: Joints in normal range of motion, no clubbing, + edema mto feet, no cyanosis. Bilateral peripheral pulses 2+ LYMPHATIC no lymphadenopathy in neck, groin and axilla bilaterally, no thyromeg madeleine. NEUROLOGIC: CN II to XII are grossly intact, no focal neurological deficit. Deep tendon reflexes 2+ bilaterally. Normal light touch sensation to upper and lower extremity PSYCHIATRIC: Oriented x1, with good insight, mood is euthymic. No hallucinations or delusions. SKIN: Skin warm and dry, no rashes, no open wound. Internal Med - H&P Results - Labs CBC & Chem 7: 10/04/18 14:32 10/04/18 14:32 Labs: Short CBC 10/04/18 Range/Units 14:32 WBC 7.2 (4.3-11.1) K/mcL Hgb 15.0 (11.5-15.4) g/dL Hct 47.8 H (35.3-44.9) % Plt Count 163 (140-400) K/mcL Neutrophils # 5.9 (1.6-8.9) K/mcL BMP 10/04/18 14:32 Sodium 137 Potassium 4.6 Chloride 97 L Carbon Dioxide 35 H BUN 15 Creatinine 0.81 Glucose 306 H Calcium 9.8 Cardiac Enzymes 10/04/18 Range/Units 14:32 Troponin I < 0.03 (< 0.04) ng/mL Liver Function 10/04/18 Range/Units 14:32 Total Bilirubin 0.6 (0.3-1.0) mg/dL Direct Bilirubin 0.2 (0.0-0.2) mg/dL AST 22 (13-39) Units/L ALT 17 (7-52) Units/L Alkaline Phosphatase 168 H (34-104) Units/L Albumin 3.8 (3.5-5.7) g/dL Urine 10/04/18 Range/Units 14:22 Urine Color Dark Yellow (Yellow) Urine Clarity Turbid A (Clear) Urine pH 5.0 (5.0-8.0) pH Units Ur Specific [place] 1.017 (1.010-1.025) Urine Protein 30 H (Neg-Trace) mg/dL Urine Glucose (UA) Normal (Normal) mg/dL - Impressions ITS Impressions Abdomen/Pelvis CT 10/04/18 13:49 IMPRESSION: 1. No acute intra-abdominal or intrapelvic process. No significant interval change. 2. Incidental findings include small hiatal hernia, atherosclerotic abdominal aortic calcifications and previous hysterectomy. D/ / Sony De La Cruz MD / Sony De La Cruz MD Interpreting Provider: Sony De La Cruz MD Cervical Spine CT 10/04/18 13:49 IMPRESSION: No acute fracture or subluxation. D/ / Kraig Dan MD / Kraig Dan MD Interpreting Provider: Kraig Dan MD Chest X-Ray 10/04/18 13:49 IMPRESSION: No acute cardiopulmonary disease. D/ / 10/04/2018 14:20:54 Robert Alexis MD / donaldo Interpreting Provider: Robert Alexis MD Head CT 10/04/18 13:49 IMPRESSION: No acute intracranial abnormality. D/ / Chapo Uribe MD / Chapo Uribe MD Interpreting Provider: Chapo Uribe MD - Assessment and plan (1) UTI (urinary tract infection) Current Visit: Yes Status: Acute Assessment and plan: continue IV ceftriaxone, do urine culture Qualifiers: Urinary tract infection type: acute cystitis Hematuria presence: without hematuria Qualified Code(s): N30.00 - Acute cystitis without hematuria (2) Metabolic encephalopathy Current Visit: Yes Status: Acute Assessment and plan: Multifactorial, UTI , polypharmacy, opiates abuse will hold oxycodone (3) COPD (chronic obstructive pulmonary disease) Current Visit: Yes Status: Chronic Assessment and plan: On 2 L NC ,, no signs for exacerbation contineu home meds Qualifiers: COPD type: chronic bronchitis Chronic bronchitis type: unspecified Qualified Code(s): J42 - Unspecified chronic bronchitis (4) Hypertension Current Visit: Yes Status: Chronic Assessment and plan: metoprolol Qualifiers: Hypertension type: essential hypertension Qualified Code(s): I10 - Essential (primary) hypertension (5) DMII (diabetes mellitus, type 2) Current Visit: Yes Status: Chronic Assessment and plan: Tpe 2 diabetes, insulin-dependent, we will reduce long-acting insulin dose and add insulin insulin sliding scale Qualifiers: Diabetes mellitus fci insulin use: unspecified licensed mental health professional insulin use status Diabetes mellitus complication status: without complication Qualified Code(s): E11.9 - Type 2 diabetes mellitus without complications (6) Weakness Current Visit: Yes Status: Acute Assessment and plan: Consult PT and OT (7) Dehydration Current Visit: Yes Status: Acute Assessment and plan: Received IV fluids, will continue to 75 mL per hour hold lasix (8) Opiate use Current Visit: Yes Status: Acute Assessment and plan: for chronic back pain, she was on oxycodone and flexeril, will hold for now - Time Spent With Patient Total time spent is greater than 50% in coordination of care (as documented) at patient's floor/unit and/or counseling patient: Greater than 35 minutes
[2018-10-04] MEDS ORDERED: traMADol 50 MG TABLET PO PRN (17:59)
[2018-10-04] MEDS ORDERED: Naloxone 0.4 MG/ML INJ IVP PRN (17:59)
[2018-10-04] MEDS ORDERED: Acetaminophen 325 MG TABLET PO PRN (17:59)
[2018-10-04] MEDS: Metoprolol XL (24 HR) Succ 25 MG TAB.ER.24H PO SCH (21:35)
[2018-10-04] MEDS: *HR* Heparin 5,000 UNIT/ML VIAL SQ SCH (21:43)
[2018-10-04] MEDS: Ringers Solution, Lactated 1,000 ML IVC SCH (21:43)
[2018-10-05 03:47] LABS: Basophils % 0.4 %; Eosinophils # 0.1 K/mcL (0.0-0.6); Eosinophils % 2.3 %; Hematocrit 44.6 % (35.3-44.9); Immature Granulocytes % 0.5 % (0-4); Immature Platelets 2.7 % (1.1-6.1); Lymphocytes # 1.4 K/mcL (0.6-4.6); Lymphocytes % 24.7 %; Mean Corpuscular HGB Conc 31.4 g/dL (31.6-35.5); Mean Corpuscular Hemoglobin 28.9 pg (28.0-33.3); Mean Corpuscular Volume 92.1 fL (83.0-100.0); Mean Platelet Volume 10.8 fL (9.4-12.4); Monocytes # 0.3 K/mcL (0.0-1.3); Monocytes % 5.2 %; Platelet Count 124 K/mcL (140-400); Red Blood Count 4.84 M/mcL (3.82-4.97); Red Cell Distribution Width 14.6 % (11.5-14.5); Segmented Neutrophils % 66.9 %
[2018-10-05 03:54] LABS: BUN/Creatinine Ratio 26 (6-26); Blood Urea Nitrogen 16 mg/dL (8-23); Calcium 9.4 mg/dL (8.6-10.3); Carbon Dioxide 29 mEq/L (23-29); Chloride 104 mEq/L (98-107); Glucose 98 mg/dL (70-105); Osmolality,Calculated 287 (280-300); Potassium 4.1 mEq/L (3.5-5.1); Sodium 138 mEq/L (136-145); eGFR For Non-African Americans > 60 (> 60)
[2018-10-05 04:07] LABS: Neutrophils # 3.8 K/mcL (1.6-8.9)
[2018-10-05 04:08] LABS: Platelet Estimate Slight Decrease (Normal)
[2018-10-05] MEDS: *HR* Heparin 5,000 UNIT/ML VIAL SQ SCH (06:03)
[2018-10-05 09:57] VITALS: BP 128/74
[2018-10-05] MEDS: Metoprolol XL (24 HR) Succ 25 MG TAB.ER.24H PO SCH (10:47)
[2018-10-05] MEDS: Ringers Solution, Lactated 1,000 ML IVC SCH (10:47)
--- NOTE | 2018-10-05 12:30 | Discharge Summary ---
Orders not resulted at time of discharge: Pending orders 10/04/18 14:22 Culture,Urine [RM] Stat Date of Encounter: 10/05/18 Time of Encounter: 12:26 - Discharge Diagnosis (1) UTI (urinary tract infection) Priority: Secondary Status: Acute Qualifiers: Urinary tract infection type: acute cystitis Hematuria presence: without hematuria Qualified Code(s): N30.00 - Acute cystitis without hematuria (2) Metabolic encephalopathy Priority: Primary Status: Resolved (3) COPD (chronic obstructive pulmonary disease) Priority: Secondary Status: Chronic Qualifiers: COPD type: chronic bronchitis Chronic bronchitis type: unspecified Qualified Code(s): J42 - Unspecified chronic bronchitis (4) Hypertension Priority: Secondary Status: Chronic Qualifiers: Hypertension type: essential hypertension Qualified Code(s): I10 - Essential (primary) hypertension (5) DMII (diabetes mellitus, type 2) Priority: Secondary Status: Chronic Qualifiers: Diabetes mellitus mcc insulin use: unspecified meterman insulin use status Diabetes mellitus complication status: without complication Qualified Code(s): E11.9 - Type 2 diabetes mellitus without complications (6) Weakness Priority: Secondary Status: Resolved (7) Dehydration Priority: Secondary Status: Resolved (8) Opiate use Priority: Secondary Status: Acute Hospital course: Ms. Casillas is a 68 year old female has history of diabetes, COPD on 2 L nasal cannula, chronic back pain, TEOFILO, history of DVT, memory impairment, polypharmacy presenting emergency room for confusion for 2 days. Patient lives with her , has a home care. Her reported that she has been confused since yesterday, but waxes and wanes yesterday whole day, she did not go to sleep last nght, she was sitting in a chair whole night, last night her was unable to get her to the bed. Her states that she was more unresponsive and he could not wake her up. He tried lifting her out of the chair and she fell. then home care came frankie this morning and called EMS. In ER, she was found urine positive for opiate, UTI, CXR abdomen CT, head Ct arre negative. When I saw the patient , she is alert, but confused, she knew she fell, denies kchest pain, SOB, fever, chills, no nause and vomiitng. patient is being admited for UTI, metabolic encephalopathy, polypharmacy. Patient improved ON, alert and oriented to3, back to the baseline, wants to go home. (1) UTI (urinary tract infection), will discharge on cefdnir 300 mg BID for 7 days Current Visit: Yes Status: Acute Assessment and plan: continue IV ceftriaxone, do urine culture Qualifiers: Urinary tract infection type: acute cystitis Hematuria presence: without hematuria Qualified Code(s): N30.00 - Acute cystitis without hematuria (2) Metabolic encephalopathy, resolved after stop oxycodone and flexeril Current Visit: Yes Status: Acute Assessment and plan: (3) COPD (chronic obstructive pulmonary disease) Current Visit: Yes Status: Chronic Assessment and plan: On 2 L NC ,, no signs for exacerbation contineu home meds Qualifiers: COPD type: chronic bronchitis Chronic bronchitis type: unspecified Qualified Code(s): J42 - Unspecified chronic bronchitis (4) Hypertension Current Visit: Yes Status: Chronic Assessment and plan: metoprolol Qualifiers: Hypertension type: essential hypertension Qualified Code(s): I10 - Essential (primary) hypertension (5) DMII (diabetes mellitus, type 2) Current Visit: Yes Status: Chronic Assessment and plan: Tpe 2 diabetes, insulin-dependent, we will reduce long-acting insulin dose and add insulin insulin sliding scale Qualifiers: Diabetes mellitus mcc insulin use: unspecified mcc insulin use status Diabetes mellitus complication status: without complication Qualified Code(s): E11.9 - Type 2 diabetes mellitus without complications (6) Weakness Current Visit: Yes Status: Acute Assessment and plan: Consult PT and OT (7) Dehydration, resolved Current Visit: Yes Status: Acute Assessment and plan: (8) Opiate use, discussed with patient to stop taking oxycodone and flexeril Current Visit: Yes Status: Acute Assessment and plan: for chronic back pain, she was on oxycodone and flexeril, will hold for now Discharge discussed with: patient, family Time spent discussing smoking cessation with patient: more than 10 minutes - Time Spent with Patient Total time spent providing and/or coordinating discharge services: Less than 30 minutes - Discharge Medications Prescriptions: Cefdinir [Omnicef] 300 mg PO BID #14 capsule Home Medications: Albuterol Sulfate [Proair Hfa] 2 puff IH Q4H PRN 02/04/18 [History] Amitriptyline HCl 100 mg PO HS 02/04/18 [History] Metoprolol XL (24 HR) Succ [Toprol Xl] 12.5 mg PO DAILY #15 tab.er.24h 02/11/18 [Rx] Insulin LISPRO [HumaLOG] 0 units SQ TIDWM 04/23/18 [History] Memantine HCl 10 mg PO BID 07/23/18 [History] Fluconazole [Diflucan] 100 mg PO DAILY #5 tablet 08/23/18 [Rx] Cefdinir [Omnicef] 300 mg PO BID #14 capsule 10/05/18 [Rx] Allergies/Adverse Reactions: Allergy/AdvReac Type Severity Reaction Status Date / Time bee venom protein (honey bee) Allergy Swelling Verified 04/23/18 07:21 of Lip/Tongue/Throat codeine Allergy Hives Verified 04/23/18 07:21 Penicillins [PCN] Allergy Hives Verified 04/23/18 07:21 bisoprolol [From Ziac] AdvReac See Verified 04/23/18 07:21 Comments Donepezil AdvReac Vomiting Verified 04/23/18 07:21 hydrochlorothiazide AdvReac See Verified 04/23/18 07:21 [From Ziac] Comments iodine AdvReac Hives Verified 04/23/18 07:21 lisinopril [From Zestril] AdvReac Vomiting Verified 04/23/18 07:21 tramadol AdvReac See Verified 04/23/18 07:21 Comments IVP dye Allergy Itching Uncoded 02/10/16 15:52 Date of admission: 10/04/18 17:13 Primary care physician: PCP NONE Consults: 10/04/18 18:02 Consult to Occupational Therapy [CONS] Routine Comment: Evaluate, develop and implement POC Reason for Consult: weakness Does patient have active BEDREST order?: No Is patient medically & hemodynamically stable?: Yes Patient assessed for mobility or mobilized this visit?: Yes Consult to Physical Therapy [CONS] Routine Comment: Evaluate, develop and implement POC Reason for Consult: weakness Does patient have active BEDREST order?: No Is patient medically & hemodynamically stable?: Yes Patient assessed for mobility or mobilized this visit?: Yes 10/05/18 01:22 Consult to Title Lawyer [CONS] Routine Reason for SW Consult: Pt has home health and home oxygen therapy. - Constitutional Vitals: Temp Pulse Resp BP Pulse Ox 98.0 F 77 16 128/74 98 10/05/18 09:56 10/05/18 09:56 10/05/18 09:56 10/05/18 09:56 10/05/18 09:56 General appearance: Present: A&O X 1, mild distress, pleasant Exam: CONSTITUTIONAL: Patient appears as an age appropriate female well developed, in no acute distress. EYES Clear sclerae, bilateral pupils are equal, reactive to light and accommodation. Extraocular movements are intact RESPIRATORY: No accessory muscle use, bilateral clear to auscultation, no wheezing, no crackles/rales. CARDIOVASCULAR: Regular heart rate, normal S1 and S2, no murmurs GASTROINTESTINAL: bowel sounds present, soft, no tenderness. No hepato splenomegaly. No bilateral CVA tenderness MUSCULOSKELETAL: Joints in normal range of motion, no clubbing, + edema mto feet, no cyanosis. Bilateral peripheral pulses 2+ LYMPHATIC no lymphadenopathy in neck, groin and axilla bilaterally, no thyromegaly. NEUROLOGIC: CN II to XII are grossly intact, no focal neurological deficit. Deep tendon reflexes 2+ bilaterally. Normal light touch sensation to upper and lower extremity PSYCHIATRIC: Oriented x3, with good insight, mood is euthymic. No hallucinations or delusions. SKIN: Skin warm and dry, no rashes, no open wound. - Patient Status Disposition: Home Health Service Overall status at discharge: patient is back to baseline - Discharge Instructions Follow Up With: NONE,PCP [Primary Care Provider] -
--- NOTE | 2018-10-05 12:39 | Physician Discharge Referral ---
Home Health/Hosp Referral Info Transfer to: Home Health Provider in Charge Post Discharge: PCP - Diagnosis (1) UTI (urinary tract infection) Priority: Secondary Status: Acute (2) Metabolic encephalopathy Priority: Primary Status: Resolved (3) COPD (chronic obstructive pulmonary disease) Priority: Secondary Status: Chronic (4) Hypertension Priority: Secondary Status: Chronic (5) DMII (diabetes mellitus, type 2) Priority: Secondary Status: Chronic (6) Weakness Priority: Secondary Status: Resolved (7) Dehydration Priority: Secondary Status: Resolved (8) Opiate use Priority: Secondary Status: Acute - Respiratory Orders Oxygen / L per min (2 L NC) Smoking Cessation: Smoking cessation has been advised. For more information, call the [place] Tobacco Quit Line at 1-789-KIGU-NOW. - Diet/Nutrition Diet/Nutrition: List: ADA 1800 - Services Needed Following services are medically necessary services: Nursing, Home Health Aide - Transfer Medications Prescriptions: Cefdinir [Omnicef] 300 mg PO BID #14 capsule Home Medications: Albuterol Sulfate [Proair Hfa] 2 puff IH Q4H PRN 02/04/18 [History] Amitriptyline HCl 100 mg PO HS 02/04/18 [History] Metoprolol XL (24 HR) Succ [Toprol Xl] 12.5 mg PO DAILY #15 tab.er.24h 02/11/18 [Rx] Insulin LISPRO [HumaLOG] 0 units SQ TIDWM 04/23/18 [History] Memantine HCl 10 mg PO BID 07/23/18 [History] Fluconazole [Diflucan] 100 mg PO DAILY #5 tablet 08/23/18 [Rx] Cefdinir [Omnicef] 300 mg PO BID #14 capsule 10/05/18 [Rx] Allergies/Adverse Reactions: Allergy/AdvReac Type Severity Reaction Status Date / Time bee venom protein (honey bee) Allergy Swelling Verified 04/23/18 07:21 of Lip/Tongue/Throat codeine Allergy Hives Verified 04/23/18 07:21 Penicillins [PCN] Allergy Hives Verified 04/23/18 07:21 bisoprolol [From Ziac] AdvReac See Verified 04/23/18 07:21 Comments Donepezil AdvReac Vomiting Verified 04/23/18 07:21 hydrochlorothiazide AdvReac See Verified 04/23/18 07:21 [From Ziac] Comments iodine AdvReac Hives Verified 04/23/18 07:21 lisinopril [From Zestril] AdvReac Vomiting Verified 04/23/18 07:21 tramadol AdvReac See Verified 04/23/18 07:21 Comments IVP dye Allergy Itching Uncoded 02/10/16 15:52 Certification: Further, I certify that my clinical findings support that this patient is homebound (i.e. absences from home require considerable and taxing effort and are for medical reasons or anabaptism services or infrequently or short duration when for other reasons) because: Homebound Reason: Patient requires assistance of a person or device to safely leave home Attestation: My signature below is to certify that this patient is under my care and that I, or nurse practitioner, or a physician's culinary assistant working with me, has a [id number] encounter with this patient.
[2018-10-05] MEDS ORDERED: cefTRIAXone 1,000 MG in Water for inj. (sterile) 20 ML 10 ML IVP SCH (18:00)
--- NOTE | 2018-10-06 05:30 | Electrocardiograph Report ---
[facility] Test Date: 2018-10-04 Pat Name: Sabine Casillas Department: [id number] Room: 3A11 Gender: F Manager Ob: : 1950 Requested By: Matt Manjarrez Order Number: [id number] Reading MD: Ramon Madden Measurements Intervals [place] Rate: 75 P: 68 IN: 197 QRS: 123 QRSD: 103 T: 30 QT: 435 QTc: 486 Interpretive Statements Sinus rhythm Right axis deviation Low voltage, precordial leads Borderline prolonged QT interval Electronically Signed On 10-06-2018 5:28:57 EST by Ramon Madden
== END 2018-10-05 14:55 | disposition home health service (06) ==
LOC: EMEROOARM 13:37 → 3ANU 13:37
PROVIDERS: ADMIT Student in an Organized Health Care Education/Training Program; ATTEND Student in an Organized Health Care Education/Training Program

== ENCOUNTER 2019-04-16 19:22 | Inpatient (IN) ==
[2019-04-16] MEDS ORDERED: Ondansetron 4 MG/2 ML VIAL IVP ONE (20:18)
[2019-04-16] MEDS ORDERED: 0.9 % Sodium Chloride 1,000 ML IVC ONE ×2 (20:18→22:17)
--- NOTE | 2019-04-16 20:38 | Emergency Department Note ---
Disposition Clinical Impression: Dehydration, Hyperglycemia Nausea and vomiting Qualifiers: Vomiting type: unspecified Vomiting Intractability: non-intractable Qualified Code(s): R11.2 - Nausea with vomiting, unspecified Disposition: Still a Patient Condition: Fair Referrals: Julio Larios MD [Primary Care Provider] - Forms: ED Satisfaction Letter Time of Disposition: 23:25 Nausea/Vomiting/Diarrhea HPI - General Chief complaint: ED Nausea/Vomiting/Diarrhea Stated complaint: N/V Time Seen by Provider: 04/16/19 19:39 Source: patient Limitations: no limitations Nursing Notes Reviewed: Yes Vital Signs Reviewed: Yes - History of Present Illness HPI Narrative: 69-year-old female presents from home with bedside for evaluation of nausea and vomiting. 4 days ago. Patient states she has had about one episode of nausea with either dry heaving or vomiting every 30 minutes today. Vomiting has been clear as well as green as well as brown. No coffee-ground emesis. No history of peptic ulcer disease or gastric bleeding. No hematochezia, melena, diarrhea, constipation. Patient did have subjective fevers however these were not measured. PMH: DM on insulin, HTN. Hx ovarian and breast cancer. Hx CVA. ROS: Positive: Nausea, vomiting, abdominal pain Negative: Measured fever, chills, chest pain, palpitations, dyspnea, diaphoresis - Related Data Home Medications Medication Instructions Recorded Confirmed Albuterol Sulfate [Proair Hfa] 2 puff IH Q4H PRN 02/04/18 12/30/18 Insulin LISPRO [HumaLOG] 5 units SQ TIDWM 04/23/18 12/30/18 Memantine HCl 10 mg PO BID 07/23/18 12/30/18 Insulin Glargine,Hum.rec.anlog 55 unit SQ BID 11/01/18 12/30/18 [Basaglar Kwikpen U-100] Ciprofloxacin HCl [Cipro] 500 mg PO BID 12/30/18 12/30/18 Cyclobenzaprine [Flexeril] 10 mg PO TID PRN 12/30/18 12/30/18 Previous Rx's Medication Instructions Recorded Metoprolol XL (24 HR) Succ [Toprol 12.5 mg PO DAILY #15 tab.er.24h 02/11/18 Xl] Amitriptyline [Elavil] 50 mg PO HS #7 tablet 01/02/19 Collagenase Oint [Santyl] 1 appl TP HS #1 tube 01/02/19 cephALEXin [Keflex] 500 mg PO BID #2 capsule 01/02/19 Allergies Allergy/AdvReac Type Severity Reaction Status Date / Time bee venom protein (honey bee) Allergy Swelling Verified 04/23/18 07:21 of Lip/Tongue/Throat codeine Allergy Hives Verified 04/23/18 07:21 Penicillins [PCN] Allergy Hives Verified 04/23/18 07:21 bisoprolol [From Ziac] AdvReac See Verified 04/23/18 07:21 Comments Donepezil AdvReac Vomiting Verified 04/23/18 07:21 hydrochlorothiazide AdvReac See Verified 04/23/18 07:21 [From Ziac] Comments iodine AdvReac Hives Verified 04/23/18 07:21 lisinopril [From Zestril] AdvReac Vomiting Verified 04/23/18 07:21 tramadol AdvReac See Verified 04/23/18 07:21 Comments IVP dye Allergy Itching Uncoded 02/10/16 15:52 Past Medical History - Past Medical History Medical history: Reports: cancer, CVA, DVT, diabetes, hypertension Surgical history: Reports: appendectomy, breast surgery, hysterectomy, other Psychiatric history: Reports: depression SQU[employer]UT[employer] history: Reports: non-contributory - Social History Smoking Status: Never smoker Smokeless Tobacco Status: No Alcohol use: Reports: none Drug use: Reports: none Physical Exam - General Limitations: no limitations General appearance: alert Course Course Narrative: Patient dry-heaved during our initial discussion. Serum hematology shows leukocytosis to 18.5. This could be due margination. Patient is afebrile on intake. Serum chemistry shows hyperglycemia to the mid 500s. Potassium is normal. No anion gap. Serum ketones positive however VBG pH not acidotic. Patient has been given total of 2 L of normal saline and 4mg IV zofran. Urinalysis shows urine ketones and glucosuria. Squamous epithelial cell contamination; clinically unlikely UTI. 22:30 Patient reassessed. She is feeling much better. CT pending. She was updated on the above results. Questions answered. CT pending. Concern for vomiting causing dehydration and hyperglycemia. Recommend admission once CT results for IV rehydration and monitoring for resolution of hyperglycemia. Patient signed out to Dr. Davis in Dr. Dominguez pending CT results. Vital Signs Temperature 98.9 F 04/16/19 19:54 Pulse Rate 104 04/16/19 19:54 Respiratory Rate 16 04/16/19 19:54 Blood Pressure 191/95 04/16/19 19:54 O2 Sat by Pulse Oximetry 100 04/16/19 19:54 Temperature 98.9 F 04/16/19 19:54 Pulse Rate 100 04/16/19 22:04 Respiratory Rate 20 04/16/19 22:04 Blood Pressure 179/95 04/16/19 22:04 O2 Sat by Pulse Oximetry 96 04/16/19 22:04 Oxygen Delivery Oxygen Delivery Nasal Cannula Nausea/Vomiting/Diarrhea - Lab Data Result diagrams: 04/16/19 20:45 04/16/19 20:45 Lab Results 04/16/19 04/16/19 04/16/19 Range/Units 20:45 20:45 20:50 WBC 18.3 H (4.3-11.1) K/mcL RBC 4.76 (3.82-4.97) M/mcL Hgb 14.2 (11.5-15.4) g/dL Hct 42.5 (35.3-44.9) % MCV 89.3 (83.0-100.0) fL MCH 29.8 (28.0-33.3) pg MCHC 33.4 (31.6-35.5) g/dL RDW 14.1 (11.5-14.5) % Plt Count 151 (140-400) K/mcL MPV 10.2 (9.4-12.4) fL Immature Gran % 0.6 (0-4) % Seg Neutrophils % 91.2 % Lymphocytes % 3.6 % Monocytes % 4.4 % Eosinophils % 0.0 % Basophils % 0.2 % Neutrophils # 16.7 H (1.6-8.9) K/mcL Lymphocytes # 0.7 (0.6-4.6) K/mcL Monocytes # 0.8 (0.0-1.3) K/mcL Eosinophils # 0.0 (0.0-0.6) K/mcL Basophils # 0.0 (0.0-0.2) K/mcL VBG pH (7.32-7.42) pH Units VBG pCO2 (41-51) mmHg VBG pO2 (25-50) mmHg VBG HCO3 (21-27) mEq/L Sodium 133 L (136-145) mEq/L Potassium 3.7 (3.5-5.1) mEq/L Chloride 91 L (98-107) mEq/L Carbon Dioxide 23 (23-29) mEq/L BUN 26 H (8-23) mg/dL Creatinine 0.70 (0.60-1.20) mg/dL Est GFR ( Amer) > 60 (> 60) Est GFR (Non-Af Amer) > 60 (> 60) BUN/Creatinine Ratio 37 H (6-26) Glucose 532 H* (70-105) mg/dL Calculated Osmolality 305 H (280-300) Lactic Acid (0.5-2.2) mmol/L Calcium 10.0 (8.6-10.3) mg/dL Total Bilirubin 1.3 H (0.3-1.0) mg/dL Direct Bilirubin 0.3 H (0.0-0.2) mg/dL Indirect Bilirubin 1.0 (0.0-1.2) mg/dL AST 22 (13-39) Units/L ALT 20 (7-52) Units/L Alkaline Phosphatase 133 H (34-104) Units/L Serum Total Protein 8.2 (6.4-8.9) g/dL Albumin 4.2 (3.5-5.7) g/dL Globulin 4.0 H (2.4-3.5) g/dL Albumin/Globulin Ratio 1.1 (1.1-2.2) Lipase 15 (11-82) Units/L Beta-Hydroxybutyric Acd (0.02-0.27) mmol/L Urine Color Yellow (Yellow) Urine Clarity Clear (Clear) Urine pH 6.0 (5.0-8.0) pH Units Ur Specific [place] > 1.030 H (1.010-1.025) Urine Protein 30 H (Neg-Trace) mg/dL Urine Glucose (UA) >=1000 H (Normal) mg/dL Urine Ketones 80 H (Negative) mg/dL Urine Blood Small H (Negative) Urine Nitrite Negative (Negative) Urine Bilirubin Negative (Negative) Urine Urobilinogen Normal (Normal) mg/dL Ur Leukocyte Esterase Negative (Negative) Urine Microscopic RBC 3-5 H (0-3) per hpf Urine Microscopic WBC 15-30 H (0-3) per hpf Ur Squamous Epith Cells Many H (None-Few) per lpf Urine Bacteria None Seen (None-Few) per hpf Hyaline Casts None Seen (None-Few) per lpf Ur Culture Indicated? YES A (NO) 04/16/19 04/16/19 04/16/19 Range/Units 21:05 22:06 22:19 WBC (4.3-11.1) K/mcL RBC (3.82-4.97) M/mcL Hgb (11.5-15.4) g/dL Hct (35.3-44.9) % MCV (83.0-100.0) fL MCH (28.0-33.3) pg MCHC (31.6-35.5) g/dL RDW (11.5-14.5) % Plt Count (140-400) K/mcL MPV (9.4-12.4) fL Immature Gran % (0-4) % Seg Neutrophils % % Lymphocytes % % Monocytes % % Eosinophils % % Basophils % % Neutrophils # (1.6-8.9) K/mcL Lymphocytes # (0.6-4.6) K/mcL Monocytes # (0.0-1.3) K/mcL Eosinophils # (0.0-0.6) K/mcL Basophils # (0.0-0.2) K/mcL VBG pH 7.37 (7.32-7.42) pH Units VBG pCO2 46 (41-51) mmHg VBG pO2 35 (25-50) mmHg VBG HCO3 26 (21-27) mEq/L Sodium (136-145) mEq/L Potassium (3.5-5.1) mEq/L Chloride (98-107) mEq/L Carbon Dioxide (23-29) mEq/L BUN (8-23) mg/dL Creatinine (0.60-1.20) mg/dL Est GFR ( Amer) (> 60) Est GFR (Non-Af Amer) (> 60) BUN/Creatinine Ratio (6-26) Glucose (70-105) mg/dL Calculated Osmolality (280-300) Lactic Acid 2.2 (0.5-2.2) mmol/L Calcium (8.6-10.3) mg/dL Total Bilirubin (0.3-1.0) mg/dL Direct Bilirubin (0.0-0.2) mg/dL Indirect Bilirubin (0.0-1.2) mg/dL AST (13-39) Units/L ALT (7-52) Units/L Alkaline Phosphatase (34-104) Units/L Serum Total Protein (6.4-8.9) g/dL Albumin (3.5-5.7) g/dL Globulin (2.4-3.5) g/dL Albumin/Globulin Ratio (1.1-2.2) Lipase (11-82) Units/L Beta-Hydroxybutyric Acd > 2.00 H (0.02-0.27) mmol/L Urine Color (Yellow) Urine Clarity (Clear) Urine pH (5.0-8.0) pH Units Ur Specific [place] (1.010-1.025) Urine Protein (Neg-Trace) mg/dL Urine Glucose (UA) (Normal) mg/dL Urine Ketones (Negative) mg/dL Urine Blood (Negative) Urine Nitrite (Negative) Urine Bilirubin (Negative) Urine Urobilinogen (Normal) mg/dL Ur Leukocyte Esterase (Negative) Urine Microscopic RBC (0-3) per hpf Urine Microscopic WBC (0-3) per hpf Ur Squamous Epith Cells (None-Few) per lpf Urine Bacteria (None-Few) per hpf Hyaline Casts (None-Few) per lpf Ur Culture Indicated? (NO)
[2019-04-16 20:57] LABS: Basophils % 0.2 %; Hematocrit 42.5 % (35.3-44.9); Hemoglobin 14.2 g/dL (11.5-15.4); Immature Granulocytes % 0.6 % (0-4); Lymphocytes # 0.7 K/mcL (0.6-4.6); Lymphocytes % 3.6 %; Mean Corpuscular HGB Conc 33.4 g/dL (31.6-35.5); Mean Corpuscular Hemoglobin 29.8 pg (28.0-33.3); Mean Corpuscular Volume 89.3 fL (83.0-100.0); Mean Platelet Volume 10.2 fL (9.4-12.4); Monocytes # 0.8 K/mcL (0.0-1.3); Monocytes % 4.4 %; Neutrophils # 16.7 K/mcL (1.6-8.9); Platelet Count 151 K/mcL (140-400); Red Blood Count 4.76 M/mcL (3.82-4.97); Red Cell Distribution Width 14.1 % (11.5-14.5); Segmented Neutrophils % 91.2 %; White Blood Count 18.3 K/mcL (4.3-11.1)
[2019-04-16 21:04] LABS: Bilirubin,Urine Negative (Negative); Blood,Urine Small (Negative); Clarity,Urine Clear (Clear); Color,Urine Yellow (Yellow); Glucose,Urine (UA) >=1000 mg/dL (Normal); Ketones,Urine 80 mg/dL (Negative); Leukocyte Esterase,Urine Negative (Negative); Nitrite,Urine Negative (Negative); Protein,Urine 30 mg/dL (Neg-Trace); Specific Gravity,Urine > 1.030 (1.010-1.025); Urobilinogen,Urine Normal (Normal)
[2019-04-16 21:06] LABS: Bacteria,Urine None Seen per hpf (None-Few); Hyaline Casts,Urine None Seen per lpf (None-Few); Squamous Epithelial Cell,Urine Many per lpf (None-Few); WBC,Urine 15-30 per hpf (0-3)
[2019-04-16 21:26] LABS: Alanine Aminotransferase 20 Units/L (7-52); Albumin 4.2 g/dL (3.5-5.7); Albumin/Globulin Ratio 1.1 (1.1-2.2); Alkaline Phosphatase 133 Units/L (34-104); Aspartate Amino Transferase 22 Units/L (13-39); BUN/Creatinine Ratio 37 (6-26); Bilirubin,Direct 0.3 mg/dL (0.0-0.2); Bilirubin,Total 1.3 mg/dL (0.3-1.0); Blood Urea Nitrogen 26 mg/dL (8-23); Carbon Dioxide 23 mEq/L (23-29); Chloride 91 mEq/L (98-107); Glucose 532 mg/dL (70-105); Lipase 15 Units/L (11-82); Osmolality,Calculated 305 (280-300); Potassium 3.7 mEq/L (3.5-5.1); Sodium 133 mEq/L (136-145); Total Protein 8.2 g/dL (6.4-8.9); eGFR For African Americans > 60 (> 60); eGFR For Non-African Americans > 60 (> 60)
[2019-04-16] MEDS ORDERED: Insulin Regular, Human 100 UNIT/ML SQ ONE (22:17)
[2019-04-16 22:21] LABS: VBG HCO3 26 mEq/L (21-27); VBG PCO2 46 mmHg (41-51); VBG PH 7.37 pH Units (7.32-7.42); VBG PO2 35 mmHg (25-50)
--- NOTE | 2019-04-16 23:08 | Emergency Department Note ---
Disposition Clinical Impression: Dehydration, Hyperglycemia Disposition: Still a Patient Condition: Fair Referrals: Julio Larios MD [Primary Care Provider] - Forms: ED Satisfaction Letter Time of Disposition: 23:08 General Adult HPI - General Chief complaint: ED Nausea/Vomiting/Diarrhea Stated complaint: N/V Time Seen by Provider: 04/16/19 19:39 Source: patient Limitations: no limitations Nursing Notes Reviewed: Yes Vital Signs Reviewed: Yes - History of Present Illness Pain Scale: 6 - Related Data Home Medications Medication Instructions Recorded Confirmed Albuterol Sulfate [Proair Hfa] 2 puff IH Q4H PRN 02/04/18 12/30/18 Insulin LISPRO [HumaLOG] 5 units SQ TIDWM 04/23/18 12/30/18 Memantine HCl 10 mg PO BID 07/23/18 12/30/18 Insulin Glargine,Hum.rec.anlog 55 unit SQ BID 11/01/18 12/30/18 [Basaglar Kwikpen U-100] Ciprofloxacin HCl [Cipro] 500 mg PO BID 12/30/18 12/30/18 Cyclobenzaprine [Flexeril] 10 mg PO TID PRN 12/30/18 12/30/18 Previous Rx's Medication Instructions Recorded Metoprolol XL (24 HR) Succ [Toprol 12.5 mg PO DAILY #15 tab.er.24h 02/11/18 Xl] Amitriptyline [Elavil] 50 mg PO HS #7 tablet 01/02/19 Collagenase Oint [Santyl] 1 appl TP HS #1 tube 01/02/19 cephALEXin [Keflex] 500 mg PO BID #2 capsule 01/02/19 Allergies Allergy/AdvReac Type Severity Reaction Status Date / Time bee venom protein (honey bee) Allergy Swelling Verified 04/23/18 07:21 of Lip/Tongue/Throat codeine Allergy Hives Verified 04/23/18 07:21 Penicillins [PCN] Allergy Hives Verified 04/23/18 07:21 bisoprolol [From Ziac] AdvReac See Verified 04/23/18 07:21 Comments Donepezil AdvReac Vomiting Verified 04/23/18 07:21 hydrochlorothiazide AdvReac See Verified 04/23/18 07:21 [From Ziac] Comments iodine AdvReac Hives Verified 04/23/18 07:21 lisinopril [From Zestril] AdvReac Vomiting Verified 04/23/18 07:21 tramadol AdvReac See Verified 04/23/18 07:21 Comments IVP dye Allergy Itching Uncoded 02/10/16 15:52 Past Medical History - Past Medical History Medical history: Reports: cancer, CVA, DVT, diabetes, hypertension Surgical history: Reports: appendectomy, breast surgery, hysterectomy, other Psychiatric history: Reports: depression 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 - Social History Smoking Status: Never smoker Smokeless Tobacco Status: No Alcohol use: Reports: none Drug use: Reports: none Physical Exam - General Limitations: no limitations General appearance: alert Course Vital Signs Temperature 98.9 F 04/16/19 19:54 Pulse Rate 104 04/16/19 19:54 Respiratory Rate 16 04/16/19 19:54 Blood Pressure 191/95 04/16/19 19:54 O2 Sat by Pulse Oximetry 100 04/16/19 19:54 Temperature 98.9 F 04/16/19 19:54 Pulse Rate 100 04/16/19 22:04 Respiratory Rate 20 04/16/19 22:04 Blood Pressure 179/95 04/16/19 22:04 O2 Sat by Pulse Oximetry 96 04/16/19 22:04 Oxygen Delivery Oxygen Delivery Nasal Cannula Medical Decision Making - Lab Data Result diagrams: 04/16/19 20:45 04/16/19 20:45 Lab Results 04/16/19 04/16/19 04/16/19 Range/Units 20:45 20:45 20:50 WBC 18.3 H (4.3-11.1) K/mcL RBC 4.76 (3.82-4.97) M/mcL Hgb 14.2 (11.5-15.4) g/dL Hct 42.5 (35.3-44.9) % MCV 89.3 (83.0-100.0) fL MCH 29.8 (28.0-33.3) pg MCHC 33.4 (31.6-35.5) g/dL RDW 14.1 (11.5-14.5) % Plt Count 151 (140-400) K/mcL MPV 10.2 (9.4-12.4) fL Immature Gran % 0.6 (0-4) % Seg Neutrophils % 91.2 % Lymphocytes % 3.6 % Monocytes % 4.4 % Eosinophils % 0.0 % Basophils % 0.2 % Neutrophils # 16.7 H (1.6-8.9) K/mcL Lymphocytes # 0.7 (0.6-4.6) K/mcL Monocytes # 0.8 (0.0-1.3) K/mcL Eosinophils # 0.0 (0.0-0.6) K/mcL Basophils # 0.0 (0.0-0.2) K/mcL VBG pH (7.32-7.42) pH Units VBG pCO2 (41-51) mmHg VBG pO2 (25-50) mmHg VBG HCO3 (21-27) mEq/L Sodium 133 L (136-145) mEq/L Potassium 3.7 (3.5-5.1) mEq/L Chloride 91 L (98-107) mEq/L Carbon Dioxide 23 (23-29) mEq/L BUN 26 H (8-23) mg/dL Creatinine 0.70 (0.60-1.20) mg/dL Est GFR ( Amer) > 60 (> 60) Est GFR (Non-Af Amer) > 60 (> 60) BUN/Creatinine Ratio 37 H (6-26) Glucose 532 H* (70-105) mg/dL Calculated Osmolality 305 H (280-300) Lactic Acid (0.5-2.2) mmol/L Calcium 10.0 (8.6-10.3) mg/dL Total Bilirubin 1.3 H (0.3-1.0) mg/dL Direct Bilirubin 0.3 H (0.0-0.2) mg/dL Indirect Bilirubin 1.0 (0.0-1.2) mg/dL AST 22 (13-39) Units/L ALT 20 (7-52) Units/L Alkaline Phosphatase 133 H (34-104) Units/L Serum Total Protein 8.2 (6.4-8.9) g/dL Albumin 4.2 (3.5-5.7) g/dL Globulin 4.0 H (2.4-3.5) g/dL Albumin/Globulin Ratio 1.1 (1.1-2.2) Lipase 15 (11-82) Units/L Beta-Hydroxybutyric Acd (0.02-0.27) mmol/L Urine Color Yellow (Yellow) Urine Clarity Clear (Clear) Urine pH 6.0 (5.0-8.0) pH Units Ur Specific [place] > 1.030 H (1.010-1.025) Urine Protein 30 H (Neg-Trace) mg/dL Urine Glucose (UA) >=1000 H (Normal) mg/dL Urine Ketones 80 H (Negative) mg/dL Urine Blood Small H (Negative) Urine Nitrite Negative (Negative) Urine Bilirubin Negative (Negative) Urine Urobilinogen Normal (Normal) mg/dL Ur Leukocyte Esterase Negative (Negative) Urine Microscopic RBC 3-5 H (0-3) per hpf Urine Microscopic WBC 15-30 H (0-3) per hpf Ur Squamous Epith Cells Many H (None-Few) per lpf Urine Bacteria None Seen (None-Few) per hpf Hyaline Casts None Seen (None-Few) per lpf Ur Culture Indicated? YES A (NO) 04/16/19 04/16/19 04/16/19 Range/Units 21:05 22:06 22:19 WBC (4.3-11.1) K/mcL RBC (3.82-4.97) M/mcL Hgb (11.5-15.4) g/dL Hct (35.3-44.9) % MCV (83.0-100.0) fL MCH (28.0-33.3) pg MCHC (31.6-35.5) g/dL RDW (11.5-14.5) % Plt Count (140-400) K/mcL MPV (9.4-12.4) fL Immature Gran % (0-4) % Seg Neutrophils % % Lymphocytes % % Monocytes % % Eosinophils % % Basophils % % Neutrophils # (1.6-8.9) K/mcL Lymphocytes # (0.6-4.6) K/mcL Monocytes # (0.0-1.3) K/mcL Eosinophils # (0.0-0.6) K/mcL Basophils # (0.0-0.2) K/mcL VBG pH 7.37 (7.32-7.42) pH Units VBG pCO2 46 (41-51) mmHg VBG pO2 35 (25-50) mmHg VBG HCO3 26 (21-27) mEq/L Sodium (136-145) mEq/L Potassium (3.5-5.1) mEq/L Chloride (98-107) mEq/L Carbon Dioxide (23-29) mEq/L BUN (8-23) mg/dL Creatinine (0.60-1.20) mg/dL Est GFR ( Amer) (> 60) Est GFR (Non-Af Amer) (> 60) BUN/Creatinine Ratio (6-26) Glucose (70-105) mg/dL Calculated Osmolality (280-300) Lactic Acid 2.2 (0.5-2.2) mmol/L Calcium (8.6-10.3) mg/dL Total Bilirubin (0.3-1.0) mg/dL Direct Bilirubin (0.0-0.2) mg/dL Indirect Bilirubin (0.0-1.2) mg/dL AST (13-39) Units/L ALT (7-52) Units/L Alkaline Phosphatase (34-104) Units/L Serum Total Protein (6.4-8.9) g/dL Albumin (3.5-5.7) g/dL Globulin (2.4-3.5) g/dL Albumin/Globulin Ratio (1.1-2.2) Lipase (11-82) Units/L Beta-Hydroxybutyric Acd > 2.00 H (0.02-0.27) mmol/L Urine Color (Yellow) Urine Clarity (Clear) Urine pH (5.0-8.0) pH Units Ur Specific [place] (1.010-1.025) Urine Protein (Neg-Trace) mg/dL Urine Glucose (UA) (Normal) mg/dL Urine Ketones (Negative) mg/dL Urine Blood (Negative) Urine Nitrite (Negative) Urine Bilirubin (Negative) Urine Urobilinogen (Normal) mg/dL Ur Leukocyte Esterase (Negative) Urine Microscopic RBC (0-3) per hpf Urine Microscopic WBC (0-3) per hpf Ur Squamous Epith Cells (None-Few) per lpf Urine Bacteria (None-Few) per hpf Hyaline Casts (None-Few) per lpf Ur Culture Indicated? (NO) Attestation Statement - Attestation Attestation: I have seen this patient with the resident physician, I have personally evaluated this patient. I had reviewed the chart and document dictation by the resident physician and aM in agreement with the information documented by the resident physician. Please see documentation by the resident physician for complete chart including past medical history, family medical history, review of systems, current history and physical and laboratory and imaging studies. I was present for all procedures, provided direct supervision for all procedures, was present for the entirety of all procedures and provided direct guidance during the procedures. Please see documentation by the resident physician for any procedures performed. I have reviewed all interpretations of EKGs, and reviewed all EKGs performed on patient's as well. I have also reviewed reports of imaging as provided by radiology. Patient presented to emergency department with nausea and vomiting, worsening over a few days. Upon arrival, she is uncomfortable nontoxic. Her abdomen is soft, mildly tender without distention, or peritoneal sign. Patient IV placed was given symptomatically management with nausea medication and fluids. She was found to have significant elevated blood sugar of 532 she does have a history of diabetes. CBC showed leukocytosis of 18,300. Renal panel showed no evidence of significant anion gap, VBG showed no evidence of acidosis, serum ketones were greater than 2, urinalysis demonstrated large glucose and ketones. Patient continued IV hydration, did not have evidence to truly suggest DKA, she has been throwing up and I believe her ketosis is more related to starvation ketosis as she has a normal VBG, and normal bicarbonate with no evidence of anion gap, continued IV hydration, subcutaneous insulin for her hyperglycemia, and symptomatic management. At the time of this dictation, a CT scan of the abdomen and pelvis was pending, patient will require admission to the hospital for further management of dehydration, nausea vomiting hyperglycemia and ketosis without acidosis, pending CT scan. At the time of this dictation patient was signed out to Dr. Davis, and asked to follow up on CT scan results and treat any findings thereof and admit patient, for a minimum the above and for any potential CT scan findings.
[2019-04-17] MEDS ORDERED: cefTRIAXone 1,000 MG in Water for inj. (sterile) 10 ML IVP ONE (01:00)
[2019-04-17] MEDS ORDERED: MetroNIDAZOLE 500 MG/100 ML 500 MG/100 ML BAG IVPB ONE (01:00)
--- NOTE | 2019-04-17 01:15 | Emergency Department Note ---
Disposition Clinical Impression: Dehydration, Hyperglycemia Nausea and vomiting Qualifiers: Vomiting type: unspecified Vomiting Intractability: non-intractable Qualified Code(s): R11.2 - Nausea with vomiting, unspecified Disposition: Admitted As Inpatient Condition: Fair Referrals: Julio Larios MD [Primary Care Provider] - Forms: ED Satisfaction Letter Time of Disposition: 01:14 General Adult HPI - General Chief complaint: ED Nausea/Vomiting/Diarrhea Stated complaint: N/V Time Seen by Provider: 04/16/19 19:39 Source: patient Limitations: no limitations - History of Present Illness Pain Scale: 6 - Related Data Home Medications Medication Instructions Recorded Confirmed Albuterol Sulfate [Proair Hfa] 2 puff IH Q4H PRN 02/04/18 12/30/18 Insulin LISPRO [HumaLOG] 5 units SQ TIDWM 04/23/18 12/30/18 Memantine HCl 10 mg PO BID 07/23/18 12/30/18 Insulin Glargine,Hum.rec.anlog 55 unit SQ BID 11/01/18 12/30/18 [Basaglar Kwikpen U-100] Ciprofloxacin HCl [Cipro] 500 mg PO BID 12/30/18 12/30/18 Cyclobenzaprine [Flexeril] 10 mg PO TID PRN 12/30/18 12/30/18 Previous Rx's Medication Instructions Recorded Metoprolol XL (24 HR) Succ [Toprol 12.5 mg PO DAILY #15 tab.er.24h 02/11/18 Xl] Amitriptyline [Elavil] 50 mg PO HS #7 tablet 01/02/19 Collagenase Oint [Santyl] 1 appl TP HS #1 tube 01/02/19 cephALEXin [Keflex] 500 mg PO BID #2 capsule 01/02/19 Allergies Allergy/AdvReac Type Severity Reaction Status Date / Time bee venom protein (honey bee) Allergy Swelling Verified 04/23/18 07:21 of Lip/Tongue/Throat codeine Allergy Hives Verified 04/23/18 07:21 Penicillins [PCN] Allergy Hives Verified 04/23/18 07:21 bisoprolol [From Ziac] AdvReac See Verified 04/23/18 07:21 Comments Donepezil AdvReac Vomiting Verified 04/23/18 07:21 hydrochlorothiazide AdvReac See Verified 04/23/18 07:21 [From Ziac] Comments iodine AdvReac Hives Verified 04/23/18 07:21 lisinopril [From Zestril] AdvReac Vomiting Verified 04/23/18 07:21 tramadol AdvReac See Verified 04/23/18 07:21 Comments IVP dye Allergy Itching Uncoded 02/10/16 15:52 Past Medical History - Past Medical History Medical history: Reports: cancer, CVA, DVT, diabetes, hypertension Surgical history: Reports: appendectomy, breast surgery, hysterectomy, other Psychiatric history: Reports: depression SLASHER history: Reports: non-contributory - Social History Smoking Status: Never smoker Smokeless Tobacco Status: No Alcohol use: Reports: none Drug use: Reports: none Physical Exam - General Limitations: no limitations General appearance: alert Course Vital Signs Temperature 98.9 F 04/16/19 19:54 Pulse Rate 104 04/16/19 19:54 Respiratory Rate 16 04/16/19 19:54 Blood Pressure 191/95 04/16/19 19:54 O2 Sat by Pulse Oximetry 100 04/16/19 19:54 Temperature 98.9 F 04/16/19 19:54 Pulse Rate 105 04/17/19 01:34 Respiratory Rate 20 04/17/19 01:34 Blood Pressure 185/78 04/17/19 01:34 O2 Sat by Pulse Oximetry 98 04/17/19 01:34 Oxygen Delivery Oxygen Delivery Nasal Cannula Medical Decision Making - MDM Narrative Medical decision making narrative: Patient is received in signout from Dr. Hernandez and Dr. Hickman please see their documentation for history of presenting illness, physical exam and initial medical decision making. At the time of signout the patient had a CT scan of the abdomen and pelvis pending. The CT scan showed concern for possible liver lesion as well as possible aspiration. The patient was started on broad- spectrum antibiotics. The patient did have hyperglycemia and having given insulin by the day team. Patient is also been vomiting. PH is normal. Patient's bicarbonate is normal. Patient did have elevated serum ketones. Jack newman had an anion gap of 19. However the anion gap is secondary to a low chloride. This could be secondary to the patient having been vomiting. Due to the patient requiring IV antibiotic, being hyperglycemic feel that is most appropriate for her to be admitted to the hospital for further evaluation and management. I called spoke the admitting hospitalist Dr. Regalado and she will accept the patient to their service. Patient be admitted to the hospital this time for further evaluation and management of her hyperglycemia, dehydration and possible DKA. A repeat BMP was ordered and the hospitalist team will follow up on this. - Medical Records Medical records reviewed: Yes I reviewed the patient's medical records. - Lab Data Lab results reviewed: Yes I reviewed the patient's lab results. Result diagrams: 04/16/19 20:45 04/17/19 01:02 Lab Results 04/16/19 04/16/19 04/16/19 Range/Units 20:45 20:45 20:50 WBC 18.3 H (4.3-11.1) K/mcL RBC 4.76 (3.82-4.97) M/mcL Hgb 14.2 (11.5-15.4) g/dL Hct 42.5 (35.3-44.9) % MCV 89.3 (83.0-100.0) fL MCH 29.8 (28.0-33.3) pg MCHC 33.4 (31.6-35.5) g/dL RDW 14.1 (11.5-14.5) % Plt Count 151 (140-400) K/mcL MPV 10.2 (9.4-12.4) fL Immature Gran % 0.6 (0-4) % Seg Neutrophils % 91.2 % Lymphocytes % 3.6 % Monocytes % 4.4 % Eosinophils % 0.0 % Basophils % 0.2 % Neutrophils # 16.7 H (1.6-8.9) K/mcL Lymphocytes # 0.7 (0.6-4.6) K/mcL Monocytes # 0.8 (0.0-1.3) K/mcL Eosinophils # 0.0 (0.0-0.6) K/mcL Basophils # 0.0 (0.0-0.2) K/mcL VBG pH (7.32-7.42) pH Units VBG pCO2 (41-51) mmHg VBG pO2 (25-50) mmHg VBG HCO3 (21-27) mEq/L Sodium 133 L (136-145) mEq/L Potassium 3.7 (3.5-5.1) mEq/L Chloride 91 L (98-107) mEq/L Carbon Dioxide 23 (23-29) mEq/L BUN 26 H (8-23) mg/dL Creatinine 0.70 (0.60-1.20) mg/dL Est GFR ( Amer) > 60 (> 60) Est GFR (Non-Af Amer) > 60 (> 60) BUN/Creatinine Ratio 37 H (6-26) Glucose 532 H* (70-105) mg/dL Calculated Osmolality 305 H (280-300) Lactic Acid (0.5-2.2) mmol/L Calcium 10.0 (8.6-10.3) mg/dL Total Bilirubin 1.3 H (0.3-1.0) mg/dL Direct Bilirubin 0.3 H (0.0-0.2) mg/dL Indirect Bilirubin 1.0 (0.0-1.2) mg/dL AST 22 (13-39) Units/L ALT 20 (7-52) Units/L Alkaline Phosphatase 133 H (34-104) Units/L Troponin I (< 0.04) ng/mL Serum Total Protein 8.2 (6.4-8.9) g/dL Albumin 4.2 (3.5-5.7) g/dL Globulin 4.0 H (2.4-3.5) g/dL Albumin/Globulin Ratio 1.1 (1.1-2.2) Lipase 15 (11-82) Units/L Beta-Hydroxybutyric Acd (0.02-0.27) mmol/L Urine Color Yellow (Yellow) Urine Clarity Clear (Clear) Urine pH 6.0 (5.0-8.0) pH Units Ur Specific [place] > 1.030 H (1.010-1.025) Urine Protein 30 H (Neg-Trace) mg/dL Urine Glucose (UA) >=1000 H (Normal) mg/dL Urine Ketones 80 H (Negative) mg/dL Urine Blood Small H (Negative) Urine Nitrite Negative (Negative) Urine Bilirubin Negative (Negative) Urine Urobilinogen Normal (Normal) mg/dL Ur Leukocyte Esterase Negative (Negative) Urine Microscopic RBC 3-5 H (0-3) per hpf Urine Microscopic WBC 15-30 H (0-3) per hpf Ur Squamous Epith Cells Many H (None-Few) per lpf Urine Bacteria None Seen (None-Few) per hpf Hyaline Casts None Seen (None-Few) per lpf Ur Culture Indicated? YES A (NO) 04/16/19 04/16/19 04/16/19 Range/Units 21:05 22:06 22:19 WBC (4.3-11.1) K/mcL RBC (3.82-4.97) M/mcL Hgb (11.5-15.4) g/dL Hct (35.3-44.9) % MCV (83.0-100.0) fL MCH (28.0-33.3) pg MCHC (31.6-35.5) g/dL RDW (11.5-14.5) % Plt Count (140-400) K/mcL MPV (9.4-12.4) fL Immature Gran % (0-4) % Seg Neutrophils % % Lymphocytes % % Monocytes % % Eosinophils % % Basophils % % Neutrophils # (1.6-8.9) K/mcL Lymphocytes # (0.6-4.6) K/mcL Monocytes # (0.0-1.3) K/mcL Eosinophils # (0.0-0.6) K/mcL Basophils # (0.0-0.2) K/mcL VBG pH 7.37 (7.32-7.42) pH Units VBG pCO2 46 (41-51) mmHg VBG pO2 35 (25-50) mmHg VBG HCO3 26 (21-27) mEq/L Sodium (136-145) mEq/L Potassium (3.5-5.1) mEq/L Chloride (98-107) mEq/L Carbon Dioxide (23-29) mEq/L BUN (8-23) mg/dL Creatinine (0.60-1.20) mg/dL Est GFR ( Amer) (> 60) Est GFR (Non-Af Amer) (> 60) BUN/Creatinine Ratio (6-26) Glucose (70-105) mg/dL Calculated Osmolality (280-300) Lactic Acid 2.2 (0.5-2.2) mmol/L Calcium (8.6-10.3) mg/dL Total Bilirubin (0.3-1.0) mg/dL Direct Bilirubin (0.0-0.2) mg/dL Indirect Bilirubin (0.0-1.2) mg/dL AST (13-39) Units/L ALT (7-52) Units/L Alkaline Phosphatase (34-104) Units/L Troponin I (< 0.04) ng/mL Serum Total Protein (6.4-8.9) g/dL Albumin (3.5-5.7) g/dL Globulin (2.4-3.5) g/dL Albumin/Globulin Ratio (1.1-2.2) Lipase (11-82) Units/L Beta-Hydroxybutyric Acd > 2.00 H (0.02-0.27) mmol/L Urine Color (Yellow) Urine Clarity (Clear) Urine pH (5.0-8.0) pH Units Ur Specific [place] (1.010-1.025) Urine Protein (Neg-Trace) mg/dL Urine Glucose (UA) (Normal) mg/dL Urine Ketones (Negative) mg/dL Urine Blood (Negative) Urine Nitrite (Negative) Urine Bilirubin (Negative) Urine Urobilinogen (Normal) mg/dL Ur Leukocyte Esterase (Negative) Urine Microscopic RBC (0-3) per hpf Urine Microscopic WBC (0-3) per hpf Ur Squamous Epith Cells (None-Few) per lpf Urine Bacteria (None-Few) per hpf Hyaline Casts (None-Few) per lpf Ur Culture Indicated? (NO) 04/17/19 04/17/19 Range/Units 01:02 01:02 WBC (4.3-11.1) K/mcL RBC (3.82-4.97) M/mcL Hgb (11.5-15.4) g/dL Hct (35.3-44.9) % MCV (83.0-100.0) fL MCH (28.0-33.3) pg MCHC (31.6-35.5) g/dL RDW (11.5-14.5) % Plt Count (140-400) K/mcL MPV (9.4-12.4) fL Immature Gran % (0-4) % Seg Neutrophils % % Lymphocytes % % Monocytes % % Eosinophils % % Basophils % % Neutrophils # (1.6-8.9) K/mcL Lymphocytes # (0.6-4.6) K/mcL Monocytes # (0.0-1.3) K/mcL Eosinophils # (0.0-0.6) K/mcL Basophils # (0.0-0.2) K/mcL VBG pH (7.32-7.42) pH Units VBG pCO2 (41-51) mmHg VBG pO2 (25-50) mmHg VBG HCO3 (21-27) mEq/L Sodium (136-145) mEq/L Potassium (3.5-5.1) mEq/L Chloride (98-107) mEq/L Carbon Dioxide (23-29) mEq/L BUN (8-23) mg/dL Creatinine (0.60-1.20) mg/dL Est GFR ( Amer) (> 60) Est GFR (Non-Af Amer) (> 60) BUN/Creatinine Ratio (6-26) Glucose (70-105) mg/dL Calculated Osmolality (280-300) Lactic Acid 2.3 H (0.5-2.2) mmol/L Calcium (8.6-10.3) mg/dL Total Bilirubin (0.3-1.0) mg/dL Direct Bilirubin (0.0-0.2) mg/dL Indirect Bilirubin (0.0-1.2) mg/dL AST (13-39) Units/L ALT (7-52) Units/L Alkaline Phosphatase (34-104) Units/L Troponin I 0.03 (< 0.04) ng/mL Serum Total Protein (6.4-8.9) g/dL Albumin (3.5-5.7) g/dL Globulin (2.4-3.5) g/dL Albumin/Globulin Ratio (1.1-2.2) Lipase (11-82) Units/L Beta-Hydroxybutyric Acd (0.02-0.27) mmol/L Urine Color (Yellow) Urine Clarity (Clear) Urine pH (5.0-8.0) pH Units Ur Specific [place] (1.010-1.025) Urine Protein (Neg-Trace) mg/dL Urine Glucose (UA) (Normal) mg/dL Urine Ketones (Negative) mg/dL Urine Blood (Negative) Urine Nitrite (Negative) Urine Bilirubin (Negative) Urine Urobilinogen (Normal) mg/dL Ur Leukocyte Esterase (Negative) Urine Microscopic RBC (0-3) per hpf Urine Microscopic WBC (0-3) per hpf Ur Squamous Epith Cells (None-Few) per lpf Urine Bacteria (None-Few) per hpf Hyaline Casts (None-Few) per lpf Ur Culture Indicated? (NO) - Radiology Data Radiology results reviewed: Yes I reviewed the patient's radiology results. Attestation Statement - Attestation Attestation: I, Nikko Davis MD, personally evaluated this patient and discussed their management with the resident physician. I reviewed the resident's note and agree with the documented findings, medical decision making, and plan of care. This patient was signed out at shift change from Dr. Hickman and Dr. Hernandez. Please refer to their notes for complete details of the history and physical examination. At shift change patient is awaiting a CT scan of the abdomen and pelvis prior to consult the hospitalist for admission. The CT did show some basilar nodular densities likely related to aspiration. Patient was started on Rocephin and Flagyl. The hospitalist, Dr. Regalado, was consulted and accepted admission of the patient.
[2019-04-17 02:02] LABS: BUN/Creatinine Ratio 41 (6-26); Blood Urea Nitrogen 25 mg/dL (8-23); Carbon Dioxide 24 mEq/L (23-29); Chloride 97 mEq/L (98-107); Glucose 452 mg/dL (70-105); Osmolality,Calculated 304 (280-300); Potassium 3.2 mEq/L (3.5-5.1); Sodium 135 mEq/L (136-145); eGFR For African Americans > 60 (> 60); eGFR For Non-African Americans > 60 (> 60)
[2019-04-17] MEDS ORDERED: Naloxone 0.4 MG/ML INJ IVP PRN (03:26)
[2019-04-17] MEDS ORDERED: D5% in 0.45% NACL w KCl 20 MEQ/1,000 ML MLS IVC PRN (04:09)
[2019-04-17] MEDS ORDERED: *HR* Dextrose 50 % in Water (Syg) 50 ML SYRINGE IVP PRN ×2 (04:09→14:10)
[2019-04-17] MEDS ORDERED: Insulin LISPRO 300 UNITS/3 ML VIAL SQ PRN (04:09)
--- NOTE | 2019-04-17 04:09 | Internal Med History&Physical ---
<Qasim Mittal - Last Filed: 04/17/19 07:17> Date of Encounter: 04/17/19 Time of Encounter: 04:09 Internal Medicine - H&P: HPI History of present illness: Ms. Casillas is a 69 year old female with a PMH of IDDM, HTN, breast and ovarian cancer, and prior CVA who presented to [facility] ED on 04/17/19 with chief complaint of nausea and vomiting 4 days. She reported having approximately one episode of nausea with associated vomiting or dry heaving every 30 minutes today. Vomiting was clear, green, or brown. Denied coffee-ground emesis. Patient was noted to have dry heaves in the emergency room. On arrival, vital signs were significant for an elevated heart rate of 104 and an elevated BP at 191/95. Labs were significant for WBC 18.3 with left shift, elevated glucose at 532, beta hydroxybutyric acid >2, and alkaline phosphatase 133. VBG showed PH 7.37, PCO2 46, O2 35, HCO3 26. UA demonstrated urine ketones and glucosuria. She was given 2 L of NS and 4 mg of IV Zofran initi ally. CXR was unremarkable. CT of the abd/pelv demonstrated distal esophagus patulous and fluid-filled, suggesting reflux, innumerable punctate tree-in-bud micro nodules in RLL suggestive of aspiration, evidence of cirrhosis with portal hypertension, low density lesions and hepatic dome. Follow-up MRI was suggested. DKA protocol was initiated. During interview, patient states that she is feeling better since presentation. She reports that after receiving Zofran, her nausea and vomiting have subsided. She is currently on insulin drip. We will perform serial BMPs and Accu-Cheks per DKA protocol. Once anion gap closes, will transition patient to subcutaneous insulin. Will start patient on Rocephin and Flagyl for aspiration pneumonia, as patient has a penicillin allergy. Patient may require follow-up imaging for findings on CT scan in her liver. She currently denies nausea, vomiting, fever, chills, abdominal pain, swelling, or weakness. She has no further complaints. Past Med Surg Social Fam HX - Past Medical History Medical history: cancer, CVA, DVT, diabetes, hypertension Additional medical history: recurrent UTI's. breast CA, ovarian CA Psychiatric history: depression - Past Surgical History Surgical History: appendectomy, breast surgery, hysterectomy, other Additional surgical history: left partial mastectomy. port - Social History Smoking Status: Never smoker Smokeless Tobacco Status: No Alcohol use: none Drug use: none - Family History Mother Living Status: Father Living Status: Hx Family Cardiac Disorders: Yes Hx Family Endocrine Disorder: Yes Internal Medicine - H&P: Meds Albuterol Sulfate [Proair Hfa] 2 puff IH Q4H PRN 02/04/18 [History] Metoprolol XL (24 HR) Succ [Toprol Xl] 12.5 mg PO DAILY #15 tab.er.24h 02/11/18 [Rx] Insulin LISPRO [HumaLOG] 5 units SQ TIDWM 04/23/18 [History] Memantine HCl 10 mg PO BID 07/23/18 [History] Insulin Glargine,Hum.rec.anlog [Basaglar Kwikpen U-100] 55 unit SQ BID 11/01/18 [History] Ciprofloxacin HCl [Cipro] 500 mg PO BID 12/30/18 [History] Cyclobenzaprine [Flexeril] 10 mg PO TID PRN 12/30/18 [History] Amitriptyline [Elavil] 50 mg PO HS #7 tablet 01/02/19 [Rx] Collagenase Oint [Santyl] 1 appl TP HS #1 tube 01/02/19 [Rx] cephALEXin [Keflex] 500 mg PO BID #2 capsule 01/02/19 [Rx] Allergy/AdvReac Type Severity Reaction Status Date / Time bee venom protein (honey bee) Allergy Swelling Verified 04/23/18 07:21 of Lip/Tongue/Throat codeine Allergy Hives Verified 04/23/18 07:21 Penicillins [PCN] Allergy Hives Verified 04/23/18 07:21 bisoprolol [From Ziac] AdvReac See Verified 04/23/18 07:21 Comments Donepezil AdvReac Vomiting Verified 04/23/18 07:21 hydrochlorothiazide AdvReac See Verified 04/23/18 07:21 [From Ziac] Comments iodine AdvReac Hives Verified 04/23/18 07:21 lisinopril [From Zestril] AdvReac Vomiting Verified 04/23/18 07:21 tramadol AdvReac See Verified 04/23/18 07:21 Comments IVP dye Allergy Itching Uncoded 02/10/16 15:52 All Systems PM: A 10-system review of systems was performed and is negative for pertinent findings except as documented above in the HPI. - Constitutional Constitutional: no chills, no fatigue, no lethargy, no weakness - Gastrointestinal Gastrointestinal: no change in bowel habits, no change in stool character, no coffee ground emesis, no nausea, no vomiting - Constitutional Vitals: Temp Pulse Resp BP Pulse Ox 98.9 F 105 20 185/78 98 04/16/19 19:54 04/17/19 01:34 04/17/19 01:34 04/17/19 01:34 04/17/19 01:34 Exam: General: Conversant, no acute distress Head: atraumatic, normocephalic; Eye: PERRL, EOMI, conjuntiva pink, sclera anicteric Neck: Supple, trachea midline; No lymphadenopathy Respiratory: Diminished breath sounds bilaterally; no rales or rhonchi Cardiovascular: RRR, +S1, +S2; no murmurs, rubs, gallops Abdomen: Soft, nontender; nondistended Extremities: warm, radial pulses palpable and symmetrical Psychiatric: Normal affect, normal mood Skin: Dry, intact Internal Med - H&P Results - Labs CBC & Chem 7: 04/17/19 06:10 04/17/19 06:10 Labs: Short CBC 04/16/19 Range/Units 20:45 WBC 18.3 H (4.3-11.1) K/mcL Hgb 14.2 (11.5-15.4) g/dL Hct 42.5 (35.3-44.9) % Plt Count 151 (140-400) K/mcL Neutrophils # 16.7 H (1.6-8.9) K/mcL BMP 04/16/19 04/17/19 20:45 01:02 Sodium 133 L 135 L Potassium 3.7 3.2 L Chloride 91 L 97 L Carbon Dioxide 23 24 BUN 26 H 25 H Creatinine 0.70 0.61 Glucose 532 H* 452 H Calcium 10.0 9.0 Cardiac Enzymes 04/17/19 Range/Units 01:02 Troponin I 0.03 (< 0.04) ng/mL Liver Function 04/16/19 Range/Units 20:45 Total Bilirubin 1.3 H (0.3-1.0) mg/dL Direct Bilirubin 0.3 H (0.0-0.2) mg/dL AST 22 (13-39) Units/L ALT 20 (7-52) Units/L Alkaline Phosphatase 133 H (34-104) Units/L Albumin 4.2 (3.5-5.7) g/dL Urine 04/16/19 Range/Units 20:50 Urine Color Yellow (Yellow) Urine Clarity Clear (Clear) Urine pH 6.0 (5.0-8.0) pH Units Ur Specific [place] > 1.030 H (1.010-1.025) Urine Protein 30 H (Neg-Trace) mg/dL Urine Glucose (UA) >=1000 H (Normal) mg/dL - ABG Interpretation ABG results: 04/16/19 22:19 VBG pH 7.37 VBG pCO2 46 VBG pO2 35 VBG HCO3 26 - Impressions ITS Impressions Chest X-Ray 04/16/19 20:19 IMPRESSION: No acute abnormality detected. D/ / Jose Marks MD / Jose Marks MD Interpreting Provider: Jose Marks MD Abdomen/Pelvis CT 04/16/19 20:55 IMPRESSION: Distal esophagus is patulous and fluid-filled, suggesting reflux. There are innumerable punctate tree-in-bud micro nodules seen within the right lower lobe. Given the esophageal findings, these are likely the sequela of aspiration. Infectious or inflammatory bronchiolitis is also considered. Evidence of cirrhosis with portal hypertension. There is a low-density lesions seen within the hepatic dome which is slowly increasing in size. Given the background of cirrhosis, this is a suspicious lesion. A nonemergent follow-up hepatic MRI is recommended to better evaluate that. D/ / Jose Marks MD / Jose Marks MD Interpreting Provider: Jose Marks MD - Assessment and Plan (1) DKA (diabetic ketoacidoses) Current Visit: Yes Status: Acute Assessment and plan: - Initially presented to the emergency department with the chief complaint of nausea and vomiting - Glucose was found to be elevated on arrival at 532, beta hydroxybutyric acid was greater than 2 - DKA protocol was initiated; patient was started on IV insulin Plan - Continue DKA protocol; transition to SQ insulin once closes - Continue Accu-Cheks per DKA protocol - Serial BMPs every 4 hours - PRN Zofran for nausea/vomiting control - NPO diet Qualifiers: Qualified Code(s): E11.10 - Type 2 diabetes mellitus with ketoacidosis without coma (2) Aspiration pneumonia Current Visit: Yes Status: Acute Assessment and plan: - CT of the abd/pelv demonstrated distal esophagus patulous and fluid-filled, suggesting reflux, innumerable punctate tree-in-bud micro nodules in RLL suggestive of aspiration - Received a one-time dose of ceftriaxone and metronidazole in the ED, as she has documented penicillin allergy Plan - Continue Ceftriaxone and Metronidazole - Repeat AM labs Qualifiers: Qualified Code(s): J69.0 - Pneumonitis due to inhalation of food and vomit (3) Nausea & vomiting Current Visit: Yes Status: Acute Assessment and plan: - PRN zofran Qualifiers: Qualified Code(s): R11.2 - Nausea with vomiting, unspecified (4) Liver cirrhosis Current Visit: Yes Status: Acute Assessment and plan: CT of the abd/pelv: evidence of cirrhosis with portal hypertension, low density lesions and hepatic dome; Follow-up MRI was suggested - Patient will likely need further workup on this finding once DKA resolves Qualifiers: Qualified Code(s): K74.60 - Unspecified cirrhosis of liver (5) Hypertension Current Visit: Yes Status: Acute Assessment and plan: - PRN hydralazine Qualifiers: Qualified Code(s): I10 - Essential (primary) hypertension (6) DVT prophylaxis Current Visit: Yes Status: Acute Assessment and plan: - Heparin SQ - Time Spent With Patient Total time spent is greater than 50% in coordination of care (as documented) at patient's floor/unit and/or counseling patient: <Swati Regalado Ada - Last Filed: 04/17/19 07:19> Date of Encounter: 04/17/19 Internal Medicine - H&P: HPI History of present illness: Ms. Vinny is a 69 year old female All Systems PM: A 10-system review of systems was performed and is negative for pertinent findings except as documented above in the HPI. - Constitutional Vitals: Temp Pulse Resp BP Pulse Ox 99.2 F 96 18 159/70 95 04/17/19 07:08 04/17/19 07:08 04/17/19 07:08 04/17/19 07:08 04/17/19 07:08 Internal Med - H&P Results - Labs CBC & Chem 7: 04/17/19 06:10 04/17/19 06:10 Labs: Short CBC 04/16/19 04/17/19 Range/Units 20:45 06:10 WBC 18.3 H 16.4 H (4.3-11.1) K/mcL Hgb 14.2 12.5 D (11.5-15.4) g/dL Hct 42.5 38.1 (35.3-44.9) % Plt Count 151 92 L (140-400) K/mcL Neutrophils # 16.7 H 14.9 H (1.6-8.9) K/mcL BMP 04/16/19 04/17/19 04/17/19 20:45 01:02 06:10 Sodium 133 L 135 L 137 Potassium 3.7 3.2 L 3.5 Chloride 91 L 97 L 101 Carbon Dioxide 23 24 19 L BUN 26 H 25 H 26 H Creatinine 0.70 0.61 0.56 L Glucose 532 H* 452 H 395 H Calcium 10.0 9.0 8.9 Cardiac Enzymes 04/17/19 Range/Units 01:02 Troponin I 0.03 (< 0.04) ng/mL Liver Function 04/16/19 04/17/19 Range/Units 20:45 06:10 Total Bilirubin 1.3 H 0.7 (0.3-1.0) mg/dL Direct Bilirubin 0.3 H (0.0-0.2) mg/dL AST 22 17 (13-39) Units/L ALT 20 13 (7-52) Units/L Alkaline Phosphatase 133 H 99 (34-104) Units/L Albumin 4.2 3.5 (3.5-5.7) g/dL Urine 04/16/19 Range/Units 20:50 Urine Color Yellow (Yellow) Urine Clarity Clear (Clear) Urine pH 6.0 (5.0-8.0) pH Units Ur Specific [place] > 1.030 H (1.010-1.025) Urine Protein 30 H (Neg-Trace) mg/dL Urine Glucose (UA) >=1000 H (Normal) mg/dL - ABG Interpretation ABG results: 04/16/19 22:19 VBG pH 7.37 VBG pCO2 46 VBG pO2 35 VBG HCO3 26 - Impressions ITS Impressions Chest X-Ray 04/16/19 20:19 IMPRESSION: No acute abnormality detected. D/ / Jose Marks MD / Jose Marks MD Interpreting Provider: Jose Marks MD Abdomen/Pelvis CT 04/16/19 20:55 IMPRESSION: Distal esophagus is patulous and fluid-filled, suggesting reflux. There are innumerable punctate tree-in-bud micro nodules seen within the right lower lobe. Given the esophageal findings, these are likely the sequela of aspiration. Infectious or inflammatory bronchiolitis is also considered. Evidence of cirrhosis with portal hypertension. There is a low-density lesions seen within the hepatic dome which is slowly increasing in size. Given the background of cirrhosis, this is a suspicious lesion. A nonemergent follow-up hepatic MRI is recommended to better evaluate that. D/ / Jose Marks MD / Jose Marks MD Interpreting Provider: Jose Marks MD - Time Spent With Patient Total time spent is greater than 50% in coordination of care (as documented) at patient's floor/unit and/or counseling patient: - Attending Attestation I performed a history and physical examination of the patient and discussed his management with the resident. I reviewed the residents note and agree with the documented findings and plan of care.
[2019-04-17] MEDS ORDERED: Insulin Human Regular 100 UNIT in 0.9 % Sodium Chloride 100 ML IVC SCH ×2 (04:15→05:15)
[2019-04-17] MEDS ORDERED: 0.9 % Sodium Chloride 1,000 ML IVC SCH (04:15)
[2019-04-17] MEDS ORDERED: Acetaminophen 325 MG TABLET PO ONE (04:41)
[2019-04-17] MEDS ORDERED: 0.9 % Sodium Chloride w KCl 20 MEQ/1,000 ML MLS IVC SCH (05:15)
[2019-04-17] MEDS ORDERED: 0.9 % Sodium Chloride w KCl 20 MEQ/1,000 ML MLS IVC ONE (05:15)
[2019-04-17 06:19] LABS: Basophils % 0.1 %; Lymphocytes % 3.2 %; Mean Platelet Volume 10.5 fL (9.4-12.4)
[2019-04-17 06:21] LABS: Hematocrit 38.1 % (35.3-44.9); Hemoglobin 12.5 g/dL (11.5-15.4); Immature Granulocytes % 0.9 % (0-4); Immature Platelets 2.9 % (1.1-6.1); Lymphocytes # 0.5 K/mcL (0.6-4.6); Mean Corpuscular HGB Conc 32.8 g/dL (31.6-35.5); Mean Corpuscular Volume 91.6 fL (83.0-100.0); Monocytes # 0.8 K/mcL (0.0-1.3); Monocytes % 4.8 %; Neutrophils # 14.9 K/mcL (1.6-8.9); Red Blood Count 4.16 M/mcL (3.82-4.97); Red Cell Distribution Width 14.6 % (11.5-14.5); White Blood Count 16.4 K/mcL (4.3-11.1)
[2019-04-17 06:43] LABS: Platelet Count 92 K/mcL (140-400)
[2019-04-17 06:44] LABS: Platelet Estimate Slight Decrease (Normal)
[2019-04-17 07:04] LABS: Alanine Aminotransferase 13 Units/L (7-52); Albumin 3.5 g/dL (3.5-5.7); Albumin/Globulin Ratio 1.1 (1.1-2.2); Alkaline Phosphatase 99 Units/L (34-104); Aspartate Amino Transferase 17 Units/L (13-39); BUN/Creatinine Ratio 46 (6-26); Bilirubin,Total 0.7 mg/dL (0.3-1.0); Blood Urea Nitrogen 26 mg/dL (8-23); Calcium 8.9 mg/dL (8.6-10.3); Carbon Dioxide 19 mEq/L (23-29); Chloride 101 mEq/L (98-107); Globulin 3.2 g/dL (2.4-3.5); Glucose 395 mg/dL (70-105); Magnesium 1.6 mg/dL (1.6-2.6); Osmolality,Calculated 305 (280-300); Phosphorous 2.5 mg/dL (2.7-4.5); Potassium 3.5 mEq/L (3.5-5.1); Sodium 137 mEq/L (136-145); Total Protein 6.7 g/dL (6.4-8.9); eGFR For African Americans > 60 (> 60); eGFR For Non-African Americans > 60 (> 60)
--- NOTE | 2019-04-17 07:54 | Event Note ---
Date of Encounter: 04/17/19 Time of Encounter: 10:00 I have seen and independently assessed this patient and I agree with plan as documented Plan DKA. Continue insulin drip and monitor BMP. Transition to sc insulin once gap closes VRE UTI. Start on zyvox
[2019-04-17] MEDS ORDERED: MetroNIDAZOLE 500 MG/100 ML 500 MG/100 ML BAG IVPB SCH (08:00)
[2019-04-17] MEDS ORDERED: cefTRIAXone 1,000 MG in Water for inj. (sterile) 10 ML IVP SCH (09:00)
[2019-04-17] MEDS ORDERED: Ondansetron 4 MG/2 ML VIAL IVP SCH (12:00)
[2019-04-17 14:01] LABS: BUN/Creatinine Ratio 36 (6-26); Blood Urea Nitrogen 21 mg/dL (8-23); Calcium 8.5 mg/dL (8.6-10.3); Carbon Dioxide 28 mEq/L (23-29); Chloride 104 mEq/L (98-107); Glucose 188 mg/dL (70-105); Osmolality,Calculated 300 (280-300); Sodium 141 mEq/L (136-145); eGFR For African Americans > 60 (> 60); eGFR For Non-African Americans > 60 (> 60)
[2019-04-17] MEDS ORDERED: Dextrose Gel 15 GM/37.5 ML TUBE PO PRN ×2 (14:10)
[2019-04-17] MEDS ORDERED: D5% in Water 1,000 ML IVC PRN (14:10)
[2019-04-17] MEDS ORDERED: Insulin DETEMIR 100 UNIT/ML X5UNITS SQ ONE (14:11)
[2019-04-17] MEDS: Insulin LISPRO 300 UNITS/3 ML VIAL SQ SCH ×2 (16:32→20:26)
--- NOTE | 2019-04-17 18:13 | Electrocardiograph Report ---
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
--- NOTE | 2019-04-17 19:39 | Infectious Disease Consult ---
Infectious Disease-Consult - Encounter Date/Time Date of Encounter: 04/17/19 Time of Encounter: 19:34 - Data of Consult Patient: new to practice Reason for consult: UTI with vancomycin resistant enterococcus Consult date: 04/17/19 Requesting Physician: Swati Regalado Primary Care Provider: Julio Larios MD - [facility] HPI: Patient is a 69-year-old woman presented to [facility] on 04/16/2019 with nausea vomiting diarrhea and dehydration and hyperglycemia, we are consulted today for VRE UTI and antibiotics recommendations. Most of the information was taken from medical records since the patient is not a good historian. She does not seem to be oriented. Per record, patient has a past medical history of IDDM, HTN, breast and ovarian cancer, and prior CVA who presented to [facility] ED on 04/17/19 with chief complaint of nausea and vomiting 4 days. She reported having approximately one episode of nausea with associated vomiting or dry heaving every 30 minutes today. Vomiting was clear, green, or brown. Denied coffee-ground emesis. Patient was noted to have dry heaves in the emergency room. Since admission, patient had a MAXIMUM TEMPERATURE of 102.3 Fahrenheit, tachycardia and intermittent tachypnea. Presenting labs revealed a WBC of 18.3 with 91% neutrophils no bands. BUN 26 creatinine 0.7 glucose 532. Urinalysis showed moderate pyuria with WBC of 1530 but many squamous epithelial cells. A chest x-ray was read as no acute abnormality detected. CT abdomen pelvis revealed distal esophagitis is patulous and fluid filled. Innumerable punctate tree-in-bud micronodules seen within the right lower lobe concerning for aspiration. Evidence of cirrhosis with portal hypertension. A urine culture is still incubating. Patient had a recent urine culture on 04/09/2019 which was positive for vancomycin-resistant enterococcus fascia patient was started on Zyvox and were asked to evaluate the patient's make further recommendations. I have no point of reference with the patient, but she appears confused and not oriented and not really following any commands or answering any questions. Her review of system was very limited. - ROS Review of Systems: Unable to obtain review of systems due to the patient mentation - Results CBC & Chem 7: 04/17/19 06:10 04/17/19 13:16 - Exam Vitals: Temp Pulse Resp BP Pulse Ox 99.5 F 97 18 136/91 93 04/17/19 19:18 04/17/19 19:18 04/17/19 19:18 04/17/19 19:18 04/17/19 19:18 Exam: GENERAL: Laying in bed, appears comfortable. No signs of acute distress HEAD: Normocephalic atraumatic EYES: PERRLA, EOMI, no conjunctival hemorrhage, sclera anicteric ENT: Mucous membranes dry no oral thrush NECK: Supple. No meningeal signs. No masses LUNGS: Chest expanding symmetrically. Lungs sounds audible both lung campos. Diffuse rhonchi and crackles at the bases. Poor inspiratory effort. CV: RRR, S1S2, I did not appreciate any murmurs ABDOMEN: Soft, nontender, nondistended. Bowel sounds audible. No guarding or r ebound EXTREMITY: Adequate perfusion. No joint effusion. SKIN: Normal color. No rash. NEURO: Awake but not oriented. No facial drooping. Limited exam. PSYCH: Calm and appropriate. No agitation. Albuterol Sulfate [Proair Hfa] 2 puff IH Q4H PRN 02/04/18 [History] Metoprolol XL (24 HR) Succ [Toprol Xl] 12.5 mg PO DAILY #15 tab.er.24h 02/11/18 [Rx] Insulin LISPRO [HumaLOG] 5 units SQ TIDWM 04/23/18 [History] Memantine HCl 10 mg PO BID 07/23/18 [History] Insulin Glargine,Hum.rec.anlog [Basaglar Kwikpen U-100] 55 unit SQ BID 11/01/18 [History] Cyclobenzaprine [Flexeril] 10 mg PO TID PRN 12/30/18 [History] Amitriptyline [Elavil] 50 mg PO HS #7 tablet 01/02/19 [Rx] Ciprofloxacin HCl [Cipro] 500 mg PO BID 04/17/19 [History] OxyCODONE Immed Rel [Roxicodone 10 MG] 10 mg PO Q8H PRN 04/17/19 [History] Allergy/AdvReac Type Severity Reaction Status Date / Time bee venom protein (honey bee) Allergy Swelling Verified 04/23/18 07:21 of Lip/Tongue/Throat codeine Allergy Hives Verified 08/21/18 07:21 Penicillins [PCN] Allergy Hives Verified 04/23/18 07:21 bisoprolol [From Ziac] AdvReac See Verified 04/23/18 07:21 Comments Donepezil AdvReac Vomiting Verified 04/23/18 07:21 hydrochlorothiazide AdvReac See Verified 04/23/18 07:21 [From Ziac] Comments iodine AdvReac Hives Verified 04/23/18 07:21 lisinopril [From Zestril] AdvReac Vomiting Verified 04/23/18 07:21 tramadol AdvReac See Verified 04/23/18 07:21 Comments IVP dye Allergy Itching Uncoded 02/10/16 15:52 - Assessment and Plan (1) Sepsis Current Visit: No Status: Acute Patient had 3 SIRS criteria on admission Likely due to aspiration pneumonia Qualifiers: Sepsis type: sepsis due to unspecified organism Qualified Code(s): A41.9 - Sepsis, unspecified organism SNOMED Code(s): 48938462 (2) UTI (urinary tract infection) due to Enterococcus Current Visit: Yes Status: Acute Had a urine culture obtained on 04/09/2019 that was positive for vancomycin- resistant enterococcus faecium I reviewed the record from [facility] and there is no mention of any antibiotics being called in. Patient was started on Zyvox by the hospitalist team. No pyelonephritis on the CT abdomen and pelvis SNOMED Code(s): 760760481737681 (3) Cirrhosis Current Visit: No Status: Chronic Etiology not clear. Not sure if this is acute or chronic Qualifiers: Hepatic cirrhosis type: unspecified hepatic cirrhosis Ascites presence: without ascites Qualified Code(s): K74.60 - Unspecified cirrhosis of liver SNOMED Code(s): 90759711 (4) DKA (diabetic ketoacidoses) Current Visit: Yes Status: Acute Qualifiers: Qualified Code(s): E11.10 - Type 2 diabetes mellitus with ketoacidosis without coma SNOMED Code(s): 454028583, 926205765 (5) Aspiration pneumonia Current Visit: Yes Status: Acute CT abdomen and pelvis reveals liquid material in the esophagus and tree-in-bud opacities in the right lower lung concerning for aspiration. Causative organism not clear Qualifiers: Qualified Code(s): J69.0 - Pneumonitis due to inhalation of food and vomit SNOMED Code(s): 115982778 - Recommendations Recommendations: Recommend CT chest Start patient on cefepime and metronidazole Get MRSA screen Check urine pneumococcal antigen Await urine cultures to finalize and blood cultures to finalize Might need a swallow evaluation Adequate glucose control Past Med Surg Social Fam HX - Past Medical History Medical history: cancer, CVA, DVT, diabetes, hypertension Additional medical history: recurrent UTI's. breast CA, ovarian CA Psychiatric history: depression - Past Surgical History Surgical History: appendectomy, breast surgery, hysterectomy, other Additional surgical history: left partial mastectomy. port - Social History Smoking Status: Never smoker Smokeless Tobacco Status: No Alcohol use: none Drug use: none - Family History Mother Living Status: Father Living Status: Hx Family Cardiac Disorders: Yes Hx Family Endocrine Disorder: Yes Consult Discharge Plan - Plan Referrals: Julio Larios MD [Primary Care Provider] - (Sent web request on 04-17-19 @ 1277)
[2019-04-18] MEDS: Linezolid 600 MG TABLET PO SCH ×3 (00:06→21:39)
[2019-04-18] MEDS: MetroNIDAZOLE 500 MG/100 ML 500 MG/100 ML BAG IVPB SCH ×4 (00:06→23:37)
[2019-04-18] MEDS ORDERED: Acetaminophen 325 MG TABLET PO ONE (03:45)
[2019-04-18 03:47] LABS: BUN/Creatinine Ratio 30 (6-26); Blood Urea Nitrogen 16 mg/dL (8-23); Calcium 8.9 mg/dL (8.6-10.3); Carbon Dioxide 26 mEq/L (23-29); Chloride 98 mEq/L (98-107); Glucose 208 mg/dL (70-105); Osmolality,Calculated 285 (280-300); Potassium 3.1 mEq/L (3.5-5.1); Sodium 134 mEq/L (136-145); eGFR For African Americans > 60 (> 60); eGFR For Non-African Americans > 60 (> 60)
[2019-04-18 03:47] LABS: Albumin 3.3 g/dL (3.5-5.7); BUN/Creatinine Ratio 30 (6-26); Blood Urea Nitrogen 15 mg/dL (8-23); Calcium 8.7 mg/dL (8.6-10.3); Carbon Dioxide 25 mEq/L (23-29); Chloride 99 mEq/L (98-107); Glucose 200 mg/dL (70-105); Osmolality,Calculated 284 (280-300); Phosphorous 1.2 mg/dL (2.7-4.5); Potassium 3.1 mEq/L (3.5-5.1); Sodium 134 mEq/L (136-145); eGFR For African Americans > 60 (> 60); eGFR For Non-African Americans > 60 (> 60)
[2019-04-18 04:21] LABS: ABG Base Excess 2 mEq/L (-2 to 3); ABG HCO3 25 mEq/L (21-27); ABG Oxygen Saturation 94 % (95-98); ABG PCO2 34 mmHg (35-45); ABG PH 7.48 pH Units (7.32-7.45); ABG PO2 64 mmHg (85-104); ABG TCO2 26 mEq/L (20-26)
[2019-04-18 04:54] LABS: Hematocrit 36.3 % (35.3-44.9); Hemoglobin 12.1 g/dL (11.5-15.4); Mean Corpuscular HGB Conc 33.3 g/dL (31.6-35.5); Mean Corpuscular Hemoglobin 30.2 pg (28.0-33.3); Mean Corpuscular Volume 90.5 fL (83.0-100.0); Mean Platelet Volume 10.3 fL (9.4-12.4); Monocytes # 0.7 K/mcL (0.0-1.3); Platelet Count 114 K/mcL (140-400); Red Blood Count 4.01 M/mcL (3.82-4.97); Red Cell Distribution Width 14.3 % (11.5-14.5); White Blood Count 17.2 K/mcL (4.3-11.1)
[2019-04-18 05:25] LABS: Eosinophils # 0.3 K/mcL (0.0-0.6); Lymphocytes # 0.7 K/mcL (0.6-4.6); Neutrophils # 15.5 K/mcL (1.6-8.9); Platelet Estimate Slight Decrease (Normal); Toxic Granulation Present (Not Present)
[2019-04-18] MEDS ORDERED: Cefepime HCl 1,000 MG in 0.9 % Sodium Chloride Mini Bag 100 ML IVPB SCH (06:00)
[2019-04-18] MEDS ORDERED: Potassium Phosphate 44 MEQ in 0.9 % Sodium Chloride 250 ML IVPB ONE (07:36)
--- NOTE | 2019-04-18 07:36 | Internal Med Progress Note ---
Hospitalist Progress Note - Encounter Date of Encounter: 04/18/19 Time of Encounter: 08:00 - Subjective Interval History: No acute events overnight - Exam Vitals: Temp Pulse Resp BP Pulse Ox 100.0 F H 93 18 126/67 92 04/18/19 06:54 04/18/19 06:54 04/18/19 06:54 04/18/19 06:54 04/18/19 06:54 Exam: General: Conversant, no acute distress Head: atraumatic, normocephalic; Eye: PERRL, EOMI, conjuntiva pink, sclera anicteric Neck: Supple, trachea midline; No lymphadenopathy Respiratory: Diminished breath sounds bilaterally; no rales or rhonchi Cardiovascular: RRR, +S1, +S2; no murmurs, rubs, gallops Abdomen: Soft, nontender; nondistended Extremities: warm, radial pulses palpable and symmetrical Psychiatric: Normal affect, normal mood Skin: Dry, intact - Assessment and Plan (1) Sepsis Current Visit: Yes Status: Acute Assessment and Plan: Pt has sepsis with fever and leukocytosis likely secondary to aspiration pneumonia and VRE UTI Continue cefepime , flagyl and zyvox. ID on board. Follow cultures (2) Urinary tract infection Current Visit: Yes Status: Acute Assessment and Plan: Urine cultures growing VRE. continue zyvox BID (3) Aspiration pneumonia Current Visit: Yes Status: Acute Assessment and Plan: Continue on cefepim and flagyl. Follow cultures (4) DKA (diabetic ketoacidoses) Current Visit: Yes Status: Acute Assessment and Plan: Came in with elevated blood sugars and elevated anion gap. Was on an insulin drip Gap has closed and she is now on subcutaneous insulin (5) Hypertension Current Visit: Yes Status: Acute Assessment and Plan: Started on amlodipin. continue metoprolol and hydralazine prn (6) DVT prophylaxis Current Visit: Yes Status: Acute Assessment and Plan: Heparin sc - Time Spent with Patient Total time spent is greater than 50% in coordination of care (as documented) at patient's floor/unit and/or counseling patient: Internal Medicine: Result - Labs CBC & Chem 7: 04/18/19 04:33 04/18/19 03:08 Labs: Short CBC 04/18/19 Range/Units 04:33 WBC 17.2 H (4.3-11.1) K/mcL Hgb 12.1 (11.5-15.4) g/dL Hct 36.3 (35.3-44.9) % Plt Count 114 L (140-400) K/mcL Neutrophils # 15.5 H (1.6-8.9) K/mcL BMP 04/17/19 04/18/19 04/18/19 13:16 00:15 03:08 Sodium 141 134 L 134 L Potassium 3.0 L 3.1 L 3.1 L Chloride 104 98 99 Carbon Dioxide 28 26 25 BUN 21 16 15 Creatinine 0.58 L 0.54 L 0.50 L Glucose 188 H 208 H 200 H Calcium 8.5 L 8.9 8.7 Liver Function 04/18/19 Range/Units 03:08 Albumin 3.3 L (3.5-5.7) g/dL - ABG Interpretation ABG results: ABG ABG pH 7.48 pH Units (7.32-7.45) H 04/18/19 04:18 ABG pCO2 34 mmHg (35-45) L 04/18/19 04:18 ABG pO2 64 mmHg (85-104) L 04/18/19 04:18 ABG O2 Saturation 94 % (95-98) L 04/18/19 04:18 - Impressions Impressions Chest CT 04/17/19 19:48 IMPRESSION: Multiple tree-in-bud and ground-glass nodules throughout the right lung most prominently in the right lower lobe with areas of more confluent airspace consolidation. However, the tree-in-bud ground-glass nodules are also seen in the right middle lobe, right upper lobe and left lower lobe. Atypical pneumonia is favored over a aspiration pneumonia given the more widespread abnormality especially in the right lung apex. Recommend follow-up to resolution. Cirrhotic morphology of the liver with stigmata of portal venous hypertension including esophageal varices and splenomegaly. Indeterminate 11 mm hypoattenuating lesion in the right hepatic lobe. Nonemergent follow-up hepatic MRI is recommended. D/ / 04/17/2019 22:15:59 Abilio Tamayo MD / sofia Interpreting Provider: Abilio Tamayo MD Consult Discharge Plan - Plan Referrals: Julio Larios MD [Primary Care Provider] - (Sent web request on 04-17-19 @ 1312) (1) Sepsis Qualifiers: Sepsis type: sepsis due to unspecified organism Qualified Code(s): A41.9 - Sepsis, unspecified organism (3) Aspiration pneumonia Qualifiers: Qualified Code(s): J69.0 - Pneumonitis due to inhalation of food and vomit (4) DKA (diabetic ketoacidoses) Qualifiers: Qualified Code(s): E11.10 - Type 2 diabetes mellitus with ketoacidosis without coma (5) Hypertension Qualifiers: Qualified Code(s): I10 - Essential (primary) hypertension
[2019-04-18] MEDS ORDERED: Potassium Chloride Elixir 20 MEQ/15 ML UDC PO SCH (07:45)
[2019-04-18 09:26] LABS: Estimated Average Glucose 246 mg/dl
[2019-04-18] MEDS: Ondansetron 4 MG/2 ML VIAL IVP PRN ×3 (09:26→23:46)
[2019-04-18] MEDS: Metoprolol XL (24 HR) Succ 25 MG TAB.ER.24H PO SCH (09:34)
[2019-04-18] MEDS: Insulin LISPRO 300 UNITS/3 ML VIAL SQ SCH ×4 (09:45→22:51)
[2019-04-18] MEDS: Cefepime HCl 1,000 MG in 0.9 % Sodium Chloride Mini Bag 100 ML IVPB SCH ×3 (10:00→23:38)
--- NOTE | 2019-04-18 13:51 | Infectious Disease Progress No ---
ID Progress Note Date of Encounter: 04/18/19 Time of Encounter: 11:00 - Subjective Subjective: Pt seen and examined at bedside. No acute events overnight. Does report some nausea, but denies any vomiting. No fever, chills, chest pain, shortness of breath, increased cough, or increased sputum production. - Objective CBC & Chem 7: 04/21/19 05:35 04/21/19 05:35 - Exam Vitals: Temp Pulse Resp BP Pulse Ox 99.5 F 102 17 182/74 91 04/18/19 11:53 04/18/19 11:53 04/18/19 11:53 04/18/19 11:53 04/18/19 11:53 Exam: General: well developed female in no acute distress Head: NCAT Eye: PERRL, EOMI, conjuntiva pink, sclera anicteric Neck: Supple, trachea midline. No lymphadenopathy Lungs: Diminished breath sounds bilaterally. no wheezes, rales or rhonchi Heart: RRR, +S1, +S2 No murmurs, clicks, or rubs. GI: abdomen soft, nontender, nondistended Extremities: warm, radial pulses palpable and symmetrical. no cyanosis, edema, or calf tenderness Neuro: A&Ox3 No speech difficulty or abnormality. Skin: Warm, dry, intact - Assessment and Plan (1) Sepsis Current Visit: Yes Status: Acute Patient met 3 SIRS criteria on admission with elevated temp, tachycardia, and W BC of 18.3 Likely due to aspiration pneumonia Qualifiers: Sepsis type: sepsis due to unspecified organism Qualified Code(s): A41.9 - Sepsis, unspecified organism; R65.20 - Severe sepsis without septic shock SNOMED Code(s): 68261081 (2) Aspiration pneumonia Current Visit: Yes Status: Acute CT abdomen and pelvis from 04/16 revealed liquid material in the esophagus and tree-in-bud opacities in the right lower lung concerning for aspiration. Causative organism not clear at this time Pt denies any coughing while eating or difficulty swallowing CT Chest from 04/17 demonstrated multiple tree-in-bud and ground-glass nodules throughout the right lung most prominently in the lower lobe. Atypical vs aspiration pneumonia. Urine strep antigen negative Consider [employer] consult Qualifiers: Qualified Code(s): J69.0 - Pneumonitis due to inhalation of food and vomit SNOMED Code(s): 420580681 (3) Liver cirrhosis Current Visit: Yes Status: Acute Qualifiers: Qualified Code(s): K74.60 - Unspecified cirrhosis of liver SNOMED Code(s): 78804582 (4) UTI (urinary tract infection) due to Enterococcus Current Visit: Yes Status: Acute Had a urine culture obtained on 04/09/2019 that was positive for vancomycin- resistant enterococcus faecium Per records from [facility] there is no mention of any antibiotics being called in. Patient was started on Zyvox by the hospitalist team (Day 2) No pyelonephritis on the CT abdomen and pelvis SNOMED Code(s): 350413190937135 (5) DKA (diabetic ketoacidoses) Current Visit: Yes Status: Acute Qualifiers: Diabetes mellitus type: type 2 Diabetes mellitus complication detail: without coma Qualified Code(s): E11.10 - Type 2 diabetes mellitus with ketoacidosis without coma SNOMED Code(s): 166590967, 553072826 - Recommendations Recommendations: Continue cefepime and metronidazole Get MRSA screen Await urine cultures to finalize and blood cultures to finalize Might need a swallow evaluation Adequate glucose control Consult Discharge Plan - Plan Instructions: Metronidazole (By mouth), Omeprazole (By mouth), Amlodipine (By mouth), Ondansetron (Injection), Levofloxacin (By mouth), Linezolid (By mouth) Referrals: Julio Larios MD [Primary Care Provider] - (Sent web request on 04-17-19 @ 1022) Prescriptions: Docusate [Colace] 100 mg PO BID #60 capsule metroNIDAZOLE [Flagyl] 500 mg PO Q8H 5 Days #15 tablet Insulin Glargine [Lantus] 20 unit SQ HS 30 Days #100 mls levoFLOXacin [Levaquin] 750 mg PO DAILY #5 tablet amLODIPine [Norvasc] 5 mg PO DAILY #30 tablet Omeprazole [PriLOSEC] 40 mg PO BIDAC #60 capsule. Ondansetron HCl [Zofran] 4 mg PO Q8HR PRN 15 Days #30 tab PRN Reason: Nausea And Vomiting Linezolid [Zyvox] 600 mg PO BID 5 Days #10 tablet - Attending Attestation I examined this patient and my medical decision-making was reviewed with the Resident Physician. I agree with the documented findings, disposition and treatment plan as described except to the extent set forth below. Assessment and plan: Sepsis Aspiration pneumonia Liver cirrhosis UTI with VRE DKA Recommendations Continue cefepime Continue metronidazole Get a swallow evaluation No need to treat the VRE because the patient is asymptomatic Pulmonary to evaluate Discussed with the hospitalist team Duration of treatment depends on the clinical picture Get CT chest Start patient on levofloxacin Legionella antigen
[2019-04-18] MEDS: amLODIPine 5 MG TABLET PO SCH (14:00)
[2019-04-18] MEDS: *HR* Promethazine 25 MG/ML VIAL IVP PRN ×2 (16:23→21:38)
[2019-04-18] MEDS: *HR* Heparin 5,000 UNIT/ML VIAL SQ SCH (17:55)
[2019-04-18] MEDS: levoFLOXacin 750 MG/150 ML 750 MG/150 ML BAG IVPB SCH (17:56)
[2019-04-18] MEDS ORDERED: Acetaminophen IV 500 MG/50 ML INFUS..BTL IVPB ONE (20:08)
[2019-04-18] MEDS: Nystatin SUSP 5 ML UD.LIQ PO SCH (21:38)
[2019-04-18] MEDS: Insulin DETEMIR 100 UNIT/ML X5UNITS SQ SCH (21:39)
[2019-04-19] MEDS: *HR* Heparin 5,000 UNIT/ML VIAL SQ SCH ×2 (04:49→18:35)
[2019-04-19 04:56] LABS: Basophils % 0.2 %; Hematocrit 37.9 % (35.3-44.9); Hemoglobin 12.5 g/dL (11.5-15.4); Lymphocytes # 0.6 K/mcL (0.6-4.6); Lymphocytes % 4.5 %; Mean Corpuscular Hemoglobin 29.6 pg (28.0-33.3); Mean Corpuscular Volume 89.8 fL (83.0-100.0); Mean Platelet Volume 10.5 fL (9.4-12.4); Monocytes # 0.5 K/mcL (0.0-1.3); Neutrophils # 11.9 K/mcL (1.6-8.9); Platelet Count 103 K/mcL (140-400); Red Blood Count 4.22 M/mcL (3.82-4.97); Red Cell Distribution Width 14.2 % (11.5-14.5); Segmented Neutrophils % 90.3 %; White Blood Count 13.1 K/mcL (4.3-11.1)
[2019-04-19 05:15] LABS: BUN/Creatinine Ratio 35 (6-26); Blood Urea Nitrogen 15 mg/dL (8-23); Calcium 8.7 mg/dL (8.6-10.3); Carbon Dioxide 26 mEq/L (23-29); Chloride 99 mEq/L (98-107); Glucose 186 mg/dL (70-105); Magnesium 1.4 mg/dL (1.6-2.6); Osmolality,Calculated 286 (280-300); Phosphorous 1.7 mg/dL (2.7-4.5); Potassium 2.8 mEq/L (3.5-5.1); Sodium 135 mEq/L (136-145); eGFR For African Americans > 60 (> 60); eGFR For Non-African Americans > 60 (> 60)
[2019-04-19] MEDS ORDERED: Potassium Phosphate 44 MEQ in 0.9 % Sodium Chloride 250 ML IVPB ONE (07:30)
--- NOTE | 2019-04-19 07:33 | Internal Med Progress Note ---
Hospitalist Progress Note - Encounter Date of Encounter: 04/19/19 Time of Encounter: 08:00 - Subjective Interval History: No acute events overnight - Exam Vitals: Temp Pulse Resp BP Pulse Ox 98.7 F 86 18 131/77 99 04/19/19 07:04 04/19/19 07:04 04/19/19 07:04 04/19/19 07:04 04/19/19 07:04 Exam: General: Conversant, no acute distress Head: atraumatic, normocephalic; Eye: PERRL, EOMI, conjuntiva pink, sclera anicteric Neck: Supple, trachea midline; No lymphadenopathy Respiratory: Diminished breath sounds bilaterally; no rales or rhonchi Cardiovascular: RRR, +S1, +S2; no murmurs, rubs, gallops Abdomen: Soft, nontender; nondistended Extremities: warm, radial pulses palpable and symmetrical Psychiatric: Normal affect, normal mood Skin: Dry, intact - Assessment and Plan (1) Sepsis Current Visit: Yes Status: Acute Assessment and Plan: Pt has sepsis with fever and leukocytosis likely secondary to aspiration pneumonia and VRE UTI Continue cefepime , flagyl and zyvox. ID on board. Follow cultures (2) DKA (diabetic ketoacidoses) Current Visit: Yes Status: Acute Assessment and Plan: Came in with elevated blood sugars and elevated anion gap. Was on an insulin drip Gap has closed and she is now on subcutaneous insulin (3) Aspiration pneumonia Current Visit: Yes Status: Acute Assessment and Plan: Continue on cefepim and flagyl. Follow cultures. Pulmonary consult in light of multiple tree in bud opacities on CT scan and recurrent low grade fevers (4) Liver cirrhosis Current Visit: Yes Status: Acute Assessment and Plan: Stable. No acute intervention (5) Urinary tract infection Current Visit: Yes Status: Acute Assessment and Plan: Urine cultures growing VRE. continue zyvox BID (6) DVT prophylaxis Current Visit: Yes Status: Acute Assessment and Plan: Heparin sc - Time Spent with Patient Total time spent is greater than 50% in coordination of care (as documented) at patient's floor/unit and/or counseling patient: Internal Medicine: Result - Labs CBC & Chem 7: 04/19/19 04:45 04/19/19 04:45 Labs: Short CBC 04/19/19 Range/Units 04:45 WBC 13.1 H (4.3-11.1) K/mcL Hgb 12.5 (11.5-15.4) g/dL Hct 37.9 (35.3-44.9) % Plt Count 103 L (140-400) K/mcL Neutrophils # 11.9 H (1.6-8.9) K/mcL BMP 04/19/19 04:45 Sodium 135 L Potassium 2.8 L Chloride 99 Carbon Dioxide 26 BUN 15 Creatinine 0.43 L Glucose 186 H Calcium 8.7 - ABG Interpretation ABG results: ABG ABG pH 7.48 pH Units (7.32-7.45) H 04/18/19 04:18 ABG pCO2 34 mmHg (35-45) L 04/18/19 04:18 ABG pO2 64 mmHg (85-104) L 04/18/19 04:18 ABG O2 Saturation 94 % (95-98) L 04/18/19 04:18 Consult Discharge Plan - Plan Referrals: Julio Larios MD [Primary Care Provider] - (Sent web request on 04-17-19 @ 3946) (1) Sepsis Qualifiers: Sepsis type: sepsis due to unspecified organism Qualified Code(s): A41.9 - Sepsis, unspecified organism (2) DKA (diabetic ketoacidoses) Qualifiers: Diabetes mellitus type: type 2 Diabetes mellitus complication detail: without coma Qualified Code(s): E11.10 - Type 2 diabetes mellitus with ketoacidosis without coma (3) Aspiration pneumonia Qualifiers: Qualified Code(s): J69.0 - Pneumonitis due to inhalation of food and vomit (4) Liver cirrhosis Qualifiers: Qualified Code(s): K74.60 - Unspecified cirrhosis of liver
[2019-04-19] MEDS: Insulin LISPRO 300 UNITS/3 ML VIAL SQ SCH ×4 (08:55→21:25)
[2019-04-19] MEDS: Cefepime HCl 1,000 MG in 0.9 % Sodium Chloride Mini Bag 100 ML IVPB SCH ×3 (08:56→23:14)
[2019-04-19] MEDS: *HR* Promethazine 25 MG/ML VIAL IVP PRN ×2 (09:01→15:47)
[2019-04-19] MEDS: MetroNIDAZOLE 500 MG/100 ML 500 MG/100 ML BAG IVPB SCH ×3 (09:03→23:14)
[2019-04-19] MEDS: Metoprolol XL (24 HR) Succ 25 MG TAB.ER.24H PO SCH (09:07)
[2019-04-19] MEDS: Linezolid 600 MG TABLET PO SCH ×2 (09:07→20:40)
[2019-04-19] MEDS: Potassium Chloride Elixir 20 MEQ/15 ML UDC PO SCH ×4 (09:08→20:40)
[2019-04-19] MEDS: amLODIPine 5 MG TABLET PO SCH (09:08)
[2019-04-19] MEDS: Nystatin SUSP 5 ML UD.LIQ PO SCH ×4 (09:08→20:40)
--- NOTE | 2019-04-19 09:15 | Pulmonology Consult Note ---
Date of Encounter: 04/19/19 Time of Encounter: 08:00 Assessment and Plan (1) Acute and chronic respiratory failure Current Visit: Yes Status: Acute Patient is in acute on chronic hypoxic respiratory failure patient oxygen supplementation slowly going back to her baseline. Most likely due to this bronchiolitis due to atypical organism/ aspiration organisms. Patient is feeling Nauseous Still Has Extensive Abdominal Symptoms. I Agree with the Curre nt Regimen of bronchodilators and antibiotics. Patient V/Q mismatch is stable we will not do bronchoscopy at this point of illness. Overall infectious curve is getting stabilized and getting better. Consider surgical consultation if there is persistent nausea vomiting. Qualifiers: Respiratory failure complication: hypoxia Qualified Code(s): J96.21 - Acute and chronic respiratory failure with hypoxia (2) Bronchiolitis Current Visit: Yes Status: Acute Patient excessive tree-in-bud infiltrates suggesting off for mucus impaction in the bronchioles secondary to atypical/aspiration pneumonia when she is settled with abdominal symptoms will encourage Accapell device and incentive spirometry. Continue broad-spectrum antibiotics. Patient is at high risk for aspiration will need a formal speech evaluation (3) COPD (chronic obstructive pulmonary disease) Current Visit: No Status: Chronic Continue bronchodilators since V/Q mismatch is stable there is no much wheezing on exam will hold off any steroid therapy Qualifiers: COPD type: chronic bronchitis Chronic bronchitis type: unspecified Qualified Code(s): J42 - Unspecified chronic bronchitis (4) UTI (urinary tract infection) Current Visit: No Status: Acute Continue with linezolid Qualifiers: Urinary tract infection type: acute cystitis Hematuria presence: with hematuria Qualified Code(s): N30.01 - Acute cystitis with hematuria History of Present Illness Consult date: 04/19/19 Requesting physician: Charmaine Warren Reason for consult: pneumonia, abnormal CXR/CT Chief complaint: nausea, vomiting History of present illness: 69-year-old female with past medical history significant for insulin dependent diabetes mellitus, breast cancer, cirrhosis with portal hypertension, came with nausea vomiting diabetes ketoacidosis patient still not not eaten still nauseous, patient presented with fever or sepsis leukocytosis recently treated for VRE UTI with linezolid CT chest that was found to have extensive tree-in-bud opacities concerning for atypical/aspiration pneumonia pulmonary was consulted for evaluation of this bronchiolitis most likely bacterial in nature. Patient is a poor historian denies any chest pain chest tightness denies any palpitation or syncope patient denies any neuro symptoms patient denies any abdominal pain except for nausea and vomiting. Patient has increased aspiration risk with the findings in the esophagus and the CT chest. Past Med Surg Social Fam HX - Past Medical History Medical history: cancer, CVA, DVT, diabetes, hypertension Additional medical history: recurrent UTI's. breast CA, ovarian CA Psychiatric history: depression - Past Surgical History Surgical History: appendectomy, breast surgery, hysterectomy, other Additional surgical history: left partial mastectomy. port - Social History Smoking Status: Never smoker Smokeless Tobacco Status: No Alcohol use: none Drug use: none - Family History Mother Living Status: Father Living Status: Hx Family Cardiac Disorders: Yes Hx Family Endocrine Disorder: Yes Medications and Allergies Albuterol Sulfate [Proair Hfa] 2 puff IH Q4H PRN 02/04/18 [History] Metoprolol XL (24 HR) Succ [Toprol Xl] 12.5 mg PO DAILY #15 tab.er.24h 02/11/18 [Rx] Insulin LISPRO [HumaLOG] 5 units SQ TIDWM 04/23/18 [History] Memantine HCl 10 mg PO BID 07/23/18 [History] Insulin Glargine,Hum.rec.anlog [Basaglar Kwikpen U-100] 55 unit SQ BID 11/01/18 [History] Cyclobenzaprine [Flexeril] 10 mg PO TID PRN 12/30/18 [History] Amitriptyline [Elavil] 50 mg PO HS #7 tablet 01/02/19 [Rx] Ciprofloxacin HCl [Cipro] 500 mg PO BID 04/17/19 [History] OxyCODONE Immed Rel [Roxicodone 10 MG] 10 mg PO Q8H PRN 04/17/19 [History] Allergy/AdvReac Type Severity Reaction Status Date / Time bee venom protein (honey bee) Allergy Swelling Verified 04/23/18 07:21 of Lip/Tongue/Throat codeine Allergy Hives Verified 04/23/18 07:21 Penicillins [PCN] Allergy Hives Verified 04/23/18 07:21 bisoprolol [From Ziac] AdvReac See Verified 04/23/18 07:21 Comments Donepezil AdvReac Vomiting Verified 04/23/18 07:21 hydrochlorothiazide AdvReac See Verified 04/23/18 07:21 [From Ziac] Comments iodine AdvReac Hives Verified 04/23/18 07:21 lisinopril [From Zestril] AdvReac Vomiting Verified 04/23/18 07:21 tramadol AdvReac See Verified 04/23/18 07:21 Comments IVP dye Allergy Itching Uncoded 02/10/16 15:52 All Systems: The remainder of the systems were reviewed and are negative Physical Examination Vital Signs: Vital Signs, Last 4 Hours Temp Pulse Resp BP Pulse Ox 04/19/19 07:04 98.7 F 86 18 131/77 99 04/19/19 05:45 99.4 F 104 18 174/84 95 General appearance: appears uncomfortable Effort: mildly labored Auscultation: bilateral: wheezes (Minimally scattered wheezes) Cardiovascular: regular rate and rhythm Gastrointestinal: hypoactive bowel sounds, soft Extremities: no cyanosis, no edema normal mental status, non-focal exam anxious Results - Laboratory Findings CBC and BMP: 04/19/19 04:45 04/19/19 04:45 ABG ABG pH 7.48 pH Units (7.32-7.45) H 04/18/19 04:18 ABG pCO2 34 mmHg (35-45) L 04/18/19 04:18 ABG pO2 64 mmHg (85-104) L 04/18/19 04:18 ABG O2 Saturation 94 % (95-98) L 04/18/19 04:18 Abnormal lab findings: Abnormal lab results WBC 13.1 K/mcL (4.3-11.1) H 04/19/19 04:45 RDW 14.6 % (11.5-14.5) H 04/17/19 06:10 Plt Count 103 K/mcL (140-400) L 04/19/19 04:45 Band Neutrophils % 28.0 % (0-4) H 04/18/19 04:33 Neutrophils # 11.9 K/mcL (1.6-8.9) H 04/19/19 04:45 Lymphocytes # 0.5 K/mcL (0.6-4.6) L 04/17/19 06:10 Toxic Granulation Present (Not Present) A 04/18/19 04:33 Platelet Estimate Slight Decrease (Normal) L 04/18/19 04:33 ABG pH 7.48 pH Units (7.32-7.45) H 04/18/19 04:18 ABG pCO2 34 mmHg (35-45) L 04/18/19 04:18 ABG pO2 64 mmHg (85-104) L 04/18/19 04:18 ABG O2 Saturation 94 % (95-98) L 04/18/19 04:18 Sodium 135 mEq/L (136-145) L 04/19/19 04:45 Potassium 2.8 mEq/L (3.5-5.1) L 04/19/19 04:45 Chloride 97 mEq/L (98-107) L 04/17/19 01:02 Carbon Dioxide 19 mEq/L (23-29) L 04/17/19 06:10 BUN 26 mg/dL (8-23) H 04/17/19 06:10 Creatinine 0.43 mg/dL (0.60-1.20) L 04/19/19 04:45 BUN/Creatinine Ratio 35 (6-26) H 04/19/19 04:45 Glucose 186 mg/dL (70-105) H 04/19/19 04:45 POC Glucose 170 mg/dL (70-99) H 04/19/19 07:24 Hemoglobin A1c 10.2 % (-5.6) H 04/18/19 03:08 Calculated Osmolality 305 (280-300) H 04/17/19 06:10 Lactic Acid 2.3 mmol/L (0.5-2.2) H 04/17/19 01:02 Calcium 8.5 mg/dL (8.6-10.3) L 04/17/19 13:16 Phosphorus 1.7 mg/dL (2.7-4.5) L 04/19/19 04:45 Magnesium 1.4 mg/dL (1.6-2.6) L 04/19/19 04:45 Total Bilirubin 1.3 mg/dL (0.3-1.0) H 04/16/19 20:45 Direct Bilirubin 0.3 mg/dL (0.0-0.2) H 04/16/19 20:45 Alkaline Phosphatase 133 Units/L (34-104) H 04/16/19 20:45 Albumin 3.3 g/dL (3.5-5.7) L 04/18/19 03:08 Globulin 4.0 g/dL (2.4-3.5) H 04/16/19 20:45 Beta-Hydroxybutyric Acd 1.37 mmol/L (0.02-0.27) H 04/18/19 03:08 Procalcitonin 0.44 ng/mL (0.00-0.15) H 04/18/19 03:08 Ur Specific [place] > 1.030 (1.010-1.025) H 04/16/19 20:50 Urine Protein 30 mg/dL (Neg-Trace) H 04/16/19 20:50 Urine Glucose (UA) >=1000 mg/dL (Normal) H 04/16/19 20:50 Urine Ketones 80 mg/dL (Negative) H 04/16/19 20:50 Urine Blood Small (Negative) H 04/16/19 20:50 Urine Microscopic RBC 3-5 per hpf (0-3) H 04/16/19 20:50 Urine Microscopic WBC 15-30 per hpf (0-3) H 04/16/19 20:50 Ur Squamous Epith Cells Many per lpf (None-Few) H 04/16/19 20:50 Ur Culture Indicated? YES (NO) A 04/16/19 20:50 - Microbiology Findings Microbiology Findings: Microbiology, Last 48 Hours 04/18/19 18:00 Legionella Antigen - Final Urine,Clean Catch 04/16/19 20:50 Urine Culture - Final Urine,Clean Catch No significant growth. 04/17/19 23:58 Streptococcus pneumoniae Antigen (M - Final Urine,Clean Catch 04/17/19 18:29 Blood Culture - Preliminary Peripheral Venipuncture Culture is incubating and being continuously monitored for growth. Final report to follow. 04/17/19 18:26 Blood Culture - Preliminary Peripheral Venipuncture Culture is incubating and being continuously monitored for growth. Final report to follow. - Clinical Findings Intake & Output: Intake & Output 04/18/19 04/19/19 04/19/19 23:59 07:59 15:59 Intake Total 300 / 740 300 / 300 Balance 300 / 540 300 / 300 Weight 59.6 kg Consult Discharge Plan - Plan Referrals: Julio Larios MD [Primary Care Provider] - (Sent web request on 04-17-19 @ [phone])
[2019-04-19] MEDS: Ondansetron 4 MG/2 ML VIAL IVP PRN (12:54)
[2019-04-19] MEDS ORDERED: *HR* Promethazine 25 MG/ML VIAL IVP PRN (16:59)
[2019-04-19] MEDS: levoFLOXacin 750 MG/150 ML 750 MG/150 ML BAG IVPB SCH (18:36)
[2019-04-19] MEDS ORDERED: Promethazine 25 MG in 0.9 % Sodium Chloride 50 ML IVPB PRN (18:39)
[2019-04-19] MEDS ORDERED: *HR* OxyCODONE Immed Rel 5 MG TABLET PO ONE (20:05)
[2019-04-19] MEDS: Insulin DETEMIR 100 UNIT/ML X5UNITS SQ SCH (21:26)
[2019-04-19] MEDS ORDERED: GI Cocktail 40 ML EACH PO ONE (21:33)
[2019-04-20] MEDS: Mag Hydrox/Al Hydrox/Simeth 30 ML UDC PO PRN ×3 (02:55→17:48)
[2019-04-20] MEDS: Ondansetron 4 MG/2 ML VIAL IVP PRN ×3 (04:15→17:48)
[2019-04-20] MEDS: Metoclopramide 10 MG/2 ML VIAL IVP PRN ×2 (04:56→17:48)
[2019-04-20] MEDS: *HR* Heparin 5,000 UNIT/ML VIAL SQ SCH ×2 (04:57→17:50)
[2019-04-20 05:23] LABS: Basophils % 0.1 %; Eosinophils % 0.3 %; Hemoglobin 12.4 g/dL (11.5-15.4); Immature Granulocytes % 0.3 % (0-4); Lymphocytes % 11.3 %; Mean Corpuscular HGB Conc 32.6 g/dL (31.6-35.5); Mean Corpuscular Hemoglobin 29.5 pg (28.0-33.3); Mean Corpuscular Volume 90.5 fL (83.0-100.0); Mean Platelet Volume 10.1 fL (9.4-12.4); Monocytes # 0.5 K/mcL (0.0-1.3); Monocytes % 6.3 %; Platelet Count 128 K/mcL (140-400); Red Cell Distribution Width 14.4 % (11.5-14.5); Segmented Neutrophils % 81.7 %; White Blood Count 8.6 K/mcL (4.3-11.1)
[2019-04-20 05:39] LABS: BUN/Creatinine Ratio 36 (6-26); Blood Urea Nitrogen 18 mg/dL (8-23); Calcium 8.8 mg/dL (8.6-10.3); Carbon Dioxide 27 mEq/L (23-29); Chloride 104 mEq/L (98-107); Glucose 149 mg/dL (70-105); Magnesium 1.7 mg/dL (1.6-2.6); Osmolality,Calculated 291 (280-300); Phosphorous 1.6 mg/dL (2.7-4.5); Potassium 3.7 mEq/L (3.5-5.1); Sodium 138 mEq/L (136-145); eGFR For African Americans > 60 (> 60); eGFR For Non-African Americans > 60 (> 60)
[2019-04-20] MEDS ORDERED: Potassium Phosphate 44 MEQ in 0.9 % Sodium Chloride 250 ML IVPB ONE (07:21)
--- NOTE | 2019-04-20 08:17 | Pulmonology Progress Note ---
Date of Encounter: 04/20/19 Time of Encounter: 08:00 Assessment and Plan (1) Acute and chronic respiratory failure Current Visit: Yes Status: Acute Patient V/Q mismatch is stable patient white count is coming down complicated by aspiration pneumonia/atypical pneumonia with the changes of bronchiolitis to continue with current regimen of bronchodilators duration of therapy according to infectious disease. No need of bronchoscopy at this point pulmonary we will sign off if the condition worsens please call. Arrange a follow-up with pulmonology in 6-8 weeks Qualifiers: Respiratory failure complication: hypoxia Qualified Code(s): J96.21 - Acute and chronic respiratory failure with hypoxia (2) Bronchiolitis Current Visit: Yes Status: Acute Patient with the CT chest evidence of bronchiolitis can be due to bacterial/aty pical bacteria continue with current regimen of antibiotics. De-escalate according to treatment response (3) COPD (chronic obstructive pulmonary disease) Current Visit: No Status: Chronic To schedule bronchodilators hold off any steroids. Qualifiers: COPD type: chronic bronchitis Chronic bronchitis type: unspecified Qualified Code(s): J42 - Unspecified chronic bronchitis (4) UTI (urinary tract infection) Current Visit: No Status: Acute Continue linezolid according to infectious disease. Qualifiers: Urinary tract infection type: acute cystitis Hematuria presence: with hematuria Qualified Code(s): N30.01 - Acute cystitis with hematuria Subjective Principal diagnosis: Bronchiolitis, sepsis, aspiration pneumonia Interval history: Patient did not have any acute events overnight but today morning is a concerning for stroke patient is going for CT head but patient is conscious oriented is no gross focal neurological deficit on my exam denies any fever or chills still feel some nausea and vomiting. I examined and interviewed the patient as she was leaving for CT head without contrast. Objective PUL Vital signs: Last Vital Signs Temp 98.7 F 04/20/19 07:26 Pulse 87 04/20/19 07:26 Resp 17 04/20/19 07:26 BP 143/67 04/20/19 07:26 Pulse Ox 99 04/20/19 07:26 General appearance: no acute distress Eyes: nonicteric ENT: oropharynx moist Effort: mildly labored Auscultation: bilateral: diminished breath sounds (In the bases) Cardiovascular: regular rate and rhythm Gastrointestinal: hypoactive bowel sounds Extremities: no cyanosis, no edema normal mental status, non-focal exam, pupils equal and round Results - Laboratory Findings CBC and BMP: 04/20/19 05:07 04/20/19 05:07 ABG ABG pH 7.48 pH Units (7.32-7.45) H 04/18/19 04:18 ABG pCO2 34 mmHg (35-45) L 04/18/19 04:18 ABG pO2 64 mmHg (85-104) L 04/18/19 04:18 ABG O2 Saturation 94 % (95-98) L 04/18/19 04:18 Abnormal lab findings: Abnormal lab results WBC 13.1 K/mcL (4.3-11.1) H 04/19/19 04:45 RDW 14.6 % (11.5-14.5) H 04/17/19 06:10 Plt Count 128 K/mcL (140-400) L 04/20/19 05:07 Band Neutrophils % 28.0 % (0-4) H 04/18/19 04:33 Neutrophils # 11.9 K/mcL (1.6-8.9) H 04/19/19 04:45 Lymphocytes # 0.5 K/mcL (0.6-4.6) L 04/17/19 06:10 Toxic Granulation Present (Not Present) A 04/18/19 04:33 Platelet Estimate Slight Decrease (Normal) L 04/18/19 04:33 ABG pH 7.48 pH Units (7.32-7.45) H 04/18/19 04:18 ABG pCO2 34 mmHg (35-45) L 04/18/19 04:18 ABG pO2 64 mmHg (85-104) L 04/18/19 04:18 ABG O2 Saturation 94 % (95-98) L 04/18/19 04:18 Sodium 135 mEq/L (136-145) L 04/19/19 04:45 Potassium 2.8 mEq/L (3.5-5.1) L 04/19/19 04:45 Chloride 97 mEq/L (98-107) L 04/17/19 01:02 Carbon Dioxide 19 mEq/L (23-29) L 04/17/19 06:10 BUN 26 mg/dL (8-23) H 04/17/19 06:10 Creatinine 0.50 mg/dL (0.60-1.20) L 04/20/19 05:07 BUN/Creatinine Ratio 36 (6-26) H 04/20/19 05:07 Glucose 149 mg/dL (70-105) H 04/20/19 05:07 POC Glucose 231 mg/dL (70-99) H 04/19/19 11:24 Hemoglobin A1c 10.2 % (-5.6) H 04/18/19 03:08 Calculated Osmolality 305 (280-300) H 04/17/19 06:10 Lactic Acid 2.3 mmol/L (0.5-2.2) H 04/17/19 01:02 Calcium 8.5 mg/dL (8.6-10.3) L 04/17/19 13:16 Phosphorus 1.6 mg/dL (2.7-4.5) L 04/20/19 05:07 Magnesium 1.4 mg/dL (1.6-2.6) L 04/19/19 04:45 Total Bilirubin 1.3 mg/dL (0.3-1.0) H 04/16/19 20:45 Direct Bilirubin 0.3 mg/dL (0.0-0.2) H 04/16/19 20:45 Alkaline Phosphatase 133 Units/L (34-104) H 04/16/19 20:45 Albumin 3.3 g/dL (3.5-5.7) L 04/18/19 03:08 Globulin 4.0 g/dL (2.4-3.5) H 04/16/19 20:45 Beta-Hydroxybutyric Acd 1.37 mmol/L (0.02-0.27) H 04/18/19 03:08 Procalcitonin 0.44 ng/mL (0.00-0.15) H 04/18/19 03:08 Ur Specific [place] > 1.030 (1.010-1.025) H 04/16/19 20:50 Urine Protein 30 mg/dL (Neg-Trace) H 04/16/19 20:50 Urine Glucose (UA) >=1000 mg/dL (Normal) H 04/16/19 20:50 Urine Ketones 80 mg/dL (Negative) H 04/16/19 20:50 Urine Blood Small (Negative) H 04/16/19 20:50 Urine Microscopic RBC 3-5 per hpf (0-3) H 04/16/19 20:50 Urine Microscopic WBC 15-30 per hpf (0-3) H 04/16/19 20:50 Ur Squamous Epith Cells Many per lpf (None-Few) H 04/16/19 20:50 Ur Culture Indicated? YES (NO) A 04/16/19 20:50 - Microbiology Findings Microbiology Findings: Microbiology, Last 48 Hours 04/18/19 18:00 Legionella Antigen - Final Urine,Clean Catch 04/16/19 20:50 Urine Culture - Final Urine,Clean Catch No significant growth. - Clinical Findings Intake & Output: Intake & Output 04/19/19 04/20/19 04/20/19 23:59 07:59 15:59 Intake Total 400 / 900 Output Total 200 / 200 Balance 200 / 700 Weight 70.2 kg Consult Discharge Plan - Plan Referrals: Julio Larios MD [Primary Care Provider] - (Sent web request on 04-17-19 @ [phone])
[2019-04-20] MEDS: Insulin LISPRO 300 UNITS/3 ML VIAL SQ SCH ×4 (08:42→20:28)
--- NOTE | 2019-04-20 08:59 | Internal Med Progress Note ---
Hospitalist Progress Note - Encounter Date of Encounter: 04/20/19 Time of Encounter: 08:00 - Subjective Interval History: No acute events overnight - Exam Vitals: Temp Pulse Resp BP Pulse Ox 98.7 F 87 17 143/67 99 04/20/19 07:26 04/20/19 07:26 04/20/19 07:26 04/20/19 07:26 04/20/19 07:26 Exam: General: Conversant, no acute distress Head: atraumatic, normocephalic; Eye: PERRL, EOMI, conjuntiva pink, sclera anicteric Neck: Supple, trachea midline; No lymphadenopathy Respiratory: Diminished breath sounds bilaterally; no rales or rhonchi Cardiovascular: RRR, +S1, +S2; no murmurs, rubs, gallops Abdomen: Soft, nontender; nondistended Extremities: warm, radial pulses palpable and symmetrical Psychiatric: Normal affect, normal mood Skin: Dry, intact - Assessment and Plan (1) Aspiration pneumonia Current Visit: Yes Status: Acute Assessment and Plan: Continue on cefepime and flagyl. Follow cultures. Pulmonary consult in light of multiple tree in bud opacities on CT scan and recurrent low grade fevers Seen by pulm who recommend bronchodilators and continue present antibiotic regimen (2) Sepsis Current Visit: Yes Status: Acute Assessment and Plan: Pt has sepsis with fever and leukocytosis likely secondary to aspiration pneumonia and VRE UTI Continue cefepime , flagyl and zyvox. ID on board. Follow cultures (3) DKA (diabetic ketoacidoses) Current Visit: Yes Status: Acute Assessment and Plan: Came in with elevated blood sugars and elevated anion gap. Was on an insulin drip Gap has closed and she is now on subcutaneous insulin (4) Liver cirrhosis Current Visit: Yes Status: Acute Assessment and Plan: Stable. No acute intervention (5) Urinary tract infection Current Visit: Yes Status: Acute Assessment and Plan: Urine cultures growing VRE. continue zyvox BID (6) Nausea Current Visit: Yes Status: Acute Assessment and Plan: Persistent nausea with reflux. has been seen by speech therapy who recommend regular textures (w/ chopped meats) and thin liquids are recommended w/ the following safe swallow strategies: sitting upright during and for 30 minutes after PO intake, small bites/sips, and alternating liquids and solids Continue reglan, phenrgan and zofran. GI consult in am if symptoms don't resolve (7) DVT prophylaxis Current Visit: Yes Status: Acute Assessment and Plan: Heparin sc - Time Spent with Patient Total time spent is greater than 50% in coordination of care (as documented) at patient's floor/unit and/or counseling patient: Internal Medicine: Result - Labs CBC & Chem 7: 04/20/19 05:07 04/20/19 05:07 Labs: Short CBC 04/20/19 Range/Units 05:07 WBC 8.6 (4.3-11.1) K/mcL Hgb 12.4 (11.5-15.4) g/dL Hct 38.0 (35.3-44.9) % Plt Count 128 L (140-400) K/mcL Neutrophils # 7.0 (1.6-8.9) K/mcL BMP 04/19/19 04/20/19 18:00 05:07 Sodium 138 Potassium 3.6 D 3.7 Chloride 104 Carbon Dioxide 27 BUN 18 Creatinine 0.50 L Glucose 149 H Calcium 8.8 - ABG Interpretation ABG results: ABG ABG pH 7.48 pH Units (7.32-7.45) H 04/18/19 04:18 ABG pCO2 34 mmHg (35-45) L 04/18/19 04:18 ABG pO2 64 mmHg (85-104) L 04/18/19 04:18 ABG O2 Saturation 94 % (95-98) L 04/18/19 04:18 Consult Discharge Plan - Plan Referrals: Julio Larios MD [Primary Care Provider] - (Sent web request on 04-17-19 @ [phone]) (1) Aspiration pneumonia Qualifiers: Qualified Code(s): J69.0 - Pneumonitis due to inhalation of food and vomit (2) Sepsis Qualifiers: Sepsis type: sepsis due to unspecified organism Qualified Code(s): A41.9 - S epsis, unspecified organism (3) DKA (diabetic ketoacidoses) Qualifiers: Diabetes mellitus type: type 2 Diabetes mellitus complication detail: without coma Qualified Code(s): E11.10 - Type 2 diabetes mellitus with ketoacidosis without coma (4) Liver cirrhosis Qualifiers: Qualified Code(s): K74.60 - Unspecified cirrhosis of liver
[2019-04-20] MEDS: amLODIPine 5 MG TABLET PO SCH (10:34)
[2019-04-20] MEDS: Metoprolol XL (24 HR) Succ 25 MG TAB.ER.24H PO SCH (10:34)
[2019-04-20] MEDS: Potassium Chloride Elixir 20 MEQ/15 ML UDC PO SCH ×2 (10:34→20:27)
[2019-04-20] MEDS: Linezolid 600 MG TABLET PO SCH ×2 (10:34→20:27)
[2019-04-20] MEDS: Nystatin SUSP 5 ML UD.LIQ PO SCH ×4 (10:35→20:27)
[2019-04-20] MEDS: MetroNIDAZOLE 500 MG/100 ML 500 MG/100 ML BAG IVPB SCH (10:35)
[2019-04-20] MEDS: Cefepime HCl 1,000 MG in 0.9 % Sodium Chloride Mini Bag 100 ML IVPB SCH ×2 (10:36→17:49)
[2019-04-20] MEDS: chlorproMAZINE 25 MG TABLET PO SCH ×2 (11:34→20:27)
[2019-04-20] MEDS: metroNIDAZOLE 500 MG TABLET PO SCH (17:48)
[2019-04-20] MEDS: levoFLOXacin 750 MG/150 ML 750 MG/150 ML BAG IVPB SCH (17:50)
[2019-04-20] MEDS: Insulin DETEMIR 100 UNIT/ML X5UNITS SQ SCH (20:27)
[2019-04-20] MEDS ORDERED: *HR* OxyCODONE Immed Rel 5 MG TABLET PO PRN (21:12)
[2019-04-21] MEDS: Cefepime HCl 1,000 MG in 0.9 % Sodium Chloride Mini Bag 100 ML IVPB SCH ×2 (00:54→08:10)
[2019-04-21] MEDS: metroNIDAZOLE 500 MG TABLET PO SCH ×2 (00:56→08:09)
[2019-04-21] MEDS: *HR* Heparin 5,000 UNIT/ML VIAL SQ SCH (05:55)
[2019-04-21 06:16] LABS: Eosinophils # 0.1 K/mcL (0.0-0.6); Eosinophils % 2.1 %; Hematocrit 30.8 % (35.3-44.9); Immature Granulocytes % 0.7 % (0-4); Immature Platelets 3.1 % (1.1-6.1); Mean Corpuscular HGB Conc 32.5 g/dL (31.6-35.5); Mean Corpuscular Volume 92.5 fL (83.0-100.0); Mean Platelet Volume 10.2 fL (9.4-12.4); Monocytes # 0.3 K/mcL (0.0-1.3); Monocytes % 6.9 %; Neutrophils # 2.8 K/mcL (1.6-8.9); Red Blood Count 3.33 M/mcL (3.82-4.97); Red Cell Distribution Width 14.3 % (11.5-14.5); Segmented Neutrophils % 66.3 %; White Blood Count 4.2 K/mcL (4.3-11.1)
[2019-04-21 06:23] LABS: Platelet Count 85 K/mcL (140-400)
[2019-04-21 06:40] LABS: BUN/Creatinine Ratio 30 (6-26); Blood Urea Nitrogen 19 mg/dL (8-23); Calcium 8.2 mg/dL (8.6-10.3); Carbon Dioxide 28 mEq/L (23-29); Chloride 106 mEq/L (98-107); Glucose 83 mg/dL (70-105); Magnesium 1.8 mg/dL (1.6-2.6); Osmolality,Calculated 289 (280-300); Phosphorous 2.1 mg/dL (2.7-4.5); Sodium 139 mEq/L (136-145); eGFR For African Americans > 60 (> 60); eGFR For Non-African Americans > 60 (> 60)
[2019-04-21 06:42] LABS: Potassium 4.7 mEq/L (3.5-5.1)
[2019-04-21] MEDS: Nystatin SUSP 5 ML UD.LIQ PO SCH (08:06)
[2019-04-21] MEDS: Mag Hydrox/Al Hydrox/Simeth 30 ML UDC PO PRN (08:07)
[2019-04-21] MEDS: Linezolid 600 MG TABLET PO SCH (08:08)
[2019-04-21] MEDS: Metoprolol XL (24 HR) Succ 25 MG TAB.ER.24H PO SCH (08:08)
[2019-04-21] MEDS: amLODIPine 5 MG TABLET PO SCH (08:09)
[2019-04-21] MEDS: chlorproMAZINE 25 MG TABLET PO SCH (08:09)
[2019-04-21] MEDS: Metoclopramide 10 MG/2 ML VIAL IVP PRN (08:11)
[2019-04-21] MEDS: Insulin LISPRO 300 UNITS/3 ML VIAL SQ SCH (08:35)
--- NOTE | 2019-04-21 09:02 | Discharge Summary ---
Orders not resulted at time of discharge: Pending orders 04/17/19 18:29 Culture,Blood [BC] Routine Date of Encounter: 04/21/19 Time of Encounter: 09:00 - Discharge Diagnosis (1) Sepsis Priority: Primary Status: Acute Assessment and Plan: 69 year old female with a PMH of IDDM, HTN, breast and ovarian cancer, and prior CVA who presented to [facility] ED on 04/17/19 with chief complaint of nausea and vom iting 4 days. She reported having approximately one episode of nausea with associated vomiting or dry heaving every 30 minutes today. Vomiting was clear, green, or brown. Denied coffee-ground emesis. Patient was noted to have dry heaves in the emergency room.On arrival, vital signs were significant for an elevated heart rate of 104 and an elevated BP at 191/95. Labs were significant for WBC 18.3 with left shift, elevated glucose at 532, beta hydroxybutyric acid >2, and alkaline phosphatase 133. VBG showed PH 7.37, PCO2 46, O2 35, HCO3 26. UA demonstrated urine ketones and glucosuria. She was given 2 L of NS and 4 mg of IV Zofran initially. CXR was unremarkable. CT of the abd/pelv demonstrated distal esophagus patulous and fluid-filled, suggesting reflux, innumerable punctate tree-in-bud micro nodules in RLL suggestive of aspiration, evidence of cirrhosis with portal hypertension, low density lesions and hepatic dome. Follow-up MRI was suggested. DKA protocol was initiated. She was assessed with sepsis with fever and leukocytosis likely secondary to aspiration pneumonia and VRE UTI and DKA. Her DKA resolved with an insulin drip and she was transitioned to subcutaneous insulin. She was noted to be taking 55 units BID levemir at home but this was excessive and has been reduced to 20 units at bed time. She was treated with cefepime, flagyl and levaquin for her aspiration pneumonia and zyvox for VRE UTI. She improved and will complete a 5 day course of antibiotics at home. She was discharged in a stable condition. 35 minutes was spent discharging this patient Qualifiers: Sepsis type: sepsis due to unspecified organism Qualified Code(s): A41.9 - Sepsis, unspecified organism; R65.20 - Severe sepsis without septic shock (2) Aspiration pneumonia Priority: Primary Status: Acute Assessment and Plan: Continue on cefepime and flagyl. Follow cultures. Pulmonary consult in light of multiple tree in bud opacities on CT scan and recurrent low grade fevers Seen by pulm who recommend bronchodilators and continue present antibiotic regimen Qualifiers: Qualified Code(s): J69.0 - Pneumonitis due to inhalation of food and vomit (3) DKA (diabetic ketoacidoses) Priority: Primary Status: Acute Qualifiers: Diabetes mellitus type: type 2 Diabetes mellitus complication detail: without coma Qualified Code(s): E11.10 - Type 2 diabetes mellitus with ketoacidosis without coma (4) Liver cirrhosis Priority: Primary Status: Acute Qualifiers: Qualified Code(s): K74.60 - Unspecified cirrhosis of liver (5) Urinary tract infection Priority: Primary Status: Acute Qualifiers: Qualified Code(s): N39.0 - Urinary tract infection, site not specified (6) Nausea Priority: Primary Status: Acute (7) DVT prophylaxis Priority: Primary Status: Acute Hospital course: Ms. Casillas is a 69 year old female - Time Spent with Patient Total time spent providing and/or coordinating discharge services: - Discharge Medications Prescriptions: New metroNIDAZOLE [Flagyl] 500 mg PO Q8H 5 Days #15 tablet Linezolid [Zyvox] 600 mg PO BID 5 Days #10 tablet amLODIPine [Norvasc] 5 mg PO DAILY #30 tablet Docusate [Colace] 100 mg PO BID #60 capsule Omeprazole [PriLOSEC] 40 mg PO BIDAC #60 capsule. Insulin DETEMIR [Levemir] 20 unit SQ HS #30 [id number] levoFLOXacin [Levaquin] 750 mg PO DAILY #5 tablet Ondansetron HCl [Zofran] 4 mg PO Q8HR PRN 15 Days #30 tab PRN Reason: Nausea And Vomiting Continued Albuterol Sulfate [Proair Hfa] 2 puff IH Q4H PRN PRN Reason: Dyspnea Insulin LISPRO [HumaLOG] 5 units SQ TIDWM Memantine HCl 10 mg PO BID Cyclobenzaprine [Flexeril] 10 mg PO TID PRN PRN Reason: CERVICAL MYELOPATHY Amitriptyline [Elavil] 50 mg PO HS #7 tablet OxyCODONE Immed Rel [Roxicodone 10 MG] 10 mg PO Q8H PRN PRN Reason: Mild To Moderate Pain Metoprolol XL (24 HR) Succ [Toprol Xl] 12.5 mg PO DAILY #15 tab.er.24h Discontinued Insulin Glargine,Hum.rec.anlog [Basaglar Kwikpen U-100] 55 unit SQ BID Ciprofloxacin HCl [Cipro] 500 mg PO BID Home Medications: Albuterol Sulfate [Proair Hfa] 2 puff IH Q4H PRN 02/04/18 [History] Metoprolol XL (24 HR) Succ [Toprol Xl] 12.5 mg PO DAILY #15 tab.er.24h 02/11/18 [Rx] Insulin LISPRO [HumaLOG] 5 units SQ TIDWM 04/23/18 [History] Memantine HCl 10 mg PO BID 07/23/18 [History] Cyclobenzaprine [Flexeril] 10 mg PO TID PRN 12/30/18 [History] Amitriptyline [Elavil] 50 mg PO HS #7 tablet 01/02/19 [Rx] OxyCODONE Immed Rel [Roxicodone 10 MG] 10 mg PO Q8H PRN 04/17/19 [History] Docusate [Colace] 100 mg PO BID #60 capsule 04/21/19 [Rx] Insulin DETEMIR [Levemir] 20 unit SQ HS #30 [id number] 04/21/19 [Rx] Linezolid [Zyvox] 600 mg PO BID 5 Days #10 tablet 04/21/19 [Rx] Omeprazole [PriLOSEC] 40 mg PO BIDAC #60 capsule. 04/21/19 [Rx] Ondansetron HCl [Zofran] 4 mg PO Q8HR PRN 15 Days #30 tab 04/21/19 [Rx] amLODIPine [Norvasc] 5 mg PO DAILY #30 tablet 04/21/19 [Rx] levoFLOXacin [Levaquin] 750 mg PO DAILY #5 tablet 04/21/19 [Rx] metroNIDAZOLE [Flagyl] 500 mg PO Q8H 5 Days #15 tablet 04/21/19 [Rx] Allergies/Adverse Reactions: Allergy/AdvReac Type Severity Reaction Status Date / Time bee venom protein (honey bee) Allergy Swelling Verified 04/23/18 07:21 of Lip/Tongue/Throat codeine Allergy Hives Verified 04/23/18 07:21 Penicillins [PCN] Allergy Hives Verified 04/23/18 07:21 bisoprolol [From Ziac] AdvReac See Verified 04/23/18 07:21 Comments Donepezil AdvReac Vomiting Verified 04/23/18 07:21 hydrochlorothiazide AdvReac See Verified 04/23/18 07:21 [From Ziac] Comments iodine AdvReac Hives Verified 04/23/18 07:21 lisinopril [From Zestril] AdvReac Vomiting Verified 04/23/18 07:21 tramadol AdvReac See Verified 04/23/18 07:21 Comments IVP dye Allergy Itching Uncoded 02/10/16 15:52 Date of admission: 04/17/19 07:52 Primary care physician: Julio Larios MD Consults: 04/17/19 08:14 Consult to Invasive Line Access Team [CONS] Routine Reason for Consult: limited vascular access on 1 arm to use for access Line Type: EPIV 04/17/19 12:15 Consult to Infectious Diseases [CONS] Routine Consulting Provider: Infectious Disease Josselyn Reason for Consult: VRE UTI. started on zyvox. Duration of therapy Call Completed: No 04/18/19 16:04 Consult to Pulmonology [CONS] Routine Consulting Provider: Pulm Crit Care [facility] Sleep Josselyn Reason for Consult: sepsis with multiple tree in bud opacities in lungs Call Completed: No 04/20/19 08:59 Consult to Physical Therapy [CONS] Routine Comment: Evaluate, develop and implement POC Reason for Consult: weakness Does patient have active BEDREST order?: No Is patient medically & hemodynamically stable?: Yes Patient assessed for mobility or mobilized this visit?: No 04/20/19 09:00 Consult to Occupational Therapy [CONS] Routine Comment: Evaluate, develop and implement POC Reason for Consult: weakness Does patient have active BEDREST order?: No Is patient medically & hemodynamically stable?: Yes Patient assessed for mobility or mobilized this visit?: No - Constitutional Vitals: Temp Pulse Resp BP Pulse Ox 98 F 73 16 105/65 95 04/21/19 08:03 04/21/19 08:03 04/21/19 08:03 04/21/19 08:03 04/21/19 05:16 Exam: General: Conversant, no acute distress Head: atraumatic, normocephalic; Eye: PERRL, EOMI, conjuntiva pink, sclera anicteric Neck: Supple, trachea midline; No lymphadenopathy Respiratory: Diminished breath sounds bilaterally; no rales or rhonchi Cardiovascular: RRR, +S1, +S2; no murmurs, rubs, gallops Abdomen: Soft, nontender; nondistended Extremities: warm, radial pulses palpable and symmetrical Psychiatric: Normal affect, normal mood Skin: Dry, intact - Patient Status Disposition: Home Health Service Condition: Good - Discharge Instructions Instructions: Metronidazole (By mouth), Omeprazole (By mouth), Amlodipine (By mouth), Ondansetron (Injection), Levofloxacin (By mouth), Linezolid (By mouth) Follow Up With: Julio Larios MD [Primary Care Provider] - (Sent web request on 04-17-19 @ 1231)
[2019-04-21] MEDS ORDERED: levoFLOXacin 750 MG TABLET PO SCH (10:42)
[2019-04-21 11:38] VITALS: BP 104/58
== END 2019-04-21 14:04 | disposition home health service (06) | DRG 871 ==
LOC: 2NNU 19:22 → EMEROOARM 19:22 → 2NNU 04-17 06:04 → 2ANU 04-17 22:43
PROVIDERS: ADMIT Internal Medicine Nephrology; ATTEND Internal Medicine Nephrology

== ENCOUNTER 2019-10-10 11:58 | Inpatient (IN) ==
[2019-10-10] MEDS ORDERED: Pantoprazole 80 MG in 0.9 % Sodium Chloride 50 ML IVPB ONE (12:08)
[2019-10-10] MEDS ORDERED: Ondansetron 4 MG/2 ML VIAL IVP ONE (12:08)
[2019-10-10 12:53] LABS: Basophils % 0.1 %; Hemoglobin 12.5 g/dL (11.5-15.4); Immature Granulocytes % 0.2 % (0-4); Lymphocytes # 0.6 K/mcL (0.6-4.6); Mean Corpuscular HGB Conc 32.9 g/dL (31.6-35.5); Mean Corpuscular Hemoglobin 29.7 pg (28.0-33.3); Mean Corpuscular Volume 90.3 fL (83.0-100.0); Mean Platelet Volume 10.5 fL (9.4-12.4); Monocytes # 0.6 K/mcL (0.0-1.3); Monocytes % 6.5 %; Neutrophils # 7.9 K/mcL (1.6-8.9); Platelet Count 153 K/mcL (140-400); Red Blood Count 4.21 M/mcL (3.82-4.97); Red Cell Distribution Width 14.4 % (11.5-14.5); Segmented Neutrophils % 87.2 %; White Blood Count 9.1 K/mcL (4.3-11.1)
[2019-10-10 12:56] LABS: INR 1.2; Prothrombin Time 13.3 Seconds (9.4-12.1)
[2019-10-10 12:59] LABS: Activated Partial Thrombo Time 26.4 Seconds (26.0-36.0)
[2019-10-10 13:13] LABS: Albumin 3.3 g/dL (3.5-5.7); Albumin/Globulin Ratio 0.9 (1.1-2.2); Bilirubin,Total 0.7 mg/dL (0.3-1.0); Calcium 9.8 mg/dL (8.6-10.3); Globulin 3.8 g/dL (2.4-3.5); Magnesium 2.1 mg/dL (1.6-2.6); Potassium 4.5 mEq/L (3.5-5.1); Total Protein 7.1 g/dL (6.4-8.9); Troponin I 0.03 ng/mL (< 0.04)
[2019-10-10 13:17] LABS: Platelet Estimate Normal (Normal); Toxic Granulation Present (Not Present)
[2019-10-10] MEDS ORDERED: cefTRIAXone 1,000 MG in Water for inj. (sterile) 10 ML IVP ONE (13:57)
[2019-10-10] MEDS ORDERED: MetroNIDAZOLE 500 MG/100 ML 500 MG/100 ML BAG IVPB ONE (13:58)
[2019-10-10] MEDS ORDERED: 0.9 % Sodium Chloride 1,000 ML IV ONE (13:59)
[2019-10-10 14:37] LABS: Bilirubin,Urine Small (Negative); Blood,Urine Large (Negative); Clarity,Urine Cloudy (Clear); Color,Urine Dark Yellow (Yellow); Glucose,Urine (UA) >=1000 mg/dL (Normal); Ketones,Urine Trace mg/dL (Negative); Leukocyte Esterase,Urine Large (Negative); Nitrite,Urine Negative (Negative); Protein,Urine Trace mg/dL (Neg-Trace); Specific Gravity,Urine 1.024 (1.010-1.025); Urobilinogen,Urine Normal (Normal)
[2019-10-10 14:38] LABS: Bacteria,Urine Moderate per hpf (None-Few); Squamous Epithelial Cell,Urine Many per lpf (None-Few); WBC,Urine TNTC per hpf (0-3)
[2019-10-10] MEDS ORDERED: 0.9 % Sodium Chloride 1,000 ML IVC SCH (15:30)
[2019-10-10] MEDS ORDERED: Gadolinium Contrast Agent (WT Based) IV PRN (15:50)
[2019-10-10 16:09] LABS: Hematocrit 35.8 % (35.3-44.9); Hemoglobin 11.8 g/dL (11.5-15.4)
[2019-10-10] MEDS: Insulin LISPRO 300 UNITS/3 ML VIAL SQ SCH (17:06)
[2019-10-10] MEDS: Pantoprazole 40 MG VIAL IVP SCH (17:06)
[2019-10-10] MEDS: Ondansetron ODT 4 MG TAB.RAPDIS SL PRN (22:42)
[2019-10-10] MEDS: MetroNIDAZOLE 500 MG/100 ML 500 MG/100 ML BAG IVPB SCH (22:42)
[2019-10-11] MEDS: Insulin LISPRO 300 UNITS/3 ML VIAL SQ SCH ×5 (00:28→23:51)
[2019-10-11 00:48] LABS: Hematocrit 34.4 % (35.3-44.9); Hemoglobin 11.5 g/dL (11.5-15.4)
[2019-10-11 01:07] LABS: BUN/Creatinine Ratio 61 (6-26); Blood Urea Nitrogen 37 mg/dL (8-23); Carbon Dioxide 29 mEq/L (23-29); Chloride 103 mEq/L (98-107); Glucose 219 mg/dL (70-105); Osmolality,Calculated 301 (280-300); Potassium 3.7 mEq/L (3.5-5.1); Sodium 138 mEq/L (136-145); eGFR For African Americans > 60 (> 60); eGFR For Non-African Americans > 60 (> 60)
[2019-10-11] MEDS: Pantoprazole 40 MG VIAL IVP SCH ×2 (05:49→17:28)
[2019-10-11] MEDS: MetroNIDAZOLE 500 MG/100 ML 500 MG/100 ML BAG IVPB SCH ×3 (05:52→21:58)
[2019-10-11] MEDS ORDERED: *HR* FentaNYL (PF) 100 MCG/2 ML VIAL ONE (07:42)
[2019-10-11] MEDS ORDERED: *HR* Midazolam HCl 5 MG/5 ML VIAL IVP ONE ×2 (07:42→08:38)
[2019-10-11] MEDS ORDERED: *HR* FentaNYL (PF) 100 MCG/2 ML VIAL IVP ONE (08:38)
[2019-10-11 08:46] LABS: Estimated Average Glucose 192 mg/dl
[2019-10-11] MEDS ORDERED: 0.9 % Sodium Chloride 1,000 ML IVC SCH (12:45)
[2019-10-11] MEDS: Metoprolol XL (24 HR) Succ 25 MG TAB.ER.24H PO SCH (15:25)
[2019-10-11] MEDS: amLODIPine 5 MG TABLET PO SCH (15:32)
[2019-10-11] MEDS: Ondansetron ODT 4 MG TAB.RAPDIS SL PRN (19:57)
[2019-10-12 00:36] LABS: Basophils % 0.2 %; Eosinophils % 0.3 %; Hematocrit 31.3 % (35.3-44.9); Hemoglobin 10.4 g/dL (11.5-15.4); Immature Granulocytes % 0.7 % (0-4); Lymphocytes # 0.9 K/mcL (0.6-4.6); Lymphocytes % 14.9 %; Mean Corpuscular HGB Conc 33.2 g/dL (31.6-35.5); Mean Corpuscular Hemoglobin 29.9 pg (28.0-33.3); Mean Corpuscular Volume 89.9 fL (83.0-100.0); Mean Platelet Volume 10.1 fL (9.4-12.4); Monocytes # 0.4 K/mcL (0.0-1.3); Monocytes % 6.9 %; Neutrophils # 4.5 K/mcL (1.6-8.9); Platelet Count 115 K/mcL (140-400); Red Blood Count 3.48 M/mcL (3.82-4.97); Red Cell Distribution Width 14.6 % (11.5-14.5); White Blood Count 5.8 K/mcL (4.3-11.1)
[2019-10-12 00:54] LABS: BUN/Creatinine Ratio 44 (6-26); Blood Urea Nitrogen 23 mg/dL (8-23); Calcium 8.2 mg/dL (8.6-10.3); Carbon Dioxide 28 mEq/L (23-29); Chloride 106 mEq/L (98-107); Glucose 158 mg/dL (70-105); Osmolality,Calculated 295 (280-300); Potassium 3.2 mEq/L (3.5-5.1); Sodium 139 mEq/L (136-145); eGFR For African Americans > 60 (> 60); eGFR For Non-African Americans > 60 (> 60)
[2019-10-12 05:09] LABS: Hepatitis B Surface Antigen Nonreactive (Nonreactive)
[2019-10-12 05:38] LABS: Hepatitis B Core IgM Nonreactive (Nonreactive)
[2019-10-12 05:39] LABS: Hepatitis A Antibody IgM Nonreactive (Nonreactive); Hepatitis C Virus Antibody Nonreactive (Nonreactive)
[2019-10-12] MEDS: Insulin LISPRO 300 UNITS/3 ML VIAL SQ SCH ×4 (05:47→23:32)
[2019-10-12] MEDS: MetroNIDAZOLE 500 MG/100 ML 500 MG/100 ML BAG IVPB SCH ×3 (05:58→21:49)
[2019-10-12] MEDS: Pantoprazole 40 MG VIAL IVP SCH ×2 (05:59→17:56)
[2019-10-12] MEDS ORDERED: *HR* OxyCODONE Immed Rel 5 MG TABLET PO PRN (06:07)
[2019-10-12] MEDS: Ondansetron ODT 4 MG TAB.RAPDIS SL PRN ×2 (06:18→16:31)
[2019-10-12] MEDS ORDERED: Ondansetron 4 MG/2 ML VIAL IVP ONE (08:36)
[2019-10-12] MEDS: Fluticasone Propionate Nasal 50 MCG/SPRAY BOTTLE NS SCH (09:08)
[2019-10-12] MEDS: Metoprolol XL (24 HR) Succ 25 MG TAB.ER.24H PO SCH (09:08)
[2019-10-12] MEDS: amLODIPine 5 MG TABLET PO SCH (09:08)
[2019-10-13] MEDS: Ondansetron ODT 4 MG TAB.RAPDIS SL PRN ×2 (03:05→11:38)
[2019-10-13] MEDS: Pantoprazole 40 MG VIAL IVP SCH (05:01)
[2019-10-13 05:10] LABS: Basophils % 0.3 %; Eosinophils # 0.2 K/mcL (0.0-0.6); Eosinophils % 3.2 %; Hematocrit 33.9 % (35.3-44.9); Hemoglobin 11.3 g/dL (11.5-15.4); Immature Granulocytes % 0.5 % (0-4); Lymphocytes # 1.3 K/mcL (0.6-4.6); Lymphocytes % 20.3 %; Mean Corpuscular HGB Conc 33.3 g/dL (31.6-35.5); Mean Corpuscular Hemoglobin 29.4 pg (28.0-33.3); Mean Corpuscular Volume 88.1 fL (83.0-100.0); Mean Platelet Volume 9.9 fL (9.4-12.4); Monocytes # 0.5 K/mcL (0.0-1.3); Monocytes % 7.7 %; Neutrophils # 4.2 K/mcL (1.6-8.9); Platelet Count 127 K/mcL (140-400); Red Blood Count 3.85 M/mcL (3.82-4.97); White Blood Count 6.2 K/mcL (4.3-11.1)
[2019-10-13 05:31] LABS: BUN/Creatinine Ratio 38 (6-26); Blood Urea Nitrogen 18 mg/dL (8-23); Calcium 8.5 mg/dL (8.6-10.3); Carbon Dioxide 31 mEq/L (23-29); Chloride 101 mEq/L (98-107); Glucose 76 mg/dL (70-105); Osmolality,Calculated 289 (280-300); Potassium 2.8 mEq/L (3.5-5.1); Sodium 139 mEq/L (136-145); eGFR For African Americans > 60 (> 60); eGFR For Non-African Americans > 60 (> 60)
[2019-10-13 05:34] LABS: % Iron Saturation 26 % (15-50); Iron 61 mcg/dL (50-170); Transferrin 168 mg/dL (203-362)
[2019-10-13] MEDS: Insulin LISPRO 300 UNITS/3 ML VIAL SQ SCH ×3 (05:43→17:06)
[2019-10-13 05:51] LABS: Ferritin 50 ng/mL (10-120)
[2019-10-13 05:56] LABS: Folate 21.1 ng/mL (3.0-16.0)
[2019-10-13] MEDS: MetroNIDAZOLE 500 MG/100 ML 500 MG/100 ML BAG IVPB SCH (06:05)
[2019-10-13] MEDS: Metoprolol XL (24 HR) Succ 25 MG TAB.ER.24H PO SCH (07:50)
[2019-10-13] MEDS: Fluticasone Propionate Nasal 50 MCG/SPRAY BOTTLE NS SCH (07:50)
[2019-10-13] MEDS ORDERED: Potassium Chloride 40 MEQ, Lidocaine 1% 2 ML in 0.9 % Sodium Chloride 500 ML IVPB ONE (11:53)
[2019-10-13] MEDS: metroNIDAZOLE 500 MG TABLET PO SCH ×2 (14:50→21:00)
[2019-10-14] MEDS: Insulin LISPRO 300 UNITS/3 ML VIAL SQ SCH ×2 (00:06→06:05)
[2019-10-14 05:27] LABS: BUN/Creatinine Ratio 32 (6-26); Blood Urea Nitrogen 20 mg/dL (8-23); Calcium 8.5 mg/dL (8.6-10.3); Carbon Dioxide 31 mEq/L (23-29); Chloride 104 mEq/L (98-107); Glucose 110 mg/dL (70-105); Osmolality,Calculated 291 (280-300); Potassium 3.4 mEq/L (3.5-5.1); Sodium 139 mEq/L (136-145); eGFR For African Americans > 60 (> 60); eGFR For Non-African Americans > 60 (> 60)
[2019-10-14] MEDS: Metoprolol XL (24 HR) Succ 25 MG TAB.ER.24H PO SCH (08:25)
[2019-10-14] MEDS: metroNIDAZOLE 500 MG TABLET PO SCH ×2 (08:25→16:05)
[2019-10-14] MEDS: Fluticasone Propionate Nasal 50 MCG/SPRAY BOTTLE NS SCH (08:25)
[2019-10-14] MEDS ORDERED: Insulin LISPRO 300 UNITS/3 ML VIAL SQ SCH ×2 (11:30→21:00)
[2019-10-14 15:12] VITALS: BP 109/46
[2019-10-14] MEDS ORDERED: Acetaminophen 325 MG TABLET PO PRN (15:16)
== END 2019-10-14 17:10 | disposition home health service (06) | DRG 872 ==
LOC: EMEROOARM 11:58 → 3ANU 11:58 → SUATTDRO 14:21 → 3ANU 15:18
PROVIDERS: ADMIT Internal Medicine; ATTEND Internal Medicine

== ENCOUNTER 2019-12-08 17:22 | Inpatient (IN) ==
[2019-12-08] MEDS ORDERED: 0.9 % Sodium Chloride 1,000 ML IVC ONE (17:32)
[2019-12-08 17:59] LABS: Basophils % 0.3 %; Eosinophils # 0.1 K/mcL (0.0-0.6); Eosinophils % 0.7 %; Hematocrit 35.1 % (35.3-44.9); Hemoglobin 11.1 g/dL (11.5-15.4); INR 1.1; Immature Granulocytes % 0.1 % (0-4); Lymphocytes # 1.1 K/mcL (0.6-4.6); Lymphocytes % 16.9 %; Mean Corpuscular HGB Conc 31.6 g/dL (31.6-35.5); Mean Corpuscular Hemoglobin 29.6 pg (28.0-33.3); Mean Corpuscular Volume 93.6 fL (83.0-100.0); Mean Platelet Volume 10.5 fL (9.4-12.4); Monocytes # 0.3 K/mcL (0.0-1.3); Monocytes % 4.6 %; Neutrophils # 5.2 K/mcL (1.6-8.9); Platelet Count 119 K/mcL (140-400); Prothrombin Time 12.3 Seconds (9.4-12.1); Red Blood Count 3.75 M/mcL (3.82-4.97); Red Cell Distribution Width 15.9 % (11.5-14.5); Segmented Neutrophils % 77.4 %; White Blood Count 6.7 K/mcL (4.3-11.1)
[2019-12-08 18:02] LABS: Activated Partial Thrombo Time 31.7 Seconds (26.0-36.0)
[2019-12-08 18:15] LABS: Albumin 3.6 g/dL (3.5-5.7); BUN/Creatinine Ratio 38 (6-26); Bilirubin,Direct 0.1 mg/dL (0.0-0.2); Bilirubin,Indirect 0.4 mg/dL (0.0-1.0); Bilirubin,Total 0.5 mg/dL (0.3-1.0); Blood Urea Nitrogen 20 mg/dL (8-23); Calcium 9.5 mg/dL (8.6-10.3); Carbon Dioxide 31 mEq/L (23-29); Chloride 99 mEq/L (98-107); Globulin 3.5 g/dL (2.4-3.5); Glucose 164 mg/dL (70-105); Magnesium 1.8 mg/dL (1.6-2.6); Osmolality,Calculated 286 (280-300); Potassium 4.4 mEq/L (3.5-5.1); Sodium 135 mEq/L (136-145); Total Protein 7.1 g/dL (6.4-8.9); eGFR For African Americans > 60 (> 60); eGFR For Non-African Americans > 60 (> 60)
[2019-12-08 18:16] LABS: Troponin I < 0.03 ng/mL (< 0.04)
[2019-12-08 18:29] LABS: Thyroid Stimulating Hormone 2.596 mcIU/mL (0.340-5.600)
[2019-12-08 18:35] LABS: Bilirubin,Urine Negative (Negative); Blood,Urine Trace (Negative); Clarity,Urine Clear (Clear); Color,Urine Yellow (Yellow); Glucose,Urine (UA) Normal (Normal); Ketones,Urine Negative (Negative); Leukocyte Esterase,Urine Moderate (Negative); Nitrite,Urine Negative (Negative); PH,Urine 6.5 pH Units (5.0-8.0); Protein,Urine Trace mg/dL (Neg-Trace); Specific Gravity,Urine 1.021 (1.010-1.025); Urobilinogen,Urine Normal (Normal)
[2019-12-08 18:37] LABS: Bacteria,Urine None Seen per hpf (None-Few); Hyaline Casts,Urine Few per lpf (None-Few); Squamous Epithelial Cell,Urine Many per lpf (None-Few); WBC,Urine 15-30 per hpf (0-3)
[2019-12-08] MEDS ORDERED: Ondansetron 4 MG/2 ML VIAL IVP ONE (18:48)
[2019-12-08] MEDS ORDERED: Lactulose Oral Soln 20 GM/30 ML UDC PO ONE (19:17)
[2019-12-08] MEDS ORDERED: Ertapenem 1,000 MG in 0.9 % Sodium Chloride Mini Bag 100 ML IVPB ONE (19:24)
[2019-12-08] MEDS ORDERED: Acetaminophen 325 MG TABLET PO PRN (20:04)
[2019-12-08] MEDS ORDERED: Ondansetron 4 MG/2 ML VIAL IVP PRN (20:04)
[2019-12-08] MEDS ORDERED: Naloxone 0.4 MG/ML INJ IVP PRN (20:04)
[2019-12-08] MEDS ORDERED: Dextrose Gel 15 GM/37.5 ML TUBE PO PRN ×2 (20:11)
[2019-12-08] MEDS ORDERED: D5% in Water 1,000 ML IVC PRN (20:11)
[2019-12-08] MEDS ORDERED: *HR* Dextrose 50 % in Water (Syg) 50 ML SYRINGE IVP PRN (20:11)
[2019-12-08] MEDS ORDERED: Insulin DETEMIR 100 UNIT/ML X5UNITS SQ SCH (21:00)
[2019-12-08] MEDS: *HR* Heparin 5,000 UNIT/ML VIAL SQ SCH (21:33)
[2019-12-08] MEDS: Insulin LISPRO 300 UNITS/3 ML VIAL SQ SCH (21:33)
[2019-12-09 04:30] LABS: Basophils % 0.4 %; Eosinophils # 0.1 K/mcL (0.0-0.6); Hematocrit 34.8 % (35.3-44.9); Hemoglobin 10.6 g/dL (11.5-15.4); Immature Granulocytes % 0.4 % (0-4); Lymphocytes # 1.4 K/mcL (0.6-4.6); Lymphocytes % 25.1 %; Mean Corpuscular HGB Conc 30.5 g/dL (31.6-35.5); Mean Corpuscular Volume 95.1 fL (83.0-100.0); Mean Platelet Volume 10.1 fL (9.4-12.4); Monocytes # 0.3 K/mcL (0.0-1.3); Monocytes % 5.6 %; Neutrophils # 3.7 K/mcL (1.6-8.9); Platelet Count 114 K/mcL (140-400); Red Blood Count 3.66 M/mcL (3.82-4.97); Red Cell Distribution Width 16.2 % (11.5-14.5); Segmented Neutrophils % 66.5 %; White Blood Count 5.5 K/mcL (4.3-11.1)
[2019-12-09 04:51] LABS: BUN/Creatinine Ratio 35 (6-26); Blood Urea Nitrogen 15 mg/dL (8-23); Carbon Dioxide 32 mEq/L (23-29); Chloride 103 mEq/L (98-107); Glucose 115 mg/dL (70-105); Magnesium 1.8 mg/dL (1.6-2.6); Osmolality,Calculated 288 (280-300); Potassium 4.5 mEq/L (3.5-5.1); Sodium 138 mEq/L (136-145); eGFR For African Americans > 60 (> 60); eGFR For Non-African Americans > 60 (> 60)
[2019-12-09] MEDS: *HR* Heparin 5,000 UNIT/ML VIAL SQ SCH ×2 (05:09→17:39)
[2019-12-09] MEDS: Ertapenem 1,000 MG in 0.9 % Sodium Chloride Mini Bag 100 ML IVPB SCH (07:57)
[2019-12-09] MEDS: Insulin LISPRO 300 UNITS/3 ML VIAL SQ SCH ×6 (07:57→20:33)
[2019-12-09] MEDS ORDERED: Lactulose Oral Soln 20 GM/30 ML UDC PO SCH (09:00)
[2019-12-09] MEDS: Metoprolol XL (24 HR) Succ 25 MG TAB.ER.24H PO SCH (12:10)
[2019-12-09] MEDS: Fluticasone Propionate Nasal 50 MCG/SPRAY BOTTLE NS SCH (12:22)
[2019-12-09] MEDS: Lactulose Oral Soln 20 GM/30 ML UDC PO SCH ×2 (14:00→20:39)
[2019-12-09] MEDS ORDERED: Insulin DETEMIR 100 UNIT/ML X5UNITS SQ SCH (21:00)
[2019-12-09] MEDS ORDERED: NON-FORMULARY MEDICATION 1 EACH EACH (Insulin Glargine [Lantus] 60 UNIT) SQ SCH (21:00)
[2019-12-10 04:42] LABS: Basophils % 0.2 %; Eosinophils # 0.1 K/mcL (0.0-0.6); Eosinophils % 2.1 %; Hematocrit 33.1 % (35.3-44.9); Hemoglobin 10.2 g/dL (11.5-15.4); Immature Granulocytes % 0.5 % (0-4); Lymphocytes # 1.7 K/mcL (0.6-4.6); Mean Corpuscular HGB Conc 30.8 g/dL (31.6-35.5); Mean Corpuscular Hemoglobin 29.1 pg (28.0-33.3); Mean Corpuscular Volume 94.3 fL (83.0-100.0); Mean Platelet Volume 10.7 fL (9.4-12.4); Monocytes # 0.4 K/mcL (0.0-1.3); Monocytes % 6.3 %; Neutrophils # 3.5 K/mcL (1.6-8.9); Platelet Count 103 K/mcL (140-400); Red Blood Count 3.51 M/mcL (3.82-4.97); Red Cell Distribution Width 15.9 % (11.5-14.5); Segmented Neutrophils % 61.9 %; White Blood Count 5.7 K/mcL (4.3-11.1)
[2019-12-10 05:02] LABS: Albumin 3.4 g/dL (3.5-5.7); Albumin/Globulin Ratio 1.1 (1.1-2.2); BUN/Creatinine Ratio 37 (6-26); Bilirubin,Direct 0.2 mg/dL (0.0-0.2); Bilirubin,Indirect 0.3 mg/dL (0.0-1.0); Bilirubin,Total 0.5 mg/dL (0.3-1.0); Blood Urea Nitrogen 18 mg/dL (8-23); Calcium 9.4 mg/dL (8.6-10.3); Carbon Dioxide 29 mEq/L (23-29); Chloride 103 mEq/L (98-107); Globulin 3.2 g/dL (2.4-3.5); Glucose 112 mg/dL (70-105); Magnesium 1.8 mg/dL (1.6-2.6); Osmolality,Calculated 291 (280-300); Sodium 139 mEq/L (136-145); Total Protein 6.6 g/dL (6.4-8.9); eGFR For African Americans > 60 (> 60); eGFR For Non-African Americans > 60 (> 60)
[2019-12-10] MEDS: *HR* Heparin 5,000 UNIT/ML VIAL SQ SCH (05:40)
[2019-12-10] MEDS: Insulin LISPRO 300 UNITS/3 ML VIAL SQ SCH ×5 (07:30→16:34)
[2019-12-10] MEDS: Ertapenem 1,000 MG in 0.9 % Sodium Chloride Mini Bag 100 ML IVPB SCH (07:31)
[2019-12-10] MEDS: Fluticasone Propionate Nasal 50 MCG/SPRAY BOTTLE NS SCH (07:34)
[2019-12-10] MEDS: Loratadine 10 MG TABLET PO SCH (07:34)
[2019-12-10] MEDS: Lactulose Oral Soln 20 GM/30 ML UDC PO SCH ×3 (07:35→20:47)
[2019-12-10] MEDS: Metoprolol XL (24 HR) Succ 25 MG TAB.ER.24H PO SCH (07:35)
[2019-12-10] MEDS: Lactobacillus 1 EACH CAP.SPRINK PO SCH (20:46)
[2019-12-11 04:56] LABS: Hemoglobin 10.1 g/dL (11.5-15.4); Immature Granulocytes % 0.4 % (0-4); Red Cell Distribution Width 15.9 % (11.5-14.5)
[2019-12-11 04:58] LABS: Basophils % 0.2 %; Eosinophils # 0.1 K/mcL (0.0-0.6); Eosinophils % 2.6 %; Hematocrit 32.7 % (35.3-44.9); Immature Platelets 6.5 % (1.1-6.1); Lymphocytes # 1.3 K/mcL (0.6-4.6); Lymphocytes % 27.4 %; Mean Corpuscular HGB Conc 30.9 g/dL (31.6-35.5); Mean Corpuscular Hemoglobin 28.9 pg (28.0-33.3); Mean Corpuscular Volume 93.7 fL (83.0-100.0); Mean Platelet Volume 11.1 fL (9.4-12.4); Monocytes # 0.3 K/mcL (0.0-1.3); Monocytes % 5.5 %; Neutrophils # 3.1 K/mcL (1.6-8.9); Red Blood Count 3.49 M/mcL (3.82-4.97); Segmented Neutrophils % 63.9 %; White Blood Count 4.9 K/mcL (4.3-11.1)
[2019-12-11 05:01] LABS: Platelet Count 84 K/mcL (140-400)
[2019-12-11 05:19] LABS: % Iron Saturation 25 % (15-50); BUN/Creatinine Ratio 42 (6-26); Blood Urea Nitrogen 20 mg/dL (8-23); Calcium 9.3 mg/dL (8.6-10.3); Carbon Dioxide 30 mEq/L (23-29); Chloride 102 mEq/L (98-107); Glucose 154 mg/dL (70-105); Iron 75 mcg/dL (50-170); Magnesium 1.6 mg/dL (1.6-2.6); Osmolality,Calculated 294 (280-300); Potassium 4.2 mEq/L (3.5-5.1); Sodium 139 mEq/L (136-145); Transferrin 212 mg/dL (203-362); eGFR For African Americans > 60 (> 60); eGFR For Non-African Americans > 60 (> 60)
[2019-12-11 05:36] LABS: Ferritin 55 ng/mL (10-120)
[2019-12-11 05:42] LABS: Folate 21.5 ng/mL (3.0-16.0)
[2019-12-11] MEDS: Lactobacillus 1 EACH CAP.SPRINK PO SCH (07:51)
[2019-12-11] MEDS: Metoprolol XL (24 HR) Succ 25 MG TAB.ER.24H PO SCH (07:52)
[2019-12-11] MEDS: Loratadine 10 MG TABLET PO SCH (07:55)
[2019-12-11] MEDS: Fluticasone Propionate Nasal 50 MCG/SPRAY BOTTLE NS SCH (07:56)
[2019-12-11] MEDS: Insulin LISPRO 300 UNITS/3 ML VIAL SQ SCH ×2 (07:57→12:17)
[2019-12-11] MEDS ORDERED: Iron Sucrose Complex 250 MG in 0.9 % Sodium Chloride 250 ML IVPB ONE (08:04)
[2019-12-11] MEDS: Lactulose Oral Soln 20 GM/30 ML UDC PO SCH (08:17)
[2019-12-11] MEDS ORDERED: Insulin DETEMIR 100 UNIT/ML X5UNITS SQ SCH (09:00)
[2019-12-11 11:10] VITALS: BP 105/57
== END 2019-12-11 14:59 | disposition home health service (06) | DRG 689 ==
LOC: 3ANU 17:22 → EMEROOARM 17:22 → SUATTDRO 19:47 → 3ANU 20:26 → SUATTDRO 12-09 10:56
PROVIDERS: ADMIT Family Medicine; ATTEND Pharmacist

== ENCOUNTER 2019-12-13 14:53 | Inpatient (IN) ==
[2019-12-13 16:18] LABS: Immature Granulocytes % 0.5 % (0-4); Lymphocytes % 11.6 %; Red Cell Distribution Width 15.9 % (11.5-14.5)
[2019-12-13 16:20] LABS: Basophils % 0.2 %; Eosinophils # 0.1 K/mcL (0.0-0.6); Eosinophils % 1.9 %; Hematocrit 36.2 % (35.3-44.9); Immature Platelets 4.3 % (1.1-6.1); Lymphocytes # 0.7 K/mcL (0.6-4.6); Mean Corpuscular HGB Conc 30.4 g/dL (31.6-35.5); Mean Corpuscular Volume 95.5 fL (83.0-100.0); Mean Platelet Volume 10.9 fL (9.4-12.4); Monocytes # 0.3 K/mcL (0.0-1.3); Monocytes % 4.5 %; Neutrophils # 5.2 K/mcL (1.6-8.9); Platelet Count 108 K/mcL (140-400); Red Blood Count 3.79 M/mcL (3.82-4.97); Segmented Neutrophils % 81.3 %; White Blood Count 6.4 K/mcL (4.3-11.1)
[2019-12-13 16:33] LABS: BUN/Creatinine Ratio 28 (6-26); Blood Urea Nitrogen 21 mg/dL (8-23); Calcium 10.1 mg/dL (8.6-10.3); Carbon Dioxide 28 mEq/L (23-29); Chloride 100 mEq/L (98-107); Glucose 86 mg/dL (70-105); Osmolality,Calculated 286 (280-300); Potassium 4.4 mEq/L (3.5-5.1); Sodium 137 mEq/L (136-145); Troponin I < 0.03 ng/mL (< 0.04); eGFR For African Americans > 60 (> 60); eGFR For Non-African Americans > 60 (> 60)
[2019-12-13] MEDS ORDERED: 0.9 % Sodium Chloride 500 ML IVC ONE (17:30)
[2019-12-13 17:32] LABS: Bilirubin,Urine Negative (Negative); Blood,Urine Moderate (Negative); Clarity,Urine Turbid (Clear); Color,Urine Yellow (Yellow); Glucose,Urine (UA) Normal (Normal); Ketones,Urine Negative (Negative); Leukocyte Esterase,Urine Large (Negative); Nitrite,Urine Negative (Negative); PH,Urine 5.5 pH Units (5.0-8.0); Protein,Urine 30 mg/dL (Neg-Trace); Urobilinogen,Urine Normal (Normal)
[2019-12-13 17:34] LABS: Bacteria,Urine Few per hpf (None-Few); Hyaline Casts,Urine None Seen per lpf (None-Few); Squamous Epithelial Cell,Urine Many per lpf (None-Few); WBC,Urine TNTC per hpf (0-3)
[2019-12-13 17:49] LABS: INR 1.1
[2019-12-13 17:53] LABS: Activated Partial Thrombo Time 30.9 Seconds (26.0-36.0)
[2019-12-13] MEDS ORDERED: Ondansetron 4 MG/2 ML VIAL IVP PRN (18:15)
[2019-12-13] MEDS ORDERED: Naloxone 0.4 MG/ML INJ IVP PRN (18:15)
[2019-12-13] MEDS ORDERED: Ertapenem 1,000 MG in 0.9 % Sodium Chloride Mini Bag 100 ML IVPB ONE (18:15)
[2019-12-13] MEDS ORDERED: Dextrose Gel 15 GM/37.5 ML TUBE PO PRN ×2 (18:23)
[2019-12-13] MEDS ORDERED: D5% in Water 1,000 ML IVC PRN (18:23)
[2019-12-13] MEDS ORDERED: *HR* Dextrose 50 % in Water (Syg) 50 ML SYRINGE IVP PRN (18:23)
[2019-12-13] MEDS: Ringers Solution, Lactated 1,000 ML IVC SCH (19:46)
[2019-12-13] MEDS: Insulin LISPRO 300 UNITS/3 ML VIAL SQ SCH (22:24)
[2019-12-13] MEDS: Insulin DETEMIR 100 UNIT/ML X5UNITS SQ SCH (22:32)
[2019-12-13] MEDS: *HR* Heparin 5,000 UNIT/ML VIAL SQ SCH (22:33)
[2019-12-13] MEDS: Lactulose Oral Soln 20 GM/30 ML UDC PO SCH (22:33)
[2019-12-14 04:47] LABS: Immature Granulocytes % 0.3 % (0-4); Mean Platelet Volume 10.3 fL (9.4-12.4)
[2019-12-14 04:49] LABS: Basophils % 0.2 %; Eosinophils # 0.1 K/mcL (0.0-0.6); Eosinophils % 2.1 %; Hematocrit 30.6 % (35.3-44.9); Hemoglobin 9.3 g/dL (11.5-15.4); Immature Platelets 2.7 % (1.1-6.1); Lymphocytes # 1.4 K/mcL (0.6-4.6); Lymphocytes % 23.4 %; Mean Corpuscular HGB Conc 30.4 g/dL (31.6-35.5); Mean Corpuscular Hemoglobin 28.9 pg (28.0-33.3); Monocytes # 0.3 K/mcL (0.0-1.3); Monocytes % 5.7 %; Platelet Count 116 K/mcL (140-400); Red Blood Count 3.22 M/mcL (3.82-4.97); Red Cell Distribution Width 15.8 % (11.5-14.5); Segmented Neutrophils % 68.3 %; White Blood Count 5.8 K/mcL (4.3-11.1)
[2019-12-14] MEDS: Ringers Solution, Lactated 1,000 ML IVC SCH (04:56)
[2019-12-14 05:05] LABS: BUN/Creatinine Ratio 33 (6-26); Blood Urea Nitrogen 14 mg/dL (8-23); Carbon Dioxide 31 mEq/L (23-29); Chloride 103 mEq/L (98-107); Glucose 62 mg/dL (70-105); Magnesium 1.4 mg/dL (1.6-2.6); Osmolality,Calculated 282 (280-300); Phosphorous 2.4 mg/dL (2.7-4.5); Potassium 3.9 mEq/L (3.5-5.1); Sodium 137 mEq/L (136-145); eGFR For African Americans > 60 (> 60); eGFR For Non-African Americans > 60 (> 60)
[2019-12-14] MEDS: *HR* Heparin 5,000 UNIT/ML VIAL SQ SCH ×3 (05:46→19:15)
[2019-12-14] MEDS: Insulin LISPRO 300 UNITS/3 ML VIAL SQ SCH ×4 (07:13→20:26)
[2019-12-14] MEDS: Lactulose Oral Soln 20 GM/30 ML UDC PO SCH ×3 (08:25→19:15)
[2019-12-14] MEDS: Metoprolol XL (24 HR) Succ 25 MG TAB.ER.24H PO SCH (08:25)
[2019-12-14] MEDS: Ertapenem 1,000 MG in 0.9 % Sodium Chloride Mini Bag 100 ML IVPB SCH (08:25)
[2019-12-14] MEDS: Insulin DETEMIR 100 UNIT/ML X5UNITS SQ SCH (20:29)
[2019-12-14] MEDS: Famotidine 20 MG TABLET PO SCH (20:30)
[2019-12-15] MEDS: *HR* Heparin 5,000 UNIT/ML VIAL SQ SCH ×3 (05:03→21:14)
[2019-12-15 06:30] LABS: Basophils % 0.6 %; Eosinophils # 0.1 K/mcL (0.0-0.6); Eosinophils % 2.6 %; Hematocrit 30.8 % (35.3-44.9); Hemoglobin 9.6 g/dL (11.5-15.4); Immature Granulocytes % 0.3 % (0-4); Lymphocytes # 1.1 K/mcL (0.6-4.6); Lymphocytes % 34.1 %; Mean Corpuscular HGB Conc 31.2 g/dL (31.6-35.5); Mean Corpuscular Hemoglobin 29.8 pg (28.0-33.3); Mean Corpuscular Volume 95.7 fL (83.0-100.0); Mean Platelet Volume 10.3 fL (9.4-12.4); Monocytes # 0.2 K/mcL (0.0-1.3); Monocytes % 7.1 %; Neutrophils # 1.7 K/mcL (1.6-8.9); Platelet Count 108 K/mcL (140-400); Red Blood Count 3.22 M/mcL (3.82-4.97); Red Cell Distribution Width 15.9 % (11.5-14.5); Segmented Neutrophils % 55.3 %; White Blood Count 3.1 K/mcL (4.3-11.1)
[2019-12-15 06:50] LABS: BUN/Creatinine Ratio 21 (6-26); Blood Urea Nitrogen 9 mg/dL (8-23); Carbon Dioxide 32 mEq/L (23-29); Chloride 103 mEq/L (98-107); Glucose 100 mg/dL (70-105); Osmolality,Calculated 285 (280-300); Sodium 138 mEq/L (136-145); eGFR For African Americans > 60 (> 60); eGFR For Non-African Americans > 60 (> 60)
[2019-12-15] MEDS: Insulin LISPRO 300 UNITS/3 ML VIAL SQ SCH ×4 (07:55→21:22)
[2019-12-15] MEDS: Loratadine 10 MG TABLET PO SCH (08:38)
[2019-12-15] MEDS: Famotidine 20 MG TABLET PO SCH ×2 (08:38→17:31)
[2019-12-15] MEDS: Metoprolol XL (24 HR) Succ 25 MG TAB.ER.24H PO SCH (08:40)
[2019-12-15] MEDS: Ertapenem 1,000 MG in 0.9 % Sodium Chloride Mini Bag 100 ML IVPB SCH (08:42)
[2019-12-15] MEDS: Lactulose Oral Soln 20 GM/30 ML UDC PO SCH ×3 (09:01→21:14)
[2019-12-15] MEDS: Fluticasone Propionate Nasal 50 MCG/SPRAY BOTTLE NS SCH (09:02)
[2019-12-15] MEDS ORDERED: Fosfomycin Tromethamine 3 GM Packet PO ONE (15:00)
[2019-12-15] MEDS: Insulin DETEMIR 100 UNIT/ML X5UNITS SQ SCH (21:20)
[2019-12-16 03:52] LABS: Basophils % 0.3 %; Hemoglobin 9.7 g/dL (11.5-15.4); Immature Granulocytes % 0.3 % (0-4)
[2019-12-16 03:54] LABS: Eosinophils # 0.1 K/mcL (0.0-0.6); Eosinophils % 2.3 %; Hematocrit 31.4 % (35.3-44.9); Immature Platelets 3.5 % (1.1-6.1); Lymphocytes % 29.9 %; Mean Corpuscular HGB Conc 30.9 g/dL (31.6-35.5); Mean Corpuscular Hemoglobin 29.6 pg (28.0-33.3); Mean Corpuscular Volume 95.7 fL (83.0-100.0); Mean Platelet Volume 10.3 fL (9.4-12.4); Monocytes # 0.3 K/mcL (0.0-1.3); Monocytes % 7.6 %; Platelet Count 119 K/mcL (140-400); Red Blood Count 3.28 M/mcL (3.82-4.97); Segmented Neutrophils % 59.6 %; White Blood Count 3.4 K/mcL (4.3-11.1)
[2019-12-16 04:14] LABS: BUN/Creatinine Ratio 24 (6-26); Blood Urea Nitrogen 11 mg/dL (8-23); Calcium 9.1 mg/dL (8.6-10.3); Carbon Dioxide 31 mEq/L (23-29); Chloride 103 mEq/L (98-107); Glucose 137 mg/dL (70-105); Osmolality,Calculated 290 (280-300); Potassium 3.6 mEq/L (3.5-5.1); Sodium 139 mEq/L (136-145); eGFR For African Americans > 60 (> 60); eGFR For Non-African Americans > 60 (> 60)
[2019-12-16] MEDS ORDERED: *HR* OxyCODONE Immed Rel 5 MG TABLET PO ONE (05:11)
[2019-12-16] MEDS: *HR* Heparin 5,000 UNIT/ML VIAL SQ SCH (05:47)
[2019-12-16 07:16] VITALS: BP 161/82
[2019-12-16] MEDS: Insulin LISPRO 300 UNITS/3 ML VIAL SQ SCH (07:33)
[2019-12-16] MEDS: Famotidine 20 MG TABLET PO SCH (07:46)
[2019-12-16] MEDS: Loratadine 10 MG TABLET PO SCH (07:46)
[2019-12-16] MEDS: Metoprolol XL (24 HR) Succ 25 MG TAB.ER.24H PO SCH (07:46)
[2019-12-16] MEDS: Lactulose Oral Soln 20 GM/30 ML UDC PO SCH (07:52)
[2019-12-16] MEDS: Fluticasone Propionate Nasal 50 MCG/SPRAY BOTTLE NS SCH (07:54)
== END 2019-12-16 11:43 | DRG 689 ==
LOC: EMEROOARM 14:53 → 3BNU 14:53 → SUATTDRO 19:36
PROVIDERS: ADMIT Student in an Organized Health Care Education/Training Program; ATTEND Family Medicine

== ENCOUNTER 2020-02-08 14:14 | Inpatient (IN) ==
[2020-02-08] MEDS ORDERED: Ringers Solution, Lactated 1,000 ML IVC ONE ×2 (14:29→16:55)
[2020-02-08 14:57] LABS: Hematocrit 33.6 % (35.3-44.9); Hemoglobin 10.3 g/dL (11.5-15.4); Mean Corpuscular HGB Conc 30.7 g/dL (31.6-35.5); Mean Corpuscular Hemoglobin 29.4 pg (28.0-33.3); Mean Platelet Volume 10.6 fL (9.4-12.4); Platelet Count 109 K/mcL (140-400); Red Cell Distribution Width 15.5 % (11.5-14.5); White Blood Count 8.8 K/mcL (4.3-11.1)
[2020-02-08 15:02] LABS: INR 1.2; Prothrombin Time 13.7 Seconds (9.4-12.1)
[2020-02-08 15:04] LABS: Activated Partial Thrombo Time 27.5 Seconds (26.0-36.0)
[2020-02-08 15:19] LABS: Acetaminophen < 10 mcg/mL (10-20); Alanine Aminotransferase 26 Units/L (7-52); Albumin/Globulin Ratio 0.8 (1.1-2.2); Alkaline Phosphatase 216 Units/L (34-104); Aspartate Amino Transferase 32 Units/L (13-39); Bilirubin,Direct 0.5 mg/dL (0.0-0.2); Bilirubin,Indirect 0.3 mg/dL (0.0-1.0); Bilirubin,Total 0.8 mg/dL (0.3-1.0); Ethanol < 10 mg/dL (Less than 10); Globulin 3.9 g/dL (2.4-3.5); Salicylate < 2.5 mg/dL (15.0-30.0); Total Protein 6.9 g/dL (6.4-8.9)
[2020-02-08 15:20] LABS: Troponin I < 0.03 ng/mL (< 0.04)
[2020-02-08 15:32] LABS: Lymphocytes # 0.8 K/mcL (0.6-4.6); Monocytes # 0.3 K/mcL (0.0-1.3); Neutrophils # 7.7 K/mcL (1.6-8.9); Platelet Estimate Decreased (Normal)
[2020-02-08 16:15] LABS: BUN/Creatinine Ratio 48 (6-26); Blood Urea Nitrogen 45 mg/dL (8-23); Calcium 8.9 mg/dL (8.6-10.3); Carbon Dioxide 25 mEq/L (23-29); Chloride 106 mEq/L (98-107); Glucose 109 mg/dL (70-105); Osmolality,Calculated 298 (280-300); Potassium 2.9 mEq/L (3.5-5.1); Sodium 138 mEq/L (136-145); eGFR For African Americans > 60 (> 60); eGFR For Non-African Americans 60 (> 60)
[2020-02-08] MEDS ORDERED: Potassium Chloride 40 MEQ, Lidocaine 1% 2 ML in 0.9 % Sodium Chloride 500 ML IVPB ONE (16:52)
[2020-02-08] MEDS ORDERED: *HR* Dextrose 50 % in Water (Syg) 50 ML SYRINGE ONE (17:14)
[2020-02-08] MEDS ORDERED: Dextrose Gel 15 GM/37.5 ML TUBE PO ONE (17:15)
[2020-02-08] MEDS ORDERED: D5% in 0.9% NACL w KCl 20 MEQ/1,000 ML MLS IVC SCH (17:30)
[2020-02-08 17:32] LABS: Bilirubin,Urine Small (Negative); Blood,Urine Moderate (Negative); Clarity,Urine Turbid (Clear); Color,Urine Dark Yellow (Yellow); Glucose,Urine (UA) Normal (Normal); Ketones,Urine Negative (Negative); Leukocyte Esterase,Urine Large (Negative); Nitrite,Urine Positive (Negative); PH,Urine 5.5 pH Units (5.0-8.0); Protein,Urine 30 mg/dL (Neg-Trace); Specific Gravity,Urine 1.021 (1.010-1.025); Urobilinogen,Urine Normal (Normal)
[2020-02-08 17:35] LABS: Bacteria,Urine Many per hpf (None-Few); Hyaline Casts,Urine None Seen per lpf (None-Few); Squamous Epithelial Cell,Urine Many per lpf (None-Few); WBC,Urine TNTC per hpf (0-3)
[2020-02-08 17:43] LABS: Amphetamine Screen,Urine Negative ng/mL (Cutoff=1000); Barbiturate Screen,Urine Negative ng/mL (Cutoff=200); Benzodiazepines Screen,Urine Negative ng/mL (Cutoff=200); Cannabinoid Screen,Urine Negative ng/mL (Cutoff = 50); Cocaine Screen,Urine Negative ng/mL (Cutoff= 300); Opiate Screen,Urine Positive ng/mL (Cutoff=300); Phencyclidine Screen,Urine Negative ng/mL (Cutoff=25)
[2020-02-08 17:44] LABS: Yeast,Urine Few per hpf (None Seen)
[2020-02-08] MEDS: Potassium Chloride 40 MEQ in D5% in 0.45% NACL 1,000 ML IVC SCH (17:48)
[2020-02-08 17:58] LABS: ABG Base Excess 4 mEq/L (-2 to 3); ABG HCO3 30 mEq/L (21-27); ABG Oxygen Saturation 98 % (95-98); ABG PCO2 48 mmHg (35-45); ABG PO2 106 mmHg (85-104); ABG TCO2 31 mEq/L (20-26)
[2020-02-08] MEDS ORDERED: Ondansetron 4 MG/2 ML VIAL IVP PRN (18:14)
[2020-02-08] MEDS ORDERED: Naloxone 0.4 MG/ML INJ IVP PRN (18:14)
[2020-02-08 18:53] LABS: BUN/Creatinine Ratio 52 (6-26); Blood Urea Nitrogen 48 mg/dL (8-23); Calcium 8.7 mg/dL (8.6-10.3); Carbon Dioxide 28 mEq/L (23-29); Chloride 104 mEq/L (98-107); Glucose 152 mg/dL (70-105); Osmolality,Calculated 312 (280-300); Potassium 2.8 mEq/L (3.5-5.1); Sodium 143 mEq/L (136-145); eGFR For African Americans > 60 (> 60); eGFR For Non-African Americans > 60 (> 60)
[2020-02-08] MEDS ORDERED: Dextrose Gel 15 GM/37.5 ML TUBE PO PRN ×2 (19:01)
[2020-02-08] MEDS ORDERED: *HR* Dextrose 50 % in Water (Syg) 50 ML SYRINGE IVP PRN (19:01)
[2020-02-08] MEDS ORDERED: D5% in Water 1,000 ML IVC PRN (19:01)
[2020-02-08] MEDS: Lactulose Oral Soln 20 GM/30 ML UDC PO SCH (21:10)
[2020-02-08] MEDS: Sucralfate 1 GM TABLET PO SCH (21:10)
[2020-02-08] MEDS: levoFLOXacin 500 MG/100 ML 500 MG/100 ML BAG IVPB SCH (22:58)
[2020-02-08 23:43] LABS: BUN/Creatinine Ratio 51 (6-26); Blood Urea Nitrogen 39 mg/dL (8-23); Calcium 8.4 mg/dL (8.6-10.3); Carbon Dioxide 27 mEq/L (23-29); Chloride 109 mEq/L (98-107); Glucose 64 mg/dL (70-105); Osmolality,Calculated 293 (280-300); Potassium 4.3 mEq/L (3.5-5.1); Sodium 138 mEq/L (136-145); eGFR For African Americans > 60 (> 60); eGFR For Non-African Americans > 60 (> 60)
[2020-02-09 06:35] LABS: Basophils % 0.2 %; Eosinophils % 0.6 %; Hematocrit 34.4 % (35.3-44.9); Hemoglobin 10.9 g/dL (11.5-15.4); Immature Granulocytes % 0.4 % (0-4); Lymphocytes # 0.5 K/mcL (0.6-4.6); Lymphocytes % 9.4 %; Mean Corpuscular HGB Conc 31.7 g/dL (31.6-35.5); Mean Corpuscular Hemoglobin 30.2 pg (28.0-33.3); Mean Corpuscular Volume 95.3 fL (83.0-100.0); Mean Platelet Volume 10.4 fL (9.4-12.4); Monocytes # 0.3 K/mcL (0.0-1.3); Monocytes % 5.8 %; Neutrophils # 4.2 K/mcL (1.6-8.9); Platelet Count 101 K/mcL (140-400); Red Blood Count 3.61 M/mcL (3.82-4.97); Red Cell Distribution Width 15.1 % (11.5-14.5); Segmented Neutrophils % 83.6 %
[2020-02-09 06:55] LABS: BUN/Creatinine Ratio 48 (6-26); Blood Urea Nitrogen 31 mg/dL (8-23); Calcium 8.4 mg/dL (8.6-10.3); Carbon Dioxide 25 mEq/L (23-29); Chloride 106 mEq/L (98-107); Glucose 63 mg/dL (70-105); Magnesium 2.1 mg/dL (1.6-2.6); Osmolality,Calculated 291 (280-300); Potassium 4.3 mEq/L (3.5-5.1); Sodium 138 mEq/L (136-145); eGFR For African Americans > 60 (> 60); eGFR For Non-African Americans > 60 (> 60)
[2020-02-09] MEDS: Potassium Chloride 40 MEQ in D5% in 0.45% NACL 1,000 ML IVC SCH ×2 (06:56→14:13)
[2020-02-09] MEDS ORDERED: *HR* Dextrose 50 % in Water (Syg) 50 ML SYRINGE IVP ONE (07:13)
[2020-02-09] MEDS: Metoprolol XL (24 HR) Succ 25 MG TAB.ER.24H PO SCH (08:47)
[2020-02-09] MEDS: Sucralfate 1 GM TABLET PO SCH ×4 (08:47→20:19)
[2020-02-09] MEDS: Lactulose Oral Soln 20 GM/30 ML UDC PO SCH ×3 (08:47→20:20)
[2020-02-09] MEDS: Loratadine 10 MG TABLET PO SCH (08:47)
[2020-02-09] MEDS: levoFLOXacin 500 MG/100 ML 500 MG/100 ML BAG IVPB SCH (17:19)
[2020-02-09] MEDS: *HR* Heparin 5,000 UNIT/ML VIAL SQ SCH (20:20)
[2020-02-10] MEDS: Potassium Chloride 40 MEQ in D5% in 0.45% NACL 1,000 ML IVC SCH (01:39)
[2020-02-10 02:22] LABS: Basophils % 0.2 %; Eosinophils % 0.2 %; Hematocrit 31.9 % (35.3-44.9); Hemoglobin 9.8 g/dL (11.5-15.4); Immature Granulocytes % 0.7 % (0-4); Lymphocytes # 0.7 K/mcL (0.6-4.6); Lymphocytes % 11.4 %; Mean Corpuscular HGB Conc 30.7 g/dL (31.6-35.5); Mean Corpuscular Hemoglobin 29.3 pg (28.0-33.3); Mean Corpuscular Volume 95.2 fL (83.0-100.0); Mean Platelet Volume 10.4 fL (9.4-12.4); Monocytes # 0.3 K/mcL (0.0-1.3); Monocytes % 5.3 %; Neutrophils # 4.8 K/mcL (1.6-8.9); Platelet Count 111 K/mcL (140-400); Red Blood Count 3.35 M/mcL (3.82-4.97); Red Cell Distribution Width 15.1 % (11.5-14.5); Segmented Neutrophils % 82.2 %; White Blood Count 5.8 K/mcL (4.3-11.1)
[2020-02-10 02:35] LABS: BUN/Creatinine Ratio 28 (6-26); Blood Urea Nitrogen 15 mg/dL (8-23); Calcium 8.2 mg/dL (8.6-10.3); Carbon Dioxide 23 mEq/L (23-29); Chloride 107 mEq/L (98-107); Glucose 155 mg/dL (70-105); Magnesium 1.7 mg/dL (1.6-2.6); Osmolality,Calculated 288 (280-300); Potassium 3.9 mEq/L (3.5-5.1); Sodium 137 mEq/L (136-145); eGFR For African Americans > 60 (> 60); eGFR For Non-African Americans > 60 (> 60)
[2020-02-10 02:48] LABS: Thyroid Stimulating Hormone 1.446 mcIU/mL (0.340-5.600)
[2020-02-10 02:57] LABS: Platelet Estimate Slight Decrease (Normal)
[2020-02-10] MEDS ORDERED: *HR* Metoprolol 5 MG/5 ML VIAL IVP ONE (03:51)
[2020-02-10] MEDS ORDERED: Acetaminophen 325 MG TABLET PO ONE (03:52)
[2020-02-10] MEDS: *HR* Heparin 5,000 UNIT/ML VIAL SQ SCH (05:29)
[2020-02-10 07:15] VITALS: BP 159/76
[2020-02-10 08:02] LABS: Estimated Average Glucose 163 mg/dl
[2020-02-10] MEDS: Lactulose Oral Soln 20 GM/30 ML UDC PO SCH ×2 (08:08→08:12)
[2020-02-10] MEDS: Sucralfate 1 GM TABLET PO SCH (08:08)
[2020-02-10] MEDS: Loratadine 10 MG TABLET PO SCH (08:08)
[2020-02-10] MEDS: Metoprolol XL (24 HR) Succ 25 MG TAB.ER.24H PO SCH (08:08)
[2020-02-10] MEDS ORDERED: Clotrimazole/Betameth Dip CRM 45 APPL/45 GM TUBE TP SCH (09:00)
== END 2020-02-10 11:00 | disposition hospice, home (50) | DRG 917 ==
LOC: 2ANU 14:14 → EMEROOARM 14:14 → SUATTDRO 19:06 → 2ANU 19:52
PROVIDERS: ADMIT Pharmacist; ATTEND Pharmacist